=== PATIENT | female | born 1935 | race Caucasian/White ===

== ENCOUNTER 2016-11-08 21:04 | Emergency (ER) | payer MEDICARE, BC ==
[~2016-11-08] VITALS: Ht 157.5 cm; Wt 75.0 kg
[~2016-11-08 21:04] MED LIST: ALLO100T PO; ASPI-1085 PO; CYPR4TAB37 PO; ERGO500044 PO; FOLI0.8C2 PO; FURO-154 PO; GABA-354 PO; INFL100V INJ; LEVO150T4 PO; MILN50TA PO; NIAC750T2 PO; POTA20TA87 PO; PROP15DR BOTH EYES; RANI15SY PO; SUCR1TAB PO; TELM1TAB26 PO; TIZA4TAB4 PO; TRAM50TA4 PO; TRIA15CR3 TOP
--- OUTSIDE RECORDS SUMMARY | 2016-11-08 21:09 | XMS REPORT | Continuity of Care Document ---
Author Author [facility] Organization [facility] Address Unknown Phone Unavailable Support Name Relationship Address Phone PATRICIO WEI MD Caregiver [address] [place] [address] Unavailable PATRICIO WEI MD Caregiver [address] [place] [address] Unavailable SAMANTA COVARRUBIAS MD Caregiver [address] [place] [address] Unavailable VIRGINIE CABRERA MD Caregiver [address] [place] [address] DRIVE [place] [id number] Unavailable RENETTA GIANG Next Of Kin [address] [place] [address] C Insurance Providers Guarantor Karly Giang Address [address] [place] [address] Email DENIED 09-16-16 Payer Medicare Policy Number [id number] Subscriber's Name GeorgeAntonioasiflambert Rodriguez Relationship 18 Self Effective Date 00 Payer Blue Cross Other Policy Number [id number] Subscriber's Name Karly Giang Jennifer Relationship 18 Self Group Number [id number] Advance Directives Directive Response Recorded Date/Time Advanced Directives Type DNR Documentation DPOA for Healthcare 09/16/16 5:22pm Ordered Resuscitation Status Do Not Resuscitate 09/16/16 7:56pm DPOA for Healthcare Only Liya ros sarah 09/16/16 10:41pm Living Will No 09/16/16 10:41pm Advance Directive Consult Information Given 09/17/16 10:41am Chief Complaint and Reason for Visit Chief Complaint HYPOKALEMIA,HYPERTENSION,ALTERED MENTAL STATUS Reason for Visit History of MS (myocardial infarction) Problems Active Problems Medical Problem Onset Date Status Altered mental status Unknown Acute Anxiety Unknown Chronic Degenerative arthritis of hip Unknown Chronic Fibromyalgia Unknown Chronic GERD (gastroesophageal reflux disease) Unknown Chronic Gout Unknown Chronic Headache Unknown History of MS (myocardial infarction) Unknown Resolved History of gastric ulcer Unknown Hyperlipemia Unknown Chronic Hypertension Unknown Chronic Hypokalemia Unknown Acute Hypothyroidism Unknown Chronic SANJEEV (obstructive sleep apnea) Unknown Chronic Obesity (BMI 30-39.9) Unknown Chronic Post-op pain Unknown Acute Past Problems Medical Problem Onset Date Chest pain Unknown Right upper lobe pneumonia Unknown Right upper lobe pneumonia Unknown Medications Current Home Medications Medication Dose Units Route Directions Days Qty Instructions Start Date Allopurinol 100 Mg Tablet 100 Mg Oral Daily 03/25/14 Aspirin (Aspirin Ec) 81 Mg Tablet.dr 81 Mg Oral Daily 09/16/16 Cyproheptadine Hcl 4 Mg Tablet 8 Mg Oral Three Times A Day Ergocalciferol (Vitamin D2) (Vitamin D2) 50,000 Unit Capsule 50,000 Unit Oral Weekly 09/16/16 Folic Acid (Fa-8) 0.8 Mg Capsule 0.8 Mg Oral Daily 09/16/16 Furosemide (Lasix) 20 Mg Tablet 20 Mg Oral Daily 09/16/16 Gabapentin 400 Mg Capsule 400 Mg Oral Bedtime 07/28/15 Infliximab (Remicade) 100 Mg/Vial Vial 100 Mg Injection Levothyroxine Sodium (Synthroid) 150 Mcg Tablet 1 Tab Oral Before Breakfast 30 Tablet BEST IF TAKEN BEFORE BREAKFAST 09/17/16 Milnacipran Hcl (Savella) 50 Mg Tablet 50 Mg Oral Twice A Day 12/05 Niacin 750 Mg Tablet.er 1,500 Mg Oral Daily 11/04/14 Potassium Chloride 20 Meq Tab.er.prt 20 Meq Oral Daily 09/16/16 Propylene Glycol/Peg 400 (Systane 0.3-0.4% Eye Drops) 15 Ml Drops 1 Drop Both Eyes As Needed 09/16/16 Ranitidine Hcl 15 Mg/1 Ml Syrup 150 Mg Oral Daily 09/16/16 Sucralfate 1 Gm Tablet 1 G Oral Four Times Daily 07/28/15 Telmisartan/Amlodipine (Telmisartan-Amlodipine 40-5 Mg) 1 Each Tablet 1 Tab Oral Daily 09/16/16 Tizanidine Hcl 4 Mg Tablet 4 Mg Oral Three Times A Day as needed for Neck Pain 09/16/16 Tramadol Hcl 50 Mg Tablet 50-100 Mg Oral Every 4 Hours as needed for Pain 10/23/15 Triamcinolone (Triamcinolone Acetonide) 15 Applic/15 G Cr 1 Applic Topically As Needed 10/23/15 Past Home Medications Medication Directions Ordered Status Aspirin (Terri Chewable) 81 Mg Tab.chew, 1 Tab Oral Daily 09/25/15 Discontinued Catapres Patch , 3.1 02/21/09 Discontinued Cholestyramine (Cholestyramine Packet) 4 G Packet, 03/25/14 Discontinued Clonidine Hcl (Catapres-Tts 2) 0.2 Mg/24 Hr/Patch.wk Patch.tdwk, 02/21/09 Discontinued Colchicine (Colcrys) 0.6 Mg Tablet, 1 Tab Oral Daily 03/25/14 Discontinued Ezetimibe (Zetia) 10 Mg Tablet, 10 Mg Oral Daily 02/12/09 Discontinued Fenofibrate Nanocrystallized (Tricor) 145 Mg Tablet, 145 Mg Oral Daily Discontinued Hydrochlorothiazide 12.5 Mg Tablet, 25 Mg Oral Daily 02/21/09 Discontinued Isosorbide Mononitrate 120 Mg Tab.sr.24h, 120 Mg Oral Daily 06/04/11 Discontinued Isosorbide Mononitrate 60 Mg Tab.sr.24h, 60 Mg Oral Twice A Day 02/12/09 Discontinued Levothyroxine Sodium 175 Mcg Tablet, 175 Mcg Oral Before Breakfast 09/25/15 Discontinued Levothyroxine Sodium 100 Mcg Tablet, 100 Mcg Oral Daily 02/12/09 Discontinued Liposen , 150 Mg Oral Daily 11/01/11 Discontinued Motrin , As Needed 02/21/09 Discontinued Omeprazole (Prilosec) 20 Mg Tablet.dr, 20 Mg Oral Daily 02/12/09 Discontinued Percocet , Prn Q4h 02/21/09 Discontinued Potassium Chloride 10 Meq Capsule.sa, 10 Meq Oral Daily 06/04/11 Discontinued Tramadol Hcl (Ultram) 50 Mg Tablet, 03/25/14 Discontinued Social History Social History Problem Response Recorded Date/Time Onset Date Status Reason for Hospitalization Hypokalemia, Hypertension 09/17/2016 6:41pm Not Applicable Not Applicable Hx Substance Use No 09/16/2016 5:22pm Not Applicable Not Applicable Hx Alcohol Use No 09/16/2016 5:22pm Not Applicable Not Applicable Has the pt used tobacco in the last 12 months No 09/16/2016 10:44pm Not Applicable Not Applicable Tobacco Usage none 09/30/2015 2:50pm Not Applicable Not Applicable Query Response Start Date Stop Date Smoking Status Former smoker Hospital Discharge Instructions Instructions: Care Instructions: I was in the hospital because (patient own words): headache and nausea Discharge Diet: Regular Discharge Activity: No restrictions. Follow Up Appointments: Dr. Wei next week, office will call. Previously scheduled appointment with psych 09/29/16 Pending Lab / Results: Follow up w/ your PCP Expected Signs/Symptoms: Anxiety Notify Physician If: Confusion During Business Hours:: Please call the physician's office at [phone] After Business Hours:: Please call [phone] and have the pole peeling machine operator page the physician. Pain Management/Treatment: NA Wound/Incision Care: NA Condition at time of discharge: Good Plan of Care Discharge Date 09/17/16 7:12pm Disposition 01 DISCHARGED HOME, SELF-CARE Instructions/Education Provided Hypokalemia (ED) Hypertension (ED) Prescriptions See Medication Section Care Plan and Goals See Discharge Instructions Section Functional Status Query Response Date Recorded Mobility Status Ambulatory September 17, 2016 12:58am Assistive Devices R foot brace September 17, 2016 12:58am Activity Limitations None September 17, 2016 12:58am Feeding Ability Independent September 17, 2016 12:58am Toileting Ability Assist September 17, 2016 12:58am Grooming Ability Independent September 17, 2016 12:58am Dressing Ability Assist September 17, 2016 12:58am Driving Ability Dependent September 17, 2016 12:58am Housework Ability Assist September 17, 2016 12:58am Meal Preparation Ability Assist September 17, 2016 12:58am Stair Climbing Ability Assist September 17, 2016 12:58am Ability to complete ADL's impeded by Change in Cognition September 17, 2016 12:58am Cognitive/Perceptual Impairments Acute confusion September 17, 2016 12:58am Preferred Method of Learning Listening September 17, 2016 12:58am Allergies, Adverse Reactions, Alerts Allergen Type Severity Reaction Status Last Updated Angiotensin-converting enzyme inhibitor Allergy Unknown Active 09/16/16 Gfvkdyk-Iep-Jgu Reductase Inhibitor Allergy Intermediate RASH; MYALGIAS Active 09/16/16 Lisinopril Adverse Reaction Unknown COUGHING Active 09/16/16 Amphetamine Adverse Reaction Unknown TERRIBLE HEADACHES Active 09/16/16 Dextroamphetamine Adverse Reaction Unknown TERRIBLE HEADACHES Active 09/16 Methylphenidate Adverse Reaction Unknown HEADACHES Active 09/16/16 Pitavastatin Adverse Reaction Unknown MUSCLE WEAKNESS/SORENESS Active Immunizations Query Response on File Recorded Date/Time Hx Influenza Vaccination Y MAY 2016 09/16/16 10:44pm Hx Pneumococcal Vaccination Y 09/30/15 09/16/16 10:44pm Hx Influenza Vaccination Y MAY 2016 09/16/16 10:44pm Influenza Vaccine Hx fall 201509/16/16 5:22pm Vital Signs Acute Vital Signs Vital Response Date/Time Temperature (Fahrenheit) 96.9 deg F (96.8 - 99.1) 09/17/2016 3:46pm Temperature (Calculated Celsius) 36.66050 degrees C (36.0 - 37.3) 09/17/2016 3:46pm Pulse Rate (adult) 58 bpm (60 - 100) 09/17/2016 3:46pm Respiratory Rate 20 breaths/min (10 - 20) 09/17/2016 3:46pm O2 Sat by Pulse Oximetry 94 % (90 - 100) 09/17/2016 3:46pm Oxygen Delivery Method Room Air 09/17/2016 3:46pm Blood Pressure 111/54 mm Hg 09/17/2016 3:46pm Blood Pressure Source Automatic Cuff 09/17/2016 3:46pm Height (Feet) 5 feet 09/16/2016 10:40pm Height (Inches) 2.00 inches 09/16/2016 10:40pm Weight (Kilograms) 74.100 kg 09/17/2016 8:03am Body Mass Index (BMI) 29.8 09/16/2016 10:40pm Results Laboratory Results Test Name Result Units Flags Reference Collection Date/Time Result Date/ Time Comments White Blood Count 9.1 T/MM3 D 4.5-11.0 09/17/2016 5:11am 09/17/2016 5: 48am Red Blood Count 4.57 M/MM3 4.00-5.20 09/17/2016 5:11am 09/17/2016 5: 48am Hemoglobin 11.6 GM/DL L 12-16 09/17/2016 5:11am 09/17/2016 5:48am Hematocrit 36.7 % 36-46 09/17/2016 5:11am 09/17/2016 5:48am Mean Corpuscular Volume 80.3 UM3 80-100 09/17/2016 5:11am 09/17/2016 5: 48am Mean Corpuscular Hemoglobin 25.4 UUG L 26-34 09/17/2016 5:11am 2016 5:48am Mean Corpuscular Hemoglobin Concent 31.6 GM/DL 31-37 09/17/2016 5:09/17/2016 5:48am RDW Standard Deviation 50.1 FL 36.9-50.2 09/17/2016 5:09/17/2016 5 :48am Platelet Count 169 T/MM3 130-400 09/17/2016 5:09/17/2016 5:48am Mean Platelet Volume 9.2 UM3 L 9.4-12.4 09/17/2016 5:09/17/2016 5: 48am Neutrophils (%) (Auto) 75.8 % H 33-66 09/17/2016 5:09/17/2016 5: 48am Lymphocytes (%) (Auto) 19.5 % L 23-45 09/17/2016 5:09/17/2016 5: 48am Monocytes (%) (Auto) 4.3 % 0-9.0 09/17/2016 5:09/17/2016 5:48am Eosinophils (%) (Auto) 0.2 % 0-4 09/17/2016 5:09/17/2016 5:48am Basophils (%) (Auto) 0.1 % 0-2 09/17/2016 5:09/17/2016 5:48am Immature Granulocyte % (Auto) 0.1 % 0.0-0.5 09/17/2016 5:2016 5:48am Absolute Neutrophils (auto) 6.9 T/MM3 1.8-7.7 09/17/2016 5:2016 5:48am Absolute Lymphocytes (auto) 1.8 T/MM3 1-4.8 09/17/2016 5:2016 5:48am Absolute Monocytes (auto) 0.4 T/MM3 0-0.8 09/17/2016 5:09/17/2016 5:48am Absolute Eosinophils (auto) 0.0 T/MM3 0-0.5 09/17/2016 5:2016 5:48am Absolute Basophils (auto) 0.0 T/MM3 0-0.2 09/17/2016 5:09/17/2016 5:48am Absolute Immature Granulocyte (auto 0.01 T/MM3 0.00-0.03 09/17/2016 5: 09/17/2016 5:48am Icterus Index < 2 0-7 09/17/2016 5:09/17/2016 6:01am Chemistry Specimen Hemolysis < 15 0-25 09/17/2016 5:09/17/2016 6 :01am 0-25: Specimen Exhibited No Hemolysis. Turbidity < 20 0-20 09/17/2016 5:09/17/2016 6:01am Sodium Level 137 MEQ/L 134-144 09/17/2016 5:09/17/2016 6:01am Potassium Level 4.6 MEQ/L D 3.6-5 09/17/2016 5:09/17/2016 6:13am Chloride Level 105 MEQ/L 98-107 09/17/2016 5:09/17/2016 6:01am Carbon Dioxide Level 24 MEQ/L 22-30 09/17/2016 5:09/17/2016 6: 01am Anion Gap 8 MEQ/L 5-15 09/17/2016 5:09/17/2016 6:01am Blood Urea Nitrogen 21.0 MG/DL H 7-17 09/17/2016 5:09/17/2016 6: 01am Creatinine 1.1 MG/DL 0.7-1.2 09/17/2016 5:09/17/2016 6:01am BUN/Creatinine Ratio 19 RATIO 6-09/17/2016 5:09/17/2016 6:01am Glomerular Filtration Rate Calc 48 09/17/2016 5:09/17/2016 6: 01am Glucose Level 114 MG/DL H 65-110 09/17/2016 5:09/17/2016 6:01am Calculated Osmolality 268 MOSM/KG 261-280 09/17/2016 5:09/17/2016 6:01am Calcium Level 9.4 MG/DL D 8.4-10.2 09/17/2016 5:09/17/2016 6:13am Troponin I 0.027 ng/ml 0-0.12 09/16/2016 5:55pm 09/16/2016 6:30pm Troponin values with a difference of 55% increase from orginal troponin value represent a true biological DELTA value. (%increase Calc=Orginal Troponin value, divided by subsequent Troponin value, multiplied by 100) Magnesium Level 1.8 MG/DL 1.6-2.3 09/16/2016 5:55pm 09/16/2016 8:11pm Thyroid Stimulating Hormone (TSH) 0.20 MIU/L L 0.47-4.68 09/16/2016 5: 55pm 09/16/2016 8:32pm Urine Collection Type CLEANCATCH-MIDSTREAM 09/16/2016 6:09pm 2016 6:13pm Urine Color YELLOW YELLOW 09/16/2016 6:09pm 09/16/2016 6:13pm Urine Turbidity CLEAR CLEAR 09/16/2016 6:09pm 09/16/2016 6:13pm Urine Specific [place] 1.010 L 1.015-1.025 09/16/2016 6:09pm 2016 6:13pm Urine pH 6.5 5.0-8.0 09/16/2016 6:09pm 09/16/2016 6:13pm Urine Leukocyte Esterase NEGATIVE NEGATIVE 09/16/2016 6:09pm 2016 6:13pm Urine Nitrite NEGATIVE NEGATIVE 09/16/2016 6:09pm 09/16/2016 6:13pm Urine Protein 1+ A NEGATIVE 09/16/2016 6:09pm 09/16/2016 6:13pm Urine Glucose (UA) NEGATIVE NEGATIVE 09/16/2016 6:09pm 09/16/2016 6: 13pm Urine Ketones NEGATIVE NEGATIVE 09/16/2016 6:09pm 09/16/2016 6:13pm Urine Urobilinogen 0.2 EU/DL NORMAL 09/16/2016 6:09pm 09/16/2016 6: 13pm Urine Bilirubin NEGATIVE NEGATIVE 09/16/2016 6:09pm 09/16/2016 6: 13pm Urine Blood NEGATIVE NEGATIVE 09/16/2016 6:09pm 09/16/2016 6:13pm Urine WBC 0-1 /HPF 0-5 09/16/2016 6:09pm 09/16/2016 6:21pm Urine RBC 0-1 /HPF 0-3 09/16/2016 6:09pm 09/16/2016 6:21pm Urine Squamous Epithelial Cells NONE SEEN 09/16/2016 6:09pm 2016 6:21pm Urine Bacteria 2+ H NEGATIVE 09/16/2016 6:09pm 09/16/2016 6:21pm Urine Culture Indicated CULT NOT INDICATED 09/16/2016 6:09pm 2016 6:21pm Name: KARLY GIANG Unit #: [id number] : 1935 Sex: F Admit Date: 09/16/16 Loc / Svc: MED Discharge Date: DIAGNOSTIC IMAGING REPORT Report #: [id number] [facility] [place] Indication: ITS.REASON: confusion PROCEDURE: CT HEAD W/O CONTRAST: Encounter: Initial Comparison: October 23, 2015 Technique: Axial CT images through the head were performed without contrast. Iterative Reconstruction dose reducing technique was utilized. FINDINGS: The ventricles are of normal size, shape, and contour for the patient's age. There are scattered areas of low attenuation in the white matter which most likely represent changes from chronic microvascular ischemia. The brainstem, cerebellum, and cerebral hemispheres otherwise have a normal morphology and CT attenuation. There is no evidence of midline displacement. No hemorrhage, signs of acute territorial stroke, mass effect, mass lesions, or edema is evident. The visualized portions of the skull base, midface, and calvarium demonstrate no abnormality. The paranasal sinuses are well aerated and free of significant disease. The tympanic and mastoid cavities appear normal. IMPRESSION: No acute intracranial abnormality or hemorrhage. I am unable to appreciate the reported new hypodensity in the left caudate reported in the preliminary report. MRI can be performed for further evaluation if there is continued clinical concern for acute ischemia. There is a preliminary report by [employer]. . Procedures No known history of procedures. Encounters Encounter Location Arrival/Admit Date Discharge/Depart Date Attending Provider Discharged Inpatient (obs) [facility] 09/16/16 7:56pm 09/17/16 7: 12pm PATRICIO WEI MD Recent Diagnosis History of MS (myocardial infarction)
--- OUTSIDE RECORDS SUMMARY | 2016-11-08 21:09 | XMS REPORT | Continuity of Care Document ---
Author Author [facility] Organization [facility] Address Unknown Phone Unavailable Support Name Relationship Address Phone DEVANTE ALBRECHT DO Caregiver [facility] [address] [place] [address] PATRICIO WEI MD Caregiver [address] [place], [place] [phone] RENETTA GIANG Next Of Kin [address] [place] [address] Insurance Providers Payer Name Policy Number Subscriber Name Relationship Medicare [id number] Karly Giang 18 Self Blue Cross Other [id number] Karly Giang 18 Self Advance Directives Directive Response Recorded Date/Time Advanced Directives Type Living Will 03/25/14 10:07am Problems Medical Problems Problem Onset Date Status Chest pain Unknown Active Medications Medication Dose Route Sig Days/Qty Instructions Order Date Discontinued Date Status Levothyroxine Sodium 100 Mcg PO DAILY 02/12/09 06/04/11 Discontinued Hydrochlorothiazide 25 Mg PO DAILY 02/21/09 06/04/11 Discontinued Isosorbide Mononitrate 60 Mg PO TWICE A DAY 02/12/09 06/04/11 Discontinued Ezetimibe 10 Mg PO DAILY 02/12/09 06/04/11 Discontinued Omeprazole 20 Mg PO DAILY 02/12/09 06/04/11 Discontinued Fenofibrate Nanocrystallized 145 Mg PO DAILY 02/12/09 06/04/11 Discontinued [Motrin] NEEDED 02/21/09 06/04/11 Discontinued [Percocet] PRN Q4H 02/21/09 06/04/11 Discontinued Clonidine Hcl 02/21/09 02/21/09 Discontinued [Catapres Patch] 3.1 02/21/09 06/04/11 Discontinued Isosorbide Mononitrate 120 Mg PO DAILY 06/04/11 11/01/11 Discontinued Potassium Chloride 10 Meq PO DAILY 06/04/11 11/01/11 Discontinued [Liposen] 150 Mg PO DAILY 11/01/11 11/02/11 Discontinued Telmisartan 03/25/14 Active Allopurinol 1 Tab PO DAILY 03/25/14 Active Folic Acid 03/25/14 Active Levothyroxine Sodium 1 Tab PO BEFORE BREAKFAST BEST TAKEN BEFORE BREAKFAST 03/25/14 Active Colchicine 1 Tab PO DAILY 03/25/14 Active Cholestyramine 03/25/14 Active Tramadol HCl 03/25/14 Active Infliximab IV 03/25/14 Active Social History Social History Problem Response Recorded Date/Time Smoking Status Never smoker 03/25/2014 10:07am Hx Substance Use No 03/25/2014 10:07am Hx Alcohol Use No 03/25/2014 10:07am Hospital Discharge Instructions No hospital discharge instructions. Plan of Care No plan of care. Functional Status Query Response Date Recorded Physical Hygiene Self March 25, 2014 10:07am Disabilities Visual March 25, 2014 10:07am Devices Used Glasses March 25, 2014 10:07am Dressing Self March 25, 2014 10:07am Ambulation Self March 25, 2014 10:07am Diet Self March 25, 2014 10:07am Mental Status Alert Oriented March 25, 2014 10:07am Disabilities Visual March 25, 2014 10:07am Devices Used Glasses March 25, 2014 10:07am Physical Hygiene Self March 25, 2014 10:07am Dressing Self March 25, 2014 10:07am Ambulation Self March 25, 2014 10:07am Diet Self March 25, 2014 10:07am Allergies, Adverse Reactions, Alerts Allergen Type Severity Reaction Status Last Updated Angiotensin-converting enzyme inhibitor Allergy Unknown Active 06/04/11 Sfgerxd-Kdy-Anu Reductase Inhibitor Allergy Intermediate RASH Active 06/04 Immunizations Name Given Type Hx Influenza Vaccination Y 2012 Historical Hx Pneumococcal Vaccination Y FALL 2010 Historical Hx Influenza Vaccination Y 2012 Historical Vital Signs Acute Vital Signs Vital Response Date/Time Temperature (Fahrenheit) 96.8 deg F (96.8 - 99.1) Temperature (Calculated Celsius) 36.02272 degrees C (36.0 - 37.3) Pulse Rate (adult) 49 bpm (60 - 100) Respiratory Rate 20 breaths/min (10 - 20) O2 Sat by Pulse Oximetry 99 % (90 - 100) Blood Pressure 153/70 mm Hg Height 5 ft 2 in Weight 172 lb Body Mass Index 31.0 kg/m^2 Results Test Source Date Result Interp. Ref. Range Comments Activated Partial Thromboplast Time March 25, 2014 10:15am 26.4 SEC N 24-36 Alanine Aminotransferase (ALT/SGPT) March 25, 2014 10:15am 103 U/L H 9- 52 Albumin March 25, 2014 10:15am 4.1 G/DL N 3.5-5.0 Albumin/Globulin Ratio March 25, 2014 10:15am 1.6 RATIO N 1.1-2.2 Alkaline Phosphatase March 25, 2014 10:15am 91 U/L N 38-126 Anion Gap March 25, 2014 10:15am 16 MEQ/L H 5-15 Aspartate Amino Transf (AST/SGOT) March 25, 2014 10:15am 98 U/L H 14- 36 BUN/Creatinine Ratio March 25, 2014 10:15am 15 RATIO N 6-26 Basophils # (Auto) March 25, 2014 10:15am 0.1 T/MM3 N 0-0.2 Basophils (%) (Auto) March 25, 2014 10:15am 1.1 % N 0-2 Blood Urea Nitrogen March 25, 2014 10:15am 15.0 MG/DL N 7-17 Calcium Level March 25, 2014 10:15am 10.0 MG/DL N 8.4-10.2 Calculated Osmolality March 25, 2014 10:15am 277 MOSM/KG N 261-280 Carbon Dioxide Level March 25, 2014 10:15am 19 MEQ/L L 22-30 Chloride Level March 25, 2014 10:15am 108 MEQ/L H 98-107 Creatinine March 25, 2014 10:15am 1.0 MG/DL N 0.7-1.2 Eosinophils # (Auto) March 25, 2014 10:15am 0.1 T/MM3 N 0-0.5 Eosinophils (%) (Auto) March 25, 2014 10:15am 1.9 % N 0-4 Globulin March 25, 2014 10:15am 2.6 G/DL N 2.4-3.6 Glucose Level March 25, 2014 10:15am 121 MG/DL H 65-110 Hematocrit March 25, 2014 10:15am 42.7 % N 36-46 Hemoglobin March 25, 2014 10:15am 14.8 GM/DL N 12-16 Lymphocytes # (Auto) March 25, 2014 10:15am 2.8 T/MM3 N 1-4.8 Lymphocytes (%) (Auto) March 25, 2014 10:15am 58.8 % H 23-45 Mean Corpuscular Hemoglobin March 25, 2014 10:15am 32.7 UUG N 26-34 Mean Corpuscular Hemoglobin Concent March 25, 2014 10:15am 34.7 GM/DL N 31-37 Mean Corpuscular Volume March 25, 2014 10:15am 94.3 UM3 N 80-100 Mean Platelet Volume March 25, 2014 10:15am 9.2 UM3 L 9.4-12.4 Monocytes # (Auto) March 25, 2014 10:15am 0.4 T/MM3 N 0-0.8 Monocytes (%) (Auto) March 25, 2014 10:15am 7.6 % N 0-9.0 Neutrophils # (Auto) March 25, 2014 10:15am 1.5 T/MM3 L 1.8-7.7 Neutrophils (%) (Auto) March 25, 2014 10:15am 30.4 % L 33-66 Platelet Count March 25, 2014 10:15am 185 T/MM3 N 130-400 Potassium Level March 25, 2014 10:15am 4.0 MEQ/L N 3.6-5 Prothromb Time International Ratio March 25, 2014 10:15am 0.90 N 0.81- 1.09 THERAPUTIC RANGE=2.00-3.00 FOR ANTI-THROMBOSIS THERAPUTIC RANGE=2.50- 3.50 FOR IMPLANTED VALVE RDW Standard Deviation March 25, 2014 10:15am 43.4 FL N 36.9-50.2 Red Blood Count March 25, 2014 10:15am 4.53 M/MM3 N 4.00-5.20 Sodium Level March 25, 2014 10:15am 143 MEQ/L N 134-144 Total Bilirubin March 25, 2014 10:15am 0.90 MG/DL N 0.20-1.30 Total Protein March 25, 2014 10:15am 6.7 G/DL N 6.3-8.2 Troponin I March 25, 2014 10:15am < 0.012 ng/ml 0-0.12 White Blood Count March 25, 2014 10:15am 4.8 T/MM3 N 4.5-11.0 Chemistry Specimen Hemolysis March 25, 2014 10:15am < 15 0-25 0-25: No Hemolysis.26-70: Slight Hemolysis - can falsely elevate K and Urine Protein. 71-285: Moderate Hemolysis - can falsely elevate K, Troponin I, CA 19-9, PTH, CSF GLucose, and Urine Protein, and can falsely decrease Phenytoin. 286-999: Gross Hemolysis - can falsely elevate K, Troponin I, CA 19-9, PTH, CSF Glucose, and Urine Protine, and can falsely decrease Phenytoin. Recommend specimen recollection. Lab Scanned Report May 26, 2011 10:30pm LAB TEST FORM REQUEST [id number] - EKG February 21, 2009 1:22pm Complete - Turbidity March 25, 2014 10:15am < 20 0-20 Glomerular Filtration Rate Calc March 25, 2014 10:15am 54 - Immature Granulocyte # (Auto) March 25, 2014 10:15am 0.01 T/MM3 N 0.00- 0.03 Immature Granulocyte % (Auto) March 25, 2014 10:15am 0.2 % N 0.0-0.5 Icterus Index March 25, 2014 10:15am < 2 0-7 OH-Fki-H-Type Natriuretic Peptide March 25, 2014 10:15am 370 PG/ML H 0- 175 Rule in cut points: <50 years old=450; 50-75 years old=900; >75 years old=1800; When utilizing ProBNP rule-in cut points, adjustment for impaired renal function is typically not required. Wet Prep Vagina May 26, 2011 5:00pm Name: KARLY GIANG Unit #: [id number] : 1935 Sex: F Loc / Svc: ED DOS: Signed Report #: [id number] DIAGNOSTIC IMAGING REPORT TYPE OF EXAM: CHEST 1 VIEW Dictated By: CAROLINE BURROWS MD INDICATION: ITS.REASON: CHEST PAIN CHEST 1 VIEW: Comparison: None FINDINGS: The lungs are clear. There is no abnormal airspace opacity, pleural effusion or pneumothorax identified. The heart size, pulmonary vasculature and mediastinum are within normal limits. No significant skeletal abnormality is seen. IMPRESSION: No acute cardiopulmonary abnormality. . Procedures No known history of procedures. Encounters Encounter Location Date/Time Departed Emergency Room [facility] 03/25/14 10:07am Recent Diagnosis
--- OUTSIDE RECORDS SUMMARY | 2016-11-08 21:09 | XMS REPORT | Continuity of Care Document ---
Author Author [facility] Organization [facility] Address Unknown Phone Unavailable Support Name Relationship Address Phone BENJAMIN HENDRIX MD Caregiver [address] [place] [address] PATRICIO WEI MD Caregiver [address] [facility] [address] [place] [phone] RENETTA GIANG Next Of Kin [address] [place] [address] C Insurance Providers Payer Name Policy Number Subscriber Name Relationship Medicare [id number] Karly Giang 18 Self Blue Cross Other [id number] Karly Giang 18 Self Advance Directives Directive Response Recorded Date/Time Advanced Directives Type None 11/04/14 11:40am Problems Medical Problems Problem Onset Date Status Chest pain Unknown Active Right upper lobe pneumonia Unknown Active Right upper lobe pneumonia Unknown Active Medications Medication Dose Route Sig [...] Active Colchicine 1 Tab PO DAILY 03/25/14 11/04/14 Discontinued Cholestyramine 03/25/14 11/04/14 Discontinued Tramadol HCl 03/25/14 11/04/14 Discontinued Infliximab IV 03/25/14 Active [Carafate] 11/04/14 Active Niacin 11/04/14 Active Aspirin 325 Mg PO 11/04/14 Active Methotrexate Sodium 11/04/14 Active [Nexium] 11/04/14 Active [Trazodone] 11/04/14 Active Levofloxacin 500 Mg PO DAILY 10 Qty 11/04/14 Active Albuterol Sulfate 2 Puff ORAL INH EVERY 4-6 HOURS PRN SHORTNESS OF AIR/ WHEEZING 1 Qty use with spacer 11/04/14 Active Promethazine HCl/Codeine 5 Ml PO Every 6 Hours PRN COUGH 60 Qty Active Social History Social History Problem Response Recorded Date/Time Hx Substance Use No 11/04/2014 11:40am Hx Alcohol Use No 11/04/2014 11:40am Tobacco Usage none 03/25/2014 11:44am Query Response Start Date Stop Date Smoking Status Former smoker Hospital Discharge Instructions No hospital discharge instructions. Plan of Care No plan of care. Functional Status Query Response Date Recorded Physical Hygiene Self November 04, 2014 11:40am Disabilities Visual November 04, 2014 11:40am Devices Used Glasses November 04, 2014 11:40am Dressing Self November 04, 2014 11:40am Ambulation Self November 04, 2014 11:40am Diet Self November 04, 2014 11:40am Mental Status Alert November 04, 2014 3:25pm Disabilities Visual November 04, 2014 11:40am Devices Used Glasses November 04, 2014 11:40am Physical Hygiene Self November 04, 2014 11:40am Dressing Self November 04, 2014 11:40am Ambulation Self November 04, 2014 11:40am Diet Self November 04, 2014 11:40am Allergies, Adverse Reactions, Alerts Allergen Type Severity Reaction Status Last Updated Angiotensin-converting enzyme inhibitor Allergy Unknown Active 06/04/11 Dvxelfz-Luu-Uwh Reductase Inhibitor Allergy Intermediate RASH Active 06/04 Immunizations Name Given Type Hx Influenza Vaccination Y MAY 2014 Historical Hx Pneumococcal Vaccination Y FALL 2010 Historical Hx Influenza Vaccination Y MAY 2014 Historical Vital Signs Acute Vital Signs Vital Response Date/Time Temperature (Fahrenheit) 98.8 deg F (96.8 - 99.1) Temperature (Calculated Celsius) 37.79837 degrees C (36.0 - 37.3) Pulse Rate (adult) 68 bpm (60 - 100) Respiratory Rate 18 breaths/min (10 - 20) O2 Sat by Pulse Oximetry 93 % (90 - 100) Blood Pressure 121/56 mm Hg Height 5 ft 2 in Weight 173 lb Body Mass Index 31.0 kg/m^2 Results Test Source Date Result Interp. Ref. Range Comments Procalcitonin November 04, 2014 1:04pm 0.17 NG/ML - PCT </=0.5 ng/mL - sepsis not likely;PCT >0.5 and </=2 ng/mL - sepsis possible; PCT >2 ng/mL - sepsis likely; PCT >/=10 ng/mL - systemic inflammatory response - sepsis or septic shock highly indicated. Influenza Type B Antigen November 04, 2014 12:55pm Negative - Negative for Flu B protein antigen. Assay sensitivity is90%. Influenza Type A Antigen November 04, 2014 12:55pm Negative - Negative for Flu A protein antigen. Assay sensitivity is90%. Venous Blood Lactate November 04, 2014 1:04pm 1.0 MMOL/L N 0.6-2.2 Activated Partial Thromboplast Time March 25, 2014 10:15am 26.4 SEC N 24-36 Alanine Aminotransferase (ALT/SGPT) November 04, 2014 11:58am 35 U/L N 9- 52 Albumin November 04, 2014 11:58am 3.4 G/DL L 3.5-5.0 Albumin/Globulin Ratio November 04, 2014 11:58am 0.9 RATIO L 1.1-2.2 Alkaline Phosphatase November 04, 2014 11:58am 99 U/L N 38-126 Anion Gap November 04, 2014 11:58am 13 MEQ/L N 5-15 Aspartate Amino Transf (AST/SGOT) November 04, 2014 11:58am 44 U/L H 14-36 BUN/Creatinine Ratio November 04, 2014 11:58am 14 RATIO N 6-26 Band Neutrophils # October 24, 2014 9:56am 0.1 T/MM3 - Band Neutrophils % October 24, 2014 9:56am 3.0 % N 0-6 Basophils # (Auto) November 04, 2014 11:58am 0.0 T/MM3 N 0-0.2 Basophils (%) (Auto) November 04, 2014 11:58am 0.2 % N 0-2 Blood Urea Nitrogen November 04, 2014 11:58am 13.0 MG/DL N 7-17 Calcium Level November 04, 2014 11:58am 8.9 MG/DL N 8.4-10.2 Calculated Osmolality November 04, 2014 11:58am 268 MOSM/KG N 261-280 Carbon Dioxide Level November 04, 2014 11:58am 20 MEQ/L L 22-30 Chemistry Specimen Hemolysis November 04, 2014 11:58am < 15 0-25 0-25: No Hemolysis.26-70: Slight [...] can falsely decrease Phenytoin. Recommend specimen recollection. Chloride Level November 04, 2014 11:58am 106 MEQ/L N 98-107 Creatinine November 04, 2014 11:58am 0.9 MG/DL N 0.7-1.2 EKG February 21, 2009 1:22pm Complete - Eosinophils # (Auto) November 04, 2014 11:58am 0.3 T/MM3 N 0-0.5 Eosinophils # (Manual) October 24, 2014 9:56am 0.1 T/MM3 N 0-0.5 Eosinophils % (Manual) October 24, 2014 9:56am 3.0 % N 0-4 Eosinophils (%) (Auto) November 04, 2014 11:58am 5.0 % H 0-4 Globulin November 04, 2014 11:58am 3.8 G/DL H 2.4-3.6 Glomerular Filtration Rate Calc November 04, 2014 11:58am 60 - Glucose Level November 04, 2014 11:58am 91 MG/DL N 65-110 Hematocrit November 04, 2014 11:58am 34.3 % L 36-46 Hemoglobin November 04, 2014 11:58am 11.4 GM/DL L 12-16 Icterus Index November 04, 2014 11:58am < 2 0-7 Immature Granulocyte # (Auto) November 04, 2014 11:58am 0.00 T/MM3 N 0.00- 0.03 Immature Granulocyte % (Auto) November 04, 2014 11:58am 0.0 % N 0.0-0.5 Lab Scanned Report October 24, 2014 7:49pm LAB TEST FORM REQUEST - Lymphocytes # (Auto) November 04, 2014 11:58am 1.3 T/MM3 N 1-4.8 Lymphocytes # (Manual) October 24, 2014 9:56am 2.2 T/MM3 N 1-4.8 Lymphocytes % (Manual) October 24, 2014 9:56am 49.0 % H 23-45 Lymphocytes (%) (Auto) November 04, 2014 11:58am 24.8 % N 23-45 Mean Corpuscular Hemoglobin November 04, 2014 11:58am 32.5 UUG N 26-34 Mean Corpuscular Hemoglobin Concent November 04, 2014 11:58am 33.2 GM/DL N 31-37 Mean Corpuscular Volume November 04, 2014 11:58am 97.7 UM3 N 80-100 Mean Platelet Volume November 04, 2014 11:58am 9.4 UM3 N 9.4-12.4 Monocytes # (Auto) November 04, 2014 11:58am 0.3 T/MM3 N 0-0.8 Monocytes # (Manual) October 24, 2014 9:56am 0.3 T/MM3 N 0-0.8 Monocytes % (Manual) October 24, 2014 9:56am 6.0 % N 0-9.0 Monocytes (%) (Auto) November 04, 2014 11:58am 6.5 % N 0-9.0 FG-Ewr-J-Type Natriuretic Peptide November 04, 2014 11:58am 532 PG/ML H 0- 175 Rule in cut points: <50 years old=450; 50-75 years old=900; >75 years old=1800; When utilizing ProBNP rule-in cut points, adjustment for impaired renal function is typically not required. Neutrophils # (Auto) November 04, 2014 11:58am 3.2 T/MM3 N 1.8-7.7 Neutrophils # (Manual) October 24, 2014 9:56am 1.7 T/MM3 L 1.8-7.7 Neutrophils % (Manual) October 24, 2014 9:56am 37.0 % N 33-66 Neutrophils (%) (Auto) November 04, 2014 11:58am 63.5 % N 33-66 Platelet Count November 04, 2014 11:58am 175 T/MM3 N 130-400 Potassium Level November 04, 2014 11:58am 3.4 MEQ/L L 3.6-5 Prothromb Time International Ratio March 25, 2014 10:15am 0.90 N 0.81- 1.09 THERAPUTIC RANGE=2.00-3.00 FOR ANTI-THROMBOSIS THERAPUTIC RANGE=2.50- 3.50 FOR IMPLANTED VALVE RDW Standard Deviation November 04, 2014 11:58am 54.2 FL H 36.9-50.2 Reactive Lymphocytes # October 24, 2014 9:56am 0.1 T/MM3 H 0-0 Reactive Lymphocytes % October 24, 2014 9:56am 2.0 % H 0-0 Red Blood Count November 04, 2014 11:58am 3.51 M/MM3 L 4.00-5.20 Red Cell Morphology Comment October 24, 2014 9:56am Normal - Sodium Level November 04, 2014 11:58am 139 MEQ/L N 134-144 Total Bilirubin November 04, 2014 11:58am 1.90 MG/DL H 0.20-1.30 Total Protein November 04, 2014 11:58am 7.2 G/DL N 6.3-8.2 Troponin I November 04, 2014 11:58am < 0.012 ng/ml 0-0.12 Turbidity November 04, 2014 11:58am < 20 0-20 White Blood Count November 04, 2014 11:58am 5.0 T/MM3 N 4.5-11.0 Wet Prep Vagina May 26, 2011 5:00pm Name: KARLY GIANG Unit #: [id number] : 1935 Sex: F Loc / Svc: ED DOS: Signed Report #: [id number] DIAGNOSTIC IMAGING REPORT TYPE OF EXAM: CHEST, PA & LATERAL Dictated By: CAROLINE BURROWS MD INDICATION: ITS.REASON: cough/lethargy CHEST 2-VIEWS UPRIGHT (PA & LAT) COMPARISON: August 09, 2014 FINDINGS: There is new hazy airspace opacity in the right upper lobe projecting over the inferior scapular margin. This is also seen on the lateral view posteriorly overlying the spine. This is adjacent to an overlying monitoring lead on the frontal view. There may be subtle groundglass opacity in the left lower lobe as well. No pneumothorax or effusion. Heart size and mediastinal contours are stable. Impression: Right upper lobe pneumonia. . Procedures Procedure Status Date Provider(s) CHEST X-RAY 2VW FRONTAL&LATL completed 08/09/14 BREATHING CAPACITY TEST completed 08/09/14 PULM FUNCT TST PLETHYSMOGRAP completed 08/09/14 CO/MEMBANE DIFFUSE CAPACITY completed 08/09/14 Encounters Encounter Location Date/Time Registered Emergency Room [facility] 11/04/14 11:34am Registered Clinic [facility] 08/09/14 1:33pm Recent Diagnosis
[2016-11-08 21:20] VITALS: Ht 157.5 cm; Wt 75.0 kg
--- NOTE | 2016-11-08 21:35 | ERPDOC ---
Departure Disposition Decision Date: Nov 08, 2016 Disposition Decision Time: 22:58 Disposition: 01 DISCHARGED HOME, SELF-CARE Impression Impression Impression: Primary Impression: Ankle sprain Encounter type: initial encounter Involved ligament of ankle: unspecified ligament Laterality: unspecified laterality Qualified Codes: S93.409A - Sprain of unspecified ligament of unspecified ankle, initial encounter Additional Impressions: Knee pain, acute Laterality: right Qualified Codes: M25.561 - Pain in right knee Hip pain Laterality: right Qualified Codes: M25.551 - Pain in right hip Fall Encounter type: initial encounter Qualified Codes: W19.XXXA - Unspecified fall, initial encounter Severity: Moderate Condition: Improved Seen By: Mid-level only Referrals: PATRICIO WEI MD (Family) Patient Instructions: Ankle Sprain (ED), Knee Sprain (ED) Problems/Meds/Labs Reviewed?: Yes Medications reviewed and manag: Yes Additional Instructions: Your x-rays did not show a fracture. You may take Percocet 5/325mg, 1-2 tabs every 6 hours as needed for pain. Wear ivette wrap as directed on right ankle. You may loosen wrap to allow for swelling. Ice knee/ankle and elevated for swelling as discussed. Follow treatment plan. Follow with your PCP in one week for re-evaluation, sooner if worsting symptoms. Follow up care ordered?: Yes Mental Status: Alert, Oriented HPI - Fall/Injury General Chief Complaint: Fall Stated Complaint: FALL,HAND & KNEE PAIN Time Seen by Provider: 21:35 Source: patient, family HPI - Fall/Injury Initial Comments 81 YO F brought to ED for evaluation after a fall this afternoon outside of Dr. Banuelos office at approx. 1430. Patient says she thinks she tripped over the curb falling forward catching herself with both hands and then landing on right knee/ leg. Patient was able to ambulate after fall but as day as gone on she has had increased pain to her right lateral ankle, right anterior knee and right hip. Patient denies LOC or striking head. Patient does have memories problems and seems somewhat confused which daughter who accompanies says is patient normal mentation. Pain Scale: Now: 9/10 Injuries/Pain Location: lower extremity Context: tripped Loss of Consciousness: no loss of consciousness Associated Symptoms: other (ataxia), trouble walking (pain with ambulation), DENIES: abdominal pain, chest pain, confusion, dizziness, headache, lightheadedness, nausea/vomiting, neck pain, ringing in ears, seizures, shortness of breath, slurred speech, vision changes Allergies: Coded Allergies: IVETTE Inhibitors (Verified Allergy, Unknown, 11/08/16) amphetamine (Unverified Adverse Reaction, Unknown, TERRIBLE HEADACHES, ) dextroamphetamine (Unverified Adverse Reaction, Unknown, TERRIBLE HEADACHES, 11/08/16) lisinopril (Unverified Adverse Reaction, Unknown, COUGHING, 11/08/16) methylphenidate (Unverified Adverse Reaction, Unknown, HEADACHES, 11/08/16) pitavastatin (Unverified Adverse Reaction, Unknown, MUSCLE WEAKNESS/ SORENESS, 11/08/16) Past History Past Medical History Metabolic: hypercholesterolemia, hypertension, hypothyroidism ENMT: sleep apnea, snoring Cardiac: CAD, NV GI: GERD, ulcers Female: renal insufficiency Neurological: fibromyalgia, headaches Musculoskeletal: osteoarthritis, rheumatoid arthritis Psychological: anxiety, dementia, depression Surgical History General: appendix, gallbladder, other, tonsils Cardiac: cardiac cath Reproductive/: hysterectomy, other Joint: hip Family History Family PMH: FOUND: CVA, cancer, hypercholesterolemia, hypertension Vaccines Hx Influenza Vaccination: Yes (MAY 2016) Hx Pneumococcal Vaccination: Yes (09/30/15) Social History Does patient use chewing tobac: No Current Occupational Status: retired Review of Systems Constitutional Constitutional: DENIES: chills, dizziness, fever, weakness Eyes General: DENIES: erythema, exudate Lids/Accessories: DENIES: erythema, swelling Vision: DENIES: blurring ENMT Ears: DENIES: pain Sinuses: DENIES: congestion, rhinorrhea Mouth/Throat: DENIES: sore throat Cardiovascular Cardiac: DENIES: chest pain, murmur Rhythm/Rate: DENIES: palpitations Pulmonary Respiratory: DENIES: cough, dyspnea GI Upper Abdomen: DENIES: nausea, pain, vomiting Lower Abdomen: DENIES: diarrhea, pain General: DENIES: dysuria, pain Musculoskeletal General: joint pain, tenderness Integumentary Skin: DENIES: color change, itching, rash Neurological General: DENIES: ataxia, change in strength, numbness, paralysis/paresis, weakness Psychiatric Psychiatric: DENIES: anxiety, depression, nervousness Physical Exam General General Nourishment: well nourished, well developed, no acute distress, adult General Body Habitus: well groomed Vitals and Pain Weight: Kilograms: Height (feet): 5 Height (inches): 2.00 Triage Pain Scale: Eyes (brief) Eyes Brief: found: EOMI, PERRL ENMT (brief) ENMT Brief: FOUND: TM clear, TM good light reflex, mucosa moist, NOT FOUND: nasal exudate, nasal swelling, pharnyx erythema Neck (brief) Neck: FOUND: trachea midline, NOT FOUND: adenopathy, spasm, tenderness, thyromegaly Respiratory (brief) Respiratory: FOUND: clear all kaur, equal bilaterally, symmetrical Cardiovascular (brief) Cardiac: FOUND: regular rate, regular rhythm Pulses: all distal extremities, equal, strong Abdomen (brief) Abdominal Brief: FOUND: bowel normo active x4, soft, NOT FOUND: distended, tender Musculoskeletal Joint #1: Side: Right Joint: hip, knee, ankle Joint Findings: FOUND: ROM limited (in ankle due to pain), pain (see below) , swelling (see below), NOT FOUND: deformity, discoloration, instability, laceration Comments Patient has swelling and TTP to right lateral malleolus. Patient has mild TTP over right patella and lateral right hip. Patient reports mild pain when trying to put ankle and knee through ROM. Right knee negative anterior/posterior drawer. Joint #2: Side: Right Joint: shoulder, elbow, wrist Joint Findings: FOUND: no abnormalities Joint #3: Side: Left Joint: shoulder, elbow, wrist, hip, knee, ankle Back: NOT FOUND: spasm, spine point tenderness, tenderness Integumentary (brief) Integumentary Brief: FOUND: dry, pink, warm Neurologic (brief) Neurological Brief: FOUND: CN w/o gross def to obs, motor-no gross deficits, sensory-no gross deficits Psychiatric (brief) Psychiatric Brief: FOUND: alert, normal affect, oriented Differential Diagnoses Considering: Contusion, Fracture, Sprain, Strain Progress Results/Orders Orders Procedure Category Date Status Time Hydromorphone PHA 11/08/16 Complete (Dilaudid) 22:00 Hip Right 2 View RAD 11/08/16 Resulted Ankle Right 3 View RAD 11/08/16 Resulted Knee Right 3 Views RAD 11/08/16 Resulted Oxycodone/Apap 5/325 PHA 11/08/16 Complete (Prepack) (Percocet 23:15 Premade Splint EDM 11/08/16 Transmitted 23:11 Medications Current ED Medications Hydromorphone HCl (Dilaudid) 0.5 mg O ONCE IM Last administered on 11/08/16t 22:41; Start 11/08/16 at 22:00; Stop 11/08/16 at 22:01; Status DC Oxycodone/ Acetaminophen (Percocet 5 (Prepack)) 1 pack O ONCE SENT HOME ; Start 11/08/16 at 23:15; Stop 11/08/16 at 23:16; Status DC Progress Progress Patient reports improvement of pain after Dilaudid. I discussed exam findings and x-ray results with patient and her daughter. I told patient that she will most likely be more sore tomorrow. I discussed treatment plan, use of pain medication, follow up with PCP and return precautions which patient and her daughter verbalized understanding. Xray Xray #1: Xray: Ankle R (no fracture, soft tissue swelling lateral ankle (Dr. Arias) ) Xray #2: Xray: Hip R (no fracture or acute findings, hardware intact (Dr. Arias)) Xray #3: Xray: Knee R (no fracture or acute findings (Dr. Arias)) ZAINA CRANDALL APRN Nov 08, 2016 21:35
--- OUTSIDE RECORDS SUMMARY | 2016-11-08 21:54 | XMS REPORT | Continuity of Care Document ---
Author Author [facility] Organization [facility] Address Unknown Phone Unavailable Support Name Relationship Address Phone DEVANTE ALBRECHT DO Caregiver [facility] [address] [place] [address] PATRICIO WEI MD Caregiver [address] [place], [place] [phone] RENETTA GIANG Next Of Kin [address] [place] [address] Insurance Providers Payer Name Policy Number Subscriber Name Relationship Medicare [id number] Karly Giang 18 Self Blue Cross Other [id number] Karly Giang 18 Self Advance Directives Directive [...] Angiotensin-converting enzyme inhibitor Allergy Unknown Active 06/04/11 Cuzzsxp-Agz-Vxh Reductase Inhibitor Allergy Intermediate RASH Active 06/04 Immunizations Name Given Type Hx Influenza Vaccination Y 2012 Historical Hx Pneumococcal Vaccination Y FALL 2010 Historical Hx Influenza Vaccination Y 2012 Historical Vital Signs Acute Vital Signs Vital Response Date/Time Temperature (Fahrenheit) 96.8 deg F (96.8 - 99.1) Temperature (Calculated Celsius) 36.08538 degrees C (36.0 - 37.3) Pulse Rate [...] 26, 2011 10:30pm LAB TEST FORM REQUEST [id number] - EKG February 21, 2009 1:22pm Complete - Turbidity March 25, 2014 10:15am < 20 0-20 Glomerular Filtration Rate Calc March 25, 2014 10:15am 54 - Immature Granulocyte # (Auto) March 25, 2014 10:15am 0.01 T/MM3 N 0.00- 0.03 Immature Granulocyte % (Auto) March 25, 2014 10:15am 0.2 % N 0.0-0.5 Icterus Index March 25, 2014 10:15am < 2 0-7 ZG-Jmi-P-Type Natriuretic Peptide March 25, 2014 10:15am 370 PG/ML H 0- 175 Rule in cut points: <50 years old=450; 50-75 years old=900; >75 years old=1800; When utilizing ProBNP rule-in cut points, adjustment for impaired renal function is typically not required. Wet Prep Vagina May 26, 2011 5:00pm Name: KARLY GIANG Unit #: [id number] : 1935 Sex: F Loc / Svc: ED DOS: Signed Report #: [id number] DIAGNOSTIC IMAGING REPORT TYPE OF EXAM: CHEST [...] Encounters Encounter Location Date/Time Departed Emergency Room [facility] 03/25/14 10:07am Recent Diagnosis
--- OUTSIDE RECORDS SUMMARY | 2016-11-08 21:54 | XMS REPORT | Continuity of Care Document ---
Author Author [facility] Organization [facility] Address Unknown Phone Unavailable Support Name Relationship Address Phone BENJAMIN HENDRIX MD Caregiver [address] [place] [address] PATRICIO WEI MD Caregiver [address] [facility] [address] [place] [phone] RENETTA GIANG Next Of Kin [address] [place] [address] C Insurance Providers Payer Name Policy Number Subscriber Name Relationship Medicare [id number] Karly Giang 18 Self Blue Cross Other [id number] Karly Giang 18 Self Advance Directives Directive [...] Angiotensin-converting enzyme inhibitor Allergy Unknown Active 06/04/11 Yauqrrz-Vvx-Czw Reductase Inhibitor Allergy Intermediate RASH Active 06/04 Immunizations Name Given Type Hx Influenza Vaccination Y MAY 2014 Historical Hx Pneumococcal Vaccination Y FALL 2010 Historical Hx Influenza Vaccination Y MAY 2014 Historical Vital Signs Acute Vital Signs Vital Response Date/Time Temperature (Fahrenheit) 98.8 deg F (96.8 - 99.1) Temperature (Calculated Celsius) 37.34790 degrees C (36.0 - 37.3) Pulse Rate [...] 04, 2014 11:58am 6.5 % N 0-9.0 BA-Qtn-L-Type Natriuretic Peptide November 04, 2014 11:58am 532 [...] 2011 5:00pm Name: KARLY GIANG Unit #: [id number] : 1935 Sex: F Loc / Svc: ED DOS: Signed Report #: [id number] DIAGNOSTIC IMAGING REPORT TYPE OF EXAM: CHEST, [...] Encounters Encounter Location Date/Time Registered Emergency Room [facility] 11/04/14 11:34am Registered Clinic [facility] 08/09/14 1:33pm Recent Diagnosis
[2016-11-08] MEDS ORDERED: HYDROMORPHONE 2mg/ml INJECTION IM ONE (22:00)
--- NOTE | 2016-11-08 22:04 | NUR ---
XRAY PT TAKEN TO XRAY PER CART
--- NOTE | 2016-11-08 22:32 | NUR ---
ROOM PT RETURNED TO ROOM 4 PER CART FROM XRAY
--- NOTE | 2016-11-08 22:41 | NUR ---
DILAUDID IM DILAUDID GIVEN FOR PAIN PT SARAH INJECTION WELL
--- NOTE | 2016-11-08 23:10 | NUR ---
PAIN PT STATES THE MEDICATION "HASN'T QUIT WORKED YET"
--- NOTE | 2016-11-08 23:11 | NUR ---
BATHROOM PT TAKEN TO BATHROOM PER W/C ABLE TO GET SELF UP OFF CART AND TAKE STEPS TO W/C PT ABLE TO MOVE IN BATHROOM AND MANIPULATE CLOTHES AND STOOL WITHOUT HELP
[2016-11-08] MEDS ORDERED: OXYCODONE/APAP 5/325 (Prepack) SENT HOME ONE (23:15)
--- NOTE | 2016-11-08 23:18 | NUR ---
MICHELE MICHELE WRAP TO RIGHT ANKLE WITH INSTRUCTIONS
--- NOTE | 2016-11-08 23:43 | NUR ---
INSTRUCTIONS DISMISSAL AND MEDICATION INSTRUCTIONS GIVEN TO PT DISP PREPACK OF PERCOCET AND RX FOR SAME WITH INSTRUCTIONS QUESTIONS ANSWERED PT VERBALIZED UNDERSTANDING OF ALL
[2016-11-08 23:47] VITALS: BP 189/81; PULSE 82; RESP 16; TEMP 98.3; O2SAT 96
--- NOTE | 2016-11-08 23:47 | NUR ---
DISMISS PT DISMISSED PER W/C WITH FAMILY
--- NOTE | 2016-11-09 08:00 | DI ---
Indication: ITS.REASON: pain posterior an medial knee after fall PROCEDURE: KNEE RIGHT 3 VIEWS: Encounter: Initial Comparison: None Findings: There is no acute fracture, dislocation or malalignment identified. Impression: No acute osseous abnormality. .
--- NOTE | 2016-11-09 08:00 | DI ---
Indication: ITS.REASON: pain on lateral side after fall PROCEDURE: HIP RIGHT 2 VIEW: Encounter: Initial Comparison: None Findings: There is no acute fracture, dislocation or malalignment identified. Right total hip prosthesis appears intact. Impression: No acute osseous abnormality. .
--- NOTE | 2016-11-09 08:01 | DI ---
Indication: ITS.REASON: pain around entire ankle after fall PROCEDURE: ANKLE RIGHT 3 VIEW: Encounter: Initial Comparison: October 31, 2015 Findings: There is no acute fracture, dislocation or malalignment identified. Mild lateral soft tissue swelling. Impression: No acute osseous abnormality. .
== END 2016-11-08 23:47 | disposition home or self-care (01) ==
LOC: ED 21:04
DX: S93.401A Sprain of unspecified ligament of right ankle, initial encounter (principal); M25.561 Pain in right knee; M25.551 Pain in right hip; W01.0XXA Fall on same level from slipping, tripping and stumbling without subsequent striking against object, initial encounter; Y93.01 Activity, walking, marching and hiking; Y92.481 Parking lot as the place of occurrence of the external cause; Y99.8 Other external cause status
CPT/HCPCS: 73502; 73562; 73610; 96372; 99283; J1170

== ENCOUNTER → 2016-12-08 | Outpatient (CLI) | payer MEDICARE, BC ==
--- NOTE | 2016-12-09 12:40 | DI ---
Indication: ITS.REASON: M25.571 Pain in right ankle and joints of right foot PROCEDURE: ANKLE RIGHT 3 VIEW: Encounter: Initial Comparison: November 08, 2016 Findings: There is no acute fracture, dislocation or malalignment identified. Impression: No acute osseous abnormality. .
== END ==
LOC: IMA 20:02
PROVIDERS: ATTEND Family Medicine
DX: M25.571 Pain in right ankle and joints of right foot (principal); Z91.81 History of falling

== ENCOUNTER 2017-02-26 22:21 | Inpatient (IN) ==
--- NOTE | 2017-02-26 22:48 | Emergency Department Report ---
SOB HPI - General Chief Complaint: Shortness of Breath/Dyspnea Stated Complaint: Diff breathing Time Seen by Provider: 02/26/17 22:28 Source: patient, family Mode of arrival: ambulatory Limitations: no limitations - History of Present Illness Patient presents to ED with her daughter for evaluation of difficulty breathing that began yesterday morning. She describes a sudden onset shortness of breath that has gotten worse over the last 36 hours. Pt's daughter states before coming to the ED the patient was only able to get two or three words out because she was breathing too quickly, and that she was worried because the patient's lips were turning blue. Pt states this has never happened to her before, but noticed it does get worse when she lies supine. She sees a grain elevator agent every six months for a "leaky valve", but can not recall which grain elevator agent or which valve she has issues with. - Related Data Home oxygen amount: none Home Medications Medication Instructions Recorded Confirmed Allopurinol 100 mg PO DAILY #0 03/25/14 02/26/17 Niacin 1,500 mg PO DAILY #0 11/04/14 02/26/17 Gabapentin 400 mg PO HS #0 07/28/15 02/26/17 Sucralfate 1 g PO QID #0 07/28/15 02/26/17 Infliximab [Remicade] 100 mg INJ #0 09/25/15 Milnacipran HCl [Savella] 50 mg PO BID #0 09/25/15 02/26/17 Cyproheptadine HCl 8 mg PO TID #0 10/23/15 02/26/17 Tramadol HCl 50 - 100 mg PO Q4H PRN #0 10/23/15 Triamcinolone 0.25% Cream 15G 1 applic TOP PRN #0 10/23/15 [Kenalog] Aspirin [Aspirin EC] 81 mg PO DAILY #0 09/16/16 Ergocalciferol (Vitamin D2) 50,000 unit PO WEEKLY #0 09/16/16 02/26/17 (Vitamin D2) Folic Acid [FA-8] 0.8 mg PO DAILY #0 09/16/16 02/26/17 Furosemide [Lasix] 20 mg PO DAILY #0 09/16/16 02/26/17 Potassium Chloride 20 meq PO DAILY #0 09/16/16 02/26/17 Propylene Glycol/Peg 400 [Systane 1 drop BOTH EYES PRN #0 09/16/16 0.3-0.4% Eye Drops] Telmisartan/Amlodipine 1 tab PO DAILY #0 09/16/16 [Telmisartan-Amlodipine 40-5 mg] Tizanidine HCl 4 mg PO TID PRN #0 09/16/16 raNITIdine HCl [Ranitidine HCl] 150 mg PO DAILY #0 09/16/16 02/26/17 Previous Rx's Medication Instructions Recorded Levothyroxine Sodium [Synthroid] 1 tab PO ACB #30 tab 09/17/16 Allergies Allergy/AdvReac Type Severity Reaction Status Date / Time MICHELE Inhibitors Allergy Unknown Verified 02/26/17 23:09 amphetamine AdvReac Unknown TERRIBLE Verified 02/26/17 23:09 HEADACHES dextroamphetamine AdvReac Unknown TERRIBLE Verified 02/26/17 23:09 HEADACHES lisinopril AdvReac Unknown COUGHING Verified 02/26/17 23:09 methylphenidate AdvReac Unknown HEADACHES Verified 02/26/17 23:09 pitavastatin AdvReac Unknown MUSCLE Verified 02/26/17 23:09 WEAKNESS/SORENESS Review of Systems All systems: reviewed and negative except as stated Constitutional: Denies: fever, chills, weakness, weight change Cardiovascular: Reports: orthopnea, edema. Denies: chest pain, palpitations, syncope Respiratory: Reports: dyspnea. Denies: cough, wheezes, hemoptysis Gastrointestinal: Denies: abdominal pain, nausea, vomiting Genitourinary: Denies: urgency, dysuria, frequency Neurological: Denies: headache, weakness [facility] Patient Stated Medical History Other Musculoskeletal Yes: RA Metabolic: hypercholesterolemia, hypertension, hypothyroidism ENMT: sleep apnea, snoring Cardiac: CAD, LA GI: GERD, ulcers Female: renal insufficiency Neurological: fibromyalgia, headaches Musculoskeletal: osteoarthritis, rheumatoid arthritis Psychological: anxiety, dementia, depression Surgical History: General: appendix, gallbladder, other, tonsils. Cardiac: cardiac cath. Reproductive/: hysterectomy, other. Joint: hip - Social History Smoking status: Former smoker Substance use type: does not use Alcohol intake frequency: does not drink Physical Exam - Limitations Limitations: no limitations - General General appearance: alert, in distress (tachypneic) - Normal Exams: Head:: Normocephalic without trauma Neck:: Full range of motion, without adenopathy, JVD, bruits or thyromegaly Cardiovascular:: Regular rate and rhythm, without murmur or gallop, Pulses 2+ all extremities, capillary refill, <2 seconds all extremities Abdomen:: Bowel sounds positive, soft, non-tender, non-distended, no hepatosplenomegaly, masses or bruits noted - ENT ENT exam: Present: mucous membranes dry (circumoral cyanosis) - Respiratory Respiratory exam: Present: respiratory distress (mild, improved with O2), other (course inspiratory crackles in bilateral lower lobes) - Extremities Exam Extremities exam: Present: pedal edema (in bilateral lower extremities with chronic appearing skin discoloration). Absent: tenderness Course Vital Signs Pulse Oximetry 90 02/26/17 22:25 Pulse Rate 90 02/26/17 23:07 Respiratory Rate 20 02/26/17 23:07 Blood Pressure 168/73 H 02/26/17 23:07 Pulse Oximetry 91 02/26/17 23:07 Shortness of Breath/Dyspnea - MDM Narrative Medical decision making narrative: O2 sats initially 80 - pt placed on 2 L NC, sats quickly improved to 92 EKG - normal sinus rhythm without ischemia, ectopy, or infarction CXR - severe pulmonary edema with effusions and atelectasis in the bases CBC - normal CMP - normal with exception of mild renal insufficiency, creatinine 2.0 Troponin - normal BNP - elevated Case is discussed with Dr. Nando Orr, - we'll admit inpatient, plan on diuresis and echo to follow - Lab Data Result diagrams: 02/26/17 22:57 02/26/17 22:57 Lab Results 02/26/17 02/26/17 Range/Units 22:57 22:57 WBC 7.7 (4.5-11.0) T/MM3 RBC 3.85 L (4.00-5.20) M/MM3 Hgb 10.2 L (12-16) GM/DL Hct 32.5 L (36-46) % MCV 84.4 (80-100) UM3 MCH 26.5 (26-34) UUG MCHC 31.4 (31-37) GM/DL RDW Std Deviation 48.2 (36.9-50.2) FL Plt Count 162 (130-400) T/MM3 MPV 9.6 (9.4-12.4) UM3 Immature Gran % (Auto) 0.3 (0.0-0.5) % Neut % (Auto) 63.7 (33-66) % Lymph % (Auto) 26.5 (23-45) % Jackson % (Auto) 7.3 (0-9.0) % Eos % (Auto) 1.7 (0-4) % Baso % (Auto) 0.5 (0-2) % Neut # 4.9 (1.8-7.7) T/MM3 Lymph # 2.0 (1-4.8) T/MM3 Jackson # 0.6 (0-0.8) T/MM3 Eos # 0.1 (0-0.5) T/MM3 Baso # 0.0 (0-0.2) T/MM3 Abs Immat Gran (auto) 0.02 (0.00-0.03) T/MM3 Turbidity < 20 (0-20) Sodium 142 (134-144) MEQ/L Potassium 4.7 D (3.6-5) MEQ/L Chloride 109 H (98-107) MEQ/L Carbon Dioxide 19 L (22-30) MEQ/L Anion Gap 14 (5-15) MEQ/L BUN 24.0 H (7-17) MG/DL Creatinine 2.0 H D (0.7-1.2) MG/DL GFR Calculation 24 BUN/Creatinine Ratio 12 (6-26) RATIO Glucose 143 H (65-110) MG/DL Calculated Osmolality 279 (261-280) MOSM/KG Calcium 10.1 D (8.4-10.2) MG/DL Total Bilirubin 1.30 (0.20-1.30) MG/DL Conjugated Bilirubin 0.00 (0.00-0.30) MG/DL Unconjugated Bilirubin 0.80 (0.00-11.10) MG/DL Icterus Index < 2 (0-7) AST 40 H (14-36) U/L ALT 48 (9-52) U/L Alkaline Phosphatase 104 (38-126) U/L Troponin I 0.036 (0-0.12) ng/ml B-Natriuretic Peptide 2720 H (0-175) pg/mL Total Protein 7.1 (6.3-8.2) G/DL Albumin 4.8 (3.5-5.0) G/DL Globulin 2.3 L (2.4-3.6) G/DL Albumin/Globulin Ratio 2.1 (1.1-2.2) RATIO Specimen Hemolysis < 15 (0-25) Critical Care Time Total Critical Care Time: 35 Attestation: Patient required aggressive therapy acute hypoxemia of uncertain cause, eventually found to be acute pulmonary edema with fluid overload pulmonary edema Disposition Clinical Impression: Pulmonary edema Qualifiers: Chronicity: acute Qualified Code(s): J81.0 - Acute pulmonary edema Disposition: 02 [place] [facility] [place] Condition: Improved Prescriptions: Continue Gabapentin 400 mg PO HS #0 Milnacipran HCl [Savella] 50 mg PO BID #0 Triamcinolone 0.25% Cream 15G [Kenalog] 1 applic TOP PRN #0 raNITIdine HCl [Ranitidine HCl] 150 mg PO DAILY #0 Furosemide [Lasix] 20 mg PO DAILY #0 Tizanidine HCl 4 mg PO TID PRN #0 PRN Reason: NECK PAIN Propylene Glycol/Peg 400 [Systane 0.3-0.4% Eye Drops] 1 drop BOTH EYES PRN # 0 Levothyroxine Sodium [Synthroid] 1 tab PO ACB #30 tab Allopurinol 100 mg PO DAILY #0 Niacin 1,500 mg PO DAILY #0 Sucralfate 1 g PO QID #0 Infliximab [Remicade] 100 mg INJ #0 Cyproheptadine HCl 8 mg PO TID #0 Tramadol HCl 50 - 100 mg PO Q4H PRN #0 PRN Reason: PAIN Aspirin [Aspirin EC] 81 mg PO DAILY #0 Folic Acid [FA-8] 0.8 mg PO DAILY #0 Ergocalciferol (Vitamin D2) (Vitamin D2) 50,000 unit PO WEEKLY #0 Potassium Chloride 20 meq PO DAILY #0 Telmisartan/Amlodipine [Telmisartan-Amlodipine 40-5 mg] 1 tab PO DAILY #0 Referrals: Nicki Winslow MD [Family Provider] - - Seen By: physician
[2017-02-26] MEDS ORDERED: ONDANSETRON 4 MG/2 ML INJECTION IVP ONE (23:58)
[2017-02-27] MEDS ORDERED: ONDANSETRON 4 MG/2 ML INJECTION IVP PRN (00:50)
[2017-02-27] MEDS ORDERED: ACETAMINOPHEN 325 MG TABLET PO PRN (00:50)
[2017-02-27] MEDS ORDERED: HYDROCODONE/APAP 5mg/325mg TABLET PO PRN (00:50)
[2017-02-27] MEDS ORDERED: FUROSEMIDE 40 MG/4 ML INJECTION IVP ONE (00:50)
[2017-02-27 01:34] VITALS: BMI 34.9
[2017-02-27] MEDS: SALINE FLUSH 10ml SYRINGE IVF PRN (02:29)
--- NOTE | 2017-02-27 03:17 | History & Physical Report ---
<Nando Orr Shamar - Last Filed: 02/27/17 03:13> History of Present Illness Date: 02/27/17 Chief complaint: short of breath HPI: this is a 81 y/o female who lives alone who has noted increased shortness of breath for the past 2 days. The patient has a dry cough, The patient has orthpnea, The pateint has increased edema to extremities. She has a previous history of RA but this has not occurred before. In the ED the patient has a CXR that demonstrates pulmonary edema. The patient's EKG is non ischemic but does have low voltage. The patent is being followed by nephrology due to CKD 4. The patient at this time will be admitted for further assessment and treatment of new onset CHF Review of Systems Review of systems: no headache, no change in vision, no neck or jaw pain, sig orthpnea noted over the past several days. dry cough, pleuritic chest pain with cough, increased lower extremity edema noted. nausea without emesisi. patient describes diarrhea yesterday. a 10 point ROS is otherwise negative except for described above. PFSH Patient Stated Medical History Cataracts Yes Hearing Loss Yes Hypertension Yes Other Cardiology Yes: Leaky valve Pneumonia Yes Ulcer Yes Other GI Yes: Heart burn occasionally Hx Incontinence Yes: Urgency Osteoarthritis Yes Other Musculoskeletal Yes: RA Depression Yes Surgical History: General: appendix, gallbladder, other, tonsils. Cardiac: cardiac cath. Reproductive/: hysterectomy, other. Joint: hip - Social History Smoking status: Former smoker Medications Home Medications Medication Instructions Recorded Confirmed Type Allopurinol 100 mg PO DAILY #0 03/25/14 02/26/17 History Sucralfate 1 g PO QID #0 07/28/15 02/26/17 History Milnacipran HCl [Savella] 50 mg PO BID #0 09/25/15 02/26/17 History Cyproheptadine HCl 8 mg PO TID #0 10/23/15 02/26/17 History Folic Acid [FA-8] 0.8 mg PO DAILY #0 09/16/16 02/26/17 History Furosemide [Lasix] 20 mg PO BID #0 09/16/16 02/27/17 History Potassium Chloride 40 meq PO BID #0 09/16/16 02/27/17 History raNITIdine HCl [Ranitidine HCl] 150 mg PO DAILY #0 09/16/16 02/26/17 History Amlodipine [Norvasc] 2.5 mg PO HS 02/27/17 02/27/17 History Amlodipine [Norvasc] 5 mg PO DAILY 02/27/17 02/27/17 History ClonazePAM [Klonopin] 0.5 mg PO BID 02/27/17 02/27/17 History Gabapentin 300 mg PO HS 02/27/17 02/27/17 History Niacin 500 mg PO DAILY 02/27/17 02/27/17 History Rosuvastatin [Crestor] 5 mg PO HS 02/27/17 02/27/17 History Allergies Allergy/AdvReac Type Severity Reaction Status Date / Time MICHELE Inhibitors Allergy Unknown Verified 02/26/17 23:09 amphetamine AdvReac Unknown TERRIBLE Verified 02/26/17 23:09 HEADACHES dextroamphetamine AdvReac Unknown TERRIBLE Verified 02/26/17 23:09 HEADACHES lisinopril AdvReac Unknown COUGHING Verified 02/26/17 23:09 methylphenidate AdvReac Unknown HEADACHES Verified 02/26/17 23:09 pitavastatin AdvReac Unknown MUSCLE Verified 02/26/17 23:09 WEAKNESS/SORENESS Exam Vital Signs: Temperature 96.5 F L 02/27/17 00:50 Pulse Rate 90 02/27/17 00:50 Respiratory Rate 28 H 02/27/17 00:50 Blood Pressure 178/68 H 02/27/17 00:50 Pulse Oximetry 92 02/27/17 00:50 Oxygen Delivery Method Nasal Cannula Oxygen Flow Rate 4 Telemetry Rhythm: Sinus Rhythm Height: 1.57 m Weight: 86.6 kg Body Mass Index: 34.9 - Constitutional Present: mild distress, well nourished, obese, cooperative - Routine HEENT Exam Eye: Present: EOMI, conjunctivae pink. Absent: scleral injection - Routine Neck Exam Present: supple, full ROM - Routine Respiratory Exam Comments: rhonchi/wheezes in base bilaterally - Routine Cardiovascular Exam Present: RRR. Absent: S3 - Routine Abdominal Exam Present: soft, non distended - Routine Extremities Exam Present: edema, full ROM. Absent: no edema - Routine Back/Spine/Pelvis Exam Back/Spine: Present: full ROM - Routine Neurological Exam Present: alert, oriented X3, CN II-XII intact. Absent: motor deficit - Routine Psychiatric Exam Present: normal affect Results - Labs CBC & Chem 7: 02/26/17 22:57 02/26/17 22:57 - ECG Data Tracing #1 low voltage without ischemia - Impressions cxr with obvious failure Assessment and Plan (1) Congestive heart failure Current visit: Yes Status: Acute 02/27/17 03:23 this patient presents with classic sx of heart failure. currently the pastient is on lasix and ARB. DDX: ischemic vs non ischemic. too early to classify. admit to tele. rule out. needs echo in the next 48 hours (with weekend, did not automticallyorder). lasix iv, monitor electrolytes and make further treatment plans based on results of echo. note that patient may benefit from b brie with arb. (2) CKD (chronic kidney disease) stage 4, GFR 15-29 ml/min Current visit: Yes Status: Acute 02/27/17 03:24 is being manged per nephrology. not worse than usual. aware with diuretic therapy escalated that it might worsen (3) Hyperglycemia Current visit: Yes Status: Acute 02/27/17 03:25 check a1C and make further considerations after thisinformation (4) Hypertension Current visit: Yes Status: Acute 02/27/17 03:26 on arb and norvasc and diuretic therapy. for now monitor blood pressure and adjust meds as indicated (5) Hypothyroid Current visit: Yes Status: Acute 02/27/17 03:25 continuse synthroiod, check TSH, hypo or hyper thyroid can contribute to heart failure DVT Prophylaxis: SCD's, Lovenox Resuscitation Status: Full Code Sepsis Assessment - Evaluation Sepsis screening result: No Definite Risk Hospital Course Summary Disclaimer: The visit summary below is not to be considered part of the above Progress Note. <Shamika Stephen - Last Filed: 02/27/17 19:22> History of Present Illness Date: 02/27/17 [facility] Patient Stated Medical History Cataracts Yes Hearing Loss Yes Hypertension Yes Other Cardiology Yes: Leaky valve Pneumonia Yes Ulcer Yes Other GI Yes: Heart burn occasionally Hx Incontinence Yes: Urgency Osteoarthritis Yes Other Musculoskeletal Yes: RA Depression Yes Exam Vital Signs: Temperature 97.4 F 02/27/17 16:32 Pulse Rate 68 02/27/17 16:32 Respiratory Rate 20 02/27/17 16:32 Blood Pressure 157/72 H 02/27/17 16:32 Pulse Oximetry 92 02/27/17 16:32 Oxygen Delivery Method High Flow Nasal Cannula Oxygen Flow Rate 15 Height: 1.57 m Weight: 87 kg Results - Labs CBC & Chem 7: 02/27/17 03:13 02/27/17 03:13 - ABG Interpretation ABG results: 02/27/17 13:15 ABG pH 7.390 ABG pCO2 36 ABG pO2 55 L ABG HCO3 22 ABG Total CO2 22.9 L ABG O2 Saturation 88.0 L ABG Base Excess -2.7 L Assessment and Plan (1) Congestive heart failure Problem details: Acute Current visit: Yes Status: Acute (2) CKD (chronic kidney disease) stage 4, GFR 15-29 ml/min Problem details: Creatinine 1.4 on 02/24/17, 1.2 prior to that Current visit: Yes Status: Acute (3) Hyperglycemia Current visit: Yes Status: Acute (4) Hypertension Current visit: Yes Status: Acute (5) Hypothyroid Current visit: Yes Status: Acute Assessment and Plan: Dr. Orr's note reviewed. Mrs. Vazquez interviewed and examined. Her daughter was present and provided much of the history. CC: Shortness of breath HPI: Mrs. Vazquez is an 81-year-old female with multiple chronic medical problems. She reports that her breathing has been heavy for 2-3 days but became much worse yesterday. The patient describes that her breathing is better when she rests and that she's been able to lay flat although orthopnea was described earlier. She is unsure if she has exertional dyspnea. Patient defers history to her daughter and appears uncertain of how to answer questions. Her daughter notes that her breathing has appeared heavy for the past 2 days, especially last night. Her weight has increased from 169 pounds a couple of months ago to 190 recently and has been accompanied by increasing edema. Patient reports that she's had occasional episodes of chest pain at night lasting about 5 minutes and they go away spontaneously. She reports having a heart catheterization in the past which was unremarkable and that she sees Dr. Fraire twice a year to have echocardiogram was done for a leaky heart valve. She's never been told that she has heart failure and she is unsure which valve is bad. Her daughter reported that her lips were blue last night prompting emergency room evaluation. Daughter notes that the patient was only able to speak 2-3 words at a time due to dyspnea prior to ER arrival. The patient was tachypnic in the emergency room with perioral cyanosis, bilateral lower extremity edema, and crackles in lung kaur. Chest x-ray was consistent with pulmonary edema. She was admitted for management of acute congestive heart failure. PH/SH/FH: agree with that recorded above with additions obstructive sleep apnea , hyperlipidemia, gout, and fibromyalgia. Patient sees Dr. Antunez for rheumatoid arthritis and Dr. Zenaida Cooney for chronic kidney disease. Baseline creatinine appears to be approximately 1.2. She underwent right total hip arthroplasty several years ago and has had a lipoma removed in the past. The patient discontinued tobacco use approximately 40 years ago and drinks an occasional beer estimated to be less than one per month. She has no history of illicit drug use. She lives independently but stays with her daughter at night. Dr. Winslow is her primary care physician with other physicians as noted above. The patient is a full code and her daughter Magy Vazquez is her DPOA. ROS: 10 point review is previously reported by Dr. Orr. Daughter reports patient has had several falls and is going to outpatient PT. Daughter also reports chronic memory loss. EXAM: General-drowsy, confused, dyspneic speaking HEENT-PERRL, EOMI without nystagmus, conjunctiva clear, sclera anicteric, conjugate gaze, facial structures symmetric, oropharynx clear, neck supple and without adenopathy Lungs-respirations moderately labored, good airflow, decreased breath sounds fdc up posteriorly with crackles at the bases bilaterally, no wheezing appreciated Cardiac-regular rhythm, S1-S2, MR not appreciated and I don't hear an AI murmur currently Abd-soft, nontender, without palpable mass, bowel sounds present Ext-+3 lower extremity pitting edema greatest independent portion of her calves/ thighs Skin-without generalized rash or wounds; multiple bruises, small abrasion on the right knee Neuro-cranial nerves 3-12 intact, motor tone normal, generalized weakness but strength is symmetric, sensation intact to light touch/cold 4 extremities Psych-confused DATA: Chest x-ray reviewed by myself demonstrating increased vascular markings bilaterally. Pattern consistent with pulmonary edema/CHF. EKG also reviewed by myself demonstrating low voltage and probable old anteroseptal MO diffuse T-wave flattening is present (report of old EKG found in [facility] records indicates probable old anteroseptal MO and probable old inferior MO). Hemoglobin 10.2, BUN/creatinine 24/2.0, BNP 2720, TSH 6.86 (TSH in the outpatient setting was 1.59 last month), A1c 5.1 Troponin 0.036-0.045-0.053 ABG on 12 L supplemental oxygen per nasal cannula: 7.39/36/55/22 88% saturation A/P: Acute congestive heart failure Volume overload Acute hypoxic respiratory failure Acute/chronic kidney disease-4 Valvular heart disease Obstructive sleep apnea, home CPAP Anemia, likely chronic renal disease Hypertension Hypothyroidism Hyperglycemia, likely stress-induced Rheumatoid arthritis Continue diuresis, converted to Bumex to diurese more aggressively. Creatinine is up from baseline, may limit ability to diurese aggressively however renal function may be result of acute heart failure and improve with more aggressive diuresis. Echocardiogram scheduled to assess valvular function and LV function. Ad. Continue aspirin d low-dose carvedilol. As soon as renal function stabilizes , add low-dose MICHELE inhibitor or ARB. High flow oxygen, resume CPAP-may require BiPAP. Screen for infectious etiologies with respiratory viral panel and sputum culture. Standard antihypertensive regimen resumed. TSH up slightly however has been normal within the past month-will not adjust levothyroxine dose at this time. Discussed with RT, outpatient records reviewed, supplemental history provided by patient's daughter, chest x-ray/EKG reviewed by myself, laboratory data reviewed. Hospital Course Summary Disclaimer: The visit summary below is not to be considered part of the above Progress Note. Hospital Course: 02/27/17 19:15 Admitted with increasing dyspnea, edema, and weight gain. Cyanotic on arrival in the emergency room. Chest x-ray consistent with pulmonary edema. Diuresis initiated, converted to Bumex to diurese more aggressively. Creatinine is up from baseline, may limit ability to diurese aggressively however renal function may be result of acute heart failure and improve with more aggressive diuresis. Echocardiogram scheduled to assess valvular function and LV function. Ad. Continue aspirin d low-dose carvedilol. As soon as renal function stabilizes, add low-dose MICHELE inhibitor or ARB. High flow oxygen, resume CPAP-may require BiPAP. Standard antihypertensive regimen resumed. TSH up slightly however has been normal within the past month-will not adjust levothyroxine dose at this time.
[2017-02-27] MEDS ORDERED: FUROSEMIDE 20 MG/2 ML INJECTION IVP ONE (05:23)
--- NOTE | 2017-02-27 09:08 | XRay Report ---
INDICATION: dyspnea, pulmonary edema on exam PROCEDURE: CHEST 2-VIEWS UPRIGHT (PA & LAT) Encounter: Initial COMPARISON: September 16, 2016 FINDINGS: New pulmonary vascular congestion with small bilateral pleural effusions and bibasilar airspace infiltrates. No pneumothorax. Cardiac silhouette is mildly enlarged. Mediastinal contours are stable. Pulmonary vascularity shows redistribution with Comfort B lines. Impression: Severe pulmonary edema, probably due to CHF. .
[2017-02-27] MEDS: ENOXAPARIN 30 MG/0.3 ML INJECTION SQ SCH (10:19)
[2017-02-27] MEDS: SUCRALFATE 1 GM TABLET PO SCH ×3 (13:49→21:08)
[2017-02-27] MEDS: AMLODIPINE 5 MG TABLET PO SCH (13:50)
[2017-02-27] MEDS: ALLOPURINOL 100 MG TABLET PO SCH (13:50)
[2017-02-27] MEDS: CYPROHEPTADINE 4 MG TABLET PO SCH ×2 (15:09→21:06)
[2017-02-27] MEDS: MILNACIPRAN 50 MG PO SCH (21:06)
[2017-02-27] MEDS: RANITIDINE 150 MG TABLET PO SCH (21:07)
[2017-02-27] MEDS: AMLODIPINE 2.5 MG TABLET PO SCH (21:07)
[2017-02-27] MEDS: ROSUVASTATIN 5 MG TABLET PO SCH (21:07)
[2017-02-27] MEDS: GABAPENTIN 300 MG CAPSULE PO SCH (21:07)
[2017-02-27] MEDS: ClonazePAM 0.5 MG TABLET PO SCH (21:08)
[2017-02-27] MEDS: NIACIN ER 500 MG TABLET PO SCH (21:09)
[2017-02-28] MEDS: SALINE FLUSH 10ml SYRINGE IVF PRN ×2 (00:34→05:57)
[2017-02-28] MEDS: LEVOTHYROXINE 150 MCG TABLET PO SCH (05:46)
--- NOTE | 2017-02-28 08:39 | XRay Report ---
EXAM: XR chest 1V LOCATION OF DICTATION: [facility] HISTORY: hypoxia COMPARISON: February 26, 2017 FINDINGS: Heart size is partially obscured though appears to be mildly enlarged. There is again noted to be prominence of the central bronchovascular markings. There are residual interstitial/air space opacities within the bilateral lungs though improved when compared with the prior study two days earlier. Small residual pleural effusion suggested. There is no pneumothorax. The osseous structures are within normal limits for the patient's age. IMPRESSION: 1. Persistent findings suggesting congestive heart failure and pulmonary edema with small effusions though improved aeration when compared with two days earlier. .
[2017-02-28] MEDS: CYPROHEPTADINE 4 MG TABLET PO SCH ×3 (08:59→22:01)
[2017-02-28] MEDS: ENOXAPARIN 30 MG/0.3 ML INJECTION SQ SCH (08:59)
[2017-02-28] MEDS: CARVEDILOL 3.125 MG TABLET PO SCH ×2 (08:59→17:12)
[2017-02-28] MEDS: ALLOPURINOL 100 MG TABLET PO SCH (08:59)
[2017-02-28] MEDS: FOLIC ACID 1 MG TABLET PO SCH (08:59)
[2017-02-28] MEDS: MILNACIPRAN 50 MG PO SCH ×2 (08:59→22:01)
[2017-02-28] MEDS ORDERED: BUMETANIDE 1 MG TABLET PO SCH (09:00)
[2017-02-28] MEDS: SUCRALFATE 1 GM TABLET PO SCH ×4 (11:00→22:03)
[2017-02-28] MEDS: ClonazePAM 0.5 MG TABLET PO SCH ×2 (11:01→22:03)
[2017-02-28] MEDS: AMLODIPINE 5 MG TABLET PO SCH (11:01)
--- NOTE | 2017-02-28 13:37 | Progress Note ---
<Magy Cates V - Last Filed: 02/28/17 13:32> Subjective: Mrs Vazquez is seen today in follow up. She is up in the chair and continues to require 15 liters of oxygen by nasal canula. She denies having any pain on examination. Appeite is fair eating 50-75% of meals. UO via falcon cath 1350ml overnight. Weight trending down. Objective Vital signs: Temperature 98.6 F 02/28/17 08:50 Pulse Rate 78 02/28/17 08:50 Respiratory Rate 20 02/28/17 08:50 Blood Pressure 170/74 H 02/28/17 08:50 Pulse Oximetry 100 02/28/17 08:50 Oxygen Delivery Method Non-Rebreather Oxygen Flow Rate 15 Fraction of Inspired Oxygen 45 Weight: 81.3 kg - Constitutional Present: no acute distress - Routine HEENT Exam Head: Present: normocephalic Eye: Present: EOMI, PERRL - Routine Respiratory Exam Present: diminished air movement (throughout) - Routine Cardiovascular Exam Present: RRR, S1, S2 - Routine Abdominal Exam Present: soft, normoactive bowel sounds - Routine Exam Comments: Falcon cath - Routine Back/Spine/Pelvis Exam Back/Spine: Present: full ROM - Routine Skin Exam Present: intact, dry, warm - Routine Neurological Exam Present: alert, oriented X3, CN II-XII intact - Routine Psychiatric Exam Present: normal affect Results - Labs CBC & Chem 7: 02/28/17 04:20 02/28/17 04:20 - ABG Interpretation ABG results: 02/27/17 13:15 ABG pH 7.390 ABG pCO2 36 ABG pO2 55 L ABG HCO3 22 ABG Total CO2 22.9 L ABG O2 Saturation 88.0 L ABG Base Excess -2.7 L Assessment and Plan (1) Congestive heart failure Problem details: Acute Current visit: Yes Status: Acute 02/27/17 03:23 this patient presents with classic sx of heart failure. currently the pastient is on lasix and ARB. DDX: ischemic vs non ischemic. too early to classify. admit to tele. rule out. needs echo in the next 48 hours (with weekend, did not automticallyorder). lasix iv, monitor electrolytes and make further treatment plans based on results of echo. note that patient may benefit from b brie with arb. (2) CKD (chronic kidney disease) stage 4, GFR 15-29 ml/min Problem details: Creatinine 1.4 on 02/24/17, 1.2 prior to that Current visit: Yes Status: Acute 02/27/17 03:24 is being manged per nephrology. not worse than usual. aware with diuretic therapy escalated that it might worsen (3) Hyperglycemia Current visit: Yes Status: Acute 02/27/17 03:25 check a1C and make further considerations after thisinformation (4) Hypertension Current visit: Yes Status: Acute 02/27/17 03:26 on arb and norvasc and diuretic therapy. for now monitor blood pressure and adjust meds as indicated (5) Hypothyroid Current visit: Yes Status: Acute 02/27/17 03:25 continuse synthroiod, check TSH, hypo or hyper thyroid can contribute to heart failure Assessment and Plan: Acute congestive heart failure Volume overload Acute hypoxic respiratory failure Acute/chronic kidney disease-4 Valvular heart disease Obstructive sleep apnea, home CPAP Anemia, likely chronic renal disease Hypertension Hypothyroidism Hyperglycemia, likely stress-induced Rheumatoid arthritis 02/28/17 Hypokalemia this morning. Replacing potassium orally. Renal funciton improving as Flight Controls Engineer is 1.6 today. Continue to monitor. Continue with aggressive diuresising. Bumex IV BID. Weight continues to trend down Work on weaning down on oxygen. Currently requiring NRB and Bipap Viral respiratory panel pending Continue aspirin, Carvedilol, Norvasc. Lovenox SQ daily for DVT prophylaxis Sepsis Assessment - Evaluation Sepsis screening result: No Definite Risk Hospital Course Summary Disclaimer: The visit summary below is not to be considered part of the above Progress Note. Hospital Course: 02/27/17 19:15 Admitted with increasing dyspnea, edema, and weight gain. Cyanotic on arrival in the emergency room. Chest x-ray consistent with pulmonary edema. Diuresis initiated, converted to Bumex to diurese more aggressively. Creatinine is up from baseline, may limit ability to diurese aggressively however renal function may be result of acute heart failure and improve with more aggressive diuresis. Echocardiogram scheduled to assess valvular function and LV function. Ad. Continue aspirin d low-dose carvedilol. As soon as renal function stabilizes, add low-dose MICHELE inhibitor or ARB. High flow oxygen, resume CPAP-may require BiPAP. Standard antihypertensive regimen resumed. TSH up slightly however has been normal within the past month-will not adjust levothyroxine dose at this time. 02/28/17 Hypokalemia this morning. Replacing potassium orally. Renal funciton improving as Flight Controls Engineer is 1.6 today. Continue to monitor. Continue with aggressive diuresising. Bumex IV BID. Weight continues to trend down Work on weaning down on oxygen. Currently requiring NRB and Bipap Viral respiratory panel pending Continue aspirin, Carvedilol, Norvasc. Lovenox SQ daily for DVT prophylaxis <Philip Pan - Last Filed: 02/28/17 14:40> Objective Vital signs: Temperature 98.6 F 02/28/17 08:50 Pulse Rate 78 02/28/17 08:50 Respiratory Rate 20 02/28/17 08:50 Blood Pressure 170/74 H 02/28/17 08:50 Pulse Oximetry 100 02/28/17 08:50 Oxygen Delivery Method Non-Rebreather Oxygen Flow Rate 15 Fraction of Inspired Oxygen 45 Results - Labs CBC & Chem 7: 02/28/17 04:20 02/28/17 04:20 - ABG Interpretation ABG results: 02/27/17 13:15 ABG pH 7.390 ABG pCO2 36 ABG pO2 55 L ABG HCO3 22 ABG Total CO2 22.9 L ABG O2 Saturation 88.0 L ABG Base Excess -2.7 L Assessment and Plan (1) Congestive heart failure Problem details: Acute Current visit: Yes Status: Acute (2) Acute respiratory failure with hypoxia Current visit: Yes Status: Acute (3) Volume overload Current visit: Yes Status: Acute (4) CKD (chronic kidney disease) stage 4, GFR 15-29 ml/min Problem details: Creatinine 1.4 on 02/24/17, 1.2 prior to that Current visit: Yes Status: Acute (5) Hyperglycemia Current visit: Yes Status: Acute (6) Hypertension Current visit: Yes Status: Acute (7) Hypothyroid Current visit: Yes Status: Acute (8) Obesity (BMI 30-39.9) Current visit: Yes Status: Chronic DVT Prophylaxis: SCD's, Lovenox Resuscitation Status: Full Code Assessment and Plan: Have independently interviewed and examined pt. Chart reviewed. Case discussed with CM and my SELECT BANKER. Care plan developed with my supervision; agree with above. Doing better-but still feels SOA and congested. Non-productive cough. No pain with breathing. Not tolerating BIPAP well-loud (family looking for her home CPAP ). Appetite decreased past several days, but starting to eat more now. No nausea. Bowels moving. Lungs: decreased, scattered crackles. Breathing comfortably with supplemental O2. No conversational dyspnea. CV: regular AB: soft nt/nd +BS MSE: awake alert appropriate Plan: Continue with Bumex to help decrease volume status - renal status stable. Potassium with decrease due to diuretics - will give extra potassium and a one time dose of Spironolactone 50mg x1. Wean O2. Monitor lab. Will have PT/OT see pt tomorrow if O2 needs are decreasing. Hospital Course Summary Disclaimer: The visit summary below is not to be considered part of the above Progress Note.
--- NOTE | 2017-02-28 14:02 | Echocardiogram ---
DATE 02/28/[address] Shamika Stephen INDICATION Acute heart failure, leaky valve. TECHNICAL QUALITY Technically good 2-D, M-mode, Doppler echocardiographic images were submitted for interpretation. FINDINGS 1. CARDIAC CHAMBERS. Left atrium is borderline enlarged. All other cardiac chambers are normal in size. Aortic root diameter is normal. RV size and contractility appeared normal. 2. LEFT VENTRICLE. Analysis reveals borderline asymmetrical LVH. Marsh Buggy Operator measured septal wall thickness at 17 mm in diastole, posterior wall at 10 mm. On the apical 4-chamber view, the asymmetry appears less impressive. The measurement may not be accurate. Wall motion analysis is normal. LV systolic function is normal. EF is measured at 61%. Diastolic dysfunction, grade I/IV, is present. 3. VALVES. Aortic valve exhibits mild sclerosis. Valve opening is normal. Mitral valve structure and motion appear unremarkable. No GREG is appreciated. Tricuspid valve structure and motion appear normal. Normal valve excursion. 4. DOPPLER. Shows at least moderate mitral regurgitation, [id number] aortic regurgitation and [id number] tricuspid regurgitation with systolic PA pressure estimated at 41 mmHg. No evidence of pericardial effusion, intracardiac masses or demonstrable shunt. IMPRESSION 1. Left atrial size upper-normal range. 2. Normal LV size and systolic function, EF of 61%. 3. Borderline LVH. 4. Moderate mitral regurgitation. 5. Hwxw-rb-nmvizyqa aortic regurgitation. 6. Wexd-as-bvpegipn tricuspid regurgitation. 7. Mild pulmonary hypertension. 8. Normal central venous pressure. MTDD
[2017-02-28] MEDS ORDERED: SPIRONOLACTONE 50 MG TABLET PO ONE (15:00)
[2017-02-28] MEDS: ROSUVASTATIN 5 MG TABLET PO SCH (22:01)
[2017-02-28] MEDS: NIACIN ER 500 MG TABLET PO SCH (22:02)
[2017-02-28] MEDS: GABAPENTIN 300 MG CAPSULE PO SCH (22:02)
[2017-02-28] MEDS: RANITIDINE 150 MG TABLET PO SCH (22:02)
[2017-02-28] MEDS: AMLODIPINE 2.5 MG TABLET PO SCH (22:02)
[2017-03-01] MEDS: LEVOTHYROXINE 150 MCG TABLET PO SCH (05:57)
[2017-03-01] MEDS ORDERED: SPIRONOLACTONE 50 MG TABLET PO ONE (10:00)
[2017-03-01] MEDS: CYPROHEPTADINE 4 MG TABLET PO SCH ×3 (10:15→21:56)
[2017-03-01] MEDS: ALLOPURINOL 100 MG TABLET PO SCH (10:15)
[2017-03-01] MEDS: CARVEDILOL 3.125 MG TABLET PO SCH ×2 (10:16→17:27)
[2017-03-01] MEDS: FOLIC ACID 1 MG TABLET PO SCH (10:16)
[2017-03-01] MEDS: SUCRALFATE 1 GM TABLET PO SCH ×4 (10:16→21:54)
[2017-03-01] MEDS: MILNACIPRAN 50 MG PO SCH ×2 (10:16→21:56)
[2017-03-01] MEDS: AMLODIPINE 5 MG TABLET PO SCH (10:16)
[2017-03-01] MEDS: ClonazePAM 0.5 MG TABLET PO SCH ×2 (10:18→21:57)
[2017-03-01] MEDS: ENOXAPARIN 30 MG/0.3 ML INJECTION SQ SCH (10:18)
[2017-03-01] MEDS ORDERED: BISACODYL 10 MG SUPPOSITORY RECTALLY PRN (10:58)
--- NOTE | 2017-03-01 11:04 | Progress Note ---
Subjective: F/U: Acute respiratory failure, Acute CHF-valvular Feels like she is improving. Main problem is not able to sleep with BiPAP mask- family still looking for her home CPAP device. Breathing easier-less cough and congestion. O2 needs decreasing. Mild sinus congestion and dryness. No pain with breathing. No palpitations. Eating well. No nausea or ab pain. Stools slow. Tolerating falcon. No f/c. Objective Vital signs: Temperature 96.7 F L 03/01/17 07:17 Pulse Rate 72 03/01/17 07:17 Respiratory Rate 18 03/01/17 07:17 Blood Pressure 144/65 H 03/01/17 07:17 Pulse Oximetry 96 03/01/17 07:17 Oxygen Delivery Method Nasal Cannula Oxygen Flow Rate 7 Fraction of Inspired Oxygen 45 Rhythm: Normal Sinus Rhythm Weight: 79 kg - Constitutional Present: well nourished, well developed, average body habitus, obese, cooperative - Routine HEENT Exam Head: Present: normocephalic, atraumatic Eye: Present: EOMI, PERRL ENT: Present: mucous membranes moist - Routine Respiratory Exam Present: crackles (Bi-baslar), distant breath sounds, diminished air movement. Absent: accessory muscle use, rales, respiratory distress - Routine Cardiovascular Exam Present: RRR - Routine Abdominal Exam Present: soft, normoactive bowel sounds, non distended, non tender - Routine Exam Comments: Falcon in place. - Routine Extremities Exam Present: edema (+1 bilateral LE ), pulses intact. Absent: cyanosis, clubbing Comments: SCD in place - Routine Skin Exam Present: intact, warm, normal turgor. Absent: cyanosis, mottling - Routine Neurological Exam Present: alert, oriented X3, CN II-XII intact, vision grossly intact, hearing grossly intact. Absent: motor deficit - Routine Psychiatric Exam Present: normal affect, normal thought process, cooperative, good insight, good judgment. Absent: anxious, agitated Results - Labs CBC & Chem 7: 03/01/17 04:29 03/01/17 04:29 Microbiology Results: Microbiology 02/28/17 15:54 Sputum, Expectorated Gram Stain - Final 02/28/17 15:54 Sputum, Expectorated Sputum Culture - Preliminary Culture Initiated - Results Pending - ABG Interpretation ABG results: 02/27/17 13:15 ABG pH 7.390 ABG pCO2 36 ABG pO2 55 L ABG HCO3 22 ABG Total CO2 22.9 L ABG O2 Saturation 88.0 L ABG Base Excess -2.7 L Assessment and Plan (1) Congestive heart failure Problem details: Acute Current visit: Yes Status: Acute 02/27/17 03:23 this patient presents with classic sx of heart failure. currently the pastient is on lasix and ARB. DDX: ischemic vs non ischemic. too early to classify. admit to tele. rule out. needs echo in the next 48 hours (with weekend, did not automticallyorder). lasix iv, monitor electrolytes and make further treatment plans based on results of echo. note that patient may benefit from b brie with arb. (2) Acute respiratory failure with hypoxia Current visit: Yes Status: Acute (3) Volume overload Current visit: Yes Status: Acute (4) CKD (chronic kidney disease) stage 4, GFR 15-29 ml/min Problem details: Creatinine 1.4 on 02/24/17, 1.2 prior to that Current visit: Yes Status: Acute 02/27/17 03:24 is being manged per nephrology. not worse than usual. aware with diuretic therapy escalated that it might worsen (5) Hypertension Current visit: Yes Status: Acute 02/27/17 03:26 on arb and norvasc and diuretic therapy. for now monitor blood pressure and adjust meds as indicated (6) Hypothyroid Current visit: Yes Status: Acute 02/27/17 03:25 continuse synthroiod, check TSH, hypo or hyper thyroid can contribute to heart failure (7) Hyperglycemia Current visit: Yes Status: Resolved 02/27/17 03:25 check a1C and make further considerations after thisinformation (8) Obesity (BMI 30-39.9) Current visit: Yes Status: Chronic DVT Prophylaxis: SCD's, Lovenox Resuscitation Status: Full Code Assessment and Plan: Acute congestive heart failure Volume overload Acute hypoxic respiratory failure Acute/chronic kidney disease-4 Valvular heart disease Obstructive sleep apnea, home CPAP Anemia, likely chronic renal disease Hypertension Hypothyroidism Hyperglycemia, likely stress-induced Rheumatoid arthritis Hypokalemia - not POA, Secondary to diuretics Weight trending down - 86.6kg on admit to 79kg today. Baseline weight from prior admissions is around 74kg. Output documented at 6425 two days ago with 6150 yesterday. Potassium low at 3.2, but increasing from yesterday at 2.7. Creatinine stable at 1.4: trending down with diuresis. Will decrease Bumex to 0.5mg BID with meals to decrease potential for over diuresis. Spironolactone 50mg po x1 as potassium still decreased. Will give additional 20mEq KCl today at lunch and with evening meal. Mag 1.6 - will give MagOx 400mg today with lunch. Continue to wean O2 as able. Currently maintaining saturations well at 7L per NC. Nasal saline to help decrease nasal congestion and dryness. Encourage sodium restriction - 2 grams daily or less. Family to bring in pt's home CPAP. Start bladder retraining - hope to remove falcon in near future. Routine Colace 100mg BID to help bowel function. Will have PRN MOM and Dulcolax suppositories as well. PT/OT initiated to help increase strength and functional status. Recheck CMP and magnesium in am secondary to diuretic use, as well as very slight elevation of AST at admission. Will check CBC in am as WBC with decrease. Case discussed with CM, nursing, and pt's daughter. Time spent with pt care greater than 35 minutes - over 50% of time spent discussing patients response to treatments, medication adjustments and rational behind changes, care plans for the day and goals of the day. Questions answers. - Time spent with patient greater than 35 minutes Coordination of Care: >50% of visit spent providing counseling/coordination of care Sepsis Assessment - Evaluation Sepsis screening result: No Definite Risk Hospital Course Summary Disclaimer: The visit summary below is not to be considered part of the above Progress Note. Hospital Course: 02/27/17 Admitted with increasing dyspnea, edema, and weight gain. Cyanotic on arrival in the emergency room. Chest x-ray consistent with pulmonary edema. Diuresis initiated, converted to Bumex to diurese more aggressively. Creatinine is up from baseline, may limit ability to diurese aggressively however renal function may be result of acute heart failure and improve with more aggressive diuresis. Echocardiogram scheduled to assess valvular function and LV function. Ad. Continue aspirin d low-dose carvedilol. As soon as renal function stabilizes, add low-dose MICHELE inhibitor or ARB. High flow oxygen, resume CPAP-may require BiPAP. Standard antihypertensive regimen resumed. TSH up slightly however has been normal within the past month-will not adjust levothyroxine dose at this time. 02/28/17 Hypokalemia this morning. Replacing potassium orally. Renal function improving as Collections Professional is 1.6 today. Continue to monitor. Continue with aggressive diuresising. Bumex IV BID. Weight continues to trend down Work on weaning down on oxygen. Currently requiring NRB and Bipap Viral respiratory panel pending Continue aspirin, Carvedilol, Norvasc. Lovenox SQ daily for DVT prophylaxis 03/01/17 Weight trending down - 86.6kg on admit to 79kg today. Baseline weight from prior admissions is around 74kg. Output documented at 6425 two days ago with 6150 yesterday. Potassium low at 3.2, but increasing from yesterday at 2.7. Creatinine stable at 1.4: trending down with diuresis. Will decrease Bumex to 0.5mg BID with meals to decrease potential for over diuresis. Spironolactone 50mg po x1 as potassium still decreased. Will give additional 20mEq KCl today at lunch and with evening meal. Mag 1.6 - will give MagOx 400mg today with lunch. Continue to wean O2 as able. Currently maintaining saturations well at 7L per NC. Nasal saline to help decrease nasal congestion and dryness. Encourage sodium restriction - 2 grams daily or less. Start bladder retraining - hope to remove falcon in near future. Family to bring in pt's home CPAP. Routine Colace 100mg BID to help bowel function. Will have PRN MOM and Dulcolax suppositories as well. PT/OT initiated to help increase strength and functional status. Recheck CMP and magnesium in am secondary to diuretic use, as well as very slight elevation of AST at admission. Will check CBC in am as WBC with decrease.
[2017-03-01] MEDS ORDERED: MAGNESIUM OXIDE 400 MG TABLET PO SCH (12:00)
[2017-03-01] MEDS: SALINE 0.65% NASAL SPRAY 44 ML BOTTLE EA NOSTRIL SCH ×4 (12:41→21:55)
[2017-03-01] MEDS: DOCUSATE SODIUM 100 MG CAPSULE PO SCH ×2 (12:41→21:54)
[2017-03-01] MEDS: NIACIN ER 500 MG TABLET PO SCH (21:56)
[2017-03-01] MEDS: ROSUVASTATIN 5 MG TABLET PO SCH (21:56)
[2017-03-01] MEDS: RANITIDINE 150 MG TABLET PO SCH (21:57)
[2017-03-01] MEDS: GABAPENTIN 300 MG CAPSULE PO SCH (21:57)
[2017-03-01] MEDS: AMLODIPINE 2.5 MG TABLET PO SCH (21:58)
[2017-03-01] MEDS: SALINE FLUSH 10ml SYRINGE IVF PRN (22:06)
[2017-03-01] MEDS ORDERED: FALL RISK - PHARMACY CONSULT MC PRN (22:07)
[2017-03-02] MEDS: LEVOTHYROXINE 150 MCG TABLET PO SCH (07:11)
[2017-03-02 08:07] VITALS: BP 133/65; PULSE 67; RESP 18; TEMP 98; O2SAT 90
[2017-03-02] MEDS ORDERED: ALLOPURINOL 100 MG TABLET PO SCH (09:00)
[2017-03-02] MEDS: CARVEDILOL 3.125 MG TABLET PO SCH (09:26)
[2017-03-02] MEDS: CYPROHEPTADINE 4 MG TABLET PO SCH ×2 (09:27→16:39)
[2017-03-02] MEDS: SUCRALFATE 1 GM TABLET PO SCH ×2 (09:28→12:22)
[2017-03-02] MEDS: FOLIC ACID 1 MG TABLET PO SCH (09:28)
[2017-03-02] MEDS: ClonazePAM 0.5 MG TABLET PO SCH (09:28)
[2017-03-02] MEDS: MILNACIPRAN 50 MG PO SCH (09:28)
[2017-03-02] MEDS: AMLODIPINE 5 MG TABLET PO SCH (09:29)
[2017-03-02] MEDS: ENOXAPARIN 30 MG/0.3 ML INJECTION SQ SCH (09:29)
--- NOTE | 2017-03-02 10:20 | Progress Note ---
Subjective: F/U: Acute respiratory failure, Acute CHF-valvular Doing well overall. Slept better last night-had home CPAP. Breathing is easier- no cough or congestion. Breathing comfortably on room air. Slight chest heaviness. No palpitations. Not dizzy with positional changes. Eating well-no nausea or ab pain. Bowels stable. Strength improving-tolerating therapy. No f/ c. Objective Vital signs: Temperature 98 F 03/02/17 08:05 Pulse Rate 67 03/02/17 08:05 Respiratory Rate 18 03/02/17 08:05 Blood Pressure 133/65 03/02/17 08:05 Pulse Oximetry 90 03/02/17 08:05 Oxygen Delivery Method Nasal Cannula,CPAP Oxygen Flow Rate 1 Fraction of Inspired Oxygen 45 Weight: 79.2 kg - Constitutional Present: no acute distress, well nourished, well developed, obese, cooperative - Routine HEENT Exam Head: Present: normocephalic, atraumatic Eye: Present: EOMI, PERRL. Absent: conjunctival icterus ENT: Present: mucous membranes moist - Routine Respiratory Exam Present: decreased breath sounds (Improving air movement. ). Absent: accessory muscle use, respiratory distress, wheezes, crackles - Routine Cardiovascular Exam Present: RRR - Routine Abdominal Exam Present: soft, normoactive bowel sounds, non distended, non tender. Absent: guarding - Routine Extremities Exam Present: no edema, pulses intact. Absent: cyanosis, clubbing - Routine Musculoskeletal Exam Musculoskeletal: Present: no clubbing or cyanosis, no joint swelling, no erythema - Routine Skin Exam Present: intact, dry, warm. Absent: cyanosis, mottling - Routine Neurological Exam Present: alert, oriented X3, CN II-XII intact, vision grossly intact, hearing grossly intact. Absent: motor deficit - Routine Psychiatric Exam Present: normal affect, normal thought process, cooperative, good insight, good judgment. Absent: anxious, agitated Results - Labs CBC & Chem 7: 03/02/17 04:29 03/02/17 04:29 Microbiology Results: Microbiology 02/28/17 15:54 Sputum, Expectorated Gram Stain - Final 02/28/17 15:54 Sputum, Expectorated Sputum Culture - Preliminary Normal Respiratory Mariam - ABG Interpretation ABG results: 02/27/17 13:15 ABG pH 7.390 ABG pCO2 36 ABG pO2 55 L ABG HCO3 22 ABG Total CO2 22.9 L ABG O2 Saturation 88.0 L ABG Base Excess -2.7 L Assessment and Plan (1) Congestive heart failure Problem details: Acute Current visit: Yes Status: Acute 02/27/17 03:23 this patient presents with classic sx of heart failure. currently the pastient is on lasix and ARB. DDX: ischemic vs non ischemic. too early to classify. admit to tele. rule out. needs echo in the next 48 hours (with weekend, did not automticallyorder). lasix iv, monitor electrolytes and make further treatment plans based on results of echo. note that patient may benefit from b brie with arb. (2) Acute respiratory failure with hypoxia Current visit: Yes Status: Resolved (3) Volume overload Current visit: Yes Status: Resolved (4) CKD (chronic kidney disease) stage 4, GFR 15-29 ml/min Problem details: Creatinine 1.4 on 02/24/17, 1.2 prior to that Current visit: Yes Status: Chronic 02/27/17 03:24 is being manged per nephrology. not worse than usual. aware with diuretic therapy escalated that it might worsen (5) Hypertension Current visit: Yes Status: Chronic 02/27/17 03:26 on arb and norvasc and diuretic therapy. for now monitor blood pressure and adjust meds as indicated (6) Hypothyroid Current visit: Yes Status: Chronic 02/27/17 03:25 continuse synthroiod, check TSH, hypo or hyper thyroid can contribute to heart failure (7) Hyperglycemia Current visit: Yes Status: Resolved 02/27/17 03:25 check a1C and make further considerations after thisinformation (8) Obesity (BMI 30-39.9) Current visit: Yes Status: Chronic DVT Prophylaxis: SCD's, Lovenox Resuscitation Status: Full Code Assessment and Plan: Acute congestive heart failure - Valvular. EF normal. Volume overload - improved. Acute hypoxic respiratory failure - resolved. Acute/chronic kidney disease-4 Valvular heart disease Obstructive sleep apnea, home CPAP Anemia, likely chronic renal disease/CKD Hypertension Hypothyroidism Hyperglycemia, likely stress-induced Rheumatoid arthritis Hypokalemia - not POA, Secondary to diuretics. Resolved. Potassium improved to 4.0. Creatinine stable at 1.4. Change diuretics to Lasix 40mg in am with 20mg in afternoon. (Home was 20mg BID) . Will hold on adding MICHELE inhibitory as pt without systolic heart failure and dose have underlying stage 4 CKD. MICHELE not indicated at this time. Weaned to Room air - monitor saturations. Will d/c Falcon cath as diuretics decreased. Monitor for retention with bladder scans. Continue with therapy to improve functional status. With improvement in cardiopulmonary status, but continued debility and need for continued Cardiopulmonary monitoring, will D/C to IRU. Definitive f/u with PCP will be made at time of discharge from IRU. Medically stable for IRU floor activities. Case discussed with CM, nursing, and pt's daughter. Time spent with pt care and discharge greater than 35 minutes. Sepsis Assessment - Evaluation Sepsis screening result: No Definite Risk Hospital Course Summary Disclaimer: The visit summary below is not to be considered part of the above Progress Note. Hospital Course: 02/27/17 Admitted with increasing dyspnea, edema, and weight gain. Cyanotic on arrival in the emergency room. Chest x-ray consistent with pulmonary edema. Diuresis initiated, converted to Bumex to diurese more aggressively. Creatinine is up from baseline, may limit ability to diurese aggressively however renal function may be result of acute heart failure and improve with more aggressive diuresis. Echocardiogram scheduled to assess valvular function and LV function. Ad. Continue aspirin d low-dose carvedilol. As soon as renal function stabilizes, consider add low-dose MICHELE inhibitor or ARB. High flow oxygen, resume CPAP-may require BiPAP. Standard antihypertensive regimen resumed. TSH up slightly however has been normal within the past month-will not adjust levothyroxine dose at this time. 02/28/17 Hypokalemia this morning. Replacing potassium orally. Renal function improving as Creatinine is 1.6 today. Continue to monitor. Continue with aggressive diuresising. Bumex IV BID. Weight continues to trend down Work on weaning down on oxygen. Currently requiring NRB and Bipap Viral respiratory panel pending. Continue aspirin, Carvedilol, Norvasc. Lovenox SQ daily for DVT prophylaxis 03/01/17 Weight trending down - 86.6kg on admit to 79kg today. Baseline weight from prior admissions is around 74kg. Output documented at 6425 two days ago with 6150 yesterday. Potassium low at 3.2, but increasing from yesterday at 2.7. Creatinine stable at 1.4: trending down with diuresis. Will decrease Bumex to 0.5mg BID with meals to decrease potential for over diuresis. Spironolactone 50mg po x1 as potassium still decreased. Will give additional 20mEq KCl today at lunch and with evening meal. Mag 1.6 - will give MagOx 400mg today with lunch. Continue to wean O2 as able. Currently maintaining saturations well at 7L per NC. Nasal saline to help decrease nasal congestion and dryness. Encourage sodium restriction - 2 grams daily or less. Start bladder retraining - hope to remove falcon in near future. Family to bring in pt's home CPAP. Routine Colace 100mg BID to help bowel function. Will have PRN MOM and Dulcolax suppositories as well. PT/OT initiated to help increase strength and functional status. Recheck CMP and magnesium in am secondary to diuretic use, as well as very slight elevation of AST at admission. Will check CBC in am as WBC with decrease. 03/02/17 Improving well. Weaned to room air. Potassium improved to 4.0. Creatinine stable at 1.4. Change diuretics to Lasix 40mg in am with 20mg in afternoon. (Home was 20mg BID) . Will hold on adding MICHELE inhibitory as pt without systolic heart failure and dose have underlying stage 4 CKD. MICHELE not indicated at this time. Weaned to Room air - monitor saturations. Will d/c Falcon cath as diuretics decreased. Monitor for retention with bladder scans. Continue with therapy to improve functional status. With improvement in cardiopulmonary status, but continued debility and need for continued Cardiopulmonary monitoring, will D/C to IRU. Definitive f/u with PCP will be made at time of discharge from IRU. Medically stable for IRU floor activities.
--- NOTE | 2017-03-02 10:43 | Discharge Summary ---
Discharge Information Date of admission: 02/27/17 00:28 Anticipated date of discharge: 03/02/17 Attending Physician: Shamika Stephen MD Primary care physician: Nicki Winslow MD Consults: 03/01/17: PT/OT Consult 03/01/17: IRU Screening - Discharge Diagnosis (1) Congestive heart failure Qualifiers: Congestive heart failure type: diastolic Congestive heart failure chronicity: acute on chronic Qualified Code(s): I50.33 - Acute on chronic diastolic (congestive) heart failure Problem Details: Acute Status: Acute (2) Acute respiratory failure with hypoxia Status: Resolved (3) Volume overload Status: Resolved (4) CKD (chronic kidney disease) stage 4, GFR 15-29 ml/min Problem Details: Creatinine 1.4 on 02/24/17, 1.2 prior to that Status: Chronic (5) Hypertension Qualifiers: Hypertension type: essential hypertension Qualified Code(s): I10 - Essential (primary) hypertension Status: Chronic (6) Hypothyroid Qualifiers: Hypothyroidism type: acquired Qualified Code(s): E03.9 - Hypothyroidism, unspecified Status: Chronic (7) Hyperglycemia Status: Resolved (8) Obesity (BMI 30-39.9) Status: Chronic - Procedures Procedures: DATE: 02/28/2017 PROCEDURE: ECHO INDICATION: Acute heart failure, leaky valve. FINDINGS 1. CARDIAC CHAMBERS. Left atrium is borderline enlarged. All other cardiac chambers are normal in size. Aortic root diameter is normal. RV size and contractility appeared normal. 2. LEFT VENTRICLE. Analysis reveals borderline asymmetrical LVH. Therapist Physical measured septal wall thickness at 17 mm in diastole, posterior wall at 10 mm. On the apical 4-chamber view, the asymmetry appears less impressive. The measurement may not be accurate. Wall motion analysis is normal. LV systolic function is normal. EF is measured at 61%. Diastolic dysfunction, grade I/IV, is present. 3. VALVES. Aortic valve exhibits mild sclerosis. Valve opening is normal. Mitral valve structure and motion appear unremarkable. No GREG is appreciated. Tricuspid valve structure and motion appear normal. Normal valve excursion. 4. DOPPLER. Shows at least moderate mitral regurgitation, yegg-ek-eveympvo aortic regurgitation and ovey-og-htapvyyi tricuspid regurgitation with systolic PA pressure estimated at 41 mmHg. No evidence of pericardial effusion, intracardiac masses or demonstrable shunt. IMPRESSION 1. Left atrial size upper-normal range. 2. Normal LV size and systolic function, EF of 61%. 3. Borderline LVH. 4. Moderate mitral regurgitation. 5. Parl-bf-iiitnqpk aortic regurgitation. 6. Ytgc-fk-deevfyyn tricuspid regurgitation. 7. Mild pulmonary hypertension. 8. Normal central venous pressure. - Laboratory Labs: 03/02/17 04:29 03/02/17 04:29 - Microbiology Microbiology 02/28/17 15:54 Sputum, Expectorated Gram Stain - Final 02/28/17 15:54 Sputum, Expectorated Sputum Culture - Preliminary Normal Respiratory Mariam History of Present Illness HPI: this is a 81 y/o female who lives alone who has noted increased shortness of breath for the past 2 days. The patient has a dry cough, The patient has orthpnea, The pateint has increased edema to extremities. She has a previous history of RA but this has not occurred before. In the ED the patient has a CXR that demonstrates pulmonary edema. The patient's EKG is non ischemic but does have low voltage. The patent is being followed by nephrology due to CKD 4. The patient at this time will be admitted for further assessment and treatment of new onset CHF. For complete details of the H&P, refer to that document. Objective Vital signs: Temperature 98 F 03/02/17 08:05 Pulse Rate 67 03/02/17 08:05 Respiratory Rate 18 03/02/17 08:05 Blood Pressure 133/65 03/02/17 08:05 Pulse Oximetry 90 03/02/17 08:05 Oxygen Delivery Method Nasal Cannula,CPAP Oxygen Flow Rate 1 Fraction of Inspired Oxygen 45 Weight: 79.2 kg Hospital Course This is a general summary of the patient's hospital course. For more details refer to the complete medical record. Hospital course: 02/27/17 Admitted with increasing dyspnea, edema, and weight gain. Cyanotic on arrival in the emergency room. Chest x-ray consistent with pulmonary edema. Diuresis initiated, converted to Bumex to diurese more aggressively. Creatinine is up from baseline, may limit ability to diurese aggressively however renal function may be result of acute heart failure and improve with more aggressive diuresis. Echocardiogram scheduled to assess valvular function and LV function. Ad. Continue aspirin d low-dose carvedilol. As soon as renal function stabilizes, consider add low-dose MICHELE inhibitor or ARB. High flow oxygen, resume CPAP-may require BiPAP. Standard antihypertensive regimen resumed. TSH up slightly however has been normal within the past month-will not adjust levothyroxine dose at this time. 02/28/17 Hypokalemia this morning. Replacing potassium orally. Renal function improving as Creatinine is 1.6 today. Continue to monitor. Continue with aggressive diuresising. Bumex IV BID. Weight continues to trend down Work on weaning down on oxygen. Currently requiring NRB and Bipap Viral respiratory panel pending. Continue aspirin, Carvedilol, Norvasc. Lovenox SQ daily for DVT prophylaxis 03/01/17 Weight trending down - 86.6kg on admit to 79kg today. Baseline weight from prior admissions is around 74kg. Output documented at 6425 two days ago with 6150 yesterday. Potassium low at 3.2, but increasing from yesterday at 2.7. Creatinine stable at 1.4: trending down with diuresis. Will decrease Bumex to 0.5mg BID with meals to decrease potential for over diuresis. Spironolactone 50mg po x1 as potassium still decreased. Will give additional 20mEq KCl today at lunch and with evening meal. Mag 1.6 - will give MagOx 400mg today with lunch. Continue to wean O2 as able. Currently maintaining saturations well at 7L per NC. Nasal saline to help decrease nasal congestion and dryness. Encourage sodium restriction - 2 grams daily or less. Start bladder retraining - hope to remove falcon in near future. Family to bring in pt's home CPAP. Routine Colace 100mg BID to help bowel function. Will have PRN MOM and Dulcolax suppositories as well. PT/OT initiated to help increase strength and functional status. Recheck CMP and magnesium in am secondary to diuretic use, as well as very slight elevation of AST at admission. Will check CBC in am as WBC with decrease. 03/02/17 Improving well. Weaned to room air. Potassium improved to 4.0. Creatinine stable at 1.4. Change diuretics to Lasix 40mg in am with 20mg in afternoon. (Home was 20mg BID) . Will hold on adding MICHELE inhibitory as pt without systolic heart failure and dose have underlying stage 4 CKD. MICHELE not indicated at this time. Weaned to Room air - monitor saturations. Will d/c Falcon cath as diuretics decreased. Monitor for retention with bladder scans. Continue with therapy to improve functional status. With improvement in cardiopulmonary status, but continued debility and need for continued Cardiopulmonary monitoring, will D/C to IRU. Definitive f/u with PCP will be made at time of discharge from IRU. Medically stable for IRU floor activities. Time spent with patient: discharge greater than 30 minutes DVT Prophylaxis: Aissatou Sierranox GI Prophylaxis: Rantidine Discharge Plan - Med Rec/Dispo Candice Instructions: Heart Failure (GEN) Prescriptions: New Carvedilol [Coreg] 3.125 mg PO BIDWM tablet Docusate Sodium [Colace] 100 mg PO BID capsule Enoxaparin Sodium [Lovenox] 30 mg SQ DAILY syringe Furosemide [Lasix] 20 mg PO 1500 tablet Hydrocodone/APAP 5/325 [[place] 5/325] 1 tab PO Q6H PRN tablet PRN Reason: Pain Milk of Magnesia [Mom] 30 ml PO DAILY PRN udc PRN Reason: Constipation Acetaminophen [Tylenol] 325 - 650 mg PO Q5H PRN tablet PRN Reason: Discomfort Bisacodyl Supp [Dulcolax] 10 mg RECTALLY DAILY PRN supp PRN Reason: Constipation Furosemide [Lasix] 40 mg PO DAILY tablet Sodium Chloride [[place]] 2 spray EA NOSTRIL QID spray Continue Milnacipran HCl [Savella] 50 mg PO BID #0 raNITIdine HCl [Ranitidine HCl] 150 mg PO DAILY #0 Levothyroxine Sodium [Synthroid] 1 tab PO ACB #30 tab Rosuvastatin [Crestor] 5 mg PO HS Amlodipine [Norvasc] 2.5 mg PO HS Allopurinol 200 mg PO DAILY #0 Sucralfate 1 g PO QID #0 Cyproheptadine HCl 8 mg PO TID #0 Folic Acid [FA-8] 0.8 mg PO DAILY #0 ClonazePAM [Klonopin] 0.5 mg PO BID Niacin 500 mg PO DAILY Gabapentin 300 mg PO HS Amlodipine [Norvasc] 5 mg PO DAILY Changed Potassium Chloride 40 meq PO BIDWM #0 Discontinued Furosemide [Lasix] 20 mg PO BID #0 Discharge Instructions/Outpatient Orders: Final Provider Discharge Instructions Location: Determined By Patient - Disposition 62 To [facility] [place] [facility] - Attestation Attestation Narrative: 03/02/17 10:58 I have seen and evaluated pt prior to discharge. See my progress note from today for details. Medically stable for IRU transfer.
[2017-03-02] MEDS: DOCUSATE SODIUM 100 MG CAPSULE PO SCH (10:52)
[2017-03-02] MEDS: SALINE 0.65% NASAL SPRAY 44 ML BOTTLE EA NOSTRIL SCH ×2 (10:52→12:23)
[2017-03-02] MEDS ORDERED: FUROSEMIDE 20 MG TABLET PO SCH (15:00)
[2017-03-03] MEDS ORDERED: FUROSEMIDE 40 MG TABLET PO SCH (09:00)
== END 2017-03-02 16:50 | DRG 291 ==
LOC: ED 22:21 → MED 02-27 00:28
PROVIDERS: ADMIT Emergency Medicine; ATTEND Internal Medicine

== ENCOUNTER 2017-03-02 16:45 | Inpatient (IN) ==
[2017-03-02 17:25] VITALS: BMI 31.6
[2017-03-02] MEDS ORDERED: BISACODYL 10 MG SUPPOSITORY RECTALLY PRN (17:37)
[2017-03-02] MEDS ORDERED: HYDROCODONE/APAP 5mg/325mg TABLET PO PRN (17:37)
[2017-03-02] MEDS: CYPROHEPTADINE 4 MG TABLET PO SCH (21:03)
[2017-03-02] MEDS: SALINE 0.65% NASAL SPRAY 44 ML BOTTLE EA NOSTRIL SCH (21:03)
[2017-03-02] MEDS: SUCRALFATE 1 GM TABLET PO SCH (21:04)
[2017-03-02] MEDS: RANITIDINE 150 MG TABLET PO SCH (21:04)
[2017-03-02] MEDS: MILNACIPRAN 50 MG PO SCH (21:04)
[2017-03-02] MEDS: GABAPENTIN 300 MG CAPSULE PO SCH (21:05)
[2017-03-02] MEDS: ClonazePAM 0.5 MG TABLET PO SCH (21:05)
[2017-03-02] MEDS: NIACIN ER 500 MG TABLET PO SCH (21:06)
[2017-03-02] MEDS: DOCUSATE SODIUM 100 MG CAPSULE PO SCH (21:06)
[2017-03-02] MEDS: ROSUVASTATIN 5 MG TABLET PO SCH (21:06)
[2017-03-02] MEDS ORDERED: AMLODIPINE 2.5 MG TABLET PO SCH (22:00)
[2017-03-03] MEDS: LEVOTHYROXINE 150 MCG TABLET PO SCH (05:46)
[2017-03-03] MEDS: CARVEDILOL 3.125 MG TABLET PO SCH ×2 (08:50→17:42)
[2017-03-03] MEDS: DOCUSATE SODIUM 100 MG CAPSULE PO SCH ×2 (08:51→22:02)
[2017-03-03] MEDS: SUCRALFATE 1 GM TABLET PO SCH ×4 (08:51→22:02)
[2017-03-03] MEDS: SALINE 0.65% NASAL SPRAY 44 ML BOTTLE EA NOSTRIL SCH ×4 (08:52→21:59)
[2017-03-03] MEDS: FOLIC ACID 1 MG TABLET PO SCH (08:52)
[2017-03-03] MEDS: AMLODIPINE 5 MG TABLET PO SCH ×2 (08:53→22:02)
[2017-03-03] MEDS: ENOXAPARIN 30 MG/0.3 ML INJECTION SQ SCH (08:53)
[2017-03-03] MEDS: FUROSEMIDE 40 MG TABLET PO SCH (08:53)
[2017-03-03] MEDS: CYPROHEPTADINE 4 MG TABLET PO SCH ×3 (08:54→22:01)
[2017-03-03] MEDS: MILNACIPRAN 50 MG PO SCH ×2 (08:54→22:01)
[2017-03-03] MEDS: ALLOPURINOL 100 MG TABLET PO SCH (08:54)
[2017-03-03] MEDS: ClonazePAM 0.5 MG TABLET PO SCH ×2 (09:01→22:02)
--- NOTE | 2017-03-03 12:44 | Consult Note ---
<VickyKrystyna Coni - Last Filed: 03/03/17 13:16> Consult Information - Data of Consult Patient: known to practice within the last 3 years Requesting Physician: Raffi Wood MD Primary Care Provider: Nicki Winslow MD Family Provider: Nicki Winslow MD - Consult Narrative Reason for consult: CHF History of present illness: "Sen Vazquez is an 81-year-old lady seen in consultation for ongoing medical management of new onset CHF. She was admitted to [facility] from through 03/02/17. Initial chest x-ray showed pulmonary edema and she was aggressively diuresed. She did develop some diuretic induced hypokalemia and hypomagnesemia, which were replaced. Renal function continued to improve through her hospital course. She responded well to diuresis, and her Ortiz catheter was discontinued on the . Her home CPAP was also utilized. She was able to be discharged to IRU on 03/02/17. At time of discharge, her Lasix dose was changed to 40 mg in the morning and 20 mg in the afternoon. At home she had been taking 20 mg twice a day. Her potassium was 4 and her creatinine was 1.4. She was weaned off of oxygen. MICHELE inhibitor was considered, but was not initiated because she was not found to have systolic heart failure and had underlying stage IV chronic kidney disease. The patient was seen along with her daughter in the morning as 03/03/17. She feels very tired and fatigued today, and as such she did not sleep well last night. Her daughter states that she was voiding several times for the night. She feels like her breathing is getting better, but she notices some exertional dyspnea. Mostly, she is worried about improving her ambulation so that she doesn 't follows frequently. She denies feeling dizzy or lightheaded. She denies any near syncope. She denies having chest pain with activity, but notes that frequently she has chest pain when she lays down at night. She occasionally gets some nausea, but thinks it is food choices. She denies any abdominal pain. No diarrhea or constipation. She denies any dysuria. Leg swelling has improved significantly. PFSH Diastolic CHF. Hypertension. Hyperlipidemia. Valvular disease. Cataracts. Rheumatoid arthritis. Gout. Fibromyalgia. Depression. Obstructive sleep apnea, uses CPAP Ulcer Surgical History: echo 02/28/17. 1. Left atrial size upper-normal range. 2. Normal LV size and systolic function, EF of 61%. 3. Borderline LVH. 4. Moderate mitral regurgitation. 5. Gaqi-yz-glugfbsk aortic regurgitation. 6. Yqjd-iw-lenlgkzq tricuspid regurgitation. 7. Mild pulmonary hypertension. 8. Normal central venous pressure. Appendectomy 2008. Cholecystectomy 2011. Tonsillectomy. cardiac cath 2008, Dr. Grove. Colonoscopy 2006, Dr. Durant. TAHBSO age 54. right total hip arthroplasty. Mass removed from her leg 2009, Dr. Pillai Family History: Paternal grandmother had breast cancer and Alzheimer's dementia. Mother had renal failure, hypertension, hyperlipidemia. Daughter with hypertension. Brother had lymphoma - Social History Smoking status: Former smoker (she smoked for 8 years, and quit smoking 40 years ago) Substance use type: does not use Alcohol intake frequency: other (once a month) Current residence: Apartment/Private Home Social history: Patient sees Dr. Antunez for rheumatoid arthritis and Dr. Zenaida Cooney for chronic kidney disease. Baseline creatinine appears to be approximately 1.2. daughter Magy Vazquez is her DPOA Review of Systems All systems: reviewed and no additional remarkable complaints except as stated - Constitutional Constitutional: Present: fatigue. Absent: fever(s) - EENMT Eyes: Absent: change in vision Mouth/Throat: Absent: sore throat - Cardiovascular Cardiovascular: Present: chest pain, dyspnea on exertion - Respiratory Respiratory: Present: dyspnea on exertion. Absent: cough - Gastrointestinal Gastrointestinal: Present: nausea. Absent: abdominal pain, constipation, diarrhea - Musculoskeletal Musculoskeletal: Present: abnormal gait - Neurological Neurological: Present: frequent falls, memory loss - Psychiatric Psychiatric: Absent: anxiety - Hematologic/Lymphatic Hematologic/Lymphatic: Absent: easy bleeding Medications Home Medications Medication Instructions Recorded Confirmed Type Allopurinol 200 mg PO DAILY #0 03/25/14 03/01/17 History Sucralfate 1 g PO QID #0 07/28/15 02/26/17 History Milnacipran HCl [Savella] 50 mg PO BID #0 09/25/15 02/26/17 History Cyproheptadine HCl 8 mg PO TID #0 10/23/15 02/26/17 History Folic Acid [FA-8] 0.8 mg PO DAILY #0 09/16/16 02/26/17 History raNITIdine HCl [Ranitidine HCl] 150 mg PO DAILY #0 09/16/16 02/26/17 History Amlodipine [Norvasc] 2.5 mg PO HS 02/27/17 02/27/17 History Amlodipine [Norvasc] 5 mg PO DAILY 02/27/17 02/27/17 History ClonazePAM [Klonopin] 0.5 mg PO BID 02/27/17 02/27/17 History Gabapentin 300 mg PO HS 02/27/17 02/27/17 History Niacin 500 mg PO DAILY 02/27/17 02/27/17 History Rosuvastatin [Crestor] 5 mg PO HS 02/27/17 02/27/17 History Allergies Allergy/AdvReac Type Severity Reaction Status Date / Time MICHELE Inhibitors Allergy Unknown Verified 02/26/17 23:09 amphetamine AdvReac Unknown TERRIBLE Verified 02/26/17 23:09 HEADACHES dextroamphetamine AdvReac Unknown TERRIBLE Verified 02/26/17 23:09 HEADACHES lisinopril AdvReac Unknown COUGHING Verified 02/26/17 23:09 methylphenidate AdvReac Unknown HEADACHES Verified 02/26/17 23:09 pitavastatin AdvReac Unknown MUSCLE Verified 02/26/17 23:09 WEAKNESS/SORENESS Exam Vital Signs: Temperature 98.4 F 03/03/17 08:00 Pulse Rate 82 03/03/17 08:00 Respiratory Rate 18 03/03/17 08:00 Blood Pressure 172/68 H 03/03/17 08:00 Pulse Oximetry 92 03/03/17 08:00 Oxygen Delivery Method Room Air Height: 1.57 m Weight: 78.6 kg Body Mass Index: 31.6 - Constitutional Present: no acute distress, well nourished, well developed - Routine HEENT Exam ENT: Present: mucous membranes moist, oropharynx clear - Routine Neck Exam Absent: lymphadenopathy - Routine Respiratory Exam Present: decreased breath sounds, CTA bilaterally - Routine Cardiovascular Exam Present: RRR, S1, S2 - Routine Abdominal Exam Present: soft, normoactive bowel sounds, non distended, non tender - Routine Extremities Exam Present: edema (trace edema bilaterally), normal capillary refill - Routine Skin Exam Present: intact, dry, warm - Routine Neurological Exam Present: alert, oriented X3 (patient looks to her daughter to answer many questions, or her daughter answers for her) - Routine Psychiatric Exam Present: normal affect. Absent: normal thought process (forgetful) Assessment and Plan (1) Congestive heart failure Problem details: echo 02/28/17 1. Left atrial size upper-normal range. 2. Normal LV size and systolic function, EF of 61%. 3. Borderline LVH. 4. Moderate mitral regurgitation. 5. Kbac-nr-poywbfwq aortic regurgitation. 6. Iezd-pr-ffrebsuz tricuspid regurgitation. 7. Mild pulmonary hypertension. 8. Normal central venous pressure. Current visit: No Status: Resolved (2) CKD (chronic kidney disease) stage 4, GFR 15-29 ml/min Problem details: Creatinine 1.4 on 02/24/17, 1.2 prior to that Current visit: No Status: Chronic (3) Hypertension Current visit: No Status: Chronic (4) Hypothyroid Current visit: No Status: Chronic (5) Acute respiratory failure with hypoxia Current visit: No Status: Resolved (6) Leukopenia Current visit: Yes Status: Acute (7) Normocytic anemia Current visit: Yes Status: Acute GI Prophylaxis: Rantidine Resuscitation Status: Full Code Assessment and Plan: Diastolic CHF -pulmonary edema has resolved -Continue Lasix 40 mg in the morning and 20 mg in the afternoon. -Daily weights -Hypokalemia and hypomagnesemia during acute hospital course. Will reassess chemistries tomorrow morning. -Patient education provided on CHF symptom management, including when to call physician in 1 to call 911 Chronic kidney disease -Creatinine trended down during acute course from a max of about 2-1.4. -Repeat BMP tomorrow morning -Piece Dyer is Dr. Zenaida Cooney Hypertension -Fairly persistently moderately elevated -Increase evening dose of Norvasc to 5 mg, monitor for peripheral edema -Continue low-dose Coreg and Lasix Normocytic anemia -Suspect secondary to chronic kidney disease -Clinic records reviewed, and hemoglobin typically ranges between 11 and 13 Leukopenia - recheck tomorrow morning Frequent falls, fatigue -PT/OT per attending Thank you for this consult. We will follow Mrs. Vazquez along with you during her rehabilitation course. - Time spent with patient Coordination of Care: >50% of visit spent providing counseling/coordination of care (CHF education; f/u recommendations) Hospital Course Summary Disclaimer: The visit summary below is not to be considered part of the above Progress Note. Hospital Course: 03/03/17 13:22 Diastolic CHF -pulmonary edema has resolved -Continue Lasix 40 mg in the morning and 20 mg in the afternoon. -Daily weights -Hypokalemia and hypomagnesemia during acute hospital course. Will reassess chemistries tomorrow morning. -Patient education provided on CHF symptom management, including when to call physician in 1 to call 911 Chronic kidney disease -Creatinine trended down during acute course from a max of about 2-1.4. -Repeat BMP tomorrow morning -Piece Dyer is Dr. Zenadia Cooney Hypertension -Fairly persistently moderately elevated -Increase evening dose of Norvasc to 5 mg, monitor for peripheral edema -Continue low-dose Coreg and Lasix Normocytic anemia -Suspect secondary to chronic kidney disease -Clinic records reviewed, and hemoglobin typically ranges between 11 and 13 Leukopenia - recheck tomorrow morning Frequent falls, fatigue -PT/OT per attending Sepsis Assessment - Evaluation Sepsis screening result: No Definite Risk <Philip Pan - Last Filed: 03/03/17 15:41> Consult Information - Data of Consult Requesting Physician: Raffi Wood MD Primary Care Provider: Nicki Winslow MD Family Provider: Nicki Winslow MD [facility] Patient Stated Medical History Cataracts Yes Hearing Loss Yes Hypertension Yes Other Cardiology Yes: Leaky valve Pneumonia Yes Constipation No Ulcer Yes Other GI Yes: Heart burn occasionally Hx Incontinence Yes: dribbling Osteoarthritis Yes Other Musculoskeletal Yes: RA Depression Yes Exam Vital Signs: Temperature 98.4 F 03/03/17 08:00 Pulse Rate 82 03/03/17 14:57 Respiratory Rate 16 03/03/17 14:57 Blood Pressure 172/68 H 03/03/17 08:00 Pulse Oximetry 93 03/03/17 14:57 Oxygen Delivery Method Room Air Height: 1.57 m Weight: 78.6 kg Assessment and Plan (1) Congestive heart failure Problem details: echo 02/28/17 1. Left atrial size upper-normal range. 2. Normal LV size and systolic function, EF of 61%. 3. Borderline LVH. 4. Moderate mitral regurgitation. 5. Twor-bx-ogaworcq aortic regurgitation. 6. Xtkd-bn-srlcbvwd tricuspid regurgitation. 7. Mild pulmonary hypertension. 8. Normal central venous pressure. Current visit: No Status: Resolved (2) Debility Current visit: Yes Status: Acute (3) Pulmonary edema Current visit: No Status: Acute (4) Leukopenia Current visit: Yes Status: Acute (5) CKD (chronic kidney disease) stage 4, GFR 15-29 ml/min Problem details: Creatinine 1.4 on 02/24/17, 1.2 prior to that Current visit: No Status: Chronic (6) Hypothyroid Current visit: No Status: Chronic (7) Obesity (BMI 30-39.9) Current visit: No Status: Chronic DVT Prophylaxis: SCD's Assessment and Plan: Have independently interviewed and examined pt. Chart reviewed. Case discussed with my BEAN VINER. Above care plan developed with my supervision; agree with above. Tired today-slept poorly. Couldn't get comfortable. Needed to urinate often. Able to work well with therapy today. Breathing doing well-not SOA or having cough/congestion. No pain with breathing. No chest pressure or discomfort. Stools slow-not passing much flatus. Lungs: decreased, no distress CV: regular AB: soft nt/nd +BS MSE: awake alert, thoughts linear. Converses well. GEN: does look tired. Plan: Continue with Lasix 40mg am/20 afternoon - monitor weight as it has trended down but not to baseline. Check lab in am to monitor electrolytes and renal status. Nursing to try Dulcolax suppository to he stools. Encourage therapy to maximize functional status. Medically stable for IRU floor activities. Hospital Course Summary Disclaimer: The visit summary below is not to be considered part of the above Progress Note.
--- NOTE | 2017-03-03 14:28 | IRU History & Physical Report ---
HPI IRU Date: [id number] Chief complaint: congestive heart failure with stability HPI: 1-year-old female admitted to IRU with debility and congestive heart failure. Patient was admitted to [facility] for aggressive diuresis due to new onset of disease and she was able to diuresis, but had renal insufficiency issues develop., On day of discharge she developed worsening edema and Lasix was increased. She was unable to manage ADLs and could not be discharged home. She is appropriate for admission to IRU for medical supervision during inpatient physical therapy and occupational therapy. Review of Systems All systems: reviewed and no additional remarkable complaints except as stated - Constitutional Constitutional: Present: fatigue. Absent: fever(s) - EENMT Eyes: Absent: change in vision Mouth/Throat: Absent: sore throat - Cardiovascular Cardiovascular: Present: chest pain, dyspnea on exertion - Respiratory Respiratory: Present: dyspnea on exertion. Absent: cough - Gastrointestinal Gastrointestinal: Present: nausea. Absent: abdominal pain, constipation, diarrhea - Musculoskeletal Musculoskeletal: Present: abnormal gait - Neurological Neurological: Present: frequent falls, memory loss - Psychiatric Psychiatric: Absent: anxiety - Hematologic/Lymphatic Hematologic/Lymphatic: Absent: easy bleeding PFSH Patient Stated Medical History Cataracts Yes Hearing Loss Yes Hypertension Yes Other Cardiology Yes: Leaky valve Pneumonia Yes Constipation No Ulcer Yes Other GI Yes: Heart burn occasionally Hx Incontinence Yes: dribbling Osteoarthritis Yes Other Musculoskeletal Yes: RA Depression Yes Surgical History: echo 02/28/17. 1. Left atrial size upper-normal range. 2. Normal LV size and systolic function, EF of 61%. 3. Borderline LVH. 4. Moderate mitral regurgitation. 5. Zucd-qd-zxjqphmn aortic regurgitation. 6. Hpkc-wl-xuwfmwts tricuspid regurgitation. 7. Mild pulmonary hypertension. 8. Normal central venous pressure. Appendectomy 2008. Cholecystectomy 2011. Tonsillectomy. cardiac cath 2008, Dr. Grove. Colonoscopy 2006, Dr. Durant. TAHBSO age 54. right total hip arthroplasty. Mass removed from her leg 2009, Dr. Pillai - Social History Smoking status: Former smoker (she smoked for 8 years, and quit smoking 40 years ago) Substance use type: does not use Alcohol intake frequency: does not drink Current residence: Apartment/Private Home Medications Home Medications Medication Instructions Recorded Confirmed Type Allopurinol 200 mg PO DAILY #0 03/25/14 03/01/17 History Sucralfate 1 g PO QID #0 07/28/15 02/26/17 History Milnacipran HCl [Savella] 50 mg PO BID #0 09/25/15 02/26/17 History Cyproheptadine HCl 8 mg PO TID #0 10/23/15 02/26/17 History Folic Acid [FA-8] 0.8 mg PO DAILY #0 09/16/16 02/26/17 History raNITIdine HCl [Ranitidine HCl] 150 mg PO DAILY #0 09/16/16 02/26/17 History Amlodipine [Norvasc] 2.5 mg PO HS 02/27/17 02/27/17 History Amlodipine [Norvasc] 5 mg PO DAILY 02/27/17 02/27/17 History ClonazePAM [Klonopin] 0.5 mg PO BID 02/27/17 02/27/17 History Gabapentin 300 mg PO HS 02/27/17 02/27/17 History Niacin 500 mg PO DAILY 02/27/17 02/27/17 History Rosuvastatin [Crestor] 5 mg PO HS 02/27/17 02/27/17 History Allergies Allergy/AdvReac Type Severity Reaction Status Date / Time MICHELE Inhibitors Allergy Unknown Verified 02/26/17 23:09 amphetamine AdvReac Unknown TERRIBLE Verified 02/26/17 23:09 HEADACHES dextroamphetamine AdvReac Unknown TERRIBLE Verified 02/26/17 23:09 HEADACHES lisinopril AdvReac Unknown COUGHING Verified 02/26/17 23:09 methylphenidate AdvReac Unknown HEADACHES Verified 02/26/17 23:09 pitavastatin AdvReac Unknown MUSCLE Verified 02/26/17 23:09 WEAKNESS/SORENESS Results IRU - Labs Labs: reviewed Exam Vital Signs: Temperature 98.4 F 03/03/17 08:00 Pulse Rate 82 03/03/17 08:00 Respiratory Rate 18 03/03/17 08:00 Blood Pressure 172/68 H 03/03/17 08:00 Pulse Oximetry 92 03/03/17 08:00 Oxygen Delivery Method Room Air Telemetry Rhythm: Sinus Rhythm Height: 1.57 m Weight: 78.6 kg Body Mass Index: 31.6 - Constitutional Present: no acute distress - Routine HEENT Exam Head: Present: normocephalic - Routine Neck Exam Present: supple, full ROM - Routine Respiratory Exam Present: crackles - Routine Cardiovascular Exam Present: RRR, no murmur - Routine Abdominal Exam Present: soft, normoactive bowel sounds, non tender - Routine Extremities Exam Present: edema (1+) Sepsis Assessment - Evaluation Sepsis screening result: No Definite Risk IRU A/P (1) Debility Current visit: Yes Status: Acute Generalized weakness, unable to manage ADLs. Physical therapy and occupational therapy consulted and well-developed plan of care. (2) Congestive heart failure Qualifiers: Congestive heart failure type: diastolic Congestive heart failure chronicity: acute on chronic Qualified Code(s): I50.33 - Acute on chronic diastolic (congestive) heart failure Problem details: echo 02/28/17 1. Left atrial size upper-normal range. 2. Normal LV size and systolic function, EF of 61%. 3. Borderline LVH. 4. Moderate mitral regurgitation. 5. Esog-zv-glvgkhjd aortic regurgitation. 6. Luhc-mk-ktuugssf tricuspid regurgitation. 7. Mild pulmonary hypertension. 8. Normal central venous pressure. Current visit: No Status: Resolved Medical to manage, consults placed Resuscitation Status: Full Code - Course Hospital Course: Raffi Wood MD: - Interventions to Obtain Goals PT Treatment Plan: Balance/Proprioception, Functional Activities, Gait Training , Patient/Family Education, Therapeutic Exercise OT Treatment Plan: ADL (Basic Care), Balance Training, IADL, Ther. Exercise for ADL
--- NOTE | 2017-03-03 14:42 | IRU 24Hr Post Admit Eval ---
24 Hr Post Admission Physical - Relevant Changes Relevant Changes: No Reviewed: I have reviewed the patient's information and concur with the finding and results of the pre-admission screen. Certification: I certify the patient for rehabilitation. - Patient Condition (1) Debility Status: Acute Code(s): R53.81 - Other malaise (2) Congestive heart failure Status: Resolved Qualifiers: Congestive heart failure type: diastolic Congestive heart failure chronicity: acute on chronic Qualified Code(s): I50.33 - Acute on chronic diastolic (congestive) heart failure Code(s): I50.9 - Heart failure, unspecified - Prior Functional Status Lives With: Alone Residence Type: Apartment/Private Home Assitive Devices: None Prior Functional Status: Indep. at home or school - Current Functional Status Failed Alternative Therapy: Arrived from Acute Care Patient Requirements: The patient requires oversight by rehabilitation physician to manage their rehabilitation treatment plan and multidisciplinary approach to care that can only be provided in an IRF and requires a multidisciplinary approach to care, provided by professional PTs, OTs, STs, dieticians, RTs, rehabilitation nurses and is not available in lesser levels of care. Limitiations Req: ADL Impairment, Limited Mobility Physical Therapy Minutes: 90 Occupational Therapy Minutes: 90 Therapy: The patient is to receive therapy at least 5 days a week. - Complications/Comorbidities Impact on Functional Outcomes: Patient will have delayed recovery to return home , but with PT and OT help should be able to reach preadmission function Barriers to Discharge: Weakness, Balance, Endurance, Medical Limitation - Plan to Avoid Complications Plan to Avoid Complications: The patient cannot receive this care in a lesser intensive setting such as Longterm or Outpatient Therapy due to the patient requiring aggressive diuresis and medical supervision during inpatient physical therapy and occupational therapy to return to previous status.
[2017-03-03] MEDS: FUROSEMIDE 20 MG TABLET PO SCH (16:03)
[2017-03-03] MEDS ORDERED: FALL RISK - PHARMACY CONSULT MC PRN (20:17)
[2017-03-03] MEDS: GABAPENTIN 300 MG CAPSULE PO SCH (22:00)
[2017-03-03] MEDS: NIACIN ER 500 MG TABLET PO SCH (22:01)
[2017-03-03] MEDS: RANITIDINE 150 MG TABLET PO SCH (22:01)
[2017-03-03] MEDS: ROSUVASTATIN 5 MG TABLET PO SCH (22:01)
[2017-03-04] MEDS: LEVOTHYROXINE 150 MCG TABLET PO SCH (07:25)
[2017-03-04] MEDS: SALINE 0.65% NASAL SPRAY 44 ML BOTTLE EA NOSTRIL SCH ×4 (08:55→21:33)
[2017-03-04] MEDS: FOLIC ACID 1 MG TABLET PO SCH (08:55)
[2017-03-04] MEDS: DOCUSATE SODIUM 100 MG CAPSULE PO SCH ×2 (08:55→21:33)
[2017-03-04] MEDS: ClonazePAM 0.5 MG TABLET PO SCH ×2 (08:56→21:30)
[2017-03-04] MEDS: CYPROHEPTADINE 4 MG TABLET PO SCH ×3 (08:56→21:30)
[2017-03-04] MEDS: ALLOPURINOL 100 MG TABLET PO SCH (08:56)
[2017-03-04] MEDS: AMLODIPINE 5 MG TABLET PO SCH ×2 (08:57→21:32)
[2017-03-04] MEDS: CARVEDILOL 3.125 MG TABLET PO SCH ×2 (08:57→17:06)
[2017-03-04] MEDS: FUROSEMIDE 40 MG TABLET PO SCH (08:57)
[2017-03-04] MEDS: SUCRALFATE 1 GM TABLET PO SCH ×4 (08:57→21:33)
[2017-03-04] MEDS: ENOXAPARIN 30 MG/0.3 ML INJECTION SQ SCH (08:58)
[2017-03-04] MEDS: MILNACIPRAN 50 MG PO SCH ×2 (08:58→21:30)
--- NOTE | 2017-03-04 10:14 | Progress Note ---
Subjective: I was notified by IRU staff that Barbara has been more confused. She also developed an itchy rash to her back. When I saw her, she admitted to being confused, but reports she frequently is. For example, last night she said she was "sleep walking" which occurs when she's in a new place - she recalls looking for her daughter and someone telling her to take her meds and go back to bed. She also reports some mild lower abdominal discomfort after urinating, but no dysuria. Objective Vital signs: Temperature 98.8 F 03/04/17 07:53 Pulse Rate 77 03/04/17 07:53 Respiratory Rate 12 03/04/17 07:53 Blood Pressure 139/63 03/04/17 07:53 Pulse Oximetry 95 03/04/17 08:00 Oxygen Delivery Method Room Air Body Mass Index: 31.6 - Constitutional Present: no acute distress, well nourished, well developed - Routine HEENT Exam ENT: Present: mucous membranes moist, oropharynx clear - Routine Respiratory Exam Present: CTA bilaterally - Routine Cardiovascular Exam Present: RRR, S1, S2 - Routine Abdominal Exam Present: soft, normoactive bowel sounds, non tender, distended (mild) - Routine Extremities Exam Present: edema (trace b/l LE) - Routine Musculoskeletal Exam Musculoskeletal: Present: moving extremities well - Routine Skin Exam Present: intact, dry, warm - Routine Neurological Exam Present: alert - Routine Psychiatric Exam Present: normal affect. Absent: normal thought process (confused) Results - Labs CBC & Chem 7: 03/04/17 04:52 03/04/17 04:52 Assessment and Plan (1) Pulmonary edema Current visit: No Status: Acute (2) Congestive heart failure Problem details: echo 02/28/17 1. Left atrial size upper-normal range. 2. Normal LV size and systolic function, EF of 61%. 3. Borderline LVH. 4. Moderate mitral regurgitation. 5. Pumi-nm-eekfnhti aortic regurgitation. 6. Gycg-go-fvoewzfs tricuspid regurgitation. 7. Mild pulmonary hypertension. 8. Normal central venous pressure. Current visit: No Status: Resolved (3) CKD (chronic kidney disease) stage 4, GFR 15-29 ml/min Problem details: Creatinine 1.4 on 02/24/17, 1.2 prior to that Current visit: No Status: Chronic (4) Hypothyroid Current visit: No Status: Chronic (5) Obesity (BMI 30-39.9) Current visit: No Status: Chronic (6) Leukopenia Current visit: Yes Status: Acute (7) Debility Current visit: Yes Status: Acute Assessment and Plan: Increased confusion -hx of confusion/dementia -check UA, Vit B12 Anemia -hgb down to 9; repeat in am -order iron studies -check stool for occult blood constipation; mild abd distention -start daily MiraLAX; Senna Plus -PRN MOM -monitor for ileus CKD -cr stable at 1.4 -K and mg stable HTN -some improvement since increased Norvasc dose on 03/03 -continue to monitor Sepsis Assessment - Evaluation Sepsis screening result: No Definite Risk Hospital Course Summary Disclaimer: The visit summary below is not to be considered part of the above Progress Note. Hospital Course: 03/03/17 13:22 Diastolic CHF -pulmonary edema has resolved -Continue Lasix 40 mg in the morning and 20 mg in the afternoon. -Daily weights -Hypokalemia and hypomagnesemia during acute hospital course. Will reassess chemistries tomorrow morning. -Patient education provided on CHF symptom management Chronic kidney disease -Creatinine trended down during acute course from a max of about 2-1.4. -Repeat BMP tomorrow morning -Risk Control Consultant is Dr. Zenaida Cooney Hypertension -Fairly persistently moderately elevated -Increase evening dose of Norvasc to 5 mg, monitor for peripheral edema -Continue low-dose Coreg and Lasix Normocytic anemia -Suspect secondary to chronic kidney disease -Clinic records reviewed, and hemoglobin typically ranges between 11 and 13 Leukopenia - recheck tomorrow morning Frequent falls, fatigue -PT/OT per attending 03/04/17 10:22 Increased confusion -hx of confusion/dementia -check UA, Vit B12 Anemia -hgb down to 9; repeat in am -order iron studies -check stool for occult blood constipation; mild abd distention -start daily MiraLAX; Senna Plus -PRN MOM -monitor for ileus CKD -cr stable at 1.4 -K and mg stable HTN -some improvement since increased Norvasc dose on 03/03 -continue to monitor
[2017-03-04] MEDS: POLYETHYL GLYCOL 3350 17gm PACKET PO SCH (12:19)
[2017-03-04] MEDS ORDERED: PNEUMOCOCCAL 23 VACCINE 0.5ml INJECTION IM ONE (12:57)
--- NOTE | 2017-03-04 14:03 | IRU Plan of Care ---
[facility] Overall Plan of Care - Date Date: 03/04/17 - Patient Impairments (1) Congestive heart failure Qualifiers: Congestive heart failure type: diastolic Congestive heart failure chronicity: acute on chronic Qualified Code(s): I50.33 - Acute on chronic diastolic (congestive) heart failure Code(s): I50.9 - Heart failure, unspecified Status: Resolved Classification: Present on IRF Admission, Diagnosis Requiring Medical Follow Up (2) Debility Code(s): R53.81 - Other malaise Status: Acute Classification: Present on IRF Admission, IRF Tx That Should Address Diagnosis (3) Pulmonary edema Qualifiers: Chronicity: acute Qualified Code(s): J81.0 - Acute pulmonary edema Code(s): J81.1 - Chronic pulmonary edema Status: Acute Classification: Present on IRF Admission, Diagnosis Requiring Medical Follow Up (4) Leukopenia Qualifiers: Leukopenia type: lymphocytopenia Qualified Code(s): D72.810 - Lymphocytopenia Code(s): D72.819 - Decreased white blood cell count, unspecified Status: Acute Classification: Present on IRF Admission, Diagnosis Requiring Medical Follow Up (5) CKD (chronic kidney disease) stage 4, GFR 15-29 ml/min Code(s): N18.4 - Chronic kidney disease, stage 4 (severe) Status: Chronic Classification: Present on IRF Admission, Diagnosis Requiring Medical Follow Up (6) Hypothyroid Qualifiers: Hypothyroidism type: acquired Qualified Code(s): E03.9 - Hypothyroidism, unspecified Code(s): E03.9 - Hypothyroidism, unspecified Status: Chronic Classification: Present on IRF Admission, Diagnosis Requiring Medical Follow Up (7) Obesity (BMI 30-39.9) Code(s): E66.9 - Obesity, unspecified Status: Chronic Classification: Present on IRF Admission, Other Contributing Factor - Relevant Changes Relevant Changes: No Reviewed: I have reviewed the patient's information and concur with the finding and results of the pre-admission screen. Certification: I certify the patient for rehabilitation. - Medical Prognosis Medical Prognosis: Fair Vital Signs: Last Vital Signs Temp 98.8 F 03/04/17 07:53 Pulse 77 03/04/17 07:53 Resp 12 03/04/17 07:53 BP 139/63 03/04/17 07:53 Pulse Ox 95 03/04/17 08:00 - Anticipated Interventions Anticipated Interventions: The patient requires inpatient IRF care for PT, OT, and/or ST for residuals remaining from [] resulting in muscular weakness and strength deficits. Strength Deficits: Right Upper Extremity, Right Lower Extremity, Left Upper Extremity, Left Lower Extremity - FIM Ambulation Distance: 290 Toileting Adaptive Equipment: Toilet Rails - Current Functional Status Failed Alternative Therapy: Arrived from Acute Care Patient Requires: The patient requires oversight by rehabilitation physician to manage their rehabilitation treatment plan and multidisciplinary approach to care that can only be provided in an IRF and requires a multidisciplinary approach to care, provided by professional PTs, OTs, STs, dieticians, RTs, rehabilitation nurses and is not available in lesser levels of care. Physical Therapy Minutes: 90 Occupational Therapy Minutes: 90 Therapy: The patient is to receive therapy at least 5 days a week. - Anticipated LOS/Outcomes Anticipated Functional Outcome: With inpatient physical therapy and occupational therapy care, patient should be able to return to preadmission function Anticipated DC Destination: Home Health Service Home Safety Plan: The patient will be provided with the development of a Home Safety Plan for return to a home or home-like environment and and to ensure safety post discharge. - Plan to Avoid Complications Barriers to Attaining Goals: Weakness, Balance, Endurance, Medical Limitation Plan to Avoid Complications: The patient cannot receive this care in a lesser intensive setting such as Nursing Home or Outpatient Therapy due to the patient requiring inpatient medical supervision of congestive heart failure and renal function during inpatient physical therapy and occupational therapy.
--- NOTE | 2017-03-04 14:04 | IRU Progress Note ---
- Subjective/Serverity of Illness Patient working with staff, cooperating with physical therapy occupational therapy. Out for meals. Exam Vital Signs: Temperature 98.8 F 03/04/17 07:53 Pulse Rate 77 03/04/17 07:53 Respiratory Rate 12 03/04/17 07:53 Blood Pressure 139/63 03/04/17 07:53 Pulse Oximetry 95 03/04/17 08:00 Oxygen Delivery Method Room Air Height: 1.57 m Weight: 81.2 kg Body Mass Index: 31.6 - Constitutional Present: no acute distress, well nourished - Routine HEENT Exam Head: Present: normocephalic, atraumatic - Routine Respiratory Exam Present: CTA bilaterally. Absent: wheezes, crackles - Routine Cardiovascular Exam Present: RRR, no murmur Sepsis Assessment - Evaluation Sepsis screening result: No Definite Risk IRU A/P (1) Congestive heart failure Qualifiers: Congestive heart failure type: diastolic Congestive heart failure chronicity: acute on chronic Qualified Code(s): I50.33 - Acute on chronic diastolic (congestive) heart failure Problem details: echo 02/28/17 1. Left atrial size upper-normal range. 2. Normal LV size and systolic function, EF of 61%. 3. Borderline LVH. 4. Moderate mitral regurgitation. 5. Uqzi-xa-eunkbzse aortic regurgitation. 6. Qkxm-wn-lnwvuqlk tricuspid regurgitation. 7. Mild pulmonary hypertension. 8. Normal central venous pressure. Status: Resolved Managed by medical. (2) Debility Status: Acute Physical therapy and occupational therapy working with patient increase both strength and stamina. Continue with current plan. Reevaluate at team meeting. (3) Pulmonary edema Qualifiers: Chronicity: acute Qualified Code(s): J81.0 - Acute pulmonary edema Status: Acute Managed by medical (4) Leukopenia Qualifiers: Leukopenia type: lymphocytopenia Qualified Code(s): D72.810 - Lymphocytopenia Status: Acute (5) CKD (chronic kidney disease) stage 4, GFR 15-29 ml/min Problem details: Creatinine 1.4 on 02/24/17, 1.2 prior to that Status: Chronic (6) Hypothyroid Qualifiers: Hypothyroidism type: acquired Qualified Code(s): E03.9 - Hypothyroidism, unspecified Status: Chronic (7) Obesity (BMI 30-39.9) Status: Chronic DVT Prophylaxis: SCD's Resuscitation Status: Full Code - Course Hospital Course: Raffi Wood MD: - Interventions to Obtain Goals PT Treatment Plan: Balance/Proprioception, Functional Activities, Gait Training , Patient/Family Education, Therapeutic Exercise OT Treatment Plan: ADL (Basic Care), Balance Training, IADL, Ther. Exercise for ADL
[2017-03-04] MEDS: FUROSEMIDE 20 MG TABLET PO SCH (15:34)
[2017-03-04] MEDS ORDERED: ALBUTEROL 2.5mg/3ml (0.083%) NEB AEROSOL PRN (20:51)
[2017-03-04] MEDS: ROSUVASTATIN 5 MG TABLET PO SCH (21:31)
[2017-03-04] MEDS: RANITIDINE 150 MG TABLET PO SCH (21:31)
[2017-03-04] MEDS: GABAPENTIN 300 MG CAPSULE PO SCH (21:31)
[2017-03-04] MEDS: NIACIN ER 500 MG TABLET PO SCH (21:31)
[2017-03-04] MEDS: SENNA + DOCUSATE TABLET PO SCH (21:33)
[2017-03-04] MEDS: ACETAMINOPHEN 325 MG TABLET PO PRN (21:36)
[2017-03-05] MEDS ORDERED: FUROSEMIDE 40 MG/4 ML INJECTION IVP SCH ×2 (04:15→18:00)
--- NOTE | 2017-03-05 10:10 | Progress Note ---
<Kamini Castro - Last Filed: 03/05/17 10:02> Subjective: Oli is seen today in follow up for her CHF and fluid overload. She is seen while sleeping and arouses briefly with soft touch and voice stimuli but quickly falls back to sleep. Nursing reports that she repeatedly became hypoxic last night requiring application of nasal canula at 3L to get sats above 90%. She is currently sleeping with her CPAP in place and appears comfortable without distress. She was given Lasix 40mg IV last night and a chest x-ray was obtained in light of her new hypoxia. CXR results pending. Nursing also reports increased confusion yesterday. Exam revealed course, crackles bilaterally with trace to 1+ edema to lower extremities. Labs today revealed improvement in her anemia with HGB at 10.1 as well as slight worsening in SCr at 1.8, up from 1.4 on 03/03. B12, folate and iron studies pending. UA showed 2+ protein without signs of infection. Review of nursing notes indicates weight gain of ~5 pounds since admission to IRU on 03/03. Objective Vital signs: Temperature 98.2 F 03/04/17 19:57 Pulse Rate 64 03/04/17 19:57 Respiratory Rate 18 03/04/17 22:14 Blood Pressure 134/58 03/04/17 19:57 Pulse Oximetry 91 03/04/17 22:14 Oxygen Delivery Method Nasal Cannula Oxygen Flow Rate 3 Body Mass Index: 31.6 - Constitutional Present: no acute distress Comments: sleeping with CPAP in place. - Routine HEENT Exam Head: Present: normocephalic, atraumatic Comments: unable to assess due to patient sleeping and CPAP in place. - Routine Respiratory Exam Present: crackles. Absent: accessory muscle use, wheezes Comments: diminished breath sounds bilaterally with course lung sounds and crackles. - Routine Cardiovascular Exam Present: RRR, S1, S2 - Routine Abdominal Exam Present: soft, normoactive bowel sounds, non distended - Routine Extremities Exam Present: edema (trace to 1+ lower extremity), pulses intact (1+ pedal). Absent : cyanosis - Routine Musculoskeletal Exam Musculoskeletal: Present: no clubbing or cyanosis, no erythema - Routine Skin Exam Present: intact, dry, warm. Absent: cyanosis - Routine Neurological Exam sleeping - Routine Lymphatic Exam Lymphatic: Absent: lymphedema - Routine Psychiatric Exam Comments: sleeping Results - Labs CBC & Chem 7: 03/05/17 04:54 03/05/17 04:54 Assessment and Plan (1) Pulmonary edema Current visit: No Status: Acute (2) Congestive heart failure Problem details: echo 02/28/17 1. Left atrial size upper-normal range. 2. Normal LV size and systolic function, EF of 61%. 3. Borderline LVH. 4. Moderate mitral regurgitation. 5. Hwiv-jr-ciowqqvo aortic regurgitation. 6. Pmhp-ph-iynhoinq tricuspid regurgitation. 7. Mild pulmonary hypertension. 8. Normal central venous pressure. Current visit: No Status: Resolved (3) CKD (chronic kidney disease) stage 4, GFR 15-29 ml/min Problem details: Creatinine 1.4 on 02/24/17, 1.2 prior to that Current visit: No Status: Chronic (4) Hypothyroid Current visit: No Status: Chronic (5) Obesity (BMI 30-39.9) Current visit: No Status: Chronic (6) Leukopenia Current visit: Yes Status: Acute (7) Debility Current visit: Yes Status: Acute Assessment and Plan: Oli was reported to have some hypoxia during the night requiring supplemental oxygen at 3L to maintain SAO2 >90%. Chest x-ray was obtained with results pending but clinical exam concerning for fluid overload. Lung sounds are course with crackles and diminished lung sounds in the bases. Cardiac exam reveals regular rate and rhythm. Trace to 1+ edema lower extremities. Nursing expressed concerns about increased confusion. Lasix 40mg IV given over night. SCr elevated today at 1.8. CHF, diastolic. -Signs of fluid overload noted. Lasix 40mg IV given over night. Monitor daily weight and I&O closely as well as respiratory function. -Weight gain ~5 lbs since 03/03. -CXR results pending. -Recheck BMP in AM and CBC and BMP on 03/07. -Monitor closely on telemetry with continuous pulse ox, weaning oxygen as able. Increased confusion -hx of confusion/dementia. -UA showed 2+ protein without signs of infection. B12, folate and iron studies pending results. -Continue to monitor closely. Anemia -hgb improved to 10.1; Continue to monitor trends. -order iron studies - results pending. -check stool for occult blood - results pending. Constipation; mild abd distention -start daily MiraLAX; Senna Plus for bowel motivation. BM documented today. -PRN MOM -monitor closely for ileus. CKD, stage IV. -SCr increased to 1.8 today (up from 1.4 on 03/04). Continue to monitor closely in light of fluid overload and CKD. Will discuss treatment recommendations with Dr. Irizarry. -Continue to monitor electrolytes closely in light of diuresis. HTN -Blood pressure controlled since increased Norvasc dose on 03/03. -continue to monitor. - Time spent with patient 25 - 35 minutes Sepsis Assessment - Evaluation Sepsis screening result: No Definite Risk Hospital Course Summary Disclaimer: The visit summary below is not to be considered part of the above Progress Note. Hospital Course: 03/03/17 13:22 Diastolic CHF -pulmonary edema has resolved -Continue Lasix 40 mg in the morning and 20 mg in the afternoon. -Daily weights -Hypokalemia and hypomagnesemia during acute hospital course. Will reassess chemistries tomorrow morning. -Patient education provided on CHF symptom management Chronic kidney disease -Creatinine trended down during acute course from a max of about 2-1.4. -Repeat BMP tomorrow morning -Group Home Worker is Dr. Zenaida Cooney Hypertension -Fairly persistently moderately elevated -Increase evening dose of Norvasc to 5 mg, monitor for peripheral edema -Continue low-dose Coreg and Lasix Normocytic anemia -Suspect secondary to chronic kidney disease -Clinic records reviewed, and hemoglobin typically ranges between 11 and 13 Leukopenia - recheck tomorrow morning Frequent falls, fatigue -PT/OT per attending 03/04/17 10:22 Increased confusion -hx of confusion/dementia -check UA, Vit B12 Anemia -hgb down to 9; repeat in am -order iron studies -check stool for occult blood constipation; mild abd distention -start daily MiraLAX; Senna Plus -PRN MOM -monitor for ileus CKD -cr stable at 1.4 -K and mg stable HTN -some improvement since increased Norvasc dose on 03/03 -continue to monitor 03/05/17 10:26 Oli was reported to have some hypoxia during the night requiring supplemental oxygen at 3L to maintain SAO2 >90%. Chest x-ray was obtained with results pending but clinical exam concerning for fluid overload. Lung sounds are course with crackles and diminished lung sounds in the bases. Cardiac exam reveals regular rate and rhythm. Trace to 1+ edema lower extremities. Nursing expressed concerns about increased confusion. Lasix 40mg IV given over night. SCr elevated today at 1.8. CHF, diastolic. -Signs of fluid overload noted. Lasix 40mg IV given over night. Monitor daily weight and I&O closely as well as respiratory function. -Weight gain ~5 lbs since 03/03. -CXR results pending. -Recheck BMP in AM and CBC and BMP on 03/07. -Monitor closely on telemetry with continuous pulse ox, weaning oxygen as able. Increased confusion -hx of confusion/dementia. -UA showed 2+ protein without signs of infection. B12, folate and iron studies pending results. -Continue to monitor closely. Anemia -hgb improved to 10.1; Continue to monitor trends. -order iron studies - results pending. -check stool for occult blood - results pending. Constipation; mild abd distention -start daily MiraLAX; Senna Plus for bowel motivation. BM documented today. -PRN MOM -monitor closely for ileus. CKD, stage IV. -SCr increased to 1.8 today (up from 1.4 on 03/04). Continue to monitor closely in light of fluid overload and CKD. Will discuss treatment recommendations with Dr. Irizarry. -Continue to monitor electrolytes closely in light of diuresis. HTN -Blood pressure controlled since increased Norvasc dose on 03/03. -continue to monitor. <Beatriz Irizarry - Last Filed: 03/05/17 11:29> Objective Vital signs: Temperature 98.1 F 03/05/17 08:00 Pulse Rate 77 03/05/17 08:00 Respiratory Rate 20 03/05/17 08:00 Blood Pressure 170/67 H 03/05/17 08:00 Pulse Oximetry 94 03/05/17 08:00 Oxygen Delivery Method Nasal Cannula Oxygen Flow Rate 7 Results - Labs CBC & Chem 7: 03/05/17 04:54 03/05/17 04:54 Assessment and Plan (1) Pulmonary edema Current visit: No Status: Acute (2) Congestive heart failure Problem details: echo 02/28/17 1. Left atrial size upper-normal range. 2. Normal LV size and systolic function, EF of 61%. 3. Borderline LVH. 4. Moderate mitral regurgitation. 5. Goyp-sz-nykxwshb aortic regurgitation. 6. Cxaf-kw-mgkllptp tricuspid regurgitation. 7. Mild pulmonary hypertension. 8. Normal central venous pressure. Current visit: No Status: Resolved (3) CKD (chronic kidney disease) stage 4, GFR 15-29 ml/min Problem details: Creatinine 1.4 on 02/24/17, 1.2 prior to that Current visit: No Status: Chronic (4) Hypothyroid Current visit: No Status: Chronic (5) Obesity (BMI 30-39.9) Current visit: No Status: Chronic (6) Leukopenia Current visit: Yes Status: Acute (7) Debility Current visit: Yes Status: Acute Assessment and Plan: 03/05/2017-I reviewed this chart, the patient history, and the CHAIN OFFBEARER's/PA's documented findings as above. We discussed and formulated the assessment and plan as above with the additions below. I did see and examine the patient myself , as well.-Dr. Irizarry Events of this hospitalization were reviewed. The patient was apparently admitted with pulmonary edema to acute care and on the was transferred to IRU for strengthening. She had been on room air in IRU until last evening when she was needing 3 L of oxygen and then up to 10 L of oxygen. The night hospitalist was called and chest x-ray was obtained showing pulmonary edema. She was given 40 of Lasix IV. She was placed back on her CPAP. This morning the nurse practitioner did see her and she was somnolent. In the meantime, the patient was transferred to a room closer to the nurses station and she is now off of CPAP and sitting up in a chair. She did eat some breakfast. She is no longer lethargic. An ABG was ordered earlier, but now that she is noted not to be lethargic it was canceled. She is still on 7 L of oxygen with O2 sat of 94%. She states she feels fatigued and a little short of breath. She does not think she has any chest pain. She continues to have some lower extremity edema. Appetite is poor but she did eat a bowl of cereal. On exam she is alert. She is in no acute distress. HEENT reveals sclerae to be anicteric and oropharynx is moist. Neck is supple and there is no JVD with her sitting up 90 in a chair. Chest reveals crackles in the lower one half of the lung kaur. Cardiovascular reveals a regular rate and rhythm with a borderline tachycardic rate. Abdomen is soft and nontender. Extremities reveal trace edema. Skin is warm and dry and without rashes. Lab was reviewed. Chest x-ray on my review shows pulmonary edema, about the same compared to February 28. Impression Worsening pulmonary edema and hypoxia in a patient with history of diastolic heart failure, moderate mitral regurg and mild to moderate aortic regurg. Weight is reportedly up 5 pounds from admission to yesterday. Chronic kidney disease with worsening renal function. Anemia, improved with diuresis. Plan Give IV Lasix now and hold oral Lasix. Check serial troponins. EKG now. Consult cardiology. Recheck weight today. Accurate I&O's. 1 L fluid restriction. Monitor electrolytes closely. Nursing to notify if oxygen requirements increase. If the patient is worsening, will need to transfer back to acute care. May need BiPAP for help with pulmonary edema instead of CPAP. EKG was obtained. The patient denies any chest pain. EKG shows low QRS voltage in precordial leads, possible anterior ND probably old, moderate T-wave abnormality consider lateral ischemia. Troponin is pending. - Time spent with patient greater than 35 minutes Hospital Course Summary Disclaimer: The visit summary below is not to be considered part of the above Progress Note.
[2017-03-05] MEDS ORDERED: FUROSEMIDE 20 MG/2 ML INJECTION IVP ONE (11:01)
[2017-03-05] MEDS: SALINE FLUSH 10ml SYRINGE IV PRN ×2 (11:42→18:01)
[2017-03-05] MEDS: LEVOTHYROXINE 150 MCG TABLET PO SCH (11:43)
[2017-03-05] MEDS: SALINE 0.65% NASAL SPRAY 44 ML BOTTLE EA NOSTRIL SCH ×4 (11:43→21:25)
[2017-03-05] MEDS: CYPROHEPTADINE 4 MG TABLET PO SCH ×3 (11:43→21:26)
[2017-03-05] MEDS: CARVEDILOL 3.125 MG TABLET PO SCH ×2 (11:44→17:52)
[2017-03-05] MEDS: AMLODIPINE 5 MG TABLET PO SCH ×2 (11:44→21:27)
[2017-03-05] MEDS: POLYETHYL GLYCOL 3350 17gm PACKET PO SCH (11:44)
[2017-03-05] MEDS: DOCUSATE SODIUM 100 MG CAPSULE PO SCH ×2 (11:44→21:27)
[2017-03-05] MEDS: SUCRALFATE 1 GM TABLET PO SCH ×4 (11:44→21:27)
[2017-03-05] MEDS: FUROSEMIDE 40 MG TABLET PO SCH (11:45)
[2017-03-05] MEDS: MILNACIPRAN 50 MG PO SCH ×2 (11:45→21:26)
[2017-03-05] MEDS: ALLOPURINOL 100 MG TABLET PO SCH (11:45)
[2017-03-05] MEDS: FOLIC ACID 1 MG TABLET PO SCH (11:45)
[2017-03-05] MEDS: ENOXAPARIN 30 MG/0.3 ML INJECTION SQ SCH (11:45)
[2017-03-05] MEDS: SENNA + DOCUSATE TABLET PO SCH ×2 (11:46→21:27)
[2017-03-05] MEDS: ClonazePAM 0.5 MG TABLET PO SCH ×2 (11:47→21:27)
--- NOTE | 2017-03-05 12:33 | Cardiology Consult Note ---
History of Present Illness Consult date: 03/05/17 <Nicci Cantu 03/05/17 12:45> Requesting physician: Beatriz Irizarry <Nicci Cantu 03/05/17 12:45> Consult reason: congestive heart failure <Nicci Cantu 03/05/17 12:45> Chief complaint: hypoxia <Nicci Cantu 03/05/17 12:45> History of present illness: Oli is an 81 year old female patient on the IRU unit with a history of Diastolic CHF, HTN, HLD, CKD, obesity and SANJEEV. Nursing reports that she repeatedly became hypoxic last night requiring application of nasal canula at 3L to get sats above 90%. She was given Lasix 40mg IV last night and a chest x-ray was obtained in light of her new hypoxia. CXR results pending. Nursing also reports increased confusion yesterday. Cardiology was consulted for acute diastolic CHF. She is examined in her room. She is alert and oriented. She is sitting up in the recliner and is in no distress. I educated her on the importance of limiting sodium and fluid intake, as well as education about importance of daily weights. She reports dyspnea on exertion as a normal for her when doing her chores. She reports feeling her heartbeat when she lays in bed at night but denies palpitations, racing or irregular heart beats. She denies recent illness , fever, chills, cough, chest pain or pressure. <Nicci Cantu 03/05/17 12:45> Review of Systems - Constitutional Constitutional: Present: fatigue. Absent: chills, fever(s) <Nicci Cantu 03/05/17 12:45> - EENMT Eyes: Absent: change in vision <Nicci Cantu 03/05/17 12:45> Balance: Absent: vertigo <AlondraNicci Brower 03/05/17 12:45> Mouth/Throat: Absent: sore throat <AlondraNicci Brower 03/05/17 12:45> - Cardiovascular Cardiovascular: Present: dyspnea on exertion. Absent: chest pain, palpitations , orthopnea, heart murmur <AlondraNicci Inocente 03/05/17 12:45> Rhythm: Present: regular rhythm <Nicci Cantu 03/05/17 12:45> - Respiratory Respiratory: Present: dyspnea on exertion. Absent: cough <Nicci Cantu 12:45> - Gastrointestinal Gastrointestinal: Absent: abdominal pain, constipation, diarrhea, nausea, vomiting <Nicci Cantu 03/05/17 12:45> - Genitourinary Genitourinary: Absent: dysuria <Nicci Cantu 03/05/17 12:45> - Musculoskeletal Musculoskeletal: Present: abnormal gait <Nicci Cantu 03/05/17 12:45> - Neurological Neurological: Present: frequent falls, memory loss <Nicci Cantu 03/05/17 12:45> - Psychiatric Psychiatric: Absent: anxiety <Nicci Cantu 03/05/17 12:45> - Hematologic/Lymphatic Hematologic/Lymphatic: Absent: easy bleeding <Nicci Cantu 03/05/17 12:45> PFSH Patient Stated Medical History Cataracts Yes Hearing Loss Yes Hypertension Yes Other Cardiology Yes: Leaky valve Pneumonia Yes Constipation No Ulcer Yes Other GI Yes: Heart burn occasionally Hx Incontinence Yes: dribbling Osteoarthritis Yes Other Musculoskeletal Yes: RA Depression Yes <JoanbrennanDanny tan 03/09/17 11:56> Patient Stated Medical History Cataracts Yes Hearing Loss Yes Hypertension Yes Other Cardiology Yes: Leaky valve Pneumonia Yes Constipation No Ulcer Yes Other GI Yes: Heart burn occasionally Hx Incontinence Yes: dribbling Osteoarthritis Yes Other Musculoskeletal Yes: RA Depression Yes <Nicci Cantu 03/05/17 12:45> Surgical History: Appendectomy 2008. Cholecystectomy 2011. Tonsillectomy. cardiac cath 2008, Dr. Grove. Colonoscopy 2006, Dr. Durant. TAHBSO age 54. right total hip arthroplasty. Mass removed from her leg 2009, Dr. Pillai <Nicci Cantu 03/05/17 12:45> - Social History Smoking status: Former smoker <AlondraNicci cuenca Inocente 03/05/17 12:45> Substance use type: does not use <Alondra,Nicci Brower 03/05/17 12:45> Alcohol intake frequency: does not drink <Alondra,Nicci Brower 03/05/17 12:45> Household members: none <Nicci Cantu - 03/05/17 12:45> Current occupational status: retired <Nicci Cantu - 03/05/17 12:45> Current residence: Apartment/Private Home <Nicci Cantu - 03/05/17 12:45> Medications Home Medications Medication Instructions Recorded Confirmed Type Unable to Obtain Med List [Unknown 03/08/17 03/08/17 History Meds] <Danny Doll - 03/09/17 11:56> Allergies Allergy/AdvReac Type Severity Reaction Status Date / Time MICHELE Inhibitors Allergy Unknown Verified 02/26/17 23:09 amphetamine AdvReac Unknown TERRIBLE Verified 02/26/17 23:09 HEADACHES dextroamphetamine AdvReac Unknown TERRIBLE Verified 02/26/17 23:09 HEADACHES lisinopril AdvReac Unknown COUGHING Verified 02/26/17 23:09 methylphenidate AdvReac Unknown HEADACHES Verified 02/26/17 23:09 pitavastatin AdvReac Unknown MUSCLE Verified 02/26/17 23:09 WEAKNESS/SORENESS <Danny Doll - 03/09/17 11:56> Exam Vital signs: Temperature 98.1 F 03/06/17 16:00 Pulse Rate 60 03/06/17 16:00 Respiratory Rate 20 03/06/17 16:00 Blood Pressure 135/58 03/06/17 16:00 Pulse Oximetry 87 L 03/06/17 18:50 Oxygen Delivery Method CPAP Oxygen Flow Rate 10 <Danny Doll - 03/09/17 11:56> Temperature 98.1 F 03/05/17 08:00 Pulse Rate 77 03/05/17 08:00 Respiratory Rate 20 03/05/17 08:00 Blood Pressure 170/67 H 03/05/17 08:00 Pulse Oximetry 94 03/05/17 08:00 Oxygen Delivery Method Nasal Cannula Oxygen Flow Rate 7 <Nicci Cantu - 03/05/17 12:45> - Constitutional no acute distress, obese, cooperative <Nicci Cantu - 03/05/17 12:45> - Routine Neck Exam Absent: JVD, carotid bruit <Nicci Cantu - 03/05/17 12:45> - Routine Chest/Breast/Axilla Exam Chest wall: Absent: tenderness <Nicci Cantu 03/05/17 12:45> - Routine Respiratory Exam Present: rales (bibasilar). Absent: CTA bilaterally <Nicci Cantu 12:45> - Routine Cardiovascular Exam Present: RRR, no murmur. Absent: JVD <Nicci Cantu 03/05/17 12:45> - Routine Abdominal Exam Present: soft, normoactive bowel sounds <Nicci Cantu 03/05/17 12:45> - Routine Extremities Exam Present: edema (trace) <Nicci Cantu 03/05/17 12:45> - Routine Skin Exam Present: intact <Nicci Cantu 03/05/17 12:45> - Routine Neurological Exam Present: alert, oriented X3 <Nicci Cantu 03/05/17 12:45> - Routine Psychiatric Exam Present: normal affect, normal thought process <Nicci Cantu 03/05/17 12: 45> Results 03/05/17 04:54 03/06/17 04:32 <JoanbrennanIvania tanin - 03/09/17 11:56> Cardiac Enzymes 03/05/17 03/05/17 Range/Units 10:58 10:58 Troponin I 0.014 (0-0.12) ng/ml B-Natriuretic Peptide 990 H (0-175) pg/mL Coagulation 03/05/17 Range/Units 10:58 B-Natriuretic Peptide 990 H (0-175) pg/mL CBC 03/05/17 Range/Units 04:54 WBC 5.1 (4.5-11.0) T/MM3 RBC 3.86 L (4.00-5.20) M/MM3 Hgb 10.1 L D (12-16) GM/DL Hct 31.5 L (36-46) % Plt Count 151 (130-400) T/MM3 Neut # 3.0 (1.8-7.7) T/MM3 Lymph # 1.7 (1-4.8) T/MM3 Elbert # 0.4 (0-0.8) T/MM3 Eos # 0.1 (0-0.5) T/MM3 Baso # 0.0 (0-0.2) T/MM3 Comprehensive Metabolic Panel 03/05/17 Range/Units 04:54 Sodium 137 (134-144) MEQ/L Potassium 4.6 D (3.6-5) MEQ/L Chloride 104 (98-107) MEQ/L Carbon Dioxide 22 (22-30) MEQ/L BUN 32.0 H (7-17) MG/DL Creatinine 1.8 H D (0.7-1.2) MG/DL Glucose 106 (65-110) MG/DL Calcium 9.2 D (8.4-10.2) MG/DL Intake and Output 03/04/17 03/05/17 03/05/17 22:59 06:59 14:59 Intake Total 680 / 680 Output Total 250 / 250 Balance 430 / 430 Intake: Oral 680 / 680 Output: Urine 250 / 250 Other: # Voids 1 Laboratory Results - last 72 hr 03/04/17 03/04/17 03/04/17 04:52 04:52 17:04 WBC 3.9 L RBC 3.53 L Hgb 9.0 L D Hct 28.9 L D MCV 81.9 MCH 25.5 L MCHC 31.1 RDW Std Deviation 44.1 Plt Count 127 L MPV 10.3 Immature Gran % (Auto) 0.3 Neut % (Auto) 45.0 Lymph % (Auto) 44.8 Elbert % (Auto) 6.6 Eos % (Auto) 2.8 Baso % (Auto) 0.5 Neut # 1.8 Lymph # 1.8 Elbert # 0.3 Eos # 0.1 Baso # 0.0 Abs Immat Gran (auto) 0.01 Turbidity < 20 Sodium 140 Potassium 3.8 Chloride 107 Carbon Dioxide 24 Anion Gap 9 BUN 26.0 H Creatinine 1.4 H GFR Calculation 36 BUN/Creatinine Ratio 19 Glucose 81 Calculated Osmolality 273 Calcium 8.3 L Magnesium 1.8 Icterus Index < 2 Troponin I B-Natriuretic Peptide Specimen Hemolysis < 15 Ur Collection Type Not provided Urine Color Yellow Urine Clarity Clear Urine pH 6.0 Ur Specific [place] <=1.005 L Urine Protein 2+ A Urine Glucose (UA) Negative Urine Ketones Negative Urine Occult Blood Negative Urine Nitrate Negative Urine Bilirubin Negative Urine Urobilinogen 0.2 Ur Leukocyte Esterase Negative Urine RBC 0-1 Urine WBC 1-3 Ur Squamous Epith Cells 0-5 Urine Bacteria Trace H Ur Culture Indicated? Cult not indicated 03/05/17 03/05/17 03/05/17 04:54 04:54 10:58 WBC 5.1 RBC 3.86 L Hgb 10.1 L D Hct 31.5 L MCV 81.6 MCH 26.2 MCHC 32.1 RDW Std Deviation 44.4 Plt Count 151 MPV 10.8 Immature Gran % (Auto) 0.2 Neut % (Auto) 57.4 Lymph % (Auto) 32.9 Elbert % (Auto) 7.0 Eos % (Auto) 2.1 Baso % (Auto) 0.4 Neut # 3.0 Lymph # 1.7 Elbert # 0.4 Eos # 0.1 Baso # 0.0 Abs Immat Gran (auto) 0.01 Turbidity < 20 Sodium 137 Potassium 4.6 D Chloride 104 Carbon Dioxide 22 Anion Gap 11 BUN 32.0 H Creatinine 1.8 H D GFR Calculation 27 BUN/Creatinine Ratio 18 Glucose 106 Calculated Osmolality 271 Calcium 9.2 D Magnesium Icterus Index < 2 Troponin I 0.014 B-Natriuretic Peptide Specimen Hemolysis < 15 < 15 Ur Collection Type Urine Color Urine Clarity Urine pH Ur Specific [place] Urine Protein Urine Glucose (UA) Urine Ketones Urine Occult Blood Urine Nitrate Urine Bilirubin Urine Urobilinogen Ur Leukocyte Esterase Urine RBC Urine WBC Ur Squamous Epith Cells Urine Bacteria Ur Culture Indicated? 03/05/17 10:58 WBC RBC Hgb Hct MCV MCH MCHC RDW Std Deviation Plt Count MPV Immature Gran % (Auto) Neut % (Auto) Lymph % (Auto) Elbert % (Auto) Eos % (Auto) Baso % (Auto) Neut # Lymph # Elbert # Eos # Baso # Abs Immat Gran (auto) Turbidity Sodium Potassium Chloride Carbon Dioxide Anion Gap BUN Creatinine GFR Calculation BUN/Creatinine Ratio Glucose Calculated Osmolality Calcium Magnesium Icterus Index Troponin I B-Natriuretic Peptide 990 H Specimen Hemolysis Ur Collection Type Urine Color Urine Clarity Urine pH Ur Specific [place] Urine Protein Urine Glucose (UA) Urine Ketones Urine Occult Blood Urine Nitrate Urine Bilirubin Urine Urobilinogen Ur Leukocyte Esterase Urine RBC Urine WBC Ur Squamous Epith Cells Urine Bacteria Ur Culture Indicated? <Nicci Cantu - 03/05/17 12:45> - Imaging and Cardiology Echo: report reviewed <Nicci Cantu - 03/05/17 12:45> EKG results: image reviewed <Nicci Cantu - 03/05/17 12:45> Imaging & Cardiology Narrative: Date of Exam: 02/28/17 Type of Exam(s): US echo doppler complete DATE 02/28/[address] Shamika Stephen INDICATION Acute heart failure, leaky valve. TECHNICAL QUALITY Technically good 2-D, M-mode, Doppler echocardiographic images were submitted for interpretation. FINDINGS 1. CARDIAC CHAMBERS. Left atrium is borderline enlarged. All other cardiac chambers are normal in size. Aortic root diameter is normal. RV size and contractility appeared normal. 2. LEFT VENTRICLE. Analysis reveals borderline asymmetrical LVH. Wide Area Network Systems Administrator measured septal wall thickness at 17 mm in diastole, posterior wall at 10 mm. On the apical 4-chamber view, the asymmetry appears less impressive. The measurement may not be accurate. Wall motion analysis is normal. LV systolic function is normal. EF is measured at 61%. Diastolic dysfunction, grade I/IV, is present. 3. VALVES. Aortic valve exhibits mild sclerosis. Valve opening is normal. Mitral valve structure and motion appear unremarkable. No GREG is appreciated. Tricuspid valve structure and motion appear normal. Normal valve excursion. 4. DOPPLER. Shows at least moderate mitral regurgitation, stgc-lv-psvldfzz aortic regurgitation and odru-ao-vrcorczz tricuspid regurgitation with systolic PA pressure estimated at 41 mmHg. No evidence of pericardial effusion, intracardiac masses or demonstrable shunt. IMPRESSION 1. Left atrial size upper-normal range. 2. Normal LV size and systolic function, EF of 61%. 3. Borderline LVH. 4. Moderate mitral regurgitation. 5. Enbz-yt-domraieq aortic regurgitation. 6. Fbzz-mg-clggvbwh tricuspid regurgitation. 7. Mild pulmonary hypertension. 8. Normal central venous pressure. 03/05/17 12:36 <Nicci Cantu - 03/05/17 12:45> - EKG Interpretation EKG: WNL <Nicci Cantu - 03/05/17 12:45> EKG interpretations - Blocks, axis, hypertrophy, ST abn Repolarization changes or abnormalities: nonspecific abnormality, ST segment, and/or T wave <Nicci Cantu - 03/05/17 12:45> Assessment and Plan (1) CKD (chronic kidney disease) stage 4, GFR 15-29 ml/min Problem details: Creatinine 1.4 on 02/24/17, 1.2 prior to that Status: Chronic (2) Hypertension Status: Chronic (3) Obesity (BMI 30-39.9) Status: Chronic (4) Diastolic CHF Status: Acute (5) Obstructive sleep apnea Status: Acute (6) Mixed hyperlipidemia Status: Acute <Danny Doll - 03/09/17 11:56> (1) Diastolic CHF Status: Acute BNP 990. trace pedal edema, bibasilar rales. Diuresis with Lasix 40mg IV BID. Troponin negative, EKG with nonspecific ST-T changes. (2) CKD (chronic kidney disease) stage 4, GFR 15-29 ml/min Problem details: Creatinine 1.4 on 02/24/17, 1.2 prior to that Status: Chronic Creatinine 1.8 today, continue to watch renal function and electrolytes with diuresis. (3) Hypertension Status: Chronic continue Amlodipine and Coreg (4) Obstructive sleep apnea Status: Acute Instructed on importance of wearing C-Pap when sleeping (5) Mixed hyperlipidemia Status: Acute Continue Statin therapy (6) Obesity (BMI 30-39.9) Status: Chronic <Nicci Cantu - 03/05/17 12:24> - Attestation Attestation Narrative: 03/09/17 11:56 Recommendation After examining the patient I agree with the above assessment. I am involved in the formulation of the patient's plan of care. <Danny Doll - 03/09/17 11:56> Hospital Course Summary Disclaimer: The visit summary below is not to be considered part of the above Progress Note. <Danny Doll - 03/09/17 11:56> The visit summary below is not to be considered part of the above Progress Note. <Nicci Cantu - 03/05/17 12:45> Hospital Course: 03/03/17 13:22 Diastolic CHF -pulmonary edema has resolved -Continue Lasix 40 mg in the morning and 20 mg in the afternoon. -Daily weights -Hypokalemia and hypomagnesemia during acute hospital course. Will reassess chemistries tomorrow morning. -Patient education provided on CHF symptom management Chronic kidney disease -Creatinine trended down during acute course from a max of about 2-1.4. -Repeat BMP tomorrow morning -Web Developer Programmer is Dr. Zenaida Cooney Hypertension -Fairly persistently moderately elevated -Increase evening dose of Norvasc to 5 mg, monitor for peripheral edema -Continue low-dose Coreg and Lasix Normocytic anemia -Suspect secondary to chronic kidney disease -Clinic records reviewed, and hemoglobin typically ranges between 11 and 13 Leukopenia - recheck tomorrow morning Frequent falls, fatigue -PT/OT per attending 03/04/17 10:22 Increased confusion -hx of confusion/dementia -check UA, Vit B12 Anemia -hgb down to 9; repeat in am -order iron studies -check stool for occult blood constipation; mild abd distention -start daily MiraLAX; Senna Plus -PRN MOM -monitor for ileus CKD -cr stable at 1.4 -K and mg stable HTN -some improvement since increased Norvasc dose on 03/03 -continue to monitor 03/05/17 10:26 Oli was reported to have some hypoxia during the night requiring supplemental oxygen at 3L to maintain SAO2 >90%. Chest x-ray was obtained with results pending but clinical exam concerning for fluid overload. Lung sounds are course with crackles and diminished lung sounds in the bases. Cardiac exam reveals regular rate and rhythm. Trace to 1+ edema lower extremities. Nursing expressed concerns about increased confusion. Lasix 40mg IV given over night. SCr elevated today at 1.8. CHF, diastolic. -Signs of fluid overload noted. Lasix 40mg IV given over night. Monitor daily weight and I&O closely as well as respiratory function. -Weight gain ~5 lbs since 03/03. -CXR results pending. -Recheck BMP in AM and CBC and BMP on 03/07. -Monitor closely on telemetry with continuous pulse ox, weaning oxygen as able. Increased confusion -hx of confusion/dementia. -UA showed 2+ protein without signs of infection. B12, folate and iron studies pending results. -Continue to monitor closely. Anemia -hgb improved to 10.1; Continue to monitor trends. -order iron studies - results pending. -check stool for occult blood - results pending. Constipation; mild abd distention -start daily MiraLAX; Senna Plus for bowel motivation. BM documented today. -PRN MOM -monitor closely for ileus. CKD, stage IV. -SCr increased to 1.8 today (up from 1.4 on 03/04). Continue to monitor closely in light of fluid overload and CKD. Will discuss treatment recommendations with Dr. Irizarry. -Continue to monitor electrolytes closely in light of diuresis. HTN -Blood pressure controlled since increased Norvasc dose on 03/03. -continue to monitor. <Nicci Cantu - 03/05/17 12:45> Sepsis Assessment - Evaluation Sepsis screening result: No Definite Risk <Nicci Cantu - 03/05/17 12:45>
[2017-03-05] MEDS ORDERED: FUROSEMIDE 40 MG/4 ML INJECTION IVP ONE (17:00)
[2017-03-05] MEDS: ACETAMINOPHEN 325 MG TABLET PO PRN (19:37)
[2017-03-05] MEDS: ROSUVASTATIN 5 MG TABLET PO SCH (21:26)
[2017-03-05] MEDS: NIACIN ER 500 MG TABLET PO SCH (21:26)
[2017-03-05] MEDS: GABAPENTIN 300 MG CAPSULE PO SCH (21:27)
[2017-03-05] MEDS: RANITIDINE 150 MG TABLET PO SCH (21:27)
[2017-03-06] MEDS ORDERED: ONDANSETRON 4 MG/2 ML INJECTION IVP PRN (04:09)
[2017-03-06] MEDS: ONDANSETRON ODT 4 MG TABLET PO PRN ×3 (04:50→17:46)
[2017-03-06] MEDS: LEVOTHYROXINE 150 MCG TABLET PO SCH (06:41)
[2017-03-06] MEDS: ALLOPURINOL 100 MG TABLET PO SCH (10:09)
[2017-03-06] MEDS: AMLODIPINE 5 MG TABLET PO SCH (10:09)
[2017-03-06] MEDS: SUCRALFATE 1 GM TABLET PO SCH ×3 (10:09→17:43)
[2017-03-06] MEDS: DOCUSATE SODIUM 100 MG CAPSULE PO SCH (10:09)
[2017-03-06] MEDS: FOLIC ACID 1 MG TABLET PO SCH (10:10)
[2017-03-06] MEDS: CARVEDILOL 3.125 MG TABLET PO SCH ×2 (10:10→17:43)
[2017-03-06] MEDS: MILNACIPRAN 50 MG PO SCH (10:10)
[2017-03-06] MEDS: CYPROHEPTADINE 4 MG TABLET PO SCH ×2 (10:10→16:02)
[2017-03-06] MEDS: SENNA + DOCUSATE TABLET PO SCH (10:10)
[2017-03-06] MEDS: POLYETHYL GLYCOL 3350 17gm PACKET PO SCH (10:11)
[2017-03-06] MEDS: SALINE 0.65% NASAL SPRAY 44 ML BOTTLE EA NOSTRIL SCH ×3 (10:11→17:43)
[2017-03-06] MEDS: ENOXAPARIN 30 MG/0.3 ML INJECTION SQ SCH (10:11)
[2017-03-06] MEDS: ClonazePAM 0.5 MG TABLET PO SCH (10:11)
[2017-03-06 10:18] VITALS: RESP 20
[2017-03-06] MEDS: ACETAMINOPHEN 325 MG TABLET PO PRN (11:18)
[2017-03-06] MEDS ORDERED: FUROSEMIDE 20 MG/2 ML INJECTION IVP ONE (11:42)
--- NOTE | 2017-03-06 11:45 | XRay Report ---
Indication: hypoxia PROCEDURE: XR chest 1V: Encounter: Initial Comparison: February 28, 2017 Findings: Increasing pulmonary vascular congestion. Continued bilateral lower lobe consolidation left greater than right. No pneumothorax. Heart size and mediastinal contours are stable. Impression: Increasing pulmonary edema. Possible lower lobe pneumonia or aspiration. .
[2017-03-06] MEDS: SALINE FLUSH 10ml SYRINGE IV PRN ×2 (12:00→16:05)
[2017-03-06] MEDS ORDERED: FUROSEMIDE 40 MG/4 ML INJECTION IVP ONE (13:15)
--- NOTE | 2017-03-06 13:36 | Cardiology Progress Note ---
Subjective Principal diagnosis: CHF <KuldeepJadielNenita L - 03/06/17 13:35> Interval history: Spoke with patient's daughter at bedside. She reports 2 weeks of bilateral LE edema prior to her admission on 02/26/17. Her professor of german Dr. Cooney had adjusted her lasix from 20mg daily, to 40mg tid then reduced back to 40mg daily due to acute kidney injury. Her daughter reports abdominal pain and SOA, in addition to uncorrected LE edema as reason for ED presentation and admission. She was admitted to IRU for strengthening after diuresing well as an inpatient. On Tuesday night she became increasingly hypoxic, BNP 990. Her chest xray yesterday showed increased edema and possible aspiration. Her daughter confirms she has a history of difficulty swallowing and choking on pills and food. Denies previous aspiration pneumonia. Daughter reports she follows with Dr. Andrade for a leaky heart valve, denies coronary disease. Pt remains on 7L/ high flow mask. She is resting comfortably upon exam. <Nenita Light L - 03/06/17 15:27> Exam Vital signs: Temperature 98.1 F 03/06/17 16:00 Pulse Rate 60 03/06/17 16:00 Respiratory Rate 20 03/06/17 16:00 Blood Pressure 135/58 03/06/17 16:00 Pulse Oximetry 87 L 03/06/17 18:50 Oxygen Delivery Method CPAP Oxygen Flow Rate 10 <Danny Doll - 03/09/17 11:39> Temperature 98.6 F 03/06/17 08:00 Pulse Rate 76 03/06/17 08:00 Respiratory Rate 20 03/06/17 08:00 Blood Pressure 150/64 H 03/06/17 08:00 Pulse Oximetry 89 L 03/06/17 13:30 Oxygen Delivery Method Nasal Cannula Oxygen Flow Rate 7 <Nenita Light L - 03/06/17 15:06> - Constitutional no acute distress <Nenita Light - 03/06/17 15:06> - Routine HEENT Exam Head: Present: normocephalic, atraumatic <Nenita Light - 03/06/17 15:06> Eye: Present: PERRL, conjunctivae pink <Nenita Light - 03/06/17 15:06> ENT: Present: mucous membranes moist <Nenita Light - 03/06/17 15:06> - Routine Neck Exam Absent: carotid bruit <Nenita Light - 03/06/17 15:06> - Routine Respiratory Exam Present: dyspnea, decreased breath sounds <Nenita Light - 03/06/17 15:06> - Routine Cardiovascular Exam Present: murmur. Absent: JVD <Nenita Light - 03/06/17 15:06> - Routine Abdominal Exam Present: normoactive bowel sounds <Nenita Light - 03/06/17 15:06> - Routine Extremities Exam Present: no edema, normal capillary refill <Nenita Light - 03/06/17 15:06> - Routine Skin Exam Present: intact. Absent: rash <Nenita Light - 03/06/17 15:06> - Routine Neurological Exam Present: alert, oriented X3 <Nenita Light - 03/06/17 15:06> - Routine Psychiatric Exam Present: normal affect <Nenita Light - 03/06/17 15:06> Hospital Course This is a general summary of the patient's hospital course. For more details refer to the complete medical record. <Danny Doll - 03/09/17 11:39> This is a general summary of the patient's hospital course. For more details refer to the complete medical record. <Nenita Light - 03/06/17 15:27> Hospital course: 03/03/17 13:22 Diastolic CHF -pulmonary edema has resolved -Continue Lasix 40 mg in the morning and 20 mg in the afternoon. -Daily weights -Hypokalemia and hypomagnesemia during acute hospital course. Will reassess chemistries tomorrow morning. -Patient education provided on CHF symptom management Chronic kidney disease -Creatinine trended down during acute course from a max of about 2-1.4. -Repeat BMP tomorrow morning -Seismographer is Dr. Zenaida Cooney Hypertension -Fairly persistently moderately elevated -Increase evening dose of Norvasc to 5 mg, monitor for peripheral edema -Continue low-dose Coreg and Lasix Normocytic anemia -Suspect secondary to chronic kidney disease -Clinic records reviewed, and hemoglobin typically ranges between 11 and 13 Leukopenia - recheck tomorrow morning Frequent falls, fatigue -PT/OT per attending 03/04/17 10:22 Increased confusion -hx of confusion/dementia -check UA, Vit B12 Anemia -hgb down to 9; repeat in am -order iron studies -check stool for occult blood constipation; mild abd distention -start daily MiraLAX; Senna Plus -PRN MOM -monitor for ileus CKD -cr stable at 1.4 -K and mg stable HTN -some improvement since increased Norvasc dose on 03/03 -continue to monitor 03/05/17 10:26 Oli was reported to have some hypoxia during the night requiring supplemental oxygen at 3L to maintain SAO2 >90%. Chest x-ray was obtained with results pending but clinical exam concerning for fluid overload. Lung sounds are course with crackles and diminished lung sounds in the bases. Cardiac exam reveals regular rate and rhythm. Trace to 1+ edema lower extremities. Nursing expressed concerns about increased confusion. Lasix 40mg IV given over night. SCr elevated today at 1.8. CHF, diastolic. -Signs of fluid overload noted. Lasix 40mg IV given over night. Monitor daily weight and I&O closely as well as respiratory function. -Weight gain ~5 lbs since 03/03. -CXR results pending. -Recheck BMP in AM and CBC and BMP on 03/07. -Monitor closely on telemetry with continuous pulse ox, weaning oxygen as able. Increased confusion -hx of confusion/dementia. -UA showed 2+ protein without signs of infection. B12, folate and iron studies pending results. -Continue to monitor closely. Anemia -hgb improved to 10.1; Continue to monitor trends. -order iron studies - results pending. -check stool for occult blood - results pending. Constipation; mild abd distention -start daily MiraLAX; Senna Plus for bowel motivation. BM documented today. -PRN MOM -monitor closely for ileus. CKD, stage IV. -SCr increased to 1.8 today (up from 1.4 on 03/04). Continue to monitor closely in light of fluid overload and CKD. Will discuss treatment recommendations with Dr. Irizarry. -Continue to monitor electrolytes closely in light of diuresis. HTN -Blood pressure controlled since increased Norvasc dose on 03/03. -continue to monitor. <Nenita Light L - 03/06/17 15:27> Progress Note-A&P (1) CKD (chronic kidney disease) stage 4, GFR 15-29 ml/min Problem details: Creatinine 1.4 on 02/24/17, 1.2 prior to that Status: Chronic (2) Hypertension Status: Chronic (3) Obesity (BMI 30-39.9) Status: Chronic (4) Diastolic CHF Status: Acute (5) Obstructive sleep apnea Status: Acute (6) Mixed hyperlipidemia Status: Acute <Danny Doll - 03/09/17 11:39> (1) Diastolic CHF Status: Acute Assessment and plan: DC lasix. Bumex 2mg IV now and in AM. Replace K with 40meq bid. Strict I&0's. Renal/cardiac diet. Fluid restriction, 1,500ml/day. No LE edema present today. (2) CKD (chronic kidney disease) stage 4, GFR 15-29 ml/min Problem details: Creatinine 1.4 on 02/24/17, 1.2 prior to that Status: Chronic Assessment and plan: creatinine up but stable today at 1.9, due to hypoxia and elevated BNP will aggressively diurese and follow renal function closely. (3) Hypertension Status: Chronic Assessment and plan: stable, monitor BP with aggressive diuresing. (4) Obesity (BMI 30-39.9) Status: Chronic (5) Obstructive sleep apnea Status: Acute Assessment and plan: CPAP (6) Mixed hyperlipidemia Status: Acute Assessment and plan: Continue home statin <Nenita Light L - 03/06/17 15:12> - Time Spent With Patient Total time spent is greater than 50% in coordination of care (as documented) at patient's floor/unit and/or counseling patient: <Danny Doll - 03/09/17 11:39> Total time spent is greater than 50% in coordination of care (as documented) at patient's floor/unit and/or counseling patient: <RaffaeleradhaNenita tan L - 03/06/17 13:35> 25 - 35 minutes <RaffaeleroxieNenita L - 03/06/17 15:27> - Attestation Attestation Narrative: Recommendation After examining the patient I agree with the above assessment. I am involved in the formulation of the patient's plan of care. <Danny Doll - 03/09/17 11:39> Sepsis Assessment - Evaluation Sepsis screening result: No Definite Risk <Nenita Light - 03/06/17 13:35>
--- NOTE | 2017-03-06 13:38 | Progress Note ---
Subjective: Oli is seen this morning with her daughter at bedside. She currently is requiring 7 liters of oxygen by nasal cannula to maintain adequate saturations. She does verbalize that she feels more short of breath. She denies having pain in her chest or abdomen on examination, however, 10 minutes following exam. Nursing staff called to report. Patient reported pain in her shoulder and chest that has been ongoing 2 days. Noted that her weight is up 5 pounds since admission. Objective Vital signs: Temperature 98.6 F 03/06/17 08:00 Pulse Rate 76 03/06/17 08:00 Respiratory Rate 20 03/06/17 08:00 Blood Pressure 150/64 H 03/06/17 08:00 Pulse Oximetry 89 L 03/06/17 13:30 Oxygen Delivery Method Nasal Cannula Oxygen Flow Rate 7 Rhythm: Normal Sinus Rhythm Weight: 81.2 kg - Constitutional Present: no acute distress, well nourished, well developed - Routine HEENT Exam Eye: Present: EOMI, PERRL ENT: Present: mucous membranes moist, dentition normal - Routine Respiratory Exam Present: CTA bilaterally. Absent: wheezes - Routine Cardiovascular Exam Present: RRR, S1, S2. Absent: murmur - Routine Abdominal Exam Present: soft, normoactive bowel sounds, non distended. Absent: tenderness - Routine Extremities Exam Present: edema (trace bilateral lower ext), normal capillary refill - Routine Back/Spine/Pelvis Exam Back/Spine: Present: full ROM - Routine Skin Exam Present: dry, warm - Routine Neurological Exam Present: alert, oriented X3, CN II-XII intact - Routine Lymphatic Exam Lymphatic: Absent: adenopathy - Routine Psychiatric Exam Present: normal affect Results - Labs CBC & Chem 7: 03/05/17 04:54 03/06/17 04:32 Assessment and Plan (1) Pulmonary edema Current visit: No Status: Acute (2) Congestive heart failure Problem details: echo 02/28/17 1. Left atrial size upper-normal range. 2. Normal LV size and systolic function, EF of 61%. 3. Borderline LVH. 4. Moderate mitral regurgitation. 5. Vpwb-wb-qohffsyf aortic regurgitation. 6. Dwdj-un-xqfosvoq tricuspid regurgitation. 7. Mild pulmonary hypertension. 8. Normal central venous pressure. Current visit: No Status: Resolved (3) CKD (chronic kidney disease) stage 4, GFR 15-29 ml/min Problem details: Creatinine 1.4 on 02/24/17, 1.2 prior to that Current visit: No Status: Chronic (4) Hypothyroid Current visit: No Status: Chronic (5) Obesity (BMI 30-39.9) Current visit: No Status: Chronic (6) Leukopenia Current visit: Yes Status: Acute (7) Debility Current visit: Yes Status: Acute Assessment and Plan: 03/06/17 Will continue with more aggressive diuresis, Lasix 40 milligrams IV BID Have asked cardiology staff to see her today. Given her increased oxygen needs. Continue with scheduled breathing treatments and incentive spirometry. Will work on weaning down oxygen as able. Will need to continue to closely monitor renal function with diuresis seen. [place] today 1.9. Recheck BMP tomorrow morning Will re-evaluate status tomorrow Case discussed further with cardiology, and attending Dr. Irizarry Sepsis Assessment - Evaluation Sepsis screening result: No Definite Risk Hospital Course Summary Disclaimer: The visit summary below is not to be considered part of the above Progress Note. Hospital Course: 03/03/17 13:22 Diastolic CHF -pulmonary edema has resolved -Continue Lasix 40 mg in the morning and 20 mg in the afternoon. -Daily weights -Hypokalemia and hypomagnesemia during acute hospital course. Will reassess chemistries tomorrow morning. -Patient education provided on CHF symptom management Chronic kidney disease -Creatinine trended down during acute course from a max of about 2-1.4. -Repeat BMP tomorrow morning -St[employer] is Dr. Zenaida Cooney Hypertension -Fairly persistently moderately elevated -Increase evening dose of Norvasc to 5 mg, monitor for peripheral edema -Continue low-dose Coreg and Lasix Normocytic anemia -Suspect secondary to chronic kidney disease -Clinic records reviewed, and hemoglobin typically ranges between 11 and 13 Leukopenia - recheck tomorrow morning Frequent falls, fatigue -PT/OT per attending 03/04/17 10:22 Increased confusion -hx of confusion/dementia -check UA, Vit B12 Anemia -hgb down to 9; repeat in am -order iron studies -check stool for occult blood constipation; mild abd distention -start daily MiraLAX; Senna Plus -PRN MOM -monitor for ileus CKD -cr stable at 1.4 -K and mg stable HTN -some improvement since increased Norvasc dose on 03/03 -continue to monitor 03/05/17 10:26 Oli was reported to have some hypoxia during the night requiring supplemental oxygen at 3L to maintain SAO2 >90%. Chest x-ray was obtained with results pending but clinical exam concerning for fluid overload. Lung sounds are course with crackles and diminished lung sounds in the bases. Cardiac exam reveals regular rate and rhythm. Trace to 1+ edema lower extremities. Nursing expressed concerns about increased confusion. Lasix 40mg IV given over night. SCr elevated today at 1.8. CHF, diastolic. -Signs of fluid overload noted. Lasix 40mg IV given over night. Monitor daily weight and I&O closely as well as respiratory function. -Weight gain ~5 lbs since 03/03. -CXR results pending. -Recheck BMP in AM and CBC and BMP on 03/07. -Monitor closely on telemetry with continuous pulse ox, weaning oxygen as able. Increased confusion -hx of confusion/dementia. -UA showed 2+ protein without signs of infection. B12, folate and iron studies pending results. -Continue to monitor closely. Anemia -hgb improved to 10.1; Continue to monitor trends. -order iron studies - results pending. -check stool for occult blood - results pending. Constipation; mild abd distention -start daily MiraLAX; Senna Plus for bowel motivation. BM documented today. -PRN MOM -monitor closely for ileus. CKD, stage IV. -SCr increased to 1.8 today (up from 1.4 on 03/04). Continue to monitor closely in light of fluid overload and CKD. Will discuss treatment recommendations with Dr. Irizarry. -Continue to monitor electrolytes closely in light of diuresis. HTN -Blood pressure controlled since increased Norvasc dose on 03/03. -continue to monitor. 03/06/17 Will continue with more aggressive diuresis, Lasix 40 milligrams IV BID Have asked cardiology staff to see her today. Given her increased oxygen needs. Continue with scheduled breathing treatments and incentive spirometry. Will work on weaning down oxygen as able. Will need to continue to closely monitor renal function with diuresis seen. [place] today 1.9. Recheck BMP tomorrow morning Will re-evaluate status tomorrow Case discussed further with cardiology, and attending Dr. Irizarry
[2017-03-06] MEDS ORDERED: BUMETANIDE 2.5mg/10ml INJECTION IVP SCH (15:15)
[2017-03-06 16:26] VITALS: BP 135/58; PULSE 60; TEMP 98.1
--- NOTE | 2017-03-06 19:10 | Discharge Instructions ---
Discharge Plan - Med Rec/Dispo Prescriptions: No Action Milnacipran HCl [Savella] 50 mg PO BID #0 raNITIdine HCl [Ranitidine HCl] 150 mg PO DAILY #0 Levothyroxine Sodium [Synthroid] 1 tab PO ACB #30 tab Rosuvastatin [Crestor] 5 mg PO HS Amlodipine [Norvasc] 2.5 mg PO HS Carvedilol [Coreg] 3.125 mg PO BIDWM tablet Docusate Sodium [Colace] 100 mg PO BID capsule Enoxaparin Sodium [Lovenox] 30 mg SQ DAILY syringe Furosemide [Lasix] 20 mg PO 1500 tablet Hydrocodone/APAP 5/325 [[place] 5/325] 1 tab PO Q6H PRN tablet PRN Reason: Pain Milk of Magnesia [Mom] 30 ml PO DAILY PRN udc PRN Reason: Constipation Potassium Chloride 40 meq PO BIDWM #0 Allopurinol 200 mg PO DAILY #0 Sucralfate 1 g PO QID #0 Cyproheptadine HCl 8 mg PO TID #0 Folic Acid [FA-8] 0.8 mg PO DAILY #0 ClonazePAM [Klonopin] 0.5 mg PO BID Niacin 500 mg PO DAILY Gabapentin 300 mg PO HS Amlodipine [Norvasc] 5 mg PO DAILY Acetaminophen [Tylenol] 325 - 650 mg PO Q5H PRN tablet PRN Reason: Discomfort Bisacodyl Supp [Dulcolax] 10 mg RECTALLY DAILY PRN supp PRN Reason: Constipation Furosemide [Lasix] 40 mg PO DAILY tablet Sodium Chloride [Deep Sea] 2 spray EA NOSTRIL QID spray Discharge Instructions/Outpatient Orders: Final Provider Discharge Instructions Location: Determined By Patient - Disposition 02 Acute Care Hosp, Other
[2017-03-06 19:13] VITALS: O2SAT 87
[2017-03-06] MEDS ORDERED: FUROSEMIDE 40 MG/4 ML INJECTION IVP SCH (21:00)
--- NOTE | 2017-03-07 10:09 | XRay Report ---
EXAM: XR chest 1V 1629 hours COMPARISON: 03/04/2017 02/28/2017. HISTORY: hypoxia . FINDINGS:EKG leads and wires project over the chest. The heart is enlarged. The pulmonary vascularity is prominent and indistinct. Increased interstitial markings are seen throughout the lungs. Coalescent opacities are again noted at the mid to lower lungs with area of consolidation or atelectasis at the left lung base. The lung volumes are lower than prior exam. There is blunting of the costophrenic angles. There is no evidence for a pneumothorax. No osseous abnormalities are identified. IMPRESSION: 1. Cardiomegaly with worsening pulmonary vascular congestive changes and coalescent opacities at the mid to lower lungs. 2. Worsening airlessness of the left lower lobe which may be related to atelectasis or consolidation. [place] [facility] [place]
--- NOTE | 2017-03-08 13:52 | Discharge Summary ---
Discharge Information Date of admission: 03/02/17 16:45 Anticipated date of discharge: 03/06/17 Attending Physician: Raffi Wood MD Primary care physician: Nicki Winslow MD Consults: 03/05/17 10:45 Physician Consult [CONS] Routine Consulting Provider: Danny Doll Reason For Exam: CHF Ordering Provider has Notified Chemistry Professor: No - Discharge Diagnosis (1) Diastolic CHF Qualifiers: Congestive heart failure chronicity: acute on chronic Qualified Code(s): I50.33 - Acute on chronic diastolic (congestive) heart failure Status: Acute (2) Pulmonary edema Qualifiers: Chronicity: acute Qualified Code(s): J81.0 - Acute pulmonary edema Status: Acute (3) CKD (chronic kidney disease) stage 4, GFR 15-29 ml/min Problem Details: Creatinine 1.4 on 02/24/17, 1.2 prior to that Status: Chronic (4) Acute respiratory failure with hypoxia Status: Resolved - Laboratory Labs: 03/05/17 04:54 03/06/17 04:32 History of Present Illness HPI: Ms. Vazquez was admitted to acute care with acute on chronic diastolic heart failure. She was diuresed but did develop some renal insufficiency. Patient was quite weak and was felt to be a good candidate for acute inpatient rehabilitation. 03/08/17 13:50 Hospital Course This is a general summary of the patient's hospital course. For more details refer to the complete medical record. After having been stabilized on acute care, the patient was transferred to the inpatient rehabilitation unit for intensive individualized structured therapy. She was seen by physical therapy, occupational therapy, nursing, dietitian and medical. Barriers to discharge included decreased endurance, shortness of breath and fatigue. She did show some improvement with regard to physical therapy and occupational therapy. However her heart failure continue to be an issue. On the day of transfer out of the inpatient rehabilitation unit she developed acute hypoxemic respiratory failure with increasing oxygen demands. She was seen by the hospitalist who had followed her throughout the stay here as well. She was transferred to the critical care unit at that time. Please see further information in that regard. Hospital course: 03/03/17 13:22 Diastolic CHF -pulmonary edema has resolved -Continue Lasix 40 mg in the morning and 20 mg in the afternoon. -Daily weights -Hypokalemia and hypomagnesemia during acute hospital course. Will reassess chemistries tomorrow morning. -Patient education provided on CHF symptom management Chronic kidney disease -Creatinine trended down during acute course from a max of about 2-1.4. -Repeat BMP tomorrow morning -Glass Ribbon Machine Operator Assistant is Dr. Zenaida Cooney Hypertension -Fairly persistently moderately elevated -Increase evening dose of Norvasc to 5 mg, monitor for peripheral edema -Continue low-dose Coreg and Lasix Normocytic anemia -Suspect secondary to chronic kidney disease -Clinic records reviewed, and hemoglobin typically ranges between 11 and 13 Leukopenia - recheck tomorrow morning Frequent falls, fatigue -PT/OT per attending 03/04/17 10:22 Increased confusion -hx of confusion/dementia -check UA, Vit B12 Anemia -hgb down to 9; repeat in am -order iron studies -check stool for occult blood constipation; mild abd distention -start daily MiraLAX; Senna Plus -PRN MOM -monitor for ileus CKD -cr stable at 1.4 -K and mg stable HTN -some improvement since increased Norvasc dose on 03/03 -continue to monitor 03/05/17 10:26 Oli was reported to have some hypoxia during the night requiring supplemental oxygen at 3L to maintain SAO2 >90%. Chest x-ray was obtained with results pending but clinical exam concerning for fluid overload. Lung sounds are course with crackles and diminished lung sounds in the bases. Cardiac exam reveals regular rate and rhythm. Trace to 1+ edema lower extremities. Nursing expressed concerns about increased confusion. Lasix 40mg IV given over night. SCr elevated today at 1.8. CHF, diastolic. -Signs of fluid overload noted. Lasix 40mg IV given over night. Monitor daily weight and I&O closely as well as respiratory function. -Weight gain ~5 lbs since 03/03. -CXR results pending. -Recheck BMP in AM and CBC and BMP on 03/07. -Monitor closely on telemetry with continuous pulse ox, weaning oxygen as able. Increased confusion -hx of confusion/dementia. -UA showed 2+ protein without signs of infection. B12, folate and iron studies pending results. -Continue to monitor closely. Anemia -hgb improved to 10.1; Continue to monitor trends. -order iron studies - results pending. -check stool for occult blood - results pending. Constipation; mild abd distention -start daily MiraLAX; Senna Plus for bowel motivation. BM documented today. -PRN MOM -monitor closely for ileus. CKD, stage IV. -SCr increased to 1.8 today (up from 1.4 on 03/04). Continue to monitor closely in light of fluid overload and CKD. Will discuss treatment recommendations with Dr. Irizarry. -Continue to monitor electrolytes closely in light of diuresis. HTN -Blood pressure controlled since increased Norvasc dose on 03/03. -continue to monitor. Time spent with patient: less than 15 minutes (patient is transferred under the care of the hospitalist to the critical care unit at the time of dismissal.) Discharge Plan - Med Rec/Dispo Truvturner Instructions: Heart Failure (DC) Prescriptions: No Action Unable to Obtain Med List [Unknown Meds] 0 #0 misc Discharge Instructions/Outpatient Orders: Final Provider Discharge Instructions Location: Determined By Patient - Disposition 02 Acute Care Hosp, Other
== END 2017-03-06 19:50 | disposition short-term general hospital (02) | DRG 945 ==
PROVIDERS: ADMIT Family Medicine; ATTEND Family Medicine

== ENCOUNTER 2017-03-06 19:40 | Inpatient (IN) ==
[2017-03-06] MEDS ORDERED: DOPamine PREMIX 400 MG/250 ML BAG IV PRN (20:36)
[2017-03-06] MEDS ORDERED: ONDANSETRON 4 MG/2 ML INJECTION IVP PRN (20:41)
[2017-03-06] MEDS ORDERED: FUROSEMIDE 40 MG/4 ML INJECTION IVP SCH (21:00)
[2017-03-06] MEDS ORDERED: RANITIDINE IV SCH (21:00)
[2017-03-06] MEDS ORDERED: NS IV SCH (21:00)
--- NOTE | 2017-03-06 21:07 | History & Physical Report ---
History of Present Illness Date: 03/06/17 Chief complaint: hypoxia, pulmonary edema, junctional bradycardia HPI: The patient is an 81-year-old female who was in acute care at [facility] for congestive heart failure from 02/27/2017 through 03/02/2017. She was then transferred to IRU on 03/02/2017 for strengthening. While in IRU, she has had increase in her weight and is requiring more oxygen. On 03/05/2017 she was needing 7 L of oxygen and her diuretics were increased. Today she seemed fairly stable in IRU, but this evening she was noted to be hypoxic even on 10 L of oxygen along with CPAP. At that time, the decision was made to discharge her from inpatient rehabilitation and treat as for her to CCU for inpatient care. Prior to transfer she developed a bradycardic rhythm which appears to be a junctional bradycardia. The patient is seen and evaluated in CCU. She is on BiPAP which limits the ability to obtain history. She denies any chest pain but does feel short of breath. She also complains of abdominal discomfort which she has had all day. She also per her family had abdominal pain prior to admission. I am unable to obtain further review of systems secondary to the patient's condition. Review of Systems Review of systems: Unable to obtain secondary to the patient on BiPAP [facility] Patient Stated Medical History Cataracts Yes Hearing Loss Yes Hypertension Yes Other Cardiology Yes: Leaky valve Pneumonia Yes Ulcer Yes Other GI Yes: Heart burn occasionally Hx Incontinence Yes: Urgency Osteoarthritis Yes Other Musculoskeletal Yes: RA Depression Yes Medical History Updates: echo 02/28/17. 1. Left atrial size upper-normal range. 2. Normal LV size and systolic function, EF of 61%. 3. Borderline LVH. 4. Moderate mitral regurgitation. 5. Hbip-wj-sozsxniz aortic regurgitation. 6. Nmyv-ir-ebdbtrzf tricuspid regurgitation. 7. Mild pulmonary hypertension. 8. Normal central venous pressure. Diastolic CHF. Hypertension. Hyperlipidemia. Valvular disease. Cataracts. Rheumatoid arthritis. Gout. Fibromyalgia. Depression. Obstructive sleep apnea, uses CPAP. Ulcer Surgical History: General: appendix, gallbladder, other, tonsils. Cardiac: cardiac cath. Reproductive/: hysterectomy, other. Joint: hip. Appendectomy 2008. Cholecystectomy 2011. Tonsillectomy. cardiac cath 2008, Dr. Grove. Colonoscopy 2006, Dr. Durant. TAHBSO age 54. right total hip arthroplasty. Mass removed from her leg 2009, Dr. Pillai Family History: Paternal grandmother had breast cancer and Alzheimer's dementia. Mother had renal failure, hypertension, hyperlipidemia. Daughter with hypertension. Brother had lymphoma - Social History Smoking status: Former smoker Current residence: Apartment/Private Home Medications Home Medications Medication Instructions Recorded Confirmed Type Allopurinol 200 mg PO DAILY #0 03/25/14 03/01/17 History Sucralfate 1 g PO QID #0 07/28/15 02/26/17 History Milnacipran HCl [Savella] 50 mg PO BID #0 09/25/15 02/26/17 History Cyproheptadine HCl 8 mg PO TID #0 10/23/15 02/26/17 History Folic Acid [FA-8] 0.8 mg PO DAILY #0 09/16/16 02/26/17 History raNITIdine HCl [Ranitidine HCl] 150 mg PO DAILY #0 09/16/16 02/26/17 History Amlodipine [Norvasc] 2.5 mg PO HS 02/27/17 02/27/17 History Amlodipine [Norvasc] 5 mg PO DAILY 02/27/17 02/27/17 History ClonazePAM [Klonopin] 0.5 mg PO BID 02/27/17 02/27/17 History Gabapentin 300 mg PO HS 02/27/17 02/27/17 History Niacin 500 mg PO DAILY 02/27/17 02/27/17 History Rosuvastatin [Crestor] 5 mg PO HS 02/27/17 02/27/17 History Allergies Allergy/AdvReac Type Severity Reaction Status Date / Time MICHELE Inhibitors Allergy Unknown Verified 02/26/17 23:09 amphetamine AdvReac Unknown TERRIBLE Verified 02/26/17 23:09 HEADACHES dextroamphetamine AdvReac Unknown TERRIBLE Verified 02/26/17 23:09 HEADACHES lisinopril AdvReac Unknown COUGHING Verified 02/26/17 23:09 methylphenidate AdvReac Unknown HEADACHES Verified 02/26/17 23:09 pitavastatin AdvReac Unknown MUSCLE Verified 02/26/17 23:09 WEAKNESS/SORENESS Exam Vital Signs: Pulse Oximetry 93 03/06/17 20:30 Oxygen Delivery Method BiPAP Fraction of Inspired Oxygen 60 SaO2/FiO2 Ratio 155 Comments: 03/06/2017 GEN-alert, follows commands, no acute distress HEENT-sclera anicteric NECK-supple CV-mildly bradycardic rate with irregular rhythm. CHEST-clear to auscultation bilaterally from the anterior ABD-soft, moderately distended, tympanitic, hypoactive bowel sounds -currently no Ortiz EXT-no edema NEURO-moves all 4 extremity is on command SKIN-warm and dry and without rashes Results - Labs CBC & Chem 7: 03/06/17 20:41 03/06/17 20:41 - ABG Interpretation Attestation: I reviewed and interpreted this ABG. ABG results: 03/06/17 20:30 ABG pH 7.440 ABG pCO2 32 L ABG pO2 67 L ABG HCO3 22 ABG Total CO2 22.7 L ABG O2 Saturation 94.0 L ABG Base Excess -1.7 Interpretation: normal - Imaging and Cardiology Chest x-ray Status: image reviewed by me Additional comments: Chest x-ray done earlier today in rehabilitation shows increasing pulmonary edema Assessment and Plan GI Prophylaxis: Rantidine Resuscitation Status: Full Code Assessment and Plan: Impression Acute hypoxic respiratory failure Pulmonary edema Junctional bradycardia with heart rate 50s and normal blood pressure Acute on chronic kidney injury Moderate mitral regurg, mild to moderate aortic insufficiency, mild to moderate tricuspid regurg Anemia Heme positive stool History of gastric ulcer Abdominal distention Generalized weakness Plan Admit as inpatient CCU in critical condition BiPAP and supplemental oxygen for hypoxia The patient was given Bumex IV earlier today, place Ortiz catheter, await CMP and decide on further diuresis at that time. Check CBC, lactate, troponin, blood cultures. Dr. Doll called regarding junctional bradycardia and EKG was sent to him. He agreed this was junctional bradycardia. He recommended discontinuation of Coreg and starting dopamine drip at low dose of 2-3. We'll place PICC line due to poor IV access Repeat lab tomorrow. Check KUB tonight regarding abdominal distention Repeat chest x-ray in the morning Greater than 1-1/2 hour of critical care time spent seeing and evaluating the patient and performing H&P. Discussed with family, Dr. Doll, and the patient's nurses. Sepsis Assessment - Evaluation Sepsis screening result: No Definite Risk Hospital Course Summary Disclaimer: The visit summary below is not to be considered part of the above Progress Note.
[2017-03-06] MEDS ORDERED: CALCIUM GLUCONATE 1,000 MG in NS 50 ML IV ONE (21:36)
[2017-03-06] MEDS ORDERED: INSULIN REGULAR, HUMAN 100 UNIT/ML INJECTION IVP ONE (21:38)
[2017-03-06] MEDS ORDERED: DEXTROSE 50% SYRINGE 50ml (1 AMP) IVP ONE (21:39)
[2017-03-06 21:40] VITALS: O2SAT 95
--- NOTE | 2017-03-06 21:56 | Discharge Instructions ---
Discharge Plan - Med Rec/Dispo Referrals/Follow Up: Nicki Winslow MD [Family Provider] - Prescriptions: Discontinued Milnacipran HCl [Savella] 50 mg PO BID #0 raNITIdine HCl [Ranitidine HCl] 150 mg PO DAILY #0 Levothyroxine Sodium [Synthroid] 1 tab PO ACB #30 tab Rosuvastatin [Crestor] 5 mg PO HS Amlodipine [Norvasc] 2.5 mg PO HS Carvedilol [Coreg] 3.125 mg PO BIDWM tablet Docusate Sodium [Colace] 100 mg PO BID capsule Enoxaparin Sodium [Lovenox] 30 mg SQ DAILY syringe Furosemide [Lasix] 20 mg PO 1500 tablet Hydrocodone/APAP 5/325 [[place] 5/325] 1 tab PO Q6H PRN tablet PRN Reason: Pain Milk of Magnesia [Mom] 30 ml PO DAILY PRN udc PRN Reason: Constipation Potassium Chloride 40 meq PO BIDWM #0 Allopurinol 200 mg PO DAILY #0 Sucralfate 1 g PO QID #0 Cyproheptadine HCl 8 mg PO TID #0 Folic Acid [FA-8] 0.8 mg PO DAILY #0 ClonazePAM [Klonopin] 0.5 mg PO BID Niacin 500 mg PO DAILY Gabapentin 300 mg PO HS Amlodipine [Norvasc] 5 mg PO DAILY Acetaminophen [Tylenol] 325 - 650 mg PO Q5H PRN tablet PRN Reason: Discomfort Bisacodyl Supp [Dulcolax] 10 mg RECTALLY DAILY PRN supp PRN Reason: Constipation Furosemide [Lasix] 40 mg PO DAILY tablet Sodium Chloride [[place]] 2 spray EA NOSTRIL QID spray Discharge Instructions/Outpatient Orders: Final Provider Discharge Instructions Location: Determined By Patient - Disposition 02 To [facility] Acute Care
[2017-03-06 22:38] VITALS: BMI 30.1
[2017-03-06 23:56] VITALS: BP 122/59; RESP 28; TEMP 97
[2017-03-07 00:46] VITALS: PULSE 55
--- NOTE | 2017-03-07 10:00 | XRay Report ---
EXAM: XR KUB COMPARISON: None available. HISTORY: abdminal distension . FINDINGS: The heart is mildly enlarged. The visceral organ outlines are unremarkable. Some air-filled loops of nondilated large and small bowel are noted. This may represent a generalized ileus pattern. Early small bowel obstruction is also a consideration. Right hip prosthesis is in place. Surgical clips are seen at the right upper quadrant which may be from prior cholecystectomy. Some ill-defined and linear opacities are seen at the lung bases which may be related to atelectasis versus infiltrate. IMPRESSION: 1. Air-filled loops of the prominent large and small bowel which could represent a generalized ileus pattern. An early small bowel obstruction is also a consideration. Clinical correlation is suggested. 2. Cardiomegaly. 3. Ill-defined opacities are seen at the lung bases which may represent atelectasis rather than infiltrate. Clinical correlation is suggested. [place] [facility] [place]
--- NOTE | 2017-03-07 15:23 | Discharge Summary ---
Discharge Information Date of admission: 03/06/17 19:40 Anticipated date of discharge: 03/06/17 Attending Physician: Beatriz Irizarry MD Primary care physician: Nicki Winslow MD - Discharge Diagnosis (1) Diastolic CHF Qualifiers: Congestive heart failure chronicity: acute on chronic Qualified Code(s): I50.33 - Acute on chronic diastolic (congestive) heart failure Status: Acute - Laboratory Labs: 03/06/17 20:41 03/06/17 20:41 - Microbiology Microbiology 03/06/17 20:50 Peripheral/Iv Start Blood Culture - Preliminary Culture Initiated - Results Pending 03/06/17 20:41 Peripheral/Iv Start Blood Culture - Preliminary Culture Initiated - Results Pending History of Present Illness HPI: The patient is an 81-year-old female who was in acute care at [facility] for congestive heart failure from 02/27/2017 through 03/02/2017. She was then transferred to IRU on 03/02/2017 for strengthening. While in IRU, she has had increase in her weight and is requiring more oxygen. On 03/05/2017 she was needing 7 L of oxygen and her diuretics were increased. Today she seemed fairly stable in IRU, but this evening she was noted to be hypoxic even on 10 L of oxygen along with CPAP. At that time, the decision was made to discharge her from inpatient rehabilitation and treat as for her to CCU for inpatient care. Prior to transfer she developed a bradycardic rhythm which appears to be a junctional bradycardia. The patient is seen and evaluated in CCU. She is on BiPAP which limits the ability to obtain history. She denies any chest pain but does feel short of breath. She also complains of abdominal discomfort which she has had all day. She also per her family had abdominal pain prior to admission. I am unable to obtain further review of systems secondary to the patient's condition. Hospital Course This is a general summary of the patient's hospital course. For more details refer to the complete medical record. Hospital course: Ms. Vazquez was initially admitted to acute care with acute on chronic diastolic heart failure. Echocardiogram on acute demonstrated an ejection fraction around 61%. There were a few valvular abnormalities. She was quite debilitated. She was able to diurese. She was transferred to inpatient rehabilitation unit for further rehabilitation. An individualized plan of care was developed for occupational therapy and physical therapy. Medical management was also provided by the hospitalists. She had increasing oxygen demands. On the day of dismissal from the IRU she developed acute hypoxemic respiratory failure. She was dismissed and transferred to the coronary care unit under the care of the hospitalist. Time spent with patient: less than 15 minutes Discharge Plan - Med Rec/Dispo Referrals/Follow Up: Nicki Winslow MD [Family Provider] - [facility] Instructions: Pulmonary Edema (DC), Acute Kidney Injury (DC), Hyperkalemia (DC) Prescriptions: Discontinued Milnacipran HCl [Savella] 50 mg PO BID #0 raNITIdine HCl [Ranitidine HCl] 150 mg PO DAILY #0 Levothyroxine Sodium [Synthroid] 1 tab PO ACB #30 tab Rosuvastatin [Crestor] 5 mg PO HS Amlodipine [Norvasc] 2.5 mg PO HS Carvedilol [Coreg] 3.125 mg PO BIDWM tablet Docusate Sodium [Colace] 100 mg PO BID capsule Enoxaparin Sodium [Lovenox] 30 mg SQ DAILY syringe Furosemide [Lasix] 20 mg PO 1500 tablet Hydrocodone/APAP 5/325 [[place] 5/325] 1 tab PO Q6H PRN tablet PRN Reason: Pain Milk of Magnesia [Mom] 30 ml PO DAILY PRN udc PRN Reason: Constipation Potassium Chloride 40 meq PO BIDWM #0 Allopurinol 200 mg PO DAILY #0 Sucralfate 1 g PO QID #0 Cyproheptadine HCl 8 mg PO TID #0 Folic Acid [FA-8] 0.8 mg PO DAILY #0 ClonazePAM [Klonopin] 0.5 mg PO BID Niacin 500 mg PO DAILY Gabapentin 300 mg PO HS Amlodipine [Norvasc] 5 mg PO DAILY Acetaminophen [Tylenol] 325 - 650 mg PO Q5H PRN tablet PRN Reason: Discomfort Bisacodyl Supp [Dulcolax] 10 mg RECTALLY DAILY PRN supp PRN Reason: Constipation Furosemide [Lasix] 40 mg PO DAILY tablet Sodium Chloride [Deep Sea] 2 spray EA NOSTRIL QID spray Discharge Instructions/Outpatient Orders: Final Provider Discharge Instructions Location: Determined By Patient - Disposition 02 To [facility] Acute Care
== END 2017-03-06 23:14 | disposition short-term general hospital (02) | DRG 291 ==
LOC: CCU 19:40
PROVIDERS: ADMIT Internal Medicine; ATTEND Internal Medicine

== ENCOUNTER 2017-03-10 16:46 | Inpatient (IN) ==
[2017-03-10 18:19] VITALS: BMI 29.8
[2017-03-10] MEDS: SUCRALFATE 1 GM TABLET PO SCH ×2 (18:36→21:33)
[2017-03-10] MEDS: NIACIN ER 500 MG TABLET PO SCH (21:32)
[2017-03-10] MEDS: CYPROHEPTADINE 4 MG TABLET PO SCH (21:32)
[2017-03-10] MEDS: ROSUVASTATIN 5 MG TABLET PO SCH (21:32)
[2017-03-10] MEDS: MILNACIPRAN 50 MG PO SCH (21:32)
[2017-03-10] MEDS: CARVEDILOL 3.125 MG TABLET PO SCH (21:32)
[2017-03-10] MEDS: GABAPENTIN 300 MG CAPSULE PO SCH (21:33)
[2017-03-10] MEDS: AMLODIPINE 5 MG TABLET PO SCH (21:33)
[2017-03-11] MEDS: SUCRALFATE 1 GM TABLET PO SCH ×5 (05:18→21:57)
[2017-03-11] MEDS: CYPROHEPTADINE 4 MG TABLET PO SCH ×3 (08:27→21:57)
[2017-03-11] MEDS: RANITIDINE 150 MG TABLET PO SCH (08:27)
[2017-03-11] MEDS: AMLODIPINE 5 MG TABLET PO SCH ×2 (08:28→21:57)
[2017-03-11] MEDS: FOLIC ACID 1 MG TABLET PO SCH (08:28)
[2017-03-11] MEDS: CARVEDILOL 3.125 MG TABLET PO SCH ×2 (08:28→17:30)
[2017-03-11] MEDS: FUROSEMIDE 20 MG TABLET PO SCH (08:28)
[2017-03-11] MEDS: ASPIRIN 81 MG CHEWABLE TABLET PO SCH (08:28)
[2017-03-11] MEDS: MILNACIPRAN 50 MG PO SCH ×2 (08:28→21:57)
--- NOTE | 2017-03-11 10:26 | Consult Note ---
<Magy Cates V - Last Filed: 03/11/17 09:53> Consult Information - Data of Consult Patient: known to practice within the last 3 years Consult date: 03/11/17 Requesting Physician: Sim Richey MD Primary Care Provider: Nicki Winslow MD Family Provider: Nicki Winslow MD - Consult Narrative Reason for consult: medical management of CKD wtih CRUZITO, HTN, CAD History of present illness: Patient is an 81-year-old female who is well-known to the hospitalist services as she was recently admitted acutely. On 02/27/17. She was admitted with acute congestive heart failure with respiratory failure of hypoxia and pulmonary edema. He was medically stable, overall her condition improved and she was able to be weaned down to room air. At that time her creatinine was at 1.4. Given the severity of her symptoms. She continued to have weakness and was accepted and admitted to the rehabilitation unit at [facility] on 03/02/17. On 03/06/17, patient's condition deteriorated. She became more hypoxic with intermittent encephalopathy. Her oxygen demands increased to 7 liters. Recheck of laboratory studies revealed acute hyperkalemia, at which time her potassium went up to 6.9 from 4.7 and a 16 hour timeframe. At that time she was acutely transferred to the ICU under the care of the hospitalist services and insulin currently transferred to [facility] for further acute evaluation and treatment. While at [facility]. She was under the care of her lye peel operator, Dr. Akira Cooney and did undergo acute dialysis. Acute renal failure and hyperkalemia were treated and resolved. She initially was placed on Bipap however was able to be weaned down to rooom air. She was evaluated by IRU and accepted for readmission for ongoing therapy and strengthening. The hospitalist services were consulted upon her readmission for medical management of her significant existing comorbidities including kidney D disease , hypertension, dyslipidemia, coronary artery disease. [facility] Patient Stated Medical History Dementia Dyslipidemia Cataracts Hearing Loss Coronary Artery Disease Hypertension mitral valve regurgitation Peptic ulcer disease Hx Incontinence Stage 3 chronic kidney disease Osteoarthritis RA Hx cardiac cath with stent Depression Surgical History: General: appendix, gallbladder, other, tonsils. Cardiac: cardiac cath. Reproductive/: hysterectomy. Joint: hip Family History: Positive family history for cancer and stroke - Social History Smoking status: Current every day smoker Substance use type: does not use Alcohol intake frequency: does not drink Current residence: Apartment/Private Home Social history: PCP Dr Winslow [employer]p [employer] Dr. Akira Cooney Review of Systems All systems: reviewed and no additional remarkable complaints except as stated - Constitutional Constitutional: Present: fatigue, weakness Medications Home Medications Medication Instructions Recorded Confirmed Type Acetaminophen [Tylenol] 650 mg PO Q4H PRN 03/10/17 03/10/17 History Amlodipine Besylate [Norvasc] 5 mg PO HS 03/10/17 03/10/17 History Amlodipine [Norvasc] 5 mg PO DAILY 03/10/17 03/10/17 History Aspirin Chewable [ASA] 81 mg PO DAILY 03/10/17 03/10/17 History Carvedilol 3.125 mg PO BID 03/10/17 03/10/17 History Cyproheptadine [Periactin] 8 mg PO TID 03/10/17 03/10/17 History Folic Acid [Folate] 1 tab PO DAILY 03/10/17 03/10/17 History Furosemide [Lasix] 1 tab PO DAILY 03/10/17 03/10/17 History Gabapentin [Neurontin] 1 cap PO HS 03/10/17 03/10/17 History Milnacipran [Savella] 50 mg PO BID 03/10/17 03/10/17 History Niacin 500 mg PO DAILY 03/10/17 03/10/17 History Potassium Chloride ER Tab [K-Dur] 20 meq PO TID 03/10/17 03/10/17 History Rosuvastatin [Crestor] 5 mg PO HS 03/10/17 03/10/17 History Sucralfate [Carafate] 1 gm PO QID 03/10/17 03/10/17 History raNITIdine HCl [Zantac] 1 tab PO DAILY 03/10/17 03/10/17 History Allergies Allergy/AdvReac Type Severity Reaction Status Date / Time MICHELE Inhibitors Allergy Unknown Verified 02/26/17 23:09 amphetamine AdvReac Unknown TERRIBLE Verified 02/26/17 23:09 HEADACHES dextroamphetamine AdvReac Unknown TERRIBLE Verified 02/26/17 23:09 HEADACHES lisinopril AdvReac Unknown COUGHING Verified 02/26/17 23:09 methylphenidate AdvReac Unknown HEADACHES Verified 02/26/17 23:09 pitavastatin AdvReac Unknown MUSCLE Verified 02/26/17 23:09 WEAKNESS/SORENESS Exam Vital Signs: Temperature 98.6 F 03/10/17 22:50 Pulse Rate 82 03/10/17 22:50 Respiratory Rate 12 03/10/17 22:50 Blood Pressure 164/93 H 03/10/17 22:50 Pulse Oximetry 97 03/10/17 22:50 Oxygen Delivery Method Room Air Height: 1.57 m Weight: 74 kg Body Mass Index: 29.8 - Constitutional Present: no acute distress, well nourished, well developed - Routine HEENT Exam Eye: Present: EOMI ENT: Present: mucous membranes moist, dentition normal - Routine Respiratory Exam Present: CTA bilaterally. Absent: wheezes - Routine Cardiovascular Exam Present: RRR. Absent: murmur - Routine Abdominal Exam Present: soft, normoactive bowel sounds, non distended. Absent: tenderness - Routine Extremities Exam Present: edema (trace bilateral lower ext), normal capillary refill - Routine Skin Exam Present: dry, warm - Routine Neurological Exam Present: alert, oriented X3, CN II-XII intact - Routine Psychiatric Exam Present: normal affect Results - Labs CBC & Chem 7: 03/11/17 05:07 03/11/17 05:07 Assessment and Plan Resuscitation Status: Full Code Assessment and Plan: Weakness Pancytopenia Chronic kidney disease stage III Hypertension Dyslipidemia. Mitral valve regurgitation. Peptic ulcer disease. Coronary artery disease. Rheumatoid arthritis. Dementia Plan Agree with admission to IRU under the care of Dr. Richey for ongoing strengthening and improve function. We'll monitor electrolytes carefully given recent hyperkalemia with acute kidney injury and acute dialysis. Currently, patient is on room air. We will continue to follow this carefully. Monitor respiratory status. Noted. Blood pressure is slightly elevated this morning. Continue with Norvasc 5 milligrams, Coreg 3.125 milligrams, Lasix 20 milligrams daily She will continue on oral potassium supplementation 20 milliequivalents daily. Noted to be pancytopenic this morning, will continue to follow. SCDs to bilateral lower extremity for DVT prophylaxis Encourage work with PT and OT for ongoing strengthening Will discuss patient orders, and plan of care with attending Dr. Stephen At time of discharge medical care will return to primary care provider. Dr. Winslow [facility] Course Summary Disclaimer: The visit summary below is not to be considered part of the above Progress Note. Hospital Course: 03/11/17 Weakness Pancytopenia Chronic kidney disease stage III Hypertension Dyslipidemia. Mitral valve regurgitation. Peptic ulcer disease. Coronary artery disease. Rheumatoid arthritis. Dementia Plan Agree with admission to IRU under the care of Dr. Richey for ongoing strengthening and improve function. We'll monitor electrolytes carefully given recent hyperkalemia with acute kidney injury and acute dialysis. Currently, patient is on room air. We will continue to follow this carefully. Monitor respiratory status. Noted. Blood pressure is slightly elevated this morning. Continue with Norvasc 5 milligrams, Coreg 3.125 milligrams, Lasix 20 milligrams daily She will continue on oral potassium supplementation 20 milliequivalents daily. Noted to be pancytopenic this morning, will continue to follow. SCDs to bilateral lower extremity for DVT prophylaxis Encourage work with PT and OT for ongoing strengthening Will discuss patient orders, and plan of care with attending Dr. Stephen At time of discharge medical care will return to primary care provider. Dr. Winslow Sepsis Assessment - Evaluation Sepsis screening result: No Definite Risk <Shamika Stephen - Last Filed: 03/11/17 19:49> Consult Information - Data of Consult Requesting Physician: Sim Richey MD Primary Care Provider: Nicki Winslow MD Family Provider: Nicki Winslow MD [facility] Patient Stated Medical History Dementia Yes Cataracts Yes Hearing Loss Yes Coronary Artery Disease Yes Hypertension Yes Other Cardiology Yes: mitral valve regurgitation Pneumonia Yes Ulcer Yes: peptic ulcer disease Other GI Yes Hx Incontinence No Hx Renal Disease Yes: stage 3 chronic kidney disease Osteoarthritis Yes Other Musculoskeletal Yes: RA Other Yes: cardiac cath with stent Depression Yes Exam Vital Signs: Temperature 97.5 F 03/11/17 16:00 Pulse Rate 65 03/11/17 16:00 Respiratory Rate 16 03/11/17 16:00 Blood Pressure 159/71 H 03/11/17 16:00 Pulse Oximetry 99 03/11/17 16:00 Oxygen Delivery Method Room Air Height: 1.57 m Weight: 74 kg Results - Labs CBC & Chem 7: 03/11/17 05:07 03/11/17 05:07 Assessment and Plan Assessment and Plan: I have independently evaluated and examined this patient. I reviewed the chart, the patient's history, and the CASHIER WRAPPER/PA's documented findings as above. We discussed and formulated the assessment and plan as above with additions as below: Mrs. Vazquez reports recalling little of recent acute hospitalization or transfer to [facility]. Overall she feels better but continues to have some difficulty and feel foggy at times which is frustrating. She denies dyspnea or lightheadedness and is having no pain. She feels weak in general but denies focal deficits. The patient is alert and in no acute distress. Respirations are nonlabored and breath sounds clear Cardiac rhythm is regular There is a dressing in the right groin overlying prior vascular access site with moderate bruising over the proximal right thigh. Renal function has improved progressively and electrolytes are currently stable but will require close monitoring given recent instability. Allow blood pressure to run slightly high with systolics at least 130 for adequate renal perfusion. Monitor groin site. Transfer records and past hospital records reviewed. Hospital Course Summary Disclaimer: The visit summary below is not to be considered part of the above Progress Note.
--- NOTE | 2017-03-11 11:36 | IRU History & Physical Report ---
HPI IRU Date: Chief complaint: I'm weak HPI: Ms. Vazquez was initially admitted to the [facility] on approximately 2016. She had acute on chronic diastolic heart failure. She was treated with diuretics. She improved on this regimen. An echocardiogram at that time demonstrated a normal ejection fraction of 65-70 percent. However it did demonstrate reversal of E to A ratio and her symptoms were attributed to acute on chronic diastolic heart failure. Apparently did have some intermittent edema according to the patient. She had no chest pain and apparently no evidence of acute coronary syndrome. At that time she improved and was felt to be a good candidate for acute rehabilitation. She was transferred to the IRU at that time. She was managed by the hospitalists as well as the acute rehabilitation physician.. However while on IRU she rather abruptly developed worsening dyspnea and evidence of pulmonary edema with increased oxygen requirements. She was transferred to the intensive care unit at [facility] on 03/06/2017. Continued to decline and for that reason she was acutely transferred to [facility] under the care of her emergency department rn. She did undergo dialysis on one occasion and improved dramatically. In the post dialysis timeframe she did have some variability in her potassium. It was low for a while. Prior to that it had been high. Her family wondered if perhaps her mental status changes could've been related to the variability in her potassium. She continues to have significant weakness and debility. She does have medical problems which will impact her rehabilitation. 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 The patient does live alone at home during the daytime. She will require an intensive individualized multidisciplinary approach to physical therapy and occupational therapy with nursing and medical management and oversight in view of her multiple medical problems. She is a good candidate for acute rehabilitation and I anticipate that she will be able to go home at the conclusion of therapy. Review of Systems - Constitutional Constitutional: Present: fatigue, weakness. Absent: fever(s), headache(s) - EENMT Eyes: Absent: change in vision - Cardiovascular Cardiovascular: Absent: chest pain, dyspnea on exertion, edema Rhythm: Present: regular rhythm - Respiratory Respiratory: Absent: cough, dyspnea, dyspnea on exertion - Gastrointestinal Gastrointestinal: Present: constipation. Absent: abdominal pain - Genitourinary Genitourinary: Absent: urinary frequency, urinary hesitancy, urinary incontinence, urinary urgency - Musculoskeletal Musculoskeletal: Present: as per HPI - Psychiatric Psychiatric: Present: other Psychiatric Comments: Occasional episodes of delirium have been reported in the past. I think these were likely related to medical issues. [facility] Patient Stated Medical History Dementia Yes Cataracts Yes Hearing Loss Yes Coronary Artery Disease Yes Hypertension Yes Other Cardiology Yes: mitral valve regurgitation Pneumonia Yes Ulcer Yes: peptic ulcer disease Other GI Yes Hx Incontinence No Hx Renal Disease Yes: stage 3 chronic kidney disease Osteoarthritis Yes Other Musculoskeletal Yes: RA Other Yes: cardiac cath with stent Depression Yes Surgical History: General: appendix, gallbladder, other, tonsils. Cardiac: cardiac cath. Reproductive/: hysterectomy. Joint: hip - Social History Smoking status: Former smoker (patient tells me she smoked 5 cigarettes daily between ages 15 and 20 but none since.) Alcohol intake: former (reports minimal intake in the past.) Current residence: Apartment/Private Home Medications Home Medications Medication Instructions Recorded Confirmed Type Acetaminophen [Tylenol] 650 mg PO Q4H PRN 03/10/17 03/10/17 History Amlodipine Besylate [Norvasc] 5 mg PO HS 03/10/17 03/10/17 History Amlodipine [Norvasc] 5 mg PO DAILY 03/10/17 03/10/17 History Aspirin Chewable [ASA] 81 mg PO DAILY 03/10/17 03/10/17 History Carvedilol 3.125 mg PO BID 03/10/17 03/10/17 History Cyproheptadine [Periactin] 8 mg PO TID 03/10/17 03/10/17 History Folic Acid [Folate] 1 tab PO DAILY 03/10/17 03/10/17 History Furosemide [Lasix] 1 tab PO DAILY 03/10/17 03/10/17 History Gabapentin [Neurontin] 1 cap PO HS 03/10/17 03/10/17 History Milnacipran [Savella] 50 mg PO BID 03/10/17 03/10/17 History Niacin 500 mg PO DAILY 03/10/17 03/10/17 History Potassium Chloride ER Tab [K-Dur] 20 meq PO TID 03/10/17 03/10/17 History Rosuvastatin [Crestor] 5 mg PO HS 03/10/17 03/10/17 History Sucralfate [Carafate] 1 gm PO QID 03/10/17 03/10/17 History raNITIdine HCl [Zantac] 1 tab PO DAILY 03/10/17 03/10/17 History Allergies Allergy/AdvReac Type Severity Reaction Status Date / Time MICHELE Inhibitors Allergy Unknown Verified 02/26/17 23:09 amphetamine AdvReac Unknown TERRIBLE Verified 02/26/17 23:09 HEADACHES dextroamphetamine AdvReac Unknown TERRIBLE Verified 02/26/17 23:09 HEADACHES lisinopril AdvReac Unknown COUGHING Verified 02/26/17 23:09 methylphenidate AdvReac Unknown HEADACHES Verified 02/26/17 23:09 pitavastatin AdvReac Unknown MUSCLE Verified 02/26/17 23:09 WEAKNESS/SORENESS Results IRU - Labs Labs: I reviewed her CBC and BMP. Exam Vital Signs: Temperature 97.2 F 03/11/17 08:00 Pulse Rate 75 03/11/17 08:00 Respiratory Rate 16 03/11/17 08:00 Blood Pressure 163/74 H 03/11/17 08:00 Pulse Oximetry 100 03/11/17 08:00 Oxygen Delivery Method Room Air Height: 1.57 m Weight: 74 kg Body Mass Index: 29.8 - Constitutional Present: no acute distress, average body habitus - Routine HEENT Exam Head: Present: normocephalic Eye: Present: EOMI, PERRL. Absent: scleral injection ENT: Present: mucous membranes moist, oropharynx clear - Routine Neck Exam Present: supple, full ROM. Absent: tenderness - Routine Respiratory Exam Present: CTA bilaterally - Routine Cardiovascular Exam Present: RRR, S1, S2, murmur. Absent: S3, S4 - Routine Abdominal Exam Present: soft, normoactive bowel sounds, non distended, non tender. Absent: mass - Routine Extremities Exam Present: no edema, non tender, full ROM. Absent: cyanosis - Routine Skin Exam Present: intact, dry. Absent: erythema - Routine Neurological Exam Present: alert, oriented X3, moving all extremities, normal tone - Routine Psychiatric Exam Present: normal affect, cooperative Sepsis Assessment - Evaluation Sepsis screening result: No Definite Risk IRU A/P (1) Diastolic CHF Qualifiers: Congestive heart failure chronicity: acute on chronic Qualified Code(s): I50.33 - Acute on chronic diastolic (congestive) heart failure Current visit: No Status: Acute We will monitor her weight carefully as well as lung sounds and evidence of exacerbation of her acute on chronic diastolic heart failure. The hospitalist service likewise will be intimately involved with her care on the rehabilitation unit. It is likely that the heart failure will impact her rehabilitation and vice versa. Efforts at limiting the amount of regurgitation should assist her symptoms of pulmonary edema and hypoxemia. (2) CKD (chronic kidney disease) stage 4, GFR 15-29 ml/min Problem details: Creatinine 1.4 on 02/24/17, 1.2 prior to that Current visit: No Status: Chronic We will monitor her potassium and her creatinine. Avoidance of NSAID's. (3) Hypertension Qualifiers: Hypertension type: essential hypertension Qualified Code(s): I10 - Essential (primary) hypertension Current visit: No Status: Chronic We will monitor her blood pressure on a regular basis. Goal be to keep systolic 130 or less if possible. This should help her mitral regurgitation as well. (4) Debility Current visit: No Status: Acute Ambulatory ability will be addressed. We'll involve a multidisciplinary approach with physical therapy and occupational therapy. (5) Myopathy Current visit: Yes Status: Acute Due to prolonged hospitalization and bedrest, she is experiencing disuse myopathy. Efforts at improving this will be undertaken with a multidisciplinary approach. DVT Prophylaxis: SCD's Resuscitation Status: Full Code - Course Hospital Course: Sim Richey MD: - Interventions to Obtain Goals OT Treatment Plan: ADL (Basic Care), Balance Training, IADL, Pt./Family Education, Ther. Exercise for ADL Goals Progress/Modifications: Goals include improvement in ambulatory distance, improvement in transfer ability to modified independent status so that she can return home independently and care for herself.
--- NOTE | 2017-03-11 11:51 | IRU 24Hr Post Admit Eval ---
24 Hr Post Admission Physical - Relevant Changes Relevant Changes: No Reviewed: I have reviewed the patient's information and concur with the finding and results of the pre-admission screen. Certification: I certify the patient for rehabilitation. - Patient Condition (1) Diastolic CHF Status: Acute Qualifiers: Congestive heart failure chronicity: acute on chronic Qualified Code(s): I50.33 - Acute on chronic diastolic (congestive) heart failure Code(s): I50.30 - Unspecified diastolic (congestive) heart failure Classification: Present on IRF Admission, IRF Tx That Should Address Diagnosis, Diagnosis Requiring Medical Follow Up (2) CKD (chronic kidney disease) stage 4, GFR 15-29 ml/min Status: Chronic Code(s): N18.4 - Chronic kidney disease, stage 4 (severe) Classification: Present on IRF Admission, Diagnosis Requiring Medical Follow Up (3) Hypertension Status: Chronic Qualifiers: Hypertension type: essential hypertension Qualified Code(s): I10 - Essential (primary) hypertension Code(s): I10 - Essential (primary) hypertension Classification: Present on IRF Admission (4) Debility Status: Acute Code(s): R53.81 - Other malaise Classification: Present on IRF Admission, IRF Tx That Should Address Diagnosis (5) Myopathy Status: Acute Code(s): G72.9 - Myopathy, unspecified Classification: Present on IRF Admission, IRF Tx That Should Address Diagnosis - Prior Functional Status Lives With: Alone Residence Type: Apartment/Private Home Prior Functional Status: Indep. at home or school - Current Functional Status Failed Alternative Therapy: Arrived from Acute Care Patient Requirements: The patient requires oversight by rehabilitation physician to manage their rehabilitation treatment plan and multidisciplinary approach to care that can only be provided in an IRF and requires a multidisciplinary approach to care, provided by professional PTs, OTs, STs, dieticians, RTs, rehabilitation nurses and is not available in lesser levels of care. Limitiations Req: Mobility Impairment, ADL Impairment, Respiratory Impairment Physical Therapy Minutes: 90 Occupational Therapy Minutes: 90 Therapy: The patient is to receive therapy at least 5 days a week. - Complications/Comorbidities Barriers to Discharge: Weakness, Endurance, Medical Limitation - Plan to Avoid Complications Plan to Avoid Complications: The patient cannot receive this care in a lesser intensive setting such as [facility] or Outpatient Therapy due to the patient requiring the following : Multiple medical problems which will be impacted by rehabilitation and vice versa. She has chronic kidney disease, acute on chronic diastolic heart failure , episodes of dyspnea and hypoxemia. She will require a multidisciplinary approach with medical and nursing oversight.
[2017-03-11] MEDS: ROSUVASTATIN 5 MG TABLET PO SCH (21:57)
[2017-03-11] MEDS: GABAPENTIN 300 MG CAPSULE PO SCH (21:57)
[2017-03-11] MEDS: NIACIN ER 500 MG TABLET PO SCH (21:58)
[2017-03-12] MEDS: SUCRALFATE 1 GM TABLET PO SCH ×4 (07:14→21:04)
[2017-03-12] MEDS: ACETAMINOPHEN 325 MG TABLET PO PRN (08:43)
[2017-03-12] MEDS: FUROSEMIDE 20 MG TABLET PO SCH (08:44)
[2017-03-12] MEDS: MILNACIPRAN 50 MG PO SCH ×2 (08:44→21:03)
[2017-03-12] MEDS: CYPROHEPTADINE 4 MG TABLET PO SCH ×3 (08:44→21:03)
[2017-03-12] MEDS: RANITIDINE 150 MG TABLET PO SCH (08:44)
[2017-03-12] MEDS: CARVEDILOL 3.125 MG TABLET PO SCH ×2 (08:45→19:00)
[2017-03-12] MEDS: AMLODIPINE 5 MG TABLET PO SCH ×2 (08:45→21:04)
[2017-03-12] MEDS: FOLIC ACID 1 MG TABLET PO SCH (08:45)
[2017-03-12] MEDS: ASPIRIN 81 MG CHEWABLE TABLET PO SCH (08:46)
--- NOTE | 2017-03-12 13:58 | IRU Plan of Care ---
[facility] Overall Plan of Care - Date Date: 03/12/17 - Patient Impairments (1) Diastolic CHF Qualifiers: Congestive heart failure chronicity: acute on chronic Qualified Code(s): I50.33 - Acute on chronic diastolic (congestive) heart failure Code(s): I50.30 - Unspecified diastolic (congestive) heart failure Status: Acute Classification: Present on IRF Admission, IRF Tx That Should Address Diagnosis, Diagnosis Requiring Medical Follow Up (2) CKD (chronic kidney disease) stage 4, GFR 15-29 ml/min Code(s): N18.4 - Chronic kidney disease, stage 4 (severe) Status: Chronic Classification: Present on IRF Admission, Diagnosis Requiring Medical Follow Up (3) Hypertension Qualifiers: Hypertension type: essential hypertension Qualified Code(s): I10 - Essential (primary) hypertension Code(s): I10 - Essential (primary) hypertension Status: Chronic Classification: Present on IRF Admission (4) Debility Code(s): R53.81 - Other malaise Status: Acute Classification: Present on IRF Admission, IRF Tx That Should Address Diagnosis (5) Myopathy Code(s): G72.9 - Myopathy, unspecified Status: Acute Classification: Present on IRF Admission, IRF Tx That Should Address Diagnosis - Relevant Changes Relevant Changes: No Reviewed: I have reviewed the patient's information and concur with the finding and results of the pre-admission screen. Certification: I certify the patient for rehabilitation. - Medical Prognosis Medical Prognosis: Good Vital Signs: Last Vital Signs Temp 97.7 F 03/12/17 08:00 Pulse 77 03/12/17 08:00 Resp 18 03/12/17 08:00 BP 155/90 H 03/12/17 08:00 Pulse Ox 100 03/12/17 08:00 - Anticipated Interventions Anticipated Interventions: The patient requires inpatient IRF care for PT, OT, and/or ST for residuals remaining from [acute renal failure and pulmonary edema due to acute on chronic diastolic heart failure] resulting in muscular weakness and strength deficits. - FIM Ambulation Distance: 480 Toileting Adaptive Equipment: Grab Bars Number of Continent Voids: 1 - Current Functional Status Failed Alternative Therapy: Arrived from Acute Care Patient Requires: The patient requires oversight by rehabilitation physician to manage their rehabilitation treatment plan and multidisciplinary approach to care that can only be provided in an IRF and requires a multidisciplinary approach to care, provided by professional PTs, OTs, STs, dieticians, RTs, rehabilitation nurses and is not available in lesser levels of care. Physical Therapy Minutes: 90 Occupational Therapy Minutes: 90 Therapy: The patient is to receive therapy at least 5 days a week. - Anticipated LOS/Outcomes Anticipated Functional Outcome: We anticipate the patient will progress to modified independent to independent status and be able to return to her home and prior level of functioning. Anticipated Length of Stay: 7 (Days) Anticipated DC Destination: Home, Self Alf Safety Plan: The patient will be provided with the development of a Home Safety Plan for return to a home or home-like environment and and to ensure safety post discharge. - Plan to Avoid Complications Barriers to Attaining Goals: Weakness, Endurance, Comprehension, Medical Limitation Plan to Avoid Complications: The patient cannot receive this care in a lesser intensive setting such as [facility] or Outpatient Therapy due to the patient requiring the following nursing monitoring of dyspnea, need for multidisciplinary approach with PT and OT to coordinate with medical management of her heart failure. She requires close medical supervision as her therapies will impact her heart failure and vice versa. This degree of coordination can not be obtained at a lower level of care.
[2017-03-12] MEDS: GABAPENTIN 300 MG CAPSULE PO SCH (21:03)
[2017-03-12] MEDS: ROSUVASTATIN 5 MG TABLET PO SCH (21:04)
[2017-03-12] MEDS: NIACIN ER 500 MG TABLET PO SCH (21:04)
[2017-03-13] MEDS: SUCRALFATE 1 GM TABLET PO SCH ×4 (06:05→21:26)
[2017-03-13] MEDS: CARVEDILOL 3.125 MG TABLET PO SCH ×2 (08:59→17:23)
[2017-03-13] MEDS: FOLIC ACID 1 MG TABLET PO SCH (08:59)
[2017-03-13] MEDS: FUROSEMIDE 20 MG TABLET PO SCH (08:59)
[2017-03-13] MEDS: MILNACIPRAN 50 MG PO SCH ×2 (08:59→21:25)
[2017-03-13] MEDS: RANITIDINE 150 MG TABLET PO SCH (08:59)
[2017-03-13] MEDS: ASPIRIN 81 MG CHEWABLE TABLET PO SCH (08:59)
[2017-03-13] MEDS: CYPROHEPTADINE 4 MG TABLET PO SCH ×3 (08:59→21:26)
[2017-03-13] MEDS: AMLODIPINE 5 MG TABLET PO SCH ×2 (08:59→21:27)
[2017-03-13] MEDS: POLYETHYL GLYCOL 3350 17gm PACKET PO SCH (09:00)
[2017-03-13] MEDS: ROSUVASTATIN 5 MG TABLET PO SCH (21:25)
[2017-03-13] MEDS: NIACIN ER 500 MG TABLET PO SCH (21:25)
[2017-03-13] MEDS: GABAPENTIN 300 MG CAPSULE PO SCH (21:26)
[2017-03-14] MEDS: SUCRALFATE 1 GM TABLET PO SCH ×4 (06:26→20:59)
--- NOTE | 2017-03-14 07:48 | XRay Report ---
Indication: F/U pulm edema PROCEDURE: XR chest 2V: Encounter: Subsequent Comparison: One view chest, 03/06/2017 Findings: Pulmonary vascularity has normalized and the heart is less prominent. The lungs have cleared. No evidence of pneumonic infiltrate or pleural fluid currently. Trachea midline. Bony structures stable. Impression: Normalization of the radiographic appearance of the chest. No current evidence of infiltrate or congestive heart failure. .
[2017-03-14] MEDS: CARVEDILOL 3.125 MG TABLET PO SCH ×2 (09:05→16:41)
[2017-03-14] MEDS: RANITIDINE 150 MG TABLET PO SCH (09:05)
[2017-03-14] MEDS: MILNACIPRAN 50 MG PO SCH ×2 (09:05→20:59)
[2017-03-14] MEDS: FUROSEMIDE 20 MG TABLET PO SCH (09:05)
[2017-03-14] MEDS: AMLODIPINE 5 MG TABLET PO SCH ×2 (09:05→21:01)
[2017-03-14] MEDS: FOLIC ACID 1 MG TABLET PO SCH (09:05)
[2017-03-14] MEDS: ASPIRIN 81 MG CHEWABLE TABLET PO SCH (09:05)
[2017-03-14] MEDS: CYPROHEPTADINE 4 MG TABLET PO SCH ×3 (09:05→20:59)
[2017-03-14] MEDS: POLYETHYL GLYCOL 3350 17gm PACKET PO SCH (09:06)
--- NOTE | 2017-03-14 11:06 | IRU Progress Note ---
- Subjective/Serverity of Illness Ms. Vazquez continues to progress with therapy. Unfortunately she is now doing well with regard to safety concerns. She has to be reminded several times. Cognition issues may be a factor. While she does appear to be oriented, at times she says rather unusual comments. She denies any pain at the present time. She denies shortness of breath or chest pain. I reviewed physical therapy and occupational therapy notes. While she is improving, there are issues of safety of concern. Exam Vital Signs: Temperature 98.5 F 03/14/17 08:00 Pulse Rate 64 03/14/17 08:00 Respiratory Rate 14 03/14/17 08:00 Blood Pressure 147/66 H 03/14/17 08:00 Pulse Oximetry 96 03/14/17 08:00 Oxygen Delivery Method Room Air Height: 1.57 m Weight: 75.7 kg Body Mass Index: 29.8 - Constitutional Present: no acute distress - Routine HEENT Exam Head: Present: normocephalic Eye: Present: EOMI ENT: Present: mucous membranes moist - Routine Neck Exam Present: supple - Routine Respiratory Exam Present: CTA bilaterally - Routine Cardiovascular Exam Present: RRR, S1, S2, no murmur - Routine Abdominal Exam Present: normoactive bowel sounds, non distended, non tender - Routine Extremities Exam Present: no edema - Routine Skin Exam Present: intact. Absent: erythema - Routine Neurological Exam Present: alert, oriented X3 - Routine Psychiatric Exam Absent: normal affect, normal thought process (she seems to be oriented but at times makes unusual comments that do not make sense.) Results IRU - Labs Labs: Reviewed chemistries. Sepsis Assessment - Evaluation Sepsis screening result: No Definite Risk IRU A/P (1) Diastolic CHF Qualifiers: Congestive heart failure chronicity: acute on chronic Qualified Code(s): I50.33 - Acute on chronic diastolic (congestive) heart failure Current visit: No Status: Acute She denies any shortness of breath. Her chest is clear. She seems to be compensated. (2) CKD (chronic kidney disease) stage 4, GFR 15-29 ml/min Problem details: Creatinine 1.4 on 02/24/17, 1.2 prior to that Current visit: No Status: Chronic Creatinine fairly stable at 1.5. (3) Hypertension Qualifiers: Hypertension type: essential hypertension Qualified Code(s): I10 - Essential (primary) hypertension Current visit: No Status: Chronic (4) Debility Current visit: No Status: Acute Continues to demonstrate significant weakness but is improving. 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 She continues to work with therapies in this regard and is improving. However safety awareness continues to be an issue. DVT Prophylaxis: SCD's Resuscitation Status: Full Code - Course Hospital Course: Sim Richey MD: 03/14/17 11:05 Seems to be stable medically. Denies shortness of breath or chest pain Creatinine remains stable at 1.5 Does make unusual comments from time to time raising the possibility of either delirium or a psychiatric diagnosis. Safety awareness remains an issue. - Interventions to Obtain Goals PT Treatment Plan: Balance/Proprioception, Functional Activities, Gait Training , Patient/Family Education, Therapeutic Exercise OT Treatment Plan: ADL (Basic Care), Balance Training, IADL, Pt./Family Education, Ther. Exercise for ADL
[2017-03-14] MEDS: ACETAMINOPHEN 325 MG TABLET PO PRN (13:11)
--- NOTE | 2017-03-14 17:59 | Progress Note ---
Subjective: F/U: CAD, diastolic HF, HTN, CKD Doing well this evening. Tolerating therapy-does feel strength and abilities improving. Breathing well-no cough or congestion. Not having chest or pressure. Eating well. No f/c. Objective Vital signs: Temperature 97.7 F 03/14/17 16:00 Pulse Rate 65 03/14/17 16:00 Respiratory Rate 16 03/14/17 16:00 Blood Pressure 148/63 H 03/14/17 16:00 Pulse Oximetry 96 03/14/17 16:00 Oxygen Delivery Method Room Air Body Mass Index: 29.8 - Constitutional Present: no acute distress, well nourished, well developed, obese, cooperative - Routine HEENT Exam Head: Present: normocephalic, atraumatic Eye: Present: EOMI, PERRL ENT: Present: mucous membranes moist - Routine Respiratory Exam Present: CTA bilaterally. Absent: rhonchi, stridor, wheezes, crackles - Routine Cardiovascular Exam Present: RRR - Routine Abdominal Exam Present: soft, normoactive bowel sounds, non distended, non tender - Routine Extremities Exam Present: cyanosis, clubbing, edema (Trace edema ) - Routine Musculoskeletal Exam Musculoskeletal: Present: no clubbing or cyanosis, moving extremities well - Routine Skin Exam Present: intact, warm, normal turgor - Routine Neurological Exam Present: alert, CN II-XII intact, vision grossly intact, hearing grossly intact. Absent: sensory deficit, motor deficit - Routine Psychiatric Exam Present: normal affect, normal thought process, cooperative. Absent: anxious, agitated Results - Labs CBC & Chem 7: 03/14/17 05:50 03/14/17 05:50 Assessment and Plan (1) Diastolic CHF Current visit: No Status: Acute (2) CKD (chronic kidney disease) stage 4, GFR 15-29 ml/min Problem details: Creatinine 1.4 on 02/24/17, 1.2 prior to that Current visit: No Status: Chronic (3) Hypertension Current visit: No Status: Chronic (4) Hypothyroid Current visit: No Status: Chronic (5) Osteoarthritis Current visit: Yes Status: Chronic Resuscitation Status: Full Code Assessment and Plan: Potassium has been stopped as potassium normal and with recent refractory hyperkalemia. Repeat CXR showing improvement of pulmonary congestion. Blood pressure stable with Norvasc, Coreg and Lasix. Creatinine stable - at 1.5. Will need to continue to monitor. Encourage continuation of therapy to maximize functional status - gains being made. Recheck BMP in am due to CKD and medication use. Will recheck CBC due to pancytopenia - WBC normalized and platelets increasing. Medically stable for IRU floor activities. Sepsis Assessment - Evaluation Sepsis screening result: No Definite Risk Hospital Course Summary Disclaimer: The visit summary below is not to be considered part of the above Progress Note. Hospital Course: 03/11/17 Weakness Pancytopenia Chronic kidney disease stage III Hypertension Dyslipidemia. Mitral valve regurgitation. Peptic ulcer disease. Coronary artery disease. Rheumatoid arthritis. Dementia Plan Agree with admission to IRU under the care of Dr. Richey for ongoing strengthening and improve function. We'll monitor electrolytes carefully given recent hyperkalemia with acute kidney injury and acute dialysis. Currently, patient is on room air. We will continue to follow this carefully. Monitor respiratory status. Noted. Blood pressure is slightly elevated this morning. Continue with Norvasc 5 milligrams, Coreg 3.125 milligrams, Lasix 20 milligrams daily She will continue on oral potassium supplementation 20 milliequivalents daily. Noted to be pancytopenic this morning, will continue to follow. SCDs to bilateral lower extremity for DVT prophylaxis Encourage work with PT and OT for ongoing strengthening Will discuss patient orders, and plan of care with attending Dr. Stephen At time of discharge medical care will return to primary care provider. Dr. Winslow 03/14/17 Viviane Potassium has been stopped as potassium normal and with recent refractory hyperkalemia. Repeat CXR showing improvement of pulmonary congestion. Blood pressure stable with Norvasc, Coreg and Lasix. Creatinine stable - at 1.5. Will need to continue to monitor. Encourage continuation of therapy to maximize functional status - gains being made. Recheck BMP in am due to CKD and medication use. Will recheck CBC due to pancytopenia - WBC normalized and platelets increasing. Medically stable for IRU floor activities.
[2017-03-14] MEDS: BISACODYL 10 MG SUPPOSITORY RECTALLY PRN (20:56)
[2017-03-14] MEDS: ROSUVASTATIN 5 MG TABLET PO SCH (20:59)
[2017-03-14] MEDS: NIACIN ER 500 MG TABLET PO SCH (21:00)
[2017-03-14] MEDS: GABAPENTIN 300 MG CAPSULE PO SCH (21:00)
[2017-03-15] MEDS: LEVOTHYROXINE 150 MCG TABLET PO SCH (06:21)
[2017-03-15] MEDS: SUCRALFATE 1 GM TABLET PO SCH ×4 (06:21→22:43)
[2017-03-15] MEDS: CYPROHEPTADINE 4 MG TABLET PO SCH ×3 (08:51→22:43)
[2017-03-15] MEDS: MILNACIPRAN 50 MG PO SCH ×2 (08:51→22:43)
[2017-03-15] MEDS: POLYETHYL GLYCOL 3350 17gm PACKET PO SCH (08:51)
[2017-03-15] MEDS: FOLIC ACID 1 MG TABLET PO SCH (08:52)
[2017-03-15] MEDS: AMLODIPINE 5 MG TABLET PO SCH ×2 (08:52→22:43)
[2017-03-15] MEDS: RANITIDINE 150 MG TABLET PO SCH (08:52)
[2017-03-15] MEDS: CARVEDILOL 3.125 MG TABLET PO SCH ×2 (08:52→17:46)
[2017-03-15] MEDS: FUROSEMIDE 20 MG TABLET PO SCH (08:52)
[2017-03-15] MEDS: ASPIRIN 81 MG CHEWABLE TABLET PO SCH (08:56)
--- NOTE | 2017-03-15 10:38 | IRU Progress Note ---
- Subjective/Serverity of Illness Patient was interviewed and examined in her room. She is doing well. She is transferring with only standby assistance. She seems to be dressing room and is progressing overall with occupational therapy and physical therapy. I did assess her orientation is remains oriented despite the unusual comments that she makes from time to time. Exam Vital Signs: Temperature 98.7 F 03/15/17 08:00 Pulse Rate 61 03/15/17 08:00 Respiratory Rate 14 03/15/17 08:00 Blood Pressure 162/69 H 03/15/17 08:00 Pulse Oximetry 98 03/15/17 08:00 Oxygen Delivery Method Room Air Height: 1.57 m Weight: 77.4 kg Body Mass Index: 29.8 - Constitutional Present: no acute distress Comments: The patient is awake, alert and oriented and in no acute distress. Appears to be cooperative. Pupils are equal. The neck is supple. Chest: Clear to auscultation bilaterally. Cor: RR with shyam, click nor murmur Abd: soft with normo-active bowel sounds. There are no masses, no tenderness and no guarding. Extremities: No edema is noted. She is oriented to place person and time. She knows the month and the year and the day of the week. She knows who the president is. - Routine HEENT Exam Head: Present: normocephalic Eye: Present: EOMI - Routine Respiratory Exam Present: CTA bilaterally - Routine Cardiovascular Exam Present: RRR, S1, S2, no murmur - Routine Abdominal Exam Present: soft, normoactive bowel sounds, non distended, non tender - Routine Extremities Exam Absent: edema - Routine Neurological Exam Present: alert, oriented X3 - Routine Psychiatric Exam Present: normal affect Sepsis Assessment - Evaluation Sepsis screening result: No Definite Risk IRU A/P (1) Diastolic CHF Qualifiers: Congestive heart failure chronicity: acute on chronic Qualified Code(s): I50.33 - Acute on chronic diastolic (congestive) heart failure Current visit: No Status: Acute Patient appears to have compensated diastolic heart failure. She denies shortness of breath and her chest is clear. She seems to be compensated well at present. However this may impact her therapies. (2) CKD (chronic kidney disease) stage 4, GFR 15-29 ml/min Problem details: Creatinine 1.4 on 02/24/17, 1.2 prior to that Current visit: No Status: Chronic Creatinine has gradually increased from 1.4-1.5-1.6.. (3) Hypertension Qualifiers: Hypertension type: essential hypertension Qualified Code(s): I10 - Essential (primary) hypertension Current visit: No Status: Chronic Per medical team. Her blood pressure has remained a bit elevated. (4) Debility Current visit: No Status: Acute She does demonstrate debility although this is improving. (5) Myopathy Current visit: Yes Status: Resolved Her myopathy changes appear to have resolved. Strength is good. DVT Prophylaxis: SCD's Resuscitation Status: Full Code - Course Hospital Course: Sim Richey MD: 03/14/17 11:05 Seems to be stable medically. Denies shortness of breath or chest pain Creatinine remains stable at 1.5 Does make unusual comments from time to time raising the possibility of either delirium or a psychiatric diagnosis. Safety awareness remains an issue. 03/15/17 10:38 She continues to be medically stable. Creatinine is up a bit at 1.6 Safety awareness continues to be an issue that we are working on. She is progressing. - Interventions to Obtain Goals PT Treatment Plan: Balance/Proprioception, Functional Activities, Gait Training , Patient/Family Education, Therapeutic Exercise OT Treatment Plan: ADL (Basic Care), Balance Training, IADL, Pt./Family Education, Ther. Exercise for ADL
--- NOTE | 2017-03-15 11:32 | Progress Note ---
<Krystyna Perry - Last Filed: 03/15/17 11:26> Subjective: Oli states she's doing fairly well, except for constipation. She hasn't had a bowel movement for 5 days, but denies any abdominal pain or bloating, nausea or vomiting, or appetite change. She states at home she occasionally takes Prunelax (sennosides and prune juice extract). She denies any chest pain or shortness of breath. She occasionally feels dizzy when she is up and walking, but states that this is a chronic condition. Objective Vital signs: Temperature 98.7 F 03/15/17 08:00 Pulse Rate 61 03/15/17 08:00 Respiratory Rate 14 03/15/17 08:00 Blood Pressure 162/69 H 03/15/17 08:00 Pulse Oximetry 98 03/15/17 08:00 Oxygen Delivery Method Room Air Body Mass Index: 29.8 - Constitutional Present: no acute distress, well nourished, well developed - Routine HEENT Exam ENT: Present: mucous membranes dry, oropharynx clear - Routine Respiratory Exam Present: CTA bilaterally - Routine Cardiovascular Exam Present: RRR, S1, S2, murmur - Routine Abdominal Exam Present: non tender, distended (mild abdominal distention). Absent: normoactive bowel sounds (slightly hypoactive bowel sounds) - Routine Extremities Exam Present: edema (1+ bilateral lower extremities). Absent: no edema - Routine Musculoskeletal Exam Musculoskeletal: Present: moving extremities well, other (brace to right ankle) - Routine Skin Exam Present: intact, dry, warm - Routine Neurological Exam Present: alert, oriented X3, CN II-XII intact Results - Labs CBC & Chem 7: 03/15/17 04:30 03/15/17 04:30 Assessment and Plan (1) CKD (chronic kidney disease) stage 4, GFR 15-29 ml/min Problem details: Creatinine 1.4 on 02/24/17, 1.2 prior to that Current visit: No Status: Chronic (2) Hypertension Current visit: No Status: Chronic (3) Hypothyroid Current visit: No Status: Chronic (4) Diastolic CHF Current visit: No Status: Acute (5) Osteoarthritis Current visit: Yes Status: Chronic Assessment and Plan: Potassium has remained stable. Currently at 4.0. Stage III chronic kidney disease: Creatinine is creeping up slowly, currently at 1.6. We'll reassess BMP tomorrow morning. With her history of flash pulmonary edema, I am hesitant to hold Lasix at this time. Regarding constipation, will give a brown cow now, and start senna plus twice a day Hypertension: BP has been moderately elevated - heart rate in the 60s precludes ability to increase Coreg. At this time. We'll continue with antihypertensives at current doses. Furthermore, would avoid aggressive lowering of blood pressure in this patient because of risk for inadequate renal perfusion. Pancytopenia - persists. May need heme/onc outpatient workup. Sepsis Assessment - Evaluation Sepsis screening result: No Definite Risk Hospital Course Summary Disclaimer: The visit summary below is not to be considered part of the above Progress Note. Hospital Course: 03/11/17 Weakness Pancytopenia Chronic kidney disease stage III Hypertension Dyslipidemia. Mitral valve regurgitation. Peptic ulcer disease. Coronary artery disease. Rheumatoid arthritis. Dementia Plan Agree with admission to IRU under the care of Dr. Richey for ongoing strengthening and improve function. We'll monitor electrolytes carefully given recent hyperkalemia with acute kidney injury and acute dialysis. Currently, patient is on room air. We will continue to follow this carefully. Monitor respiratory status. Noted. Blood pressure is slightly elevated this morning. Continue with Norvasc 5 milligrams, Coreg 3.125 milligrams, Lasix 20 milligrams daily She will continue on oral potassium supplementation 20 milliequivalents daily. Noted to be pancytopenic this morning, will continue to follow. SCDs to bilateral lower extremity for DVT prophylaxis Encourage work with PT and OT for ongoing strengthening Will discuss patient orders, and plan of care with attending Dr. Stephen At time of discharge medical care will return to primary care provider. Dr. Winslow 03/14/17 Viviane Potassium has been stopped as potassium normal and with recent refractory hyperkalemia. Repeat CXR showing improvement of pulmonary congestion. Blood pressure stable with Norvasc, Coreg and Lasix. Creatinine stable - at 1.5. Will need to continue to monitor. Encourage continuation of therapy to maximize functional status - gains being made. Recheck BMP in am due to CKD and medication use. Will recheck CBC due to pancytopenia - WBC normalized and platelets increasing. Medically stable for IRU floor activities. 03/15/17 Potassium has remained stable. Currently at 4.0. Stage III chronic kidney disease: Creatinine is creeping up slowly, currently at 1.6. We'll reassess BMP tomorrow morning. With her history of flash pulmonary edema, I am hesitant to hold Lasix at this time. Regarding constipation, will give a brown cow now, and start senna plus twice a day Hypertension: BP has been moderately elevated - heart rate in the 60s precludes ability to increase Coreg. At this time. We'll continue with antihypertensives at current doses. Furthermore, would avoid aggressive lowering of blood pressure in this patient because of risk for inadequate renal perfusion. Pancytopenia - persists. May need heme/onc outpatient workup. <Philip Pan D - Last Filed: 03/15/17 18:32> Objective Vital signs: Temperature 97.9 F 03/15/17 16:00 Pulse Rate 88 03/15/17 16:00 Respiratory Rate 18 03/15/17 16:00 Blood Pressure 135/53 03/15/17 16:00 Pulse Oximetry 92 03/15/17 16:00 Oxygen Delivery Method Room Air Results - Labs CBC & Chem 7: 03/15/17 04:30 03/15/17 04:30 Assessment and Plan (1) Diastolic CHF Current visit: No Status: Acute (2) CKD (chronic kidney disease) stage 4, GFR 15-29 ml/min Problem details: Creatinine 1.4 on 02/24/17, 1.2 prior to that Current visit: No Status: Chronic (3) Hypertension Current visit: No Status: Chronic (4) Hypothyroid Current visit: No Status: Chronic (5) Osteoarthritis Current visit: Yes Status: Chronic (6) Constipation Current visit: Yes Status: Acute Assessment and Plan: Have independently interviewed and examined pt. Chart reviewed. Case discussed with my MORTGAGE LOAN CLOSER. Care plan developed with my supervision; agree with above. Doing well today. Tolerating therapy-improving in strength and abilities. Breathing well-not SOA or congested. No chest pain. Eating well. Bowels very slow, but no ab pain or nausea. Lungs: clear CV: regular MSE: awake alert appropriate Plan: Continue with current antihypertensive. Recheck BMP tomorrow to monitor creatinine and potassium. Senna plus BID to help stools. Answered pt's questions about low sodium diet. Encouraged continuation of therapy and activities. Overall pt is doing well-looks much stronger and more energetic than when she was on acute. Medically stable for IRU floor activities. Hospital Course Summary Disclaimer: The visit summary below is not to be considered part of the above Progress Note.
--- NOTE | 2017-03-15 12:57 | IRU Team Meeting ---
IRU Team Meeting - Nursing Vital Signs: Vital Signs - 24 hr 03/14/17 16:00 03/14/17 23:37 03/15/17 08:00 Temperature 97.7 F 98.0 F 98.7 F Pulse Rate 65 66 61 Respiratory Rate 16 16 14 Blood Pressure 148/63 H 169/69 H 162/69 H Pulse Oximetry 96 94 98 Current Medications: Acetaminophen (Tylenol) 650 mg PO Q4H PRN PRN Reason: Pain Last Admin: 03/14/17 13:11 Dose: 650 mg Amlodipine Besylate (Norvasc) 5 mg PO HS [facility] Last Admin: 03/14/17 21:01 Dose: 5 mg Amlodipine Besylate (Norvasc) 5 mg PO DAILY [facility] Last Admin: 03/15/17 08:52 Dose: 5 mg Aspirin (Asa) 81 mg PO DAILY [facility] Last Admin: 03/15/17 08:56 Dose: 81 mg Bisacodyl (Dulcolax) 10 mg RECTALLY DAILY PRN PRN Reason: Constipation Last Admin: 03/14/17 20:56 Dose: 10 mg Carvedilol (Coreg) 3.125 mg PO BIDWM [facility] Last Admin: 03/15/17 08:52 Dose: 3.125 mg Cyproheptadine HCl (Periactin) 8 mg PO TID [facility] Last Admin: 03/15/17 08:51 Dose: 8 mg Folic Acid (Folate) 1 mg PO DAILY [facility] Last Admin: 03/15/17 08:52 Dose: 1 mg Furosemide (Lasix) 20 mg PO DAILY [facility] Last Admin: 03/15/17 08:52 Dose: 20 mg Gabapentin (Neurontin) 300 mg PO HS [facility] Last Admin: 03/14/17 21:00 Dose: 300 mg Levothyroxine Sodium (Synthroid) 150 mcg PO ACB [facility] Last Admin: 03/15/17 06:21 Dose: 150 mcg Magnesium Hydroxide (Mom) 30 ml PO DAILY PRN PRN Reason: Constipation Last Admin: 03/15/17 06:21 Dose: 30 ml Milnacipran HCl (Savella) 50 mg PO BID [facility] Last Admin: 03/15/17 08:51 Dose: 50 mg Niacin (Niaspan) 500 mg PO HS [facility] Last Admin: 03/14/17 21:00 Dose: 500 mg Polyethylene Glycol (Miralax) 17 gm PO DAILY [facility] Ranitidine HCl (Zantac) 150 mg PO DAILY [facility] Last Admin: 03/15/17 08:52 Dose: 150 mg Rosuvastatin Calcium (Crestor) 5 mg PO HS [facility] Last Admin: 03/14/17 20:59 Dose: 5 mg Senna/Docusate Sodium (Senna Plus Tablet) 1 tab PO BID BETTIE Sucralfate (Carafate) 1 gm PO ACHS [facility] Last Admin: 03/15/17 11:19 Dose: 1 gm Comments: Meds adjusted re: coreg. She is constipated and we are adjusting meds in this regard. Seems to be more well oriented. Walking better. Labs noted. WBC a bit down. Dietitian: on a renal diet, 2 gm Na and 2 gm K. Education being given. - Physical Therapy Sit to Stand Chair Transfer Ability: Modified Independent Stand to Sit Chair Transfer Ability: Modified Independent Comments: Mod I with ambulation. Doing well without walker. Without the walker may be safer for her. - Occupational Therapy Eating Ability: Independent Grooming Ability: Independent Bathing Ability: Modified Independent Upper Body Dressing Ability: Modified Independent Lower Body Dressing Ability: Modified Independent Lower Body Dressing Comment: She is making progress. Some safety issues. When getting fatigued she may forget things. She is improving. - Care Plan Anticipated Length of Stay: 1 Anticipated DC Destination: Home, Self Care Interventions/Goals: Plan to go home tomorrow. Will be staying with daughter part of the day. Will offer home health. Goal: Successful discharge home. Amb without assistive device 150ft. Education for family. Barriers: safety.
[2017-03-15] MEDS: ACETAMINOPHEN 325 MG TABLET PO PRN (13:26)
[2017-03-15] MEDS ORDERED: POLYETHYL GLYCOL 3350 17gm PACKET PO SCH (21:00)
[2017-03-15] MEDS: ROSUVASTATIN 5 MG TABLET PO SCH (22:43)
[2017-03-15] MEDS: SENNA + DOCUSATE TABLET PO SCH (22:43)
[2017-03-15] MEDS: GABAPENTIN 300 MG CAPSULE PO SCH (22:43)
[2017-03-15] MEDS: NIACIN ER 500 MG TABLET PO SCH (22:44)
[2017-03-15] MEDS: BISACODYL 10 MG SUPPOSITORY RECTALLY PRN (22:50)
[2017-03-16] MEDS: SUCRALFATE 1 GM TABLET PO SCH ×5 (05:01→21:27)
[2017-03-16] MEDS: LEVOTHYROXINE 150 MCG TABLET PO SCH ×2 (05:02→08:34)
[2017-03-16] MEDS ORDERED: NS FLUSH BAG 500ml IV ONE (08:31)
[2017-03-16] MEDS: ASPIRIN 81 MG CHEWABLE TABLET PO SCH (08:40)
[2017-03-16] MEDS: FOLIC ACID 1 MG TABLET PO SCH (08:40)
[2017-03-16] MEDS: CARVEDILOL 3.125 MG TABLET PO SCH ×2 (08:40→17:55)
[2017-03-16] MEDS: FUROSEMIDE 20 MG TABLET PO SCH (08:41)
[2017-03-16] MEDS: RANITIDINE 150 MG TABLET PO SCH (08:42)
[2017-03-16] MEDS: MILNACIPRAN 50 MG PO SCH ×2 (08:42→21:26)
[2017-03-16] MEDS: AMLODIPINE 5 MG TABLET PO SCH ×2 (08:42→21:27)
[2017-03-16] MEDS: CYPROHEPTADINE 4 MG TABLET PO SCH ×3 (08:42→21:26)
[2017-03-16] MEDS: POLYETHYL GLYCOL 3350 17gm PACKET PO SCH (08:43)
[2017-03-16] MEDS: SENNA + DOCUSATE TABLET PO SCH ×2 (08:44→21:26)
--- NOTE | 2017-03-16 09:37 | XRay Report ---
Indication: constipation PROCEDURE: XR KUB w upright: Encounter: Initial Comparison: March 06, 2017 Findings: Lung bases show mild edema. No free air. Prior small bowel distention has resolved. There is gas primarily within the colon to the level of the rectum. Moderate to large amount of stool in the colon. Mild degenerative change in the spine. Cholecystectomy clips. Impression: Resolved ileus pattern with increased colonic stool burden possibly representing constipation. .
--- NOTE | 2017-03-16 10:41 | Progress Note ---
<Magy Cates V - Last Filed: 03/16/17 10:26> Subjective: Mrs Vazquez is seen and examined today. Overall, she states that she is feeling well without any difficulties. She did have a small bowel movement overnight. However, no large bowel movements reported. Denies feeling short of breath, chest pain or abdominal pain/nausea. Objective Vital signs: Temperature 98.4 F 03/16/17 00:00 Pulse Rate 61 03/16/17 08:00 Respiratory Rate 16 03/16/17 08:00 Blood Pressure 136/58 03/16/17 08:00 Pulse Oximetry 89 L 03/16/17 08:00 Oxygen Delivery Method Room Air Body Mass Index: 29.8 - Constitutional Present: no acute distress, well nourished, well developed - Routine HEENT Exam Eye: Present: EOMI ENT: Present: mucous membranes moist, dentition normal - Routine Respiratory Exam Present: CTA bilaterally. Absent: wheezes - Routine Cardiovascular Exam Present: RRR. Absent: murmur - Routine Abdominal Exam Present: soft, normoactive bowel sounds, non distended. Absent: tenderness - Routine Extremities Exam Present: normal capillary refill - Routine Skin Exam Present: dry, warm - Routine Neurological Exam Present: alert, oriented X3, CN II-XII intact - Routine Lymphatic Exam Lymphatic: Absent: adenopathy - Routine Psychiatric Exam Present: normal affect Results - Labs CBC & Chem 7: 03/16/17 05:02 03/16/17 05:02 Assessment and Plan (1) CKD (chronic kidney disease) stage 4, GFR 15-29 ml/min Problem details: Creatinine 1.4 on 02/24/17, 1.2 prior to that Current visit: No Status: Chronic (2) Hypertension Current visit: No Status: Chronic (3) Hypothyroid Current visit: No Status: Chronic (4) Diastolic CHF Current visit: No Status: Acute (5) Osteoarthritis Current visit: Yes Status: Chronic (6) Constipation Current visit: Yes Status: Acute Assessment and Plan: 03/16/17 Medically, patient's creatinine continues to rise and this morning is up to 1.9. Will give a 500 ML bolus of saline for gentle hydration. KUB x-ray obtained that did reveal increased colonic stool burden with moderate to large amount of stool in the colon. Will continue with more aggressive bowel motivation. Did ask nursing staff to give Dulcolax suppository. Also concerned about urinary retention. Given the amount of constipation and increased creatinine. Will have nursing do post-void bladder scanning. Will also obtain a urinalysis. Given patient complains of some dysuria. At this point would recommend on holding off discharge today. Would like to have patient more medically stable. Will discuss with Dr. Richey and the rehabilitation team. Recheck CBC and BMP tomorrow morning Overall she is doing well with PT/OT Sepsis Assessment - Evaluation Sepsis screening result: No Definite Risk Hospital Course Summary Disclaimer: The visit summary below is not to be considered part of the above Progress Note. Hospital Course: 03/11/17 Weakness Pancytopenia Chronic kidney disease stage III Hypertension Dyslipidemia. Mitral valve regurgitation. Peptic ulcer disease. Coronary artery disease. Rheumatoid arthritis. Dementia Plan Agree with admission to IRU under the care of Dr. Richey for ongoing strengthening and improve function. We'll monitor electrolytes carefully given recent hyperkalemia with acute kidney injury and acute dialysis. Currently, patient is on room air. We will continue to follow this carefully. Monitor respiratory status. Noted. Blood pressure is slightly elevated this morning. Continue with Norvasc 5 milligrams, Coreg 3.125 milligrams, Lasix 20 milligrams daily She will continue on oral potassium supplementation 20 milliequivalents daily. Noted to be pancytopenic this morning, will continue to follow. SCDs to bilateral lower extremity for DVT prophylaxis Encourage work with PT and OT for ongoing strengthening Will discuss patient orders, and plan of care with attending Dr. Stephen At time of discharge medical care will return to primary care provider. Dr. iWnslow 03/14/17 Viviane Potassium has been stopped as potassium normal and with recent refractory hyperkalemia. Repeat CXR showing improvement of pulmonary congestion. Blood pressure stable with Norvasc, Coreg and Lasix. Creatinine stable - at 1.5. Will need to continue to monitor. Encourage continuation of therapy to maximize functional status - gains being made. Recheck BMP in am due to CKD and medication use. Will recheck CBC due to pancytopenia - WBC normalized and platelets increasing. Medically stable for IRU floor activities. 03/15/17 Potassium has remained stable. Currently at 4.0. Stage III chronic kidney disease: Creatinine is creeping up slowly, currently at 1.6. We'll reassess BMP tomorrow morning. With her history of flash pulmonary edema, I am hesitant to hold Lasix at this time. Regarding constipation, will give a brown cow now, and start senna plus twice a day Hypertension: BP has been moderately elevated - heart rate in the 60s precludes ability to increase Coreg. At this time. We'll continue with antihypertensives at current doses. Furthermore, would avoid aggressive lowering of blood pressure in this patient because of risk for inadequate renal perfusion. Pancytopenia - persists. May need heme/onc outpatient workup. 03/16/17 Medically, patient's creatinine continues to rise and this morning is up to 1.9. Will give a 500 ML bolus of saline for gentle hydration. KUB x-ray obtained that did reveal increased colonic stool burden with moderate to large amount of stool in the colon. Will continue with more aggressive bowel motivation. Did ask nursing staff to give Dulcolax suppository. Also concerned about urinary retention. Given the amount of constipation and increased creatinine. Will have nursing do post-void bladder scanning. Will also obtain a urinalysis. Given patient complains of some dysuria. At this point would recommend on holding off discharge today. Would like to have patient more medically stable. Will discuss with Dr. Richey and the rehabilitation team. Recheck CBC and BMP tomorrow morning Overall she is doing well with PT/OT <Philip Pan - Last Filed: 03/16/17 16:45> Objective Vital signs: Temperature 97.7 F 03/16/17 10:00 Pulse Rate 61 03/16/17 08:00 Respiratory Rate 16 03/16/17 08:00 Blood Pressure 136/58 03/16/17 08:00 Pulse Oximetry 97 03/16/17 10:00 Oxygen Delivery Method Room Air Results - Labs CBC & Chem 7: 03/16/17 05:02 03/16/17 05:02 Assessment and Plan (1) Diastolic CHF Current visit: No Status: Acute (2) CKD (chronic kidney disease) stage 4, GFR 15-29 ml/min Problem details: Creatinine 1.4 on 02/24/17, 1.2 prior to that Current visit: No Status: Chronic (3) Hypertension Current visit: No Status: Chronic (4) Hypothyroid Current visit: No Status: Chronic (5) Osteoarthritis Current visit: Yes Status: Chronic (6) Constipation Current visit: Yes Status: Acute Assessment and Plan: Have independently interviewed and examined pt. Chart reviewed. Case discussed with my PERFECT BINDER OPERATOR. Care plan developed with my supervision; agree with above. Doing okay today. Had slight SOA earlier today post therapy. No cough or congestion. Denies nausea. Not ab feels slightly full. Not had much stool output (1 small stool overnight). Lungs: decreased, no distress CV: regular AB: soft nt/nd +BS EXT: trace LE edema MSE: awake alert appropriate Plan: Holding discharge for today to monitor renal status - 500cc NS given. Will have nursing give Fleets enema if not had stool by this evening. Recheck lab in am. Continue with activities and therapy. Medically stable for IRU floor activities and care. Hospital Course Summary Disclaimer: The visit summary below is not to be considered part of the above Progress Note.
[2017-03-16] MEDS: ACETAMINOPHEN 325 MG TABLET PO PRN (11:14)
--- NOTE | 2017-03-16 11:25 | IRU Progress Note ---
- Subjective/Serverity of Illness Oli is progressing nicely with therapy. Unfortunately she has developed some medical complications. Her creatinine has increased to 1.9. She is constipated. KUB reviewed. In addition she does continue some dysuria. Hospitalists have evaluated the patient. They have ordered a 500 mL fluid bolus and we are working on stool management. Urinalysis is also pending. Discharge held at the present time and she will be reassessed medically tomorrow. Exam Vital Signs: Temperature 97.7 F 03/16/17 10:00 Pulse Rate 61 03/16/17 08:00 Respiratory Rate 16 03/16/17 08:00 Blood Pressure 136/58 03/16/17 08:00 Pulse Oximetry 97 03/16/17 10:00 Oxygen Delivery Method Room Air Height: 1.57 m Weight: 79.2 kg Body Mass Index: 29.8 - Constitutional Present: mild distress Comments: The patient is awake, alert and oriented. She expresses disappointment and discouragement due to not being able to go home today. We discussed the reasons for this. Pupils are equal. The neck is supple. Chest: Clear to auscultation bilaterally. Cor: RR with shyam, click nor murmur Abd: soft with normo-active bowel sounds. There are no masses, no tenderness and no guarding. Extremities: No edema is noted. - Routine HEENT Exam Head: Present: normocephalic Eye: Present: EOMI ENT: Present: mucous membranes moist - Routine Neck Exam Present: supple - Routine Respiratory Exam Present: CTA bilaterally - Routine Cardiovascular Exam Present: RRR, S1, S2, no murmur - Routine Abdominal Exam Present: soft, normoactive bowel sounds, non distended, non tender - Routine Extremities Exam Present: no edema - Routine Skin Exam Present: intact, dry - Routine Neurological Exam Present: alert (at times she continues to display evidence of memory loss. Some of this could be delirium related to her medical illness as well.) - Routine Psychiatric Exam Present: normal affect, cooperative. Absent: good insight Results IRU - Labs Labs: Reviewed current lab including creatinine of 1.9. Urinalysis is pending. Sepsis Assessment - Evaluation Sepsis screening result: No Definite Risk IRU A/P (1) Diastolic CHF Qualifiers: Congestive heart failure chronicity: acute on chronic Qualified Code(s): I50.33 - Acute on chronic diastolic (congestive) heart failure Current visit: No Status: Acute Lungs remain clear. She denies any dyspnea. However weight has gradually increased. (2) CKD (chronic kidney disease) stage 4, GFR 15-29 ml/min Problem details: Creatinine 1.4 on 02/24/17, 1.2 prior to that Current visit: No Status: Chronic Creatinine has increased. Fluid bolus has been ordered. Repeat labs in the morning. Hold discharge. (3) Hypertension Qualifiers: Hypertension type: essential hypertension Qualified Code(s): I10 - Essential (primary) hypertension Current visit: No Status: Chronic (4) Debility Current visit: No Status: Acute Her strength, ambulatory ability and transfers are improving. (5) Myopathy Current visit: Yes Status: Resolved DVT Prophylaxis: SCD's Resuscitation Status: Full Code - Course Hospital Course: Sim Richey MD: 03/14/17 11:05 Seems to be stable medically. Denies shortness of breath or chest pain Creatinine remains stable at 1.5 Does make unusual comments from time to time raising the possibility of either delirium or a psychiatric diagnosis. Safety awareness remains an issue. 03/15/17 10:38 She continues to be medically stable. Creatinine is up a bit at 1.6 Safety awareness continues to be an issue that we are working on. She is progressing. 03/16/17 11:26 Medically, she has declined. Her creatinine has increased to 1.9. Continues to be constipated and we're working on that. Comprise of dysuria with urinalysis pending. Discharge held at this time. Continue therapies otherwise. - Interventions to Obtain Goals PT Treatment Plan: Balance/Proprioception, Functional Activities, Gait Training , Patient/Family Education, Therapeutic Exercise OT Treatment Plan: ADL (Basic Care), Balance Training, IADL, Pt./Family Education, Ther. Exercise for ADL
[2017-03-16] MEDS: ROSUVASTATIN 5 MG TABLET PO SCH (21:27)
[2017-03-16] MEDS: GABAPENTIN 300 MG CAPSULE PO SCH (21:27)
[2017-03-16] MEDS: NIACIN ER 500 MG TABLET PO SCH (21:29)
[2017-03-17] MEDS: SALINE FLUSH 10ml SYRINGE IVF PRN ×2 (03:51→22:18)
[2017-03-17] MEDS: SUCRALFATE 1 GM TABLET PO SCH ×4 (06:45→22:19)
[2017-03-17] MEDS: LEVOTHYROXINE 150 MCG TABLET PO SCH (06:46)
[2017-03-17] MEDS: FOLIC ACID 1 MG TABLET PO SCH (09:01)
[2017-03-17] MEDS: ASPIRIN 81 MG CHEWABLE TABLET PO SCH (09:01)
[2017-03-17] MEDS: POLYETHYL GLYCOL 3350 17gm PACKET PO SCH (09:02)
[2017-03-17] MEDS: FUROSEMIDE 20 MG TABLET PO SCH (09:02)
[2017-03-17] MEDS: SENNA + DOCUSATE TABLET PO SCH ×3 (09:03→22:19)
[2017-03-17] MEDS: RANITIDINE 150 MG TABLET PO SCH (09:03)
[2017-03-17] MEDS: MILNACIPRAN 50 MG PO SCH ×2 (09:04→22:19)
[2017-03-17] MEDS: CYPROHEPTADINE 4 MG TABLET PO SCH ×3 (09:04→22:18)
[2017-03-17] MEDS: CARVEDILOL 3.125 MG TABLET PO SCH ×2 (09:05→17:53)
[2017-03-17] MEDS: AMLODIPINE 5 MG TABLET PO SCH ×2 (09:07→22:27)
--- NOTE | 2017-03-17 10:21 | Progress Note ---
Subjective: Oli is seen today in follow up. Nursing staff report that overnight she did require 2 liters of oxygen to maintain saturations. Is reported that she is supposed to be using a CPAP. However, does not have it here. Noted weight is up 5 kilograms since admission. Patient does report she feels some "rattling" in her chest, however denies feeling short of breath or having chest pain. Bowels moved yesterday. Objective Vital signs: Temperature 98.3 F 03/17/17 08:00 Pulse Rate 56 L 03/17/17 08:00 Respiratory Rate 16 03/17/17 08:00 Blood Pressure 142/53 H 03/17/17 08:00 Pulse Oximetry 95 03/17/17 08:00 Oxygen Delivery Method Nasal Cannula Oxygen Flow Rate 2 Weight: 79.1 kg - Constitutional Present: no acute distress, well nourished, well developed - Routine HEENT Exam Head: Present: normocephalic, atraumatic Eye: Present: EOMI, PERRL ENT: Present: mucous membranes moist, dentition normal - Routine Respiratory Exam Present: CTA bilaterally, diminished air movement (diminished bilateral bases). Absent: wheezes - Routine Cardiovascular Exam Present: RRR, S1, S2. Absent: murmur - Routine Abdominal Exam Present: soft, normoactive bowel sounds, non distended. Absent: tenderness - Routine Extremities Exam Present: full ROM, normal capillary refill - Routine Back/Spine/Pelvis Exam Back/Spine: Present: full ROM - Routine Skin Exam Present: intact, dry, warm - Routine Neurological Exam Present: alert, oriented X3, CN II-XII intact - Routine Lymphatic Exam Lymphatic: Absent: adenopathy - Routine Psychiatric Exam Present: normal affect, normal thought process Results - Labs CBC & Chem 7: 03/17/17 04:38 03/17/17 04:38 Assessment and Plan (1) CKD (chronic kidney disease) stage 4, GFR 15-29 ml/min Problem details: Creatinine 1.4 on 02/24/17, 1.2 prior to that Current visit: No Status: Chronic (2) Hypertension Current visit: No Status: Chronic (3) Hypothyroid Current visit: No Status: Chronic (4) Diastolic CHF Current visit: No Status: Acute (5) Osteoarthritis Current visit: Yes Status: Chronic (6) Constipation Current visit: Yes Status: Acute Assessment and Plan: 03/17/17 Will obtain a chest x-ray at this time, even increased hypoxia. KUB x-ray yesterday did reveal significant stool burden. Continue to work on aggressive bowel motivation. Patient did receive Lasix 20 milligrams by mouth this morning. Will consider adding additional diuretic. Continue to watch renal function. Creatinine today continues to be slightly elevated at 1.9. Concern for discharge with renal function elevated. Will discuss further with Dr Pan Sepsis Assessment - Evaluation Sepsis screening result: No Definite Risk Hospital Course Summary Disclaimer: The visit summary below is not to be considered part of the above Progress Note. Hospital Course: 03/11/17 Weakness Pancytopenia Chronic kidney disease stage III Hypertension Dyslipidemia. Mitral valve regurgitation. Peptic ulcer disease. Coronary artery disease. Rheumatoid arthritis. Dementia Plan Agree with admission to IRU under the care of Dr. Richey for ongoing strengthening and improve function. We'll monitor electrolytes carefully given recent hyperkalemia with acute kidney injury and acute dialysis. Currently, patient is on room air. We will continue to follow this carefully. Monitor respiratory status. Noted. Blood pressure is slightly elevated this morning. Continue with Norvasc 5 milligrams, Coreg 3.125 milligrams, Lasix 20 milligrams daily She will continue on oral potassium supplementation 20 milliequivalents daily. Noted to be pancytopenic this morning, will continue to follow. SCDs to bilateral lower extremity for DVT prophylaxis Encourage work with PT and OT for ongoing strengthening Will discuss patient orders, and plan of care with attending Dr. Stephen At time of discharge medical care will return to primary care provider. Dr. Winslow 03/14/17 Viviane Potassium has been stopped as potassium normal and with recent refractory hyperkalemia. Repeat CXR showing improvement of pulmonary congestion. Blood pressure stable with Norvasc, Coreg and Lasix. Creatinine stable - at 1.5. Will need to continue to monitor. Encourage continuation of therapy to maximize functional status - gains being made. Recheck BMP in am due to CKD and medication use. Will recheck CBC due to pancytopenia - WBC normalized and platelets increasing. Medically stable for IRU floor activities. 03/15/17 Potassium has remained stable. Currently at 4.0. Stage III chronic kidney disease: Creatinine is creeping up slowly, currently at 1.6. We'll reassess BMP tomorrow morning. With her history of flash pulmonary edema, I am hesitant to hold Lasix at this time. Regarding constipation, will give a brown cow now, and start senna plus twice a day Hypertension: BP has been moderately elevated - heart rate in the 60s precludes ability to increase Coreg. At this time. We'll continue with antihypertensives at current doses. Furthermore, would avoid aggressive lowering of blood pressure in this patient because of risk for inadequate renal perfusion. Pancytopenia - persists. May need heme/onc outpatient workup. 03/16/17 Medically, patient's creatinine continues to rise and this morning is up to 1.9. Will give a 500 ML bolus of saline for gentle hydration. KUB x-ray obtained that did reveal increased colonic stool burden with moderate to large amount of stool in the colon. Will continue with more aggressive bowel motivation. Did ask nursing staff to give Dulcolax suppository. Also concerned about urinary retention. Given the amount of constipation and increased creatinine. Will have nursing do post-void bladder scanning. Will also obtain a urinalysis. Given patient complains of some dysuria. At this point would recommend on holding off discharge today. Would like to have patient more medically stable. Will discuss with Dr. Richey and the rehabilitation team. Recheck CBC and BMP tomorrow morning Overall she is doing well with PT/OT 03/17/17 Will obtain a chest x-ray at this time, even increased hypoxia. KUB x-ray yesterday did reveal significant stool burden. Continue to work on aggressive bowel motivation. Patient did receive Lasix 20 milligrams by mouth this morning. Will consider adding additional diuretic. Continue to watch renal function. Creatinine today continues to be slightly elevated at 1.9. Concern for discharge with renal function elevated. Will discuss further with Dr Pan
--- NOTE | 2017-03-17 11:45 | XRay Report ---
Indication: ? Pulm edema PROCEDURE: XR chest 1V: Encounter: Initial Comparison: 03/14/2017 Findings: Mild diffuse interstitial prominence without focal lobar consolidation. No pneumothorax. Probable trace right effusion. Heart size and mediastinal contours are stable. Pulmonary vascularity shows some cephalization. Impression: Mild pulmonary edema. .
--- NOTE | 2017-03-17 13:16 | IRU Progress Note ---
- Subjective/Serverity of Illness Oli reports that she has a "rattle" when she calms. She is not producing any sputum. Her lungs actually sound clear. Her weight is stable. She received a mild fluid bolus yesterday because of elevated creatinine. Repeat creatinine today is unchanged at 1.9 with be within roughly the same from 39-40. Hospitalists are seeing the patient to decide whether she is stable to go home or not. She is also experiencing some hypoxemia. Apparently has a CPAP at home but has not been using it here. In addition, she is modified independent for ambulation and transfers. Seems to be stable from a therapy standpoint to go home. We will await medical decision in this regard. Exam Vital Signs: Temperature 98.3 F 03/17/17 08:00 Pulse Rate 56 L 03/17/17 08:00 Respiratory Rate 16 03/17/17 08:00 Blood Pressure 142/53 H 03/17/17 08:00 Pulse Oximetry 95 03/17/17 08:00 Oxygen Delivery Method Nasal Cannula Oxygen Flow Rate 2 Height: 1.57 m Weight: 79.1 kg Body Mass Index: 29.8 - Constitutional Present: no acute distress Comments: The patient is awake, alert and oriented and in no acute distress. Pupils are equal. The neck is supple. Chest: Clear to auscultation bilaterally. Cor: RR with no shyam, click nor murmur Abd: soft with normo-active bowel sounds. There are no masses, no tenderness and no guarding. Extremities: No edema is noted. - Routine HEENT Exam Head: Present: normocephalic Eye: Present: EOMI ENT: Present: mucous membranes moist - Routine Neck Exam Present: supple, full ROM - Routine Respiratory Exam Present: CTA bilaterally - Routine Cardiovascular Exam Present: RRR, S1, S2, no murmur - Routine Abdominal Exam Present: soft, normoactive bowel sounds, non distended, non tender - Routine Extremities Exam Present: no edema - Routine Back/Spine/Pelvis Exam Back/Spine: Present: full ROM - Routine Skin Exam Absent: erythema - Routine Neurological Exam Present: alert, oriented X3, CN II-XII intact - Routine Psychiatric Exam Present: normal affect. Absent: normal thought process (may have some degree of memory loss from time to time.) Results IRU - Labs Labs: Reviewed her chemistries. Creatinine stable at 1.9. Sepsis Assessment - Evaluation Sepsis screening result: No Definite Risk IRU A/P (1) Diastolic CHF Qualifiers: Congestive heart failure chronicity: acute on chronic Qualified Code(s): I50.33 - Acute on chronic diastolic (congestive) heart failure Current visit: No Status: Acute Her weight is stable. Her lungs are clear. (2) CKD (chronic kidney disease) stage 4, GFR 15-29 ml/min Problem details: Creatinine 1.4 on 02/24/17, 1.2 prior to that Current visit: No Status: Chronic Creatinine remains elevated but stable at 1.9. Has received fluid bolus yesterday. Lasix today. (3) Hypertension Qualifiers: Hypertension type: essential hypertension Qualified Code(s): I10 - Essential (primary) hypertension Current visit: No Status: Chronic (4) Debility Current visit: No Status: Resolved She is doing well regarding her transfers and ambulation. Some safety awareness difficulty remains. (5) Myopathy Current visit: Yes Status: Resolved DVT Prophylaxis: SCD's Resuscitation Status: Full Code - Course Hospital Course: Sim Richey MD: 03/14/17 11:05 Seems to be stable medically. Denies shortness of breath or chest pain Creatinine remains stable at 1.5 Does make unusual comments from time to time raising the possibility of either delirium or a psychiatric diagnosis. Safety awareness remains an issue. 03/15/17 10:38 She continues to be medically stable. Creatinine is up a bit at 1.6 Safety awareness continues to be an issue that we are working on. She is progressing. 03/16/17 11:26 Medically, she has declined. Her creatinine has increased to 1.9. Continues to be constipated and we're working on that. Comprise of dysuria with urinalysis pending. Discharge held at this time. Continue therapies otherwise. 03/17/17 13:16 Doing well with therapy. Safety awareness remains an issue. Medically she is being evaluated for chronic kidney disease and heart failure. Awaiting hospitalist's recommendation regarding dismissal. - Interventions to Obtain Goals PT Treatment Plan: Balance/Proprioception, Functional Activities, Gait Training , Patient/Family Education, Therapeutic Exercise OT Treatment Plan: ADL (Basic Care), Balance Training, IADL, Pt./Family Education, Ther. Exercise for ADL
[2017-03-17] MEDS ORDERED: MAGNESIUM CITRATE 296ml PO ONE (13:31)
[2017-03-17] MEDS ORDERED: FUROSEMIDE 20 MG/2 ML INJECTION IVP ONE (13:32)
[2017-03-17] MEDS: BISACODYL 10 MG SUPPOSITORY RECTALLY PRN (17:11)
[2017-03-17] MEDS: GABAPENTIN 300 MG CAPSULE PO SCH (22:19)
[2017-03-17] MEDS: ROSUVASTATIN 5 MG TABLET PO SCH (22:19)
[2017-03-17] MEDS: NIACIN ER 500 MG TABLET PO SCH (22:20)
[2017-03-17 23:34] VITALS: O2SAT 93
[2017-03-18] MEDS: LEVOTHYROXINE 150 MCG TABLET PO SCH (04:07)
[2017-03-18] MEDS: SUCRALFATE 1 GM TABLET PO SCH ×4 (04:07→18:00)
[2017-03-18] MEDS: POLYETHYL GLYCOL 3350 17gm PACKET PO SCH (08:28)
[2017-03-18] MEDS: CARVEDILOL 3.125 MG TABLET PO SCH ×2 (08:29→17:55)
[2017-03-18] MEDS: ASPIRIN 81 MG CHEWABLE TABLET PO SCH (08:29)
[2017-03-18] MEDS: FUROSEMIDE 20 MG TABLET PO SCH (08:29)
[2017-03-18] MEDS: FOLIC ACID 1 MG TABLET PO SCH (08:29)
[2017-03-18] MEDS: MILNACIPRAN 50 MG PO SCH (08:30)
[2017-03-18] MEDS: AMLODIPINE 5 MG TABLET PO SCH (08:30)
[2017-03-18] MEDS: CYPROHEPTADINE 4 MG TABLET PO SCH ×2 (08:30→15:48)
[2017-03-18] MEDS: SENNA + DOCUSATE TABLET PO SCH (08:32)
[2017-03-18] MEDS: RANITIDINE 150 MG TABLET PO SCH (08:32)
--- NOTE | 2017-03-18 10:54 | Discharge Instructions ---
Discharge Plan - Med Rec/Dispo Referrals/Follow Up: Zenaida Cooney MD [Physician] - (Dr. Zenaida Cooney on 03/23/17 at 4:40 pm for Nephrology. [facility] [address], [address] [place] [address] This appointment is very improtant) Nicki Winslow MD [Family Provider] - (Dr. Blaine Winslow on 03/24/17 at 1:30 pm for Hosp. follow-up. [phone]. [address] [place] [address]) Giancarlo Stone MD [Physician] - (Dr. Giancarlo Stone on 03/24/17 at 2:30 pm -Cardiology (Dr. Fraire is on leave of absence) [facility] [place] [address]) Additional Instructions: It is very important that you attend all of the appointments on March 24 as listed above. Prescriptions: New Amlodipine [Norvasc] 5 mg PO HS #30 tablet Furosemide [Lasix] 1 tab PO BID #60 tab Levothyroxine Sodium [Synthroid] 150 mcg PO ACB tablet PEG 3350 17gm PACKET [Miralax] 17 gm PO DAILY packet Senna + Docusate [Senna Plus Tablet] 1 tab PO BID tablet Bisacodyl Supp [Dulcolax] 10 mg RECTALLY DAILY PRN supp PRN Reason: Constipation Gabapentin [Neurontin] 300 mg PO HS capsule Milk of Magnesia [Mom] 30 ml PO DAILY PRN udc PRN Reason: Constipation Potassium Chloride 20 meq PO DAILY #20 tab.er.prt Continue Niacin 500 mg PO DAILY Folic Acid [Folate] 1 tab PO DAILY raNITIdine HCl [Zantac] 1 tab PO DAILY Acetaminophen [Tylenol] 650 mg PO Q4H PRN PRN Reason: Pain Milnacipran [Savella] 50 mg PO BID Amlodipine [Norvasc] 5 mg PO DAILY Amlodipine Besylate [Norvasc] 5 mg PO HS Rosuvastatin [Crestor] 5 mg PO HS Sucralfate [Carafate] 1 gm PO QID #20 tablet Aspirin Chewable [ASA] 81 mg PO DAILY Cyproheptadine [Periactin] 8 mg PO TID Carvedilol 3.125 mg PO BID #30 tablet Discontinued Furosemide [Lasix] 1 tab PO DAILY Potassium Chloride ER Tab [K-Dur] 20 meq PO TID No Action Gabapentin [Neurontin] 1 cap PO HS Discharge Instructions/Outpatient Orders: Consulting Provider Discharge Instructions Location: Determined By Patient - Disposition 01 Discharged Home, Self-Care
--- NOTE | 2017-03-18 11:33 | Progress Note ---
Subjective: Oli is seen. Multiple times this morning. She is ambulating well without evidence of dyspnea and working with therapy on the bicycle machine. She has no complaints. Overall feels that she is doing better today. Is noted to have trace lower extremity edema. Blood pressure this morning was slightly elevated 174/71. Objective Vital signs: Temperature 97.7 F 03/18/17 08:00 Pulse Rate 67 03/18/17 08:00 Respiratory Rate 20 03/18/17 08:00 Blood Pressure 174/71 H 03/18/17 08:00 Pulse Oximetry 93 03/18/17 08:00 Oxygen Delivery Method Room Air Oxygen Flow Rate 2 Weight: 78.5 kg - Constitutional Present: well nourished, well developed - Routine HEENT Exam Eye: Present: EOMI ENT: Present: mucous membranes moist, dentition normal - Routine Respiratory Exam Present: CTA bilaterally. Absent: wheezes - Routine Cardiovascular Exam Present: RRR. Absent: murmur - Routine Abdominal Exam Present: soft, normoactive bowel sounds, non distended. Absent: tenderness - Routine Extremities Exam Present: edema (trace bilateral lower extremity), normal capillary refill - Routine Skin Exam Present: dry, warm - Routine Neurological Exam Present: alert, oriented X3, CN II-XII intact - Routine Lymphatic Exam Lymphatic: Absent: adenopathy - Routine Psychiatric Exam Present: normal affect Results - Labs CBC & Chem 7: 03/17/17 04:38 03/18/17 08:02 Assessment and Plan (1) CKD (chronic kidney disease) stage 4, GFR 15-29 ml/min Problem details: Creatinine 1.4 on 02/24/17, 1.2 prior to that Current visit: No Status: Chronic (2) Hypertension Current visit: No Status: Chronic (3) Hypothyroid Current visit: No Status: Chronic (4) Diastolic CHF Current visit: No Status: Acute (5) Osteoarthritis Current visit: Yes Status: Chronic (6) Constipation Current visit: Yes Status: Acute Assessment and Plan: 03/18/17 Approximately 30 minutes of time was spent today coordinating discharge plan, discussing with patient's topper packer office as well as with Dr. Richey and attending, Dr. Pan. Discussed diuresis plan with attending. Will continue on Lasix 20mg BID. Encouraged her to use Cameron hose during the day to help with edema Other new medications on discharge, Coreg twice a day, increase Norvasc to 5 milligrams twice a day. Intended to encourage aggressive boat bowel motivation. Patient does have follow-up appointment on March 24 with primary care provider, Dr. Winslow, topper packer, Dr. Zenaida Jean, and dance therapist. Discussed with patient the importance of following up for all of these appointments as medications. May need to be changed at that time. Sepsis Assessment - Evaluation Sepsis screening result: No Definite Risk Hospital Course Summary Disclaimer: The visit summary below is not to be considered part of the above Progress Note. Hospital Course: 03/11/17 Weakness Pancytopenia Chronic kidney disease stage III Hypertension Dyslipidemia. Mitral valve regurgitation. Peptic ulcer disease. Coronary artery disease. Rheumatoid arthritis. Dementia Plan Agree with admission to IRU under the care of Dr. Richey for ongoing strengthening and improve function. We'll monitor electrolytes carefully given recent hyperkalemia with acute kidney injury and acute dialysis. Currently, patient is on room air. We will continue to follow this carefully. Monitor respiratory status. Noted. Blood pressure is slightly elevated this morning. Continue with Norvasc 5 milligrams, Coreg 3.125 milligrams, Lasix 20 milligrams daily She will continue on oral potassium supplementation 20 milliequivalents daily. Noted to be pancytopenic this morning, will continue to follow. SCDs to bilateral lower extremity for DVT prophylaxis Encourage work with PT and OT for ongoing strengthening Will discuss patient orders, and plan of care with attending Dr. Stephen At time of discharge medical care will return to primary care provider. Dr. Winslow 03/14/17 Viviane Potassium has been stopped as potassium normal and with recent refractory hyperkalemia. Repeat CXR showing improvement of pulmonary congestion. Blood pressure stable with Norvasc, Coreg and Lasix. Creatinine stable - at 1.5. Will need to continue to monitor. Encourage continuation of therapy to maximize functional status - gains being made. Recheck BMP in am due to CKD and medication use. Will recheck CBC due to pancytopenia - WBC normalized and platelets increasing. Medically stable for IRU floor activities. 03/15/17 Potassium has remained stable. Currently at 4.0. Stage III chronic kidney disease: Creatinine is creeping up slowly, currently at 1.6. We'll reassess BMP tomorrow morning. With her history of flash pulmonary edema, I am hesitant to hold Lasix at this time. Regarding constipation, will give a brown cow now, and start senna plus twice a day Hypertension: BP has been moderately elevated - heart rate in the 60s precludes ability to increase Coreg. At this time. We'll continue with antihypertensives at current doses. Furthermore, would avoid aggressive lowering of blood pressure in this patient because of risk for inadequate renal perfusion. Pancytopenia - persists. May need heme/onc outpatient workup. 03/16/17 Medically, patient's creatinine continues to rise and this morning is up to 1.9. Will give a 500 ML bolus of saline for gentle hydration. KUB x-ray obtained that did reveal increased colonic stool burden with moderate to large amount of stool in the colon. Will continue with more aggressive bowel motivation. Did ask nursing staff to give Dulcolax suppository. Also concerned about urinary retention. Given the amount of constipation and increased creatinine. Will have nursing do post-void bladder scanning. Will also obtain a urinalysis. Given patient complains of some dysuria. At this point would recommend on holding off discharge today. Would like to have patient more medically stable. Will discuss with Dr. Richey and the rehabilitation team. Recheck CBC and BMP tomorrow morning Overall she is doing well with PT/OT 03/17/17 Will obtain a chest x-ray at this time, even increased hypoxia. KUB x-ray yesterday did reveal significant stool burden. Continue to work on aggressive bowel motivation. Patient did receive Lasix 20 milligrams by mouth this morning. Will consider adding additional diuretic. Continue to watch renal function. Creatinine today continues to be slightly elevated at 1.9. Concern for discharge with renal function elevated. Will discuss further with Dr Pan 03/18/17- Discharge Approximately 30 minutes of time was spent today coordinating discharge plan, discussing with patient's topper packer office as well as with Dr. Richey and attending, Dr. Pan. Discussed diuresis plan with attending. Will continue on Lasix 20mg BID. Encouraged her to use Cameron hose during the day to help with edema Other new medications on discharge, Coreg twice a day, increase Norvasc to 5 milligrams twice a day. Intended to encourage aggressive boat bowel motivation. Patient does have follow-up appointment on March 24 with primary care provider, Dr. Winslow, topper packer, Dr. Zenaida Jean, and dance therapist. Discussed with patient the importance of following up for all of these appointments as medications. May need to be changed at that time.
--- NOTE | 2017-03-18 11:58 | Discharge Instructions ---
Discharge Plan - Med Rec/Dispo Referrals/Follow Up: Giancarlo Stone MD [Physician] - (Dr. Giancarlo Stone on 03/24/17 at 2:30 pm -Cardiology (Dr. Fraire is on leave of absence) [facility] [address] [place] [address]) Nicki Winslow MD [Family Provider] - (Dr. Blaine Winslow on 03/24/17 at 1:30 pm for Hosp. follow-up. [phone]. [address] [place] [address]) Zenaida Cooney MD [Physician] - (Dr. Zenaida Cooney on 03/23/17 at 4:40 pm for Nephrology. [facility] [address], [address] [place] [address] This appointment is very improtant) Additional Instructions: It is very important that you attend all of the appointments on March 24 as listed above. Prescriptions: New Amlodipine [Norvasc] 5 mg PO HS #30 tablet Furosemide [Lasix] 1 tab PO BID #60 tab Levothyroxine Sodium [Synthroid] 150 mcg PO ACB tablet PEG 3350 17gm PACKET [Miralax] 17 gm PO DAILY packet Senna + Docusate [Senna Plus Tablet] 1 tab PO BID tablet Bisacodyl Supp [Dulcolax] 10 mg RECTALLY DAILY PRN supp PRN Reason: Constipation Gabapentin [Neurontin] 300 mg PO HS capsule Milk of Magnesia [Mom] 30 ml PO DAILY PRN udc PRN Reason: Constipation Potassium Chloride 20 meq PO DAILY #20 tab.er.prt Continue Niacin 500 mg PO DAILY Folic Acid [Folate] 1 tab PO DAILY raNITIdine HCl [Zantac] 1 tab PO DAILY Acetaminophen [Tylenol] 650 mg PO Q4H PRN PRN Reason: Pain Milnacipran [Savella] 50 mg PO BID Amlodipine [Norvasc] 5 mg PO DAILY Amlodipine Besylate [Norvasc] 5 mg PO HS Rosuvastatin [Crestor] 5 mg PO HS Sucralfate [Carafate] 1 gm PO QID #20 tablet Aspirin Chewable [ASA] 81 mg PO DAILY Cyproheptadine [Periactin] 8 mg PO TID Carvedilol 3.125 mg PO BID #30 tablet Discontinued Furosemide [Lasix] 1 tab PO DAILY Potassium Chloride ER Tab [K-Dur] 20 meq PO TID No Action Gabapentin [Neurontin] 1 cap PO HS Discharge Instructions/Outpatient Orders: Consulting Provider Discharge Instructions Location: Determined By Patient Final Provider Discharge Instructions Location: Determined By Patient - Disposition 01 Discharged Home, Self-Care
[2017-03-18 19:21] VITALS: BP 166/68; PULSE 71; RESP 16; TEMP 98
--- NOTE | 2017-03-19 13:20 | Right on Track Program ---
Right on Track Program Date of Discharge: 03/18/17 Home Medications: Home Medications Medication Instructions Recorded Confirmed Acetaminophen [Tylenol] 650 mg PO Q4H PRN 03/10/17 03/10/17 Amlodipine Besylate [Norvasc] 5 mg PO HS 03/10/17 03/10/17 Amlodipine [Norvasc] 5 mg PO DAILY 03/10/17 03/10/17 Aspirin Chewable [ASA] 81 mg PO DAILY 03/10/17 03/10/17 Cyproheptadine [Periactin] 8 mg PO TID 03/10/17 03/10/17 Folic Acid [Folate] 1 tab PO DAILY 03/10/17 03/10/17 Gabapentin [Neurontin] 1 cap PO HS 03/10/17 03/10/17 Milnacipran [Savella] 50 mg PO BID 03/10/17 03/10/17 Niacin 500 mg PO DAILY 03/10/17 03/10/17 Rosuvastatin [Crestor] 5 mg PO HS 03/10/17 03/10/17 raNITIdine HCl [Zantac] 1 tab PO DAILY 03/10/17 03/10/17 Previous Rx's Medication Instructions Recorded Amlodipine [Norvasc] 5 mg PO HS #30 tablet 03/18/17 Bisacodyl Supp [Dulcolax] 10 mg RECTALLY DAILY PRN supp 03/18/17 Carvedilol 3.125 mg PO BID #30 tablet 03/18/17 Furosemide [Lasix] 1 tab PO BID #60 tab 03/18/17 Gabapentin [Neurontin] 300 mg PO HS capsule 03/18/17 Levothyroxine Sodium [Synthroid] 150 mcg PO ACB tablet 03/18/17 Milk of Magnesia [Mom] 30 ml PO DAILY PRN udc 03/18/17 PEG 3350 17gm PACKET [Miralax] 17 gm PO DAILY packet 03/18/17 Potassium Chloride 20 meq PO DAILY #20 tab.er.prt 03/18/17 Senna + Docusate [Senna Plus 1 tab PO BID tablet 03/18/17 Tablet] Sucralfate [Carafate] 1 gm PO QID #20 tablet 03/18/17 - Right on Track Program PHONE CALL #1 Date: 03/19/17 Right on Track Program: 24 Hour Follow-Up Discharge Summary Received: Yes Care Plan Received: Yes Follow Up: Follow Up Appointment Scheduled (Dr. Cooney on 03/23; Dr. Winslow and Dr. Deutsch on 03/24) Referral: Primary Care Physician, Home Health Comments: I called Oli on 03/19/17 and left a message, inquiring to see if she had questions about new medications. I listed her upcoming follow appts. I encouraged her to call the hospital to schedule a [id number] visit. Will continue to follow. Oli's daughter called me back on 03/20/17. She had questions about the Norvasc dose and timing of dosing for carvedilol, which I was able to clarify. She is organizing her mother's medications in a pill box. She has concerns about her potassium getting too low (she had problems with k during hospitalization and now she's on less KDur than she used to take). I've written an order to check a BMP on 03/21/17 here at [facility] [place]. She expects [facility] to visit this afternoon. She has upcoming appts next week on 03/23/17 and 03/24/17, as previously documented. Discussed With Patient and Caregiver: Yes Recommendations For Follow-up: 1. Review medication list, including indications for each. 2. Provide CHF education. 3. Have BMP checked on 03/21/17 - fax results to Dr. Winslow and Dr. Soumya Cooney. 4. Home visit planned on 04/01/17 (this date works best for family) 5. F/U with Dr. Winslow, Dr. Zenaida Cooney, and Dr. Valiente this week. [id number] 04/01/17 Date: 04/01/17 Right on Track Program: 7-14 Day [id number] Discharge Summary Received: Yes Care Plan Received: Yes Follow Up: Follow up Tests Reviewed, Follow Up Appointment Scheduled Education: Diagnosis Education Reviewed, Education Provided To Caregiver Community Paramedicine Fall Intervention: Yes Referral: Primary Care Physician, Physical Therapy, Home Health Comments: I visited Oli on 04/01/17. Oli was spending the day at her daughter's home in [place], so I went to Magy's home instead of Oli's apartment. Overall, she's seeing slow improvement. Most concerning is her ongoing leg swelling. She'd like to simplify her medication list, also, if possible. She's had some problems with constipation as well. She is occasionally lightheaded. She had one fall at her other daughters' house while she was in the shower - no injury noted. She just developed a nonproductive cough this morning but denies dyspnea, orthopnea, chest pain, fevers/chills, congestion, dysphagia/choking. She has already had f/u appts with Dr. Winslow, Dr. Cooney, and Dr. Stone. Below is a summary of our discussion points: Resources: She has 2 daughters who, despite working fulltime, are available to help Oli whenever necessary. She has home health and PT. She has a nephew she could call if needed. She attends [employer], but doesn't want to impose on any of her friends there. Barriers: Oli did not graduate high school, so health literacy is a concern. In fact, she admitted difficulty in understanding medical/hospital instructions, and relies on her daughter to interpret and educate her on chronic conditions. Also, with multiple new diagnoses, she is still overwhelmed with understanding the conditions and appropriate self-management. Oli doesn 't drive (to her dismay), but her daughters will take her to appointments. Both Oli and her daughter describe her cognitive status as "forgetful" - but this doesn't seem to impede her ability to care for herself. Self-management: Her daughter, Magy, organizes Viancas pills into an organizer. Oli weighs herself daily, and her weight has been stable since discharge from the hospital. Medication reconciliation: Magy is well versed in her medications/indications, but Oli could use more education. Dr. Cooney recently reduced the frequency of Norvasc from 5 mg BID to 5 mg daily (hopefully this will help with her BLE edema), and Dr. Winslow recently increased KDur from once daily to BID. She continues on Lasix BID, Senna Plus, levothyoxine, gabapentin HS, MOM PRN (has taken 2 times since discharge from hospital), Allopurinol daily, Niacin daily, Folic acid daily, ranitidine daily, Tylenol as needed, Savella BID, Crestor HS, Carafate QID, cyproheptadine TID, and carvedilol 3.125 mg BID. I recommended to start MiraLAX daily for constipation. She wasn't taking ASA 81 mg - she was under the impression that she wasn't supposed to be on that - Magy will call Dr. Cooney's office to clarify. ADLs/IADLs: She is independent in ADLs, but needs assistance with finances, housekeeping, grocery shopping, and driving. Depression screen: Negative. Notes that she has problems sleeping (issues both falling asleep and then waking up prematurely), but this has been a chronic issue. She is upset about her daughters not letting her drive. Fall risk: High based on comorbidities and recent fall. She uses her walker consistently. Exam: General: A&O x3, NAD CV: RRR Pulm: Clear bilaterally Abd: soft & nontender Ext: 3+ edema to BLE; ximena hose in place. Oli reports that her blood pressure has been under better control since discharge home. Discussed With Patient and Caregiver: Yes Recommendations For Follow-up: 1. Provide CHF education - I called [facility] to ensure they are going through these topics with her. Health literacy is a concern, so we will need to adjust our language and teaching style appropriately. Elevate legs at rest and continue XIMENA hose. 2. Fall prevention - refer to [place] [facility] for home environment screen at Magy's house and in Oli's apartment. Continue PT. 3. Magy will call Dr. Cooney's office to inquire about contraindications for ASA. 4. F/U with PCP, lead assistant manager, and raking machine operator for medication mgt and lab monitoring. - Problems (1) CKD (chronic kidney disease) stage 4, GFR 15-29 ml/min Code(s): N18.4 - Chronic kidney disease, stage 4 (severe) Status: Chronic (2) Hypertension Qualifiers: Hypertension type: essential hypertension Qualified Code(s): I10 - Essential (primary) hypertension Code(s): I10 - Essential (primary) hypertension Status: Chronic (3) Diastolic CHF Qualifiers: Congestive heart failure chronicity: chronic Qualified Code(s): I50.32 - Chronic diastolic (congestive) heart failure Code(s): I50.30 - Unspecified diastolic (congestive) heart failure Status: Chronic
--- NOTE | 2017-03-21 11:46 | Discharge Summary ---
Discharge Information Date of admission: 03/10/17 16:46 Anticipated date of discharge: 03/18/17 Attending Physician: Sim Richey MD Primary care physician: Nicki Winslow MD Consults: 03/10/17 18:07 Physician Consult [CONS] Routine Consulting Provider: Beatriz Irizarry Reason For Exam: Medical management Ordering Provider has Notified Coding File Clerk: Nickie 03/12/17 16:23 Dietary Consult [CONS] Routine Comment: Food choices in question Reason For Exam: Discuss pts current diet of cardiac/renal. - Discharge Diagnosis Discharge Diagnosis: 1. Acute on chronic diastolic heart failure 2. Acute on chronic kidney disease Stage IV (eGFR 25) 3. Osteoarthritis 4. Benign essential hypertension 5. Hypothyroidism 6. Slow transit constipation - Laboratory Labs: 03/17/17 04:38 03/18/17 08:02 History of Present Illness HPI: 03/21/17 11:45 Oli was initially admitted to the [facility] in early February 2017 for acute on chronic heart failure. She was then stabilized after medical management and transfer to the inpatient rehabilitation unit. She progressed on therapy here. However she developed worsening shortness of breath rather suddenly and was transferred back to acute care. Subsequent she was sent to [facility] on did undergo one episode of acute kidney dialysis. She was then transferred back to the acute rehabilitation unit for continued therapy in view of her osteoarthritis, safety issues. She required intensive occupational therapy and physical therapy along with medical management of her multiple medical problems. Hospital Course This is a general summary of the patient's hospital course. For more details refer to the complete medical record. While on the inpatient rehabilitation unit at [facility], the patient was seen by occupational therapy for 90 minutes daily, at least 5 days weekly. She was also seen by physical therapy, 90 minutes daily for at least 5 days weekly. Patient progressed in her transfers from standby assistance to modified independent. Her sit to stand transfers were initially contact-guard assistance and these improved to modified independent status. Her walking improved from contact-guard assistance to standby assistance. Occupational therapy parameters improved in general from standby assistance to modified independent. It was required that the patient be seen by the medical team at least 3 days weekly. She was managed by the hospitalist team as well as by the behavioral medical directorprogram director cable television. Patient did experience worsening kidney function and was felt to have acute on chronic renal failure. Creatinine did increase from 1.5 up to 1.9. Her diuretics were adjusted. She did have an episode of worsening shortness of breath which was improved by further diuresis. The patient is dismissed in improved condition back to her home on 03/18/2017. She will require home health assistance at that location for becoming accustomed to her previous environment. At the time of dismissal she is stable. Her breathing is good and her lungs are clear. She will require further medical management as an outpatient to monitor her potassium and renal function as well as her blood pressure and acute on chronic diastolic heart failure. Hospital course: 03/11/17 Weakness Pancytopenia Chronic kidney disease stage III Hypertension Dyslipidemia. Mitral valve regurgitation. Peptic ulcer disease. Coronary artery disease. Rheumatoid arthritis. Dementia Plan Agree with admission to IRU under the care of Dr. Richey for ongoing strengthening and improve function. We'll monitor electrolytes carefully given recent hyperkalemia with acute kidney injury and acute dialysis. Currently, patient is on room air. We will continue to follow this carefully. Monitor respiratory status. Noted. Blood pressure is slightly elevated this morning. Continue with Norvasc 5 milligrams, Coreg 3.125 milligrams, Lasix 20 milligrams daily She will continue on oral potassium supplementation 20 milliequivalents daily. Noted to be pancytopenic this morning, will continue to follow. SCDs to bilateral lower extremity for DVT prophylaxis Encourage work with PT and OT for ongoing strengthening Will discuss patient orders, and plan of care with attending Dr. Stephen At time of discharge medical care will return to primary care provider. Dr. Winslow 03/14/17 Viviane Potassium has been stopped as potassium normal and with recent refractory hyperkalemia. Repeat CXR showing improvement of pulmonary congestion. Blood pressure stable with Norvasc, Coreg and Lasix. Creatinine stable - at 1.5. Will need to continue to monitor. Encourage continuation of therapy to maximize functional status - gains being made. Recheck BMP in am due to CKD and medication use. Will recheck CBC due to pancytopenia - WBC normalized and platelets increasing. Medically stable for IRU floor activities. 03/15/17 Potassium has remained stable. Currently at 4.0. Stage III chronic kidney disease: Creatinine is creeping up slowly, currently at 1.6. We'll reassess BMP tomorrow morning. With her history of flash pulmonary edema, I am hesitant to hold Lasix at this time. Regarding constipation, will give a brown cow now, and start senna plus twice a day Hypertension: BP has been moderately elevated - heart rate in the 60s precludes ability to increase Coreg. At this time. We'll continue with antihypertensives at current doses. Furthermore, would avoid aggressive lowering of blood pressure in this patient because of risk for inadequate renal perfusion. Pancytopenia - persists. May need heme/onc outpatient workup. 03/16/17 Medically, patient's creatinine continues to rise and this morning is up to 1.9. Will give a 500 ML bolus of saline for gentle hydration. KUB x-ray obtained that did reveal increased colonic stool burden with moderate to large amount of stool in the colon. Will continue with more aggressive bowel motivation. Did ask nursing staff to give Dulcolax suppository. Also concerned about urinary retention. Given the amount of constipation and increased creatinine. Will have nursing do post-void bladder scanning. Will also obtain a urinalysis. Given patient complains of some dysuria. At this point would recommend on holding off discharge today. Would like to have patient more medically stable. Will discuss with Dr. Richey and the rehabilitation team. Recheck CBC and BMP tomorrow morning Overall she is doing well with PT/OT 03/17/17 Will obtain a chest x-ray at this time, even increased hypoxia. KUB x-ray yesterday did reveal significant stool burden. Continue to work on aggressive bowel motivation. Patient did receive Lasix 20 milligrams by mouth this morning. Will consider adding additional diuretic. Continue to watch renal function. Creatinine today continues to be slightly elevated at 1.9. Concern for discharge with renal function elevated. Will discuss further with Dr Pan 03/18/17- Discharge Approximately 30 minutes of time was spent today coordinating discharge plan, discussing with patient's psychology professor office as well as with Dr. Richey and attending, Dr. Pan. Discussed diuresis plan with attending. Will continue on Lasix 20mg BID. Encouraged her to use Cameron hose during the day to help with edema Other new medications on discharge, Coreg twice a day, increase Norvasc to 5 milligrams twice a day. Intended to encourage aggressive boat bowel motivation. Patient does have follow-up appointment on March 24 with primary care provider, Dr. Winslow, psychology professor, Dr. Zenaida Jean, and dukey rider. Discussed with patient the importance of following up for all of these appointments as medications. May need to be changed at that time. Discharge Plan - Med Rec/Dispo Referrals/Follow Up: Giancarlo Stone MD [Physician] - (Dr. Giancarlo Stone on 03/24/17 at 2:30 pm -Cardiology (Dr. Fraire is on leave of absence) [facility]-[address] [place] [address]) Nicki Winslow MD [Family Provider] - (Dr. Blaine Winslow on 03/24/17 at 1:30 pm for Hosp. follow-up. [phone]. [address] [place] [address]) Zenaida Cooney MD [Physician] - (Dr. Zenaida Cooney on 03/23/17 at 4:40 pm for Nephrology. [facility] [address], [address] [place] [address] This appointment is very improtant) Candice Instructions: Renal Failure Diet (GEN) Additional Instructions: It is very important that you attend all of the appointments on March 24 as listed above. Prescriptions: New Amlodipine [Norvasc] 5 mg PO HS #30 tablet Furosemide [Lasix] 1 tab PO BID #60 tab Levothyroxine Sodium [Synthroid] 150 mcg PO ACB tablet PEG 3350 17gm PACKET [Miralax] 17 gm PO DAILY packet Senna + Docusate [Senna Plus Tablet] 1 tab PO BID tablet Bisacodyl Supp [Dulcolax] 10 mg RECTALLY DAILY PRN supp PRN Reason: Constipation Gabapentin [Neurontin] 300 mg PO HS capsule Milk of Magnesia [Mom] 30 ml PO DAILY PRN udc PRN Reason: Constipation Potassium Chloride 20 meq PO DAILY #20 tab.er.prt Continue Niacin 500 mg PO DAILY Folic Acid [Folate] 1 tab PO DAILY raNITIdine HCl [Zantac] 1 tab PO DAILY Acetaminophen [Tylenol] 650 mg PO Q4H PRN PRN Reason: Pain Milnacipran [Savella] 50 mg PO BID Amlodipine [Norvasc] 5 mg PO DAILY Amlodipine Besylate [Norvasc] 5 mg PO HS Rosuvastatin [Crestor] 5 mg PO HS Sucralfate [Carafate] 1 gm PO QID #20 tablet Aspirin Chewable [ASA] 81 mg PO DAILY Cyproheptadine [Periactin] 8 mg PO TID Carvedilol 3.125 mg PO BID #30 tablet Discontinued Furosemide [Lasix] 1 tab PO DAILY Potassium Chloride ER Tab [K-Dur] 20 meq PO TID No Action Gabapentin [Neurontin] 1 cap PO HS Discharge Instructions/Outpatient Orders: Consulting Provider Discharge Instructions Location: Determined By Patient Final Provider Discharge Instructions Location: Determined By Patient - Disposition [address] [place] [address]
== END 2017-03-18 19:15 | disposition home health service (06) | DRG 91 ==
PROVIDERS: ADMIT Internal Medicine; ATTEND Internal Medicine

== ENCOUNTER 2017-06-16 17:03 | Inpatient (IN) ==
--- OUTSIDE RECORDS SUMMARY | 2017-06-16 17:09 | External Medical Summary ---
:1935 Author Organization [employer] Care Team Providers Name Role Phone Talita Fraire Provider Role Unavailable Allergies, Adverse Reactions, Alerts Substance Reaction Event Type Statins Info Not Available Drug Allergy Livalo Info Not Available Drug Allergy Lisinopril Info Not Available Drug Allergy Problems Problem Type Condition Code Onset Dates Condition Status Assessment Personal history of peptic ulcer Z87.11 Active disease Assessment Benign essential hypertension I10 Active Assessment Abnormal EKG R94.31 Active Assessment Hyperlipidemia, unspecified E78.5 Active Assessment Allergy to statin medication Z88.8 Active Assessment SANJEEV (obstructive sleep apnea) G47.33 Active Medications Medication Code Code Instructions Start End Date Status D[place] [address]-60 400 MG Orally at 1 capsule 94-01 [place] [address]-12 1 GM Orally 4 tablets 10-01 [place] [address]-68 100 MG Orally 1 tablet 37-01 [place] [address]-47 1 MG Orally Once 1 tablet 07-19 a day Levothyroxine NDC 93154-82 150 MCG Orally 1 tablet 57-00 Once a day Aspirin NDC 15279-57 81 MG Orally 1 tablet 27-26 Once a day Bactrim DS NDC 01937-88 800-160 MG 1 tablet 60-01 Orally bid Niacin ER NDC 08031-63 750 MG Orally 2 tablet 33-01 Once a day Ranitidine NDC 0 150 MG Orally 1 [place] [address]-49 12.5 & 25 not Pack 00-55 & 50 MG defined Orally Procedures Procedure Coding System Code Date Office Visit, Est Pt., Level 3 CPT-4 43473 Jul 14, 2015 ELECTROCARDIOGRAM, COMPLETE CPT-4 03711 Jul 14, 2015 Vital Signs Date/Time: Jul 14, 2015 BMI 32.61 Index Weight 167 lbs Height 5'2 in Cardiac Monitoring Heart Rate 73 /min Oximetry 97 % Blood Pressure Diastolic 70 mm Hg Blood Pressure Systolic 150 mm Hg Results No Known Results Summary Purpose e[employer] Submission
[2017-06-16] MEDS ORDERED: CALCIUM GLUCONATE 4.65mEq/10ml INJECTION IV SCH (19:45)
--- NOTE | 2017-06-16 19:49 | History & Physical Report ---
<Ana Prieto L - Last Filed: 06/17/17 12:13> History of Present Illness Date: 06/17/17 [facility], [facility] Patient Stated Medical History Dementia Yes Peripheral Neuropathy Yes Cataracts Yes Dysphagia Yes Hearing Loss Yes Angina Yes Coronary Artery Disease Yes Hypertension Yes Other Cardiology Yes: mitral valve regurgitation Pneumonia Yes Pulmonary Edema Yes Ulcer Yes: peptic ulcer disease Other GI Yes Hx Incontinence Yes Hx Renal Disease Yes: stage 3 chronic kidney disease Osteoarthritis Yes Other Musculoskeletal Yes: RA Other Yes: cardiac cath with stent Depression Yes Medications Home Medications Medication Instructions Recorded Confirmed Type Amlodipine Besylate [Norvasc] 5 mg PO HS 03/10/17 06/16/17 History Cyproheptadine [Periactin] 8 mg PO TID 03/10/17 06/16/17 History Folic Acid [Folate] 1 tab PO DAILY 03/10/17 06/16/17 History Milnacipran [Savella] 50 mg PO BID 03/10/17 06/16/17 History Niacin 500 mg PO DAILY 03/10/17 06/16/17 History Rosuvastatin [Crestor] 5 mg PO HS 03/10/17 06/16/17 History raNITIdine HCl [Zantac] 1 tab PO DAILY 03/10/17 06/16/17 History Allopurinol [Zyloprim] 200 mg PO DAILY 06/16/17 06/16/17 History Calcium 500 + D [[place] Wilder-D 500] 3 tab PO TID 06/16/17 06/16/17 History Metolazone [Zaroxolyn] 5 mg PO DAILY 06/16/17 06/16/17 History Senna + Docusate [Senna Plus 1 tab PO BID PRN 06/16/17 06/16/17 History Tablet] Spironolactone [Aldactone] 50 mg PO DAILY 06/16/17 06/16/17 History clonazePAM [Clonazepam] 1 tab PO BID 06/16/17 06/16/17 History Allergies Allergy/AdvReac Type Severity Reaction Status Date / Time MICHELE Inhibitors Allergy Unknown Verified 06/16/17 18:06 amphetamine AdvReac Unknown TERRIBLE Verified 06/16/17 18:06 HEADACHES dextroamphetamine AdvReac Unknown TERRIBLE Verified 06/16/17 18:06 HEADACHES lisinopril AdvReac Unknown COUGHING Verified 06/16/17 18:06 methylphenidate AdvReac Unknown HEADACHES Verified 06/16/17 18:06 pitavastatin AdvReac Unknown MUSCLE Verified 06/16/17 18:06 WEAKNESS/SORENESS Exam Vital Signs: Temperature 98.1 F 06/17/17 08:00 Pulse Rate 74 06/17/17 10:00 Respiratory Rate 16 06/17/17 08:00 Blood Pressure 173/79 H 06/17/17 10:00 Pulse Oximetry 95 06/17/17 08:00 Height/Weight/BMI: Height 1.57 m Weight 73.7 kg Body Mass Index 29.5 Results - Labs CBC & Chem 7: 06/17/17 08:10 06/17/17 08:10 Assessment and Plan (1) Diastolic CHF Status: Chronic (2) Drug-induced hyperkalemia Status: Acute (3) Chronic kidney disease (CKD) Status: Acute Assessment and Plan: Impression: Hyperkalemia-resolved at this time. Hypernatremia-noted on today's lab. Likely result of the Kayexalate. Chronic kidney disease stage III Hypertension Dyslipidemia. CHF Peptic ulcer disease. Coronary artery disease. Rheumatoid arthritis. Fibromyalgia Dementia Hypothyroidism Anxiety Gout Chronic pruritis Hospital Course Summary Disclaimer: The visit summary below is not to be considered part of the above Progress Note. <Anderson White - Last Filed: 06/19/17 19:26> History of Present Illness Date: 06/19/17 Chief complaint: K+ 6.9 HPI: This is an 82-year-old woman who was direct admitted from nurse practitioner Emil Cruz with a potassium level of 6.9 in clinic. This patient has had numerous episodes similar to this before with severe fluctuations of lows and highs. She has recently had her potassium level increased and was placed on spironolactone. She is denying palpitation shortness of breath diaphoresis rainy discomfort in general. She states she feels otherwise well. Review of Systems - Constitutional Constitutional: Absent: fever(s), headache(s), lethargy, malaise - EENMT Eyes: Absent: blurry vision, change in vision Balance: Absent: vertigo, ataxia - Cardiovascular Cardiovascular: Absent: chest pain, palpitations, syncope - Respiratory Respiratory: Absent: cough, dyspnea - Gastrointestinal Gastrointestinal: Absent: abdominal pain, constipation, diarrhea - Genitourinary Genitourinary: Absent: dysuria, flank pain - Neurological Neurological: Absent: abnormal movements, confusion, focal weakness, frequent falls PFS Patient Stated Medical History Dementia Yes Peripheral Neuropathy Yes Cataracts Yes Dysphagia Yes Hearing Loss Yes Angina Yes Coronary Artery Disease Yes Hypertension Yes Other Cardiology Yes: mitral valve regurgitation Pneumonia Yes Pulmonary Edema Yes Ulcer Yes: peptic ulcer disease Other GI Yes Hx Incontinence Yes Hx Renal Disease Yes: stage 3 chronic kidney disease Osteoarthritis Yes Other Musculoskeletal Yes: RA Other Yes: cardiac cath with stent Depression Yes Surgical History: General: appendix, gallbladder, other, tonsils. Cardiac: cardiac cath. Reproductive/: hysterectomy. Joint: hip - Social History Smoking status: Former smoker Substance use type: does not use Alcohol intake frequency: does not drink Exam Vital Signs: Temperature 97.4 F 06/16/17 17:42 Pulse Rate 64 06/16/17 17:42 Respiratory Rate 20 06/16/17 17:42 Blood Pressure 170/85 H 06/16/17 17:42 Pulse Oximetry 96 06/16/17 17:42 Telemetry Rhythm: Sinus Rhythm, Sinus Bradycardia Height/Weight/BMI: Height 5 ft 2 in Weight 73.2 kg Body Mass Index 29.5 Comments: Minimal peaking of T waves with less than one bar (minimal) elevation of ST region - Constitutional Present: no acute distress, well nourished, well developed - Routine HEENT Exam Head: Present: normocephalic, atraumatic Eye: Present: EOMI, PERRL, normal accommodation ENT: Present: mucous membranes moist - Routine Neck Exam Present: supple, full ROM. Absent: JVD - Routine Chest/Breast/Axilla Exam Chest wall: Absent: tenderness - Routine Respiratory Exam Present: CTA bilaterally. Absent: dyspnea, respiratory distress - Routine Cardiovascular Exam Present: S1, S2, bradycardia - Routine Abdominal Exam Present: soft, normoactive bowel sounds. Absent: tenderness - Routine Extremities Exam Present: edema, pulses intact, normal capillary refill - Routine Skin Exam Present: intact, dry. Absent: cyanosis, erythema - Routine Neurological Exam Present: alert, oriented X3, CN II-XII intact - Routine Psychiatric Exam Present: normal affect, normal thought process Results - Labs CBC & Chem 7: 06/17/17 08:10 06/18/17 08:58 Assessment and Plan (1) Drug-induced hyperkalemia Status: Acute (2) Chronic kidney disease (CKD) Status: Acute (3) Diastolic CHF Status: Chronic Assessment and Plan: Mrs. Vazquez was admitted directly from clinic with a reported potassium 6.9. This has improved by time of arrival to 6.3 indicating that she may correct faster than anticipated and may require reversal of her inpatient status. Treatment at this time is gentle fluid hydration that she does have congestive heart failure and is prone to fluid overload. She is also receiving Kayexalate to remove the potassium from system. The offending oral potassium is been stopped for the day. Currently she is getting an initial dose of calcium gluconate as cell stabilizer she does appear to be comfortable and in no distress. Insulin glucose and albuterol nebulizers do not appear necessary as she has no significant EKG compromises, such as peaked T waves. Still she will be kept on telemetry overnight and reevaluated in the morning. Routine hypertensive, hypothyroid and anxiolytic medications will be continued. Hospital Course Summary Disclaimer: The visit summary below is not to be considered part of the above Progress Note.
[2017-06-16] MEDS: SODIUM POLYSTYRENE SULFONATE 15 GM/60 ML BOTTLE PO SCH (20:40)
[2017-06-16] MEDS: NS 1,000 ML IV SCH (20:41)
[2017-06-17] MEDS: CARVEDILOL 3.125 MG TABLET PO SCH ×3 (00:36→17:21)
[2017-06-17] MEDS: AMLODIPINE 5 MG TABLET PO SCH ×2 (00:36→08:26)
[2017-06-17] MEDS: SODIUM POLYSTYRENE SULFONATE 15 GM/60 ML BOTTLE PO SCH (03:42)
[2017-06-17] MEDS ORDERED: CARVEDILOL 3.125 MG TABLET PO SCH (08:00)
[2017-06-17] MEDS: NS 1,000 ML IV SCH (08:27)
--- NOTE | 2017-06-17 10:14 | Progress Note ---
<Ana Prieto - Last Filed: 06/17/17 12:07> - Date 06/17/17 Subjective: Patient is seen today sitting up in bed. Her daughter is visiting. Patient does not know why she is here. Her daughter reports she had quite a bit of confusion and that is what led her to take her in to see her doctor yesterday. Daughter thinks she still has some confusion today, but is better. She has no complaints of shortness of breath or chest pain. No irregular heart rhythm. She's had looser stools since starting the Kayexalate. No pedal edema. Appetite is good. Objective Vital signs: Temperature 98.1 F 06/17/17 08:00 Pulse Rate 73 06/17/17 08:00 Respiratory Rate 16 06/17/17 08:00 Blood Pressure 220/90 H 06/17/17 08:00 Pulse Oximetry 95 06/17/17 08:00 Height/Weight/BMI: Height 1.57 m Weight 73.7 kg Body Mass Index 29.5 - Constitutional Present: no acute distress, well nourished, well developed - Routine Respiratory Exam Present: CTA bilaterally. Absent: wheezes - Routine Cardiovascular Exam Present: RRR (some dysrhythmia), S1, S2. Absent: murmur - Routine Abdominal Exam Present: soft, normoactive bowel sounds, non distended. Absent: tenderness - Routine Extremities Exam Present: no edema, normal capillary refill - Routine Skin Exam Present: dry, warm - Routine Neurological Exam Present: alert Oriented to person and place. - Routine Lymphatic Exam Lymphatic: Absent: adenopathy - Routine Psychiatric Exam Present: normal affect, normal thought process, cooperative Results - Labs CBC & Chem 7: 06/17/17 08:10 06/17/17 08:10 Assessment and Plan (1) Diastolic CHF Status: Chronic (2) Drug-induced hyperkalemia Status: Acute (3) Chronic kidney disease (CKD) Status: Acute Assessment and Plan: Impression Hyperkalemia-resolved at this time. Hypernatremia-noted on today's lab. Likely result of the Kayexalate. Chronic kidney disease stage III Hypertension Dyslipidemia. Mitral valve regurgitation. Peptic ulcer disease. Coronary artery disease. Rheumatoid arthritis. Fibromyalgia Dementia Hypothyroidism Anxiety Gout Chronic pruritis Plan DC Kayexalate as potassium is within normal limits. DC IV fluids - she is taking p.o. well. Resume home meds with the exception of potassium at this point. Repeat BMP in am. Continue to follow blood pressure as her pressures have not been ideally controlled. Her spironolactone and Zaroxolyn were on hold and have now been resumed, so expect BP's to improve. Hospital Course Summary Disclaimer: The visit summary below is not to be considered part of the above Progress Note. Hospital Course: Impression Hyperkalemia-resolved at this time. Hypernatremia-noted on today's lab. Likely result of the Kayexalate. Chronic kidney disease stage III Hypertension Dyslipidemia. Mitral valve regurgitation. Peptic ulcer disease. Coronary artery disease. Rheumatoid arthritis. Fibromyalgia Dementia Hypothyroidism Anxiety Gout Chronic pruritis 06/16/17 - hospital admission (Dr. White) 06/17/17 DC Kayexalate as potassium is within normal limits. DC IV fluids - she is taking p.o. well. Resume home meds with the exception of potassium at this point. Repeat BMP in am. Continue to follow blood pressure as her pressures have not been ideally controlled. Her spironolactone and Zaroxolyn were on hold and have now been resumed, so expect BP's to improve. 06/17/17 12:10 <Anderson White P - Last Filed: 06/20/17 19:18> - Date 06/20/17 Objective Vital signs: Temperature 97 F 06/18/17 02:16 Pulse Rate 70 06/18/17 10:38 Respiratory Rate 18 06/18/17 06:00 Blood Pressure 149/77 H 06/18/17 06:00 Pulse Oximetry 94 06/18/17 02:16 Height/Weight/BMI: Height 5 ft 2 in Weight 71.9 kg Body Mass Index 29.7 Results - Labs CBC & Chem 7: 06/17/17 08:10 06/18/17 08:58 Assessment and Plan (1) Drug-induced hyperkalemia Status: Acute (2) Chronic kidney disease (CKD) Status: Acute (3) Diastolic CHF Status: Chronic Assessment and Plan: Seen and examined patient on same day as the above note. Agree with history, physical, assessment and plan. Comprehensive physical findings correlate to the above note. Physical exam is fairly benign hyperkalemia has resolved but patient 's blood pressure is significantly uncontrolled after appropriate fluid replacement to correct the electrolytic deficiencies. We will have to increase antihypertensives and unfortunately perhaps diuresis again. With the addition of the spironolactone I think a reduction in the oral potassium supplement should be significant perhaps going from 80 mEq daily down to 40 mEq Documented on Dragon speech to text. Efforts to correct speech recognition errors performed, but variation may exist Hospital Course Summary Disclaimer: The visit summary below is not to be considered part of the above Progress Note.
[2017-06-17] MEDS: RANITIDINE 150 MG TABLET PO SCH (12:09)
[2017-06-17] MEDS: SPIRONOLACTONE 50 MG TABLET PO SCH (12:09)
[2017-06-17] MEDS: ALLOPURINOL 100 MG TABLET PO SCH (12:09)
[2017-06-17] MEDS: SUCRALFATE 1 GM TABLET PO SCH ×3 (12:09→21:58)
[2017-06-17 14:18] VITALS: BMI 29.7
[2017-06-17] MEDS: CYPROHEPTADINE 4 MG TABLET PO SCH ×2 (15:05→21:58)
[2017-06-17] MEDS ORDERED: ROSUVASTATIN 5 MG TABLET PO SCH (21:00)
[2017-06-17] MEDS ORDERED: GABAPENTIN 300 MG CAPSULE PO SCH (21:00)
[2017-06-17] MEDS ORDERED: NIACIN ER 500 MG TABLET PO SCH (21:00)
[2017-06-17] MEDS: MILNACIPRAN 50 MG PO SCH (21:58)
[2017-06-17] MEDS: ClonazePAM 0.5 MG TABLET PO SCH (21:58)
[2017-06-17 23:15] VITALS: O2SAT 94
[2017-06-17] MEDS ORDERED: AMLODIPINE 5 MG TABLET PO SCH (23:30)
[2017-06-18 02:21] VITALS: RESP 18
[2017-06-18 05:49] VITALS: TEMP 97
[2017-06-18] MEDS ORDERED: LEVOTHYROXINE 150 MCG TABLET PO SCH (06:30)
[2017-06-18] MEDS ORDERED: AMLODIPINE 5 MG TABLET PO ONE (06:30)
[2017-06-18 06:43] VITALS: BP 149/77
[2017-06-18] MEDS: CYPROHEPTADINE 4 MG TABLET PO SCH ×2 (08:50→15:53)
[2017-06-18] MEDS: SPIRONOLACTONE 50 MG TABLET PO SCH (08:50)
[2017-06-18] MEDS: ClonazePAM 0.5 MG TABLET PO SCH (08:50)
[2017-06-18] MEDS: SUCRALFATE 1 GM TABLET PO SCH ×2 (08:50→12:44)
[2017-06-18] MEDS: MILNACIPRAN 50 MG PO SCH (08:50)
[2017-06-18] MEDS: CARVEDILOL 3.125 MG TABLET PO SCH (08:50)
[2017-06-18] MEDS: ALLOPURINOL 100 MG TABLET PO SCH (08:50)
[2017-06-18] MEDS: RANITIDINE 150 MG TABLET PO SCH (08:50)
[2017-06-18] MEDS: AMLODIPINE 5 MG TABLET PO SCH (08:51)
[2017-06-18] MEDS ORDERED: NIACIN 500 MG PO SCH (09:00)
[2017-06-18] MEDS ORDERED: ACETAMINOPHEN 325 MG TABLET PO PRN (09:46)
[2017-06-18 10:38] VITALS: PULSE 70
--- NOTE | 2017-06-18 11:16 | Discharge Summary ---
<VicykKrystyna Coni - Last Filed: 06/18/17 11:01> Discharge Information Date of admission: 06/16/17 17:03 Anticipated date of discharge: 06/18/17 Attending Physician: Anderson White MD Primary care physician: Nicki Winslow MD - Discharge Diagnosis (1) Drug-induced hyperkalemia Status: Acute (2) Diastolic CHF Status: Chronic (3) Chronic kidney disease (CKD) Status: Acute Hyperkalemia - resolved and slightly hypokalemic on discharge. Hypernatremia - resolved. - Laboratory Labs: 06/17/17 08:10 06/18/17 08:58 History of Present Illness HPI: This is an 82-year-old woman who was direct admitted from [facility] with a potassium level of 6.9 in clinic. This patient has had numerous episodes similar to this before with severe fluctuations of lows and highs. She has recently had her potassium level increased and was placed on spironolactone. She is denying palpitation shortness of breath diaphoresis rainy discomfort in general. She states she feels otherwise well. Objective Vital signs: Temperature 97 F 06/18/17 02:16 Pulse Rate 70 06/18/17 10:38 Respiratory Rate 18 06/18/17 06:00 Blood Pressure 149/77 H 06/18/17 06:00 Pulse Oximetry 94 06/18/17 02:16 Height/Weight/BMI: Height 1.57 m Weight 71.9 kg Body Mass Index 29.7 - Constitutional Present: no acute distress, well nourished, well developed - Routine Respiratory Exam Present: CTA bilaterally - Routine Cardiovascular Exam Present: RRR, S1, S2, murmur - Routine Abdominal Exam Present: soft, normoactive bowel sounds - Routine Extremities Exam Present: no edema - Routine Skin Exam Present: intact, dry, warm - Routine Neurological Exam Present: alert, oriented X3 - Routine Psychiatric Exam Present: cooperative Hospital Course This is a general summary of the patient's hospital course. For more details refer to the complete medical record. Hospital course: Impression Hyperkalemia - resolved and slightly hypokalemic at discharge. Hypernatremia - resolved. Chronic kidney disease stage III Hypertension Dyslipidemia. Mitral valve regurgitation. Peptic ulcer disease. Coronary artery disease. Rheumatoid arthritis. Fibromyalgia Dementia Hypothyroidism Anxiety Gout Chronic pruritus 06/16/17 - hospital admission (Dr. White) Oli was admitted from the clinic with a potassium of 6.9. She received IVF, calcium gluconate, and kayexalate and her K trended down steadily. Her diuretics and KDur was discontinued. On 06/17/17 potassium was 4.4; and it was actually slightly low on discharge at 3.5. Renal function was stable considering her CKD stage III with BUN of 19 and creatinine of 1.4 on 06/18/17. Because her diuretics were held, her BP reached 220/90 around midnight on the and she received an extra dose of amlodipine. Metolazone and spironolactone were resumed later that morning. BP was under better control on 06/18/17 and she was medically stable for discharge. On day of discharge she was eating and drinking well. Her respiratory status was stable and there was no indication of fluid overload. She was ambulatory and daughter felt safe taking her home. Will have her continue her diuretics and have her decrease KDur to 20 mEq daily. Plan was discussed with Oli's daughter Magy - she's off on Tuesday and can take her to have labs rechecked then. Order for BMP on was provided. F/U with Theo Cruz APRN in 1 week. Theo was updated on discharge plans and will plan on seeing her on 06/22/17. Time spent with patient: greater than 35 minutes Discharge Plan - Discharge Disposition Discharge Date: 06/18/17 Disposition: [facility] Service *Condition: Stable *Reason For Visit: Hyperkalemia,Chronic kidney disease - Discharge Medications *Discharge Medications: New Potassium Chloride [K-Dur] 1 tab PO WB #30 tab Continue Niacin 500 mg PO DAILY Folic Acid [Folate] 1 tab PO DAILY raNITIdine HCl [Zantac] 1 tab PO DAILY Milnacipran [Savella] 50 mg PO BID Amlodipine Besylate [Norvasc] 5 mg PO HS Rosuvastatin [Crestor] 5 mg PO HS Levothyroxine Sodium [Synthroid] 150 mcg PO ACB tablet Sucralfate [Carafate] 1 gm PO QID #20 tablet Senna + Docusate [Senna Plus Tablet] 1 tab PO BID PRN PRN Reason: Constipation clonazePAM [Clonazepam] 1 tab PO BID Spironolactone [Aldactone] 50 mg PO DAILY Metolazone [Zaroxolyn] 5 mg PO DAILY Cyproheptadine [Periactin] 8 mg PO TID Gabapentin [Neurontin] 300 mg PO HS capsule Carvedilol 3.125 mg PO BID #30 tablet Calcium 500 + D [Os Wilder-D 500] 3 tab PO TID Allopurinol [Zyloprim] 200 mg PO DAILY Discontinued Potassium Chloride 60 meq PO DAILY Potassium Chloride 60 meq PO WB Potassium Chloride 40 meq PO HS - Discharge Packet/Instructions *Diet: Renal diet. 2 gm sodium restriction. Heart healthy *Activity: As tolerated. No restrictions. *Pain Management/Treatment: Tylenol as needed. *Wound Care: N/A Additional Instructions: Prescription for KDur has been changed: We want you to only take 20 mEq (1 tablet) per day. Take it with food. Daily weights. Monitor BP morning and night. Have labs rechecked on 06/21/17. Theo Cruz APRN would like to see you on 06/22/17 - but you may contact [facility] to reschedule if needed. *Expected Signs/Symptoms: You might be a little weak from your hospitalization. *Notify Physician if: Increasing weakness, shortness of breath, chest pain, confusion or altered mental status, stroke-like symptoms, vomiting or diarrhea, or any new concerns. *During Business Hours Contact: Contact [facility]. *After Business Hours Contact: Contact [facility] and ask to speak with the on-call provider. If symptoms are dire, please come to the ED or activate 911. *Pending Lab/Results: No Pending Lab Outpatient Orders: BMP - Basic Metabolic - [facility] Time Frame: 3 Days, Location: Determined By Patient - Referrals/Follow Up *Referrals/Follow Up: Masood Cruz APRN [Advanced Practice Nurse] - (JUNE 22) Zenaida Cooney MD [Physician] - (CALL FOR APPOINTMENT) - Patient Handouts - Dismissal Complete Discharge Instructions are:: Complete <Anderson White - Last Filed: 06/20/17 19:42> Discharge Information Date of admission: 06/16/17 17:03 Attending Physician: Anderson White MD Primary care physician: Nicki Winslow MD Consults: 06/16/17 17:52 Dietary Consult [CONS] Routine Comment: Reason For Exam: - Discharge Diagnosis (1) Drug-induced hyperkalemia Status: Acute (2) Chronic kidney disease (CKD) Status: Acute (3) Diastolic CHF Status: Chronic - Laboratory Labs: 06/17/17 08:10 06/18/17 08:58 Objective Vital signs: Temperature 97 F 06/18/17 02:16 Pulse Rate 70 06/18/17 10:38 Respiratory Rate 18 06/18/17 06:00 Blood Pressure 149/77 H 06/18/17 06:00 Pulse Oximetry 94 06/18/17 02:16 Height/Weight/BMI: Height 5 ft 2 in Weight 71.9 kg Body Mass Index 29.7 Hospital Course This is a general summary of the patient's hospital course. For more details refer to the complete medical record. Hospital course: Seen and examined patient on same day as the above note. Agree with history, physical, assessment and plan. Comprehensive physical findings correlate to the above note. Physical exam was benign. Discussed with patient and her daughter that a follow-up with Frankie Cruz should occur within the next 5 days and that the potassium dose that is extremely lowered may be adjusted further. Documented on [employer] speech to text. Efforts to correct speech recognition errors performed, but variation may exist
== END 2017-06-18 13:35 | disposition home health service (06) | DRG 641 ==
LOC: MED 17:03
PROVIDERS: ADMIT Family Medicine; ATTEND Family Medicine

== ENCOUNTER 2017-08-05 18:10 | Inpatient (IN) ==
--- NOTE | 2017-08-05 18:36 | Emergency Department Report ---
Asthma HPI - General Stated Complaint: congestion in chest,low O2 Time Seen by Provider: 08/05/17 18:11 Source: patient, family Mode of arrival: ambulatory Limitations: no limitations - History of Present Illness HPI Narrative: Patient has acutely developed increasing shortness of breath the past several days. Patient awoke yesterday with a cough, dyspnea, and it is worsened specifically with the last 24 hours. Patient has a history of congestive heart failure in the past, was admitted 6 weeks ago for hyperkalemia related to potassium overdosing while on Lasix. She had her Lasix changed to 2 new medications, and seemed to have had good control until the past week. Patient notes a 5 pound weight gain in the past week without trying, no other changes to her regimen. Patient did have "a fever of 99," earlier in the week, but has not had any ongoing fevers. Patient denies any chest pain, difficulty swallowing or eating, heartburn, abdominal complaints, chest heaviness, dizziness lightheadedness or neurologic symptoms. - Related Data Home Medications Medication Instructions Recorded Confirmed Amlodipine Besylate [Norvasc] 2.5 mg PO HS 03/10/17 08/05/17 Cyproheptadine [Periactin] 8 mg PO TID 03/10/17 08/05/17 Folic Acid [Folate] 1 mg PO DAILY 03/10/17 08/05/17 Milnacipran [Savella] 50 mg PO BID 03/10/17 08/05/17 Niacin 500 mg PO DAILY 03/10/17 08/05/17 Rosuvastatin [Crestor] 5 mg PO HS 03/10/17 08/05/17 raNITIdine HCl [Zantac] 150 mg PO DAILY 03/10/17 08/05/17 Allopurinol [Zyloprim] 200 mg PO DAILY 06/16/17 08/05/17 Calcium 500 + D [Os Wilder-D 500] 3 tab PO TID 06/16/17 08/05/17 Metolazone [Zaroxolyn] 5 mg PO DAILY 06/16/17 08/05/17 Senna + Docusate [Senna Plus 1 tab PO BID PRN 06/16/17 08/05/17 Tablet] Spironolactone [Aldactone] 50 mg PO DAILY 06/16/17 08/05/17 clonazePAM [Clonazepam] 0.5 mg PO BID 06/16/17 08/05/17 Amlodipine Besylate [Norvasc] 5 mg PO AM 08/05/17 08/05/17 Cyanocobalamin (Vitamin B-12) 1 tab PO DAILY 08/05/17 08/05/17 [Vitamin B-12] Donepezil [Aricept] 5 mg PO HS 08/05/17 08/05/17 Potassium Chloride [K-Dur] 20 meq PO WB 08/05/17 08/05/17 Previous Rx's Medication Instructions Recorded Carvedilol 3.125 mg PO BID #30 tab 03/18/17 Gabapentin [Neurontin] 300 mg PO HS cap 03/18/17 Levothyroxine Sodium [Synthroid] 150 mcg PO ACB tab 03/18/17 Sucralfate [Carafate] 1 gm PO QID #20 tab 03/18/17 Allergies Allergy/AdvReac Type Severity Reaction Status Date / Time MICHELE Inhibitors Allergy Unknown Verified 08/05/17 18:41 amphetamine AdvReac Unknown TERRIBLE Verified 08/05/17 18:41 HEADACHES dextroamphetamine AdvReac Unknown TERRIBLE Verified 08/05/17 18:41 HEADACHES lisinopril AdvReac Unknown COUGHING Verified 08/05/17 18:41 methylphenidate AdvReac Unknown HEADACHES Verified 08/05/17 18:41 pitavastatin AdvReac Unknown MUSCLE Verified 08/05/17 18:41 WEAKNESS/SORENESS Review of Systems All systems: reviewed and negative except as stated PFSH Patient Stated Medical History Dementia Yes Peripheral Neuropathy Yes Cataracts Yes Dysphagia Yes Hearing Loss Yes Angina Yes Coronary Artery Disease Yes Hypertension Yes Other Cardiology Yes: mitral valve regurgitation Pneumonia Yes Pulmonary Edema Yes Ulcer Yes: peptic ulcer disease Other GI Yes Hx Incontinence Yes Hx Renal Disease Yes: stage 3 chronic kidney disease Osteoarthritis Yes Other Musculoskeletal Yes: RA Other Yes: cardiac cath with stent Depression Yes Dementia Peripheral neuropathy Coronary artery disease with angina Pneumonia Diastolic congestive heart failure Pulmonary edema Peptic ulcer disease Stage III chronic renal disease Rheumatoid arthritis Depression Surgical History: General: appendix, gallbladder, other, tonsils. Cardiac: cardiac cath. Reproductive/: hysterectomy. Joint: hip - Social History Smoking status: Former smoker Physical Exam - Limitations Limitations: no limitations - General General appearance: alert - Normal Exams: Head:: Normocephalic without trauma Eyes:: Pupils are PERRLA w/ EOMI, No scleral icterus, irritation, or foreign bodies noted ENMT:: No facial trauma, nasal exudates, pharyngeal erythema, or exudates are noted Neck:: Full range of motion, without adenopathy, JVD, bruits or thyromegaly Cardiovascular:: Regular rate and rhythm, without murmur or gallop, Pulses 2+ all extremities, capillary refill, <2 seconds all extremities Abdomen:: Bowel sounds positive, soft, non-tender, non-distended, no hepatosplenomegaly, masses or bruits noted Lymphatic:: No lymphadenopathy, or lymphedema noted Musculoskeletal:: No tenderness, or deformity noted, good range of motion, all extremities Integumentary:: No rashes, hives, or bruising noted, hair and nails, without abnormality Neurological:: Patient is alert, and oriented, cranial nerves, motor/sensory/ cerebellar, exams w/o gross deficits, to observation Psychiatric:: Patient exhibits, appropriate attention, emotion and affect - Chest Chest inspection: Present: normal inspection, symmetric chest wall rise. Absent : tenderness - Respiratory Respiratory exam: Absent: normal lung sounds bilaterally (mild basilar crackles only), respiratory distress, wheezes, stridor, accessory muscle use, prolonged expiratory phase Course Vital Signs Temperature 98.5 F 08/05/17 18:11 Pulse Rate 74 08/05/17 18:11 Respiratory Rate 28 H 08/05/17 18:11 Blood Pressure 167/72 H 08/05/17 18:11 Pulse Oximetry 73 L 08/05/17 18:11 Temperature 98.5 F 08/05/17 18:11 Pulse Rate 69 08/05/17 19:00 Respiratory Rate 33 H 08/05/17 19:00 Blood Pressure 167/72 H 08/05/17 18:11 Pulse Oximetry 91 08/05/17 19:00 Dyspnea - MDM Narrative Medical decision making narrative: Initial O2 saturations of asked her clinic were 77% on room air. Patient was likewise hypoxemic on arrival to the ER here. On 5 L normal cannula, patient is maintaining normal saturation between 90-95% and her dyspnea has resolved. CBC, CMP essentially normal. Creatinine is stable at 1.4. BNP elevated at 3540, significantly above the patient's baseline of less than 1000. Chest x-ray shows significant pulmonary edema with basilar atelectasis. Patient given 40 mg Lasix IV, and 1 inch of nitro paste is placed. Case is discussed with Dr. Leopoldo Resendiz, we will admit inpatient to medical telemetry for diuresis and continued monitoring - Lab Data Result diagrams: 08/05/17 18:28 08/05/17 18:28 Lab Results 08/05/17 08/05/17 Range/Units 18:28 18:28 WBC 7.7 (4.5-11.0) T/MM3 RBC 4.22 (4.00-5.20) M/MM3 Hgb 10.3 L (12-16) GM/DL Hct 33.1 L (36-46) % MCV 78.4 L (80-100) UM3 MCH 24.4 L (26-34) UUG MCHC 31.1 (31-37) GM/DL RDW Std Deviation 50.0 (36.9-50.2) FL Plt Count 214 (130-400) T/MM3 MPV 9.5 (9.4-12.4) UM3 Immature Gran % (Auto) 0.3 (0.0-0.5) % Neut % (Auto) 70.8 H (33-66) % Lymph % (Auto) 21.2 L (23-45) % Starr % (Auto) 6.6 (0-9.0) % Eos % (Auto) 0.8 (0-4) % Baso % (Auto) 0.3 (0-2) % Neut # (Auto) 5.5 (1.8-7.7) T/MM3 Lymph # (Auto) 1.6 (1-4.8) T/MM3 Starr # (Auto) 0.5 (0-0.8) T/MM3 Eos # (Auto) 0.1 (0-0.5) T/MM3 Baso # (Auto) 0.0 (0-0.2) T/MM3 Abs Immat Gran (auto) 0.02 (0.00-0.03) T/MM3 Turbidity < 20 (0-20) Sodium 139 (134-144) MEQ/L Potassium 3.9 (3.6-5) MEQ/L Chloride 100 (98-107) MEQ/L Carbon Dioxide 24 (22-30) MEQ/L Anion Gap 15 (5-15) MEQ/L BUN 29.0 H (7-17) MG/DL Creatinine 1.4 H (0.7-1.2) MG/DL GFR Calculation 36 BUN/Creatinine Ratio 21 (6-26) RATIO Glucose 105 (65-110) MG/DL Calculated Osmolality 274 (261-280) MOSM/KG Calcium 9.7 (8.4-10.2) MG/DL Total Bilirubin 1.30 (0.20-1.30) MG/DL Conjugated Bilirubin 0.00 (0.00-0.30) MG/DL Unconjugated Bilirubin 0.90 (0.00-1.1) MG/DL Icterus Index < 2 (0-7) AST 35 (14-36) U/L ALT 35 (9-52) U/L Alkaline Phosphatase 101 (38-126) U/L Troponin I 0.022 (0-0.12) ng/ml B-Natriuretic Peptide 3540 H (0-175) pg/mL Total Protein 8.0 (6.3-8.2) G/DL Albumin 4.8 (3.5-5.0) G/DL Globulin 3.2 (2.4-3.6) G/DL Albumin/Globulin Ratio 1.5 (1.1-2.2) RATIO Specimen Hemolysis < 15 (0-25) Critical Care Time Critical Care Time: Yes Total Critical Care Time: 35 Attestation: Dyspnea with hypoxemia, patient required aggressive treatment and diagnostic interventions for diagnosis and treatment of pulmonary edema secondary to diastolic heart failure Disposition Clinical Impression: Acute pulmonary edema Diastolic heart failure Qualifiers: Heart failure chronicity: acute on chronic Qualified Code(s): I50.33 - Acute on chronic diastolic (congestive) heart failure Disposition: 02 To [facility] – [place] Acute Care Condition: Improved Prescriptions: No Action Niacin 500 mg PO DAILY Folic Acid [Folate] 1 mg PO DAILY raNITIdine HCl [Zantac] 150 mg PO DAILY Milnacipran [Savella] 50 mg PO BID Amlodipine Besylate [Norvasc] 2.5 mg PO HS Rosuvastatin [Crestor] 5 mg PO HS Levothyroxine Sodium [Synthroid] 150 mcg PO ACB tab Sucralfate [Carafate] 1 gm PO QID #20 tab Senna + Docusate [Senna Plus Tablet] 1 tab PO BID PRN PRN Reason: Constipation clonazePAM [Clonazepam] 0.5 mg PO BID Spironolactone [Aldactone] 50 mg PO DAILY Metolazone [Zaroxolyn] 5 mg PO DAILY Potassium Chloride [K-Dur] 20 meq PO WB Amlodipine Besylate [Norvasc] 5 mg PO AM Cyanocobalamin (Vitamin B-12) [Vitamin B-12] 1 tab PO DAILY Cyproheptadine [Periactin] 8 mg PO TID Gabapentin [Neurontin] 300 mg PO HS cap Carvedilol 3.125 mg PO BID #30 tab Calcium 500 + D [Os Wilder-D 500] 3 tab PO TID Allopurinol [Zyloprim] 200 mg PO DAILY Donepezil [Aricept] 5 mg PO HS Referrals: Nicki Winslow MD [Family Provider] - - Seen By: physician
[2017-08-05] MEDS ORDERED: NITROGLYCERIN 2% OINTMENT 1gm PACKET TP ONE (19:06)
[2017-08-05] MEDS ORDERED: FUROSEMIDE 40 MG/4 ML INJECTION IVP ONE (19:07)
[2017-08-05] MEDS: SALINE FLUSH 10ml SYRINGE IVF PRN (19:20)
[2017-08-05] MEDS ORDERED: ONDANSETRON 4 MG/2 ML INJECTION IVP PRN (20:02)
[2017-08-05 20:07] VITALS: BMI 31.4
[2017-08-05] MEDS ORDERED: FALL RISK - PHARMACY CONSULT XX ONE (20:15)
[2017-08-05] MEDS ORDERED: CARVEDILOL 3.125 MG TABLET PO SCH (21:00)
[2017-08-05] MEDS: DONEPEZIL 5 MG TABLET PO SCH (21:05)
[2017-08-05] MEDS: SENNOSIDES 8.6 MG TABLET PO SCH (21:05)
[2017-08-05] MEDS ORDERED: AMLODIPINE 2.5 MG TABLET PO SCH (22:00)
--- NOTE | 2017-08-05 22:07 | History & Physical Report ---
History of Present Illness Date: 08/06/17 Chief complaint: short of breath HPI: Please note that the patient was seen via telemedicine with nursing assistance on 08/05/2017 is a pleasant 82yo woman with h/o chronic diastolic CHF, HTN, gout, dementia, hypothyroidism just in hospital 6 weeks ago with furosemide change to aldactone and zaroxolyn. No cp or nausea, but 5 pound weight gain in the last week with sob and nonproductive cough. No orthopnea. Possible abd distention but no nausea. No fevers or chills. Lasix 40 mg IV once in ED and has started to urinate already. Hypoxic by clinic/PCP with 75 SpO2. Review of Systems All systems PM: 10-point ROS was reviewed, no additional remarkable complaints except PFSH Patient Stated Medical History Dementia Yes Peripheral Neuropathy Yes Cataracts Yes Dysphagia Yes Hearing Loss Yes Angina Yes Coronary Artery Disease Yes Hypertension Yes Other Cardiology Yes: mitral valve regurgitation Pneumonia Yes Pulmonary Edema Yes Sleep Apnea Yes Gastroesophageal Reflux Yes Disease Ulcer Yes: peptic ulcer disease Other GI Yes Hx Incontinence Yes Hx Renal Disease Yes: stage 3 chronic kidney disease Osteoarthritis Yes Other Musculoskeletal Yes: RA Other Yes: cardiac cath with stent Depression Yes Surgical History: General: appendix, gallbladder, other, tonsils. Cardiac: cardiac cath. Reproductive/: hysterectomy. Joint: hip Family History Updates: no early CAD - Social History Smoking status: Former smoker Medications Home Medications Medication Instructions Recorded Confirmed Type Amlodipine Besylate [Norvasc] 2.5 mg PO HS 03/10/17 08/05/17 History Cyproheptadine [Periactin] 8 mg PO TID 03/10/17 08/05/17 History Folic Acid [Folate] 1 mg PO DAILY 03/10/17 08/05/17 History Milnacipran [Savella] 50 mg PO BID 03/10/17 08/05/17 History Niacin 500 mg PO DAILY 03/10/17 08/05/17 History Rosuvastatin [Crestor] 5 mg PO HS 03/10/17 08/05/17 History raNITIdine HCl [Zantac] 150 mg PO DAILY 03/10/17 08/05/17 History Allopurinol [Zyloprim] 200 mg PO DAILY 06/16/17 08/05/17 History Calcium 500 + D [[place]-D 500] 3 tab PO TID 06/16/17 08/05/17 History Metolazone [Zaroxolyn] 5 mg PO DAILY 06/16/17 08/05/17 History Senna + Docusate [Senna Plus 1 tab PO BID PRN 06/16/17 08/05/17 History Tablet] Spironolactone [Aldactone] 50 mg PO DAILY 06/16/17 08/05/17 History clonazePAM [Clonazepam] 0.5 mg PO BID 06/16/17 08/05/17 History Amlodipine Besylate [Norvasc] 5 mg PO AM 08/05/17 08/05/17 History Cyanocobalamin (Vitamin B-12) 1 tab PO DAILY 08/05/17 08/05/17 History [Vitamin B-12] Donepezil [Aricept] 5 mg PO HS 08/05/17 08/05/17 History Potassium Chloride [K-Dur] 20 meq PO WB 08/05/17 08/05/17 History Allergies Allergy/AdvReac Type Severity Reaction Status Date / Time MICHELE Inhibitors Allergy Unknown Verified 08/05/17 18:41 amphetamine AdvReac Unknown TERRIBLE Verified 08/05/17 18:41 HEADACHES dextroamphetamine AdvReac Unknown TERRIBLE Verified 08/05/17 18:41 HEADACHES lisinopril AdvReac Unknown COUGHING Verified 08/05/17 18:41 methylphenidate AdvReac Unknown HEADACHES Verified 08/05/17 18:41 pitavastatin AdvReac Unknown MUSCLE Verified 08/05/17 18:41 WEAKNESS/SORENESS Exam Vital Signs: Temperature 98.0 F 08/05/17 20:12 Pulse Rate 74 08/05/17 21:17 Respiratory Rate 15 08/05/17 21:17 Blood Pressure 160/67 H 08/05/17 20:12 Pulse Oximetry 92 08/05/17 21:17 Telemetry Rhythm: Sinus Rhythm Height/Weight/BMI: Height 1.57 m Weight 78 kg Body Mass Index 31.4 - Constitutional Present: no acute distress Comments: comfortable after O2 per ED staff - Routine HEENT Exam Head: Present: normocephalic Eye: Present: EOMI - Routine Neck Exam Present: JVD - Routine Chest/Breast/Axilla Exam Chest wall: Absent: tenderness - Routine Respiratory Exam Present: dyspnea, rales, crackles - Routine Cardiovascular Exam Present: RRR, S1, S2 Comments: trace edema - Routine Abdominal Exam Present: soft, normoactive bowel sounds. Absent: tenderness - Routine Extremities Exam Absent: cyanosis, clubbing - Routine Back/Spine/Pelvis Exam Back/Spine: Present: full ROM - Routine Neurological Exam Present: alert, CN II-XII intact oriented X 2 - Routine Psychiatric Exam Comments: flat affect Results - Labs CBC & Chem 7: 08/06/17 04:02 08/06/17 04:02 Assessment and Plan (1) Congestive heart failure Problem details: echo 02/28/17 1. Left atrial size upper-normal range. 2. Normal LV size and systolic function, EF of 61%. 3. Borderline LVH. 4. Moderate mitral regurgitation. 5. Mssv-jy-vecoqypu aortic regurgitation. 6. Jxes-wo-qcioxvpg tricuspid regurgitation. 7. Mild pulmonary hypertension. 8. Normal central venous pressure. Current visit: No Status: Resolved (2) Pulmonary edema Current visit: No Status: Acute (3) CKD (chronic kidney disease) stage 4, GFR 15-29 ml/min Problem details: Creatinine 1.4 on 02/24/17, 1.2 prior to that Current visit: No Status: Chronic (4) Hypertension Current visit: No Status: Chronic (5) Hypothyroid Current visit: No Status: Chronic Assessment and Plan: 1. Acute on chronic diastolic heart failure--lasix IV q8 with KCl, tele, full admit, see below and prior admit with echo. 2. Essential HTN--same meds 3. Stage 3-4 CKD, repeat AM labs. 4. Mild dementia 5. Anemia, appears chronic but is microcytic. Recheck and heme test prn. 6. Hypothyroidism on supp 7. Gout on allopurinol. DVT Prophylaxis: SCD's Resuscitation Status: Full Code - Physician Narrative Physician: Philip Pan MD Narrative: Date: 08/06/17 Time: 1114 Viviane I have independently interviewed and examined pt. Chart reviewed. Reviewed above not and concur. CC: Cough, difficulty breathing HPI: 82 y/o female presents to [facility] ED secondary to cough and difficulty breathing. Reports cough started on 08/04-dry and nagging, no sputum, but noting chest congestion. [place] harder to breath. Temp elevation to 99 the next day. Decreased appetite; no nausea or vomiting. No change in stools. Having more muscle cramps to arms/legs. Feeling more tired and weak in general. Palpitations at night. No increased edema, but weight has increased about 5 pounds in last week. Patient adherent with low sodium diet. With increasing symptoms on the , presents to ED for evaluation. Very hypoxic. CXR showing pulmonary edema. Placed in inpatient admission for further evaluation and treatment. PMHx: Diastolic/valvular heart disease, HTN, HDL, Mild pulm HTN, SANJEEV-CPAP, RA/OA , FM, Stage 3 CKD, Hypothyroid, Mild dementia. Appy, Hyst, GB removal, Stent placement. ALL/MEDS: see mar - reviewed SHx: Lives independently in apt, but spends nights with her daughter. Hx smoking. [facility] PCP FHx: CVA, Ca, HTN, HDL ROS: as in HPI. Remainder of 10 point ROS discussed - positives: Dry mouth. Exam GEN: [id number] awake and alert, interacts appropriately. HEENT: NC/AT PERRLA EOMI MM dry Neck: Supple, no tracheal deviation CV: regular without murmur Lungs: decreased breath sounds bilaterally, scattered wheezes bilaterally, no distress on O2 AB: soft nt/nd +BS, no guarding EXT: strong radial pulses bilaterally, no pretibial edema, SCD in place. Neuro: CN II-XII intact, no focal deficits Psych: awake alert appropriate, thoughts linear, no agitation or restlessness MS: normal muscle mass and tone of upper and lower ext CXR: (reviewed by myself) Pulmonary edema Lab noted Assessment Acute hypoxic respiratory failure Pulmonary edema Acute on chronic diastolic heart failure CAD HTN Stage III CKD Hypothyroidism SANJEEV RA/OA Fibromyalgia Mild dementia Obesity with BMI 30.6 Plan Inpatient admission to [facility] for treatment of her acute hypoxic respiratory failure, anticipate greater than 2 midnights of care needed. Lasix 40mg IV initiated q 8 hours to help decrease pulmonary edema - need to monitor volume status and electrolytes/renal status. Supplemental O2 to maintain saturations, weaning as able. Continue home CPAP. SCD started for DVT prevention; will add Lovenox. Initial Troponin negative - will repeat to exclude ami Full code as per her requests Care to return to Dr Winslow at time of discharge from [facility]. Hospital Course Summary Disclaimer: The visit summary below is not to be considered part of the above Progress Note.
[2017-08-05] MEDS: ROSUVASTATIN 5 MG TABLET PO SCH (22:44)
[2017-08-05] MEDS: CYPROHEPTADINE 4 MG TABLET PO SCH (22:44)
[2017-08-05] MEDS: GABAPENTIN 300 MG CAPSULE PO SCH (22:44)
[2017-08-05] MEDS: SUCRALFATE 1 GM TABLET PO SCH (22:44)
[2017-08-06] MEDS: FUROSEMIDE 40 MG/4 ML INJECTION IVP SCH ×3 (00:41→17:12)
[2017-08-06] MEDS: SALINE FLUSH 10ml SYRINGE IVF PRN ×2 (00:41→20:31)
[2017-08-06] MEDS: SUCRALFATE 1 GM TABLET PO SCH ×4 (06:46→20:26)
[2017-08-06] MEDS: LEVOTHYROXINE 150 MCG TABLET PO SCH (06:47)
[2017-08-06] MEDS: AMLODIPINE 5 MG TABLET PO SCH (08:30)
[2017-08-06] MEDS: ALLOPURINOL 100 MG TABLET PO SCH (08:30)
[2017-08-06] MEDS: CYPROHEPTADINE 4 MG TABLET PO SCH ×4 (08:30→20:26)
[2017-08-06] MEDS: CARVEDILOL 3.125 MG TABLET PO SCH ×2 (08:30→17:12)
[2017-08-06] MEDS: SPIRONOLACTONE 50 MG TABLET PO SCH (11:15)
--- NOTE | 2017-08-06 13:14 | XRay Report ---
INDICATION: cough, dyspnea, hypoxemia PROCEDURE: CHEST 2-VIEWS UPRIGHT (PA & LAT) Encounter: Initial COMPARISON: March 17, 2017 FINDINGS: Bilateral medial basilar consolidation with small pleural effusions. Hazy airspace opacity in the medial right upper lobe as well. No pneumothorax. Heart size and mediastinal contours are stable. Pulmonary vascularity is indistinct. Impression: Moderate pulmonary edema with probable superimposed pneumonia or aspiration in the lung bases. .
[2017-08-06] MEDS: SENNOSIDES 8.6 MG TABLET PO SCH (20:25)
[2017-08-06] MEDS: DONEPEZIL 5 MG TABLET PO SCH (20:26)
[2017-08-06] MEDS: ROSUVASTATIN 5 MG TABLET PO SCH (20:26)
[2017-08-06] MEDS: AMLODIPINE 2.5 MG TABLET PO SCH (20:26)
[2017-08-06] MEDS: GABAPENTIN 300 MG CAPSULE PO SCH (20:27)
[2017-08-07] MEDS: ACETAMINOPHEN 325 MG TABLET PO PRN (00:50)
[2017-08-07] MEDS: SUCRALFATE 1 GM TABLET PO SCH ×4 (06:09→21:21)
[2017-08-07] MEDS: LEVOTHYROXINE 150 MCG TABLET PO SCH (06:09)
[2017-08-07] MEDS: CYPROHEPTADINE 4 MG TABLET PO SCH ×4 (08:58→21:21)
[2017-08-07] MEDS: ALLOPURINOL 100 MG TABLET PO SCH (08:58)
[2017-08-07] MEDS: CARVEDILOL 3.125 MG TABLET PO SCH ×2 (08:58→17:33)
[2017-08-07] MEDS: SALINE FLUSH 10ml SYRINGE IVF PRN (08:58)
[2017-08-07] MEDS: SPIRONOLACTONE 50 MG TABLET PO SCH (08:59)
[2017-08-07] MEDS: AMLODIPINE 5 MG TABLET PO SCH (08:59)
[2017-08-07] MEDS ORDERED: FUROSEMIDE 20 MG/2 ML INJECTION IVP SCH (09:00)
--- NOTE | 2017-08-07 13:52 | Progress Note ---
- Date 08/07/17 Subjective: Patient is seen today sitting up in her room. She states she is having no SOA. No CP. She is currently on 5L O2. No longer coughing. Has not had a BM since admission. Appetite is good. No current complaints. Objective Vital signs: Temperature 97.1 F 08/07/17 07:59 Pulse Rate 74 08/07/17 10:22 Respiratory Rate 20 08/07/17 07:59 Blood Pressure 135/66 08/07/17 10:22 Pulse Oximetry 98 08/07/17 10:22 Height/Weight/BMI: Height 1.57 m Weight 75.9 kg Body Mass Index 31.4 - Constitutional Present: no acute distress, well nourished, well developed - Routine Respiratory Exam Present: CTA bilaterally. Absent: wheezes - Routine Cardiovascular Exam Present: RRR. Absent: murmur - Routine Abdominal Exam Present: soft, normoactive bowel sounds, non distended. Absent: tenderness - Routine Extremities Exam Present: no edema, normal capillary refill - Routine Skin Exam Present: dry, warm - Routine Neurological Exam Present: alert, oriented X3 - Routine Lymphatic Exam Lymphatic: Absent: adenopathy - Routine Psychiatric Exam Present: normal affect, cooperative Results - Labs CBC & Chem 7: 08/07/17 04:01 08/07/17 04:01 Assessment and Plan (1) Pulmonary edema Current visit: No Status: Acute (2) Congestive heart failure Problem details: echo 02/28/17 1. Left atrial size upper-normal range. 2. Normal LV size and systolic function, EF of 61%. 3. Borderline LVH. 4. Moderate mitral regurgitation. 5. Ctxj-gn-zpnonukw aortic regurgitation. 6. Zfbi-ob-eahdurbj tricuspid regurgitation. 7. Mild pulmonary hypertension. 8. Normal central venous pressure. Current visit: No Status: Resolved (3) CKD (chronic kidney disease) stage 4, GFR 15-29 ml/min Problem details: Creatinine 1.4 on 02/24/17, 1.2 prior to that Current visit: No Status: Chronic (4) Hypertension Current visit: No Status: Chronic (5) Hypothyroid Current visit: No Status: Chronic Assessment and Plan: Assessment Acute hypoxic respiratory failure Pulmonary edema -improving Acute on chronic diastolic heart failure CAD HTN Stage III CKD Hypothyroidism SANJEEV RA/OA Fibromyalgia Mild dementia Obesity with BMI 30.6 Plan Weight down 2 kg since admission, creatinine 1.9, up from 1.4 on admission. ( Baseline Cr approximately 1.4) Lasix has been decreased to 20mg IV BID. Repeat BMP in am to follow renal function and electrolytes. Her home Zaroxolyn is on hold. Supplemental O2 to maintain saturations, weaning as able. Continue home CPAP. Will give Dulcolax now (pt prefers this to MOM or supp) for constipation and add scheduled Miralax for bowel motivation. DVT Prophylaxis: SCD's Resuscitation Status: Full Code - Time spent with patient Time with patient PN: 25 minutes - Physician Narrative Physician: Philip Pan MD Narrative: Date: 08/07/17 Time: 1348 Have independently interviewed and examined pt. Chart reviewed. Case discussed with my PA. Care plan developed with my supervision; agree with above. Feeling better-breathing easier. Less SOA, cough and congestion. Does note discomfort to anterior chest - point tender in this area. Eating well, no nausea. No bowel movement. Urinating well. Lungs: Decreased, no distress CV: regular MSE: awake alert appropriate Plan: Decrease Lasix to 20mg IV BID. Potassium improved-need to watch for elevation of potassium with decreased Lasix and her underlying CKD. Wean O2. Encourage deep breathing. PT/OT eval tomorrow. Monitor lab. Clinically improving. Hospital Course Summary Disclaimer: The visit summary below is not to be considered part of the above Progress Note. Hospital Course: 08/07/17 Weight down 2 kg since admission, creatinine 1.9, up from 1.4 on admission. ( Baseline Cr approximately 1.4) Lasix has been decreased to 20mg IV BID. Repeat BMP in am to follow renal function and electrolytes. Supplemental O2 to maintain saturations, weaning as able. Continue home CPAP.
[2017-08-07] MEDS ORDERED: Bisacodyl EC TAB 5 MG TABLET PO ONE (14:11)
[2017-08-07] MEDS: FUROSEMIDE 20 MG/2 ML INJECTION IVP SCH (17:33)
[2017-08-07] MEDS: SENNOSIDES 8.6 MG TABLET PO SCH (21:20)
[2017-08-07] MEDS: ROSUVASTATIN 5 MG TABLET PO SCH (21:20)
[2017-08-07] MEDS: DONEPEZIL 5 MG TABLET PO SCH (21:20)
[2017-08-07] MEDS: GABAPENTIN 300 MG CAPSULE PO SCH (21:21)
[2017-08-07] MEDS: AMLODIPINE 2.5 MG TABLET PO SCH (21:29)
[2017-08-08] MEDS: ACETAMINOPHEN 325 MG TABLET PO PRN (00:11)
[2017-08-08] MEDS: HYDROCODONE/APAP 5mg/325mg TABLET PO PRN ×2 (02:53→07:02)
[2017-08-08] MEDS: LEVOTHYROXINE 150 MCG TABLET PO SCH (07:02)
[2017-08-08] MEDS: SUCRALFATE 1 GM TABLET PO SCH ×2 (07:02→11:16)
[2017-08-08 07:47] VITALS: RESP 14
[2017-08-08] MEDS: FUROSEMIDE 20 MG/2 ML INJECTION IVP SCH (08:22)
[2017-08-08] MEDS: SPIRONOLACTONE 50 MG TABLET PO SCH (08:23)
[2017-08-08] MEDS: AMLODIPINE 5 MG TABLET PO SCH (08:23)
[2017-08-08] MEDS: CARVEDILOL 3.125 MG TABLET PO SCH (08:23)
[2017-08-08] MEDS: CYPROHEPTADINE 4 MG TABLET PO SCH ×2 (08:23→12:42)
[2017-08-08] MEDS: ALLOPURINOL 100 MG TABLET PO SCH (08:24)
[2017-08-08] MEDS ORDERED: POLYETHYL GLYCOL 3350 17gm PACKET PO SCH (09:00)
--- NOTE | 2017-08-08 11:20 | Progress Note ---
- Date 08/08/17 Subjective: F/U: Acute hypoxic respiratory failure, Pulmonary edema, Acute on chronic diastolic heart failure Notes pain this morning-very severe. Started with cramping pain to feet and moved up her body. Tele-hospitalist called in [place], which helped. Does feel stiff in general. Working on being up more and moving. Breathing feeling well- breathing well on RA. Not having cough, congestion, or SOA. Did note palpitations overnight. Bowels slow-had slight stool output yesterday. No nausea. Eating okay. Urinating well. Objective Vital signs: Temperature 96.6 F L 08/08/17 07:46 Pulse Rate 75 08/08/17 07:46 Respiratory Rate 14 08/08/17 07:46 Blood Pressure 158/68 H 08/08/17 07:46 Pulse Oximetry 97 08/08/17 07:46 Height/Weight/BMI: Height 1.57 m Weight 73.9 kg Body Mass Index 31.4 - Constitutional Present: well nourished, well developed, average body habitus, cooperative - Routine HEENT Exam Head: Present: normocephalic, atraumatic Eye: Present: EOMI, PERRL ENT: Present: mucous membranes moist, dentition normal - Routine Respiratory Exam Present: CTA bilaterally. Absent: rales, respiratory distress, rhonchi, wheezes , crackles - Routine Cardiovascular Exam Present: RRR, no murmur - Routine Abdominal Exam Present: soft, normoactive bowel sounds, non distended, non tender, guarding - Routine Extremities Exam Present: no edema. Absent: cyanosis, clubbing Comments: SCD in place - Routine Musculoskeletal Exam Musculoskeletal: Present: no clubbing or cyanosis, normal strength - Routine Skin Exam Present: intact, dry, warm - Routine Neurological Exam Present: alert, oriented X3, CN II-XII intact, moving all extremities, vision grossly intact, hearing grossly intact, normal speech. Absent: motor deficit, altered mental status - Routine Psychiatric Exam Present: normal affect, normal thought process, cooperative Results - Labs CBC & Chem 7: 08/08/17 03:54 08/08/17 03:54 Assessment and Plan (1) Pulmonary edema Current visit: No Status: Acute (2) Congestive heart failure Problem details: echo 02/28/17 1. Left atrial size upper-normal range. 2. Normal LV size and systolic function, EF of 61%. 3. Borderline LVH. 4. Moderate mitral regurgitation. 5. Npdp-iq-nbvtveps aortic regurgitation. 6. Fbbr-bg-brgwyzyi tricuspid regurgitation. 7. Mild pulmonary hypertension. 8. Normal central venous pressure. Current visit: No Status: Resolved (3) CKD (chronic kidney disease) stage 4, GFR 15-29 ml/min Problem details: Creatinine 1.4 on 02/24/17, 1.2 prior to that Current visit: No Status: Chronic (4) Hypertension Current visit: No Status: Chronic (5) Hypothyroid Current visit: No Status: Chronic Assessment and Plan: Assessment Acute hypoxic respiratory failure Pulmonary edema - improving Acute on chronic diastolic heart failure CAD HTN Stage III CKD Hypothyroidism SANJEEV RA/OA Fibromyalgia Mild dementia Constipation Obesity with BMI 30.6 Plan Clinically improving. Breathing well on RA. Weight down 2kg from yesterday. Repeat CXR showing resolution of edema by my read - overread pending. Creatinine with increase to 2.0 - secondary to diuresis. Potassium low at 3.4 with magnesium normal at 2.1. Give addition potassium X1 today. Will have PT assess functional status. Encourage stretching as [place] to help pain. May use [place] for severe discomfort. Possible discharge later today if doing well. DVT Prophylaxis: SCD's Resuscitation Status: Full Code - Physician Narrative Physician: Philip Pan MD Narrative: Date: 08/08/17 Time: 1117 Hospital Course Summary Disclaimer: The visit summary below is not to be considered part of the above Progress Note. Hospital Course: 08/07/17 Weight down 2 kg since admission, creatinine 1.9, up from 1.4 on admission. ( Baseline Cr approximately 1.4) Lasix has been decreased to 20mg IV BID. Repeat BMP in am to follow renal function and electrolytes. Supplemental O2 to maintain saturations, weaning as able. Continue home CPAP. 08/08/17 Clinically improving. Breathing well on RA. Weight down 2kg from yesterday. Repeat CXR showing resolution of edema by my read - overread pending. Creatinine with increase to 2.0 - secondary to diuresis. Potassium low at 3.4 with magnesium normal at 2.1. Give addition potassium X1 today. Will have PT assess functional status. Encourage stretching as [place] to help pain. May use [place] for severe discomfort. Possible discharge later today if doing well.
--- NOTE | 2017-08-08 13:42 | XRay Report ---
LOCATION OF DICTATION: [facility] EXAM: XR chest 2V HISTORY: F/U COMPARISON: August 05, 2017 FINDINGS: The heart size is normal. The mediastinal configuration is unremarkable. There are no consolidating opacities or pleural effusions. There is no evidence for a pneumothorax. The osseous structures are within normal limits. IMPRESSION: No acute cardiopulmonary abnormality is identified. .
[2017-08-08 15:22] VITALS: BP 147/66; PULSE 66; TEMP 95.8; O2SAT 94
--- NOTE | 2017-08-08 16:01 | Discharge Summary ---
Discharge Information Date of admission: 08/05/17 19:22 Anticipated date of discharge: 08/08/17 Attending Physician: Philip Pan MD Primary care physician: Nicki Winslow MD Consults: PT/OT - Discharge Diagnosis (1) Pulmonary edema Status: Acute (2) Congestive heart failure Status: Resolved (3) CKD (chronic kidney disease) stage 4, GFR 15-29 ml/min Status: Chronic (4) Hypertension Status: Chronic (5) Hypothyroid Status: Chronic Discharge diagnosis Acute hypoxic respiratory failure Pulmonary edema - improving Acute on chronic diastolic heart failure Associated conditions and complications CAD HTN Stage III CKD Hypothyroidism SANJEEV RA/OA Fibromyalgia Mild dementia Constipation Obesity with BMI 30.6 - Laboratory Labs: Admit Lab 08/05/17 18:28 WBC 7.7 Hgb 10.3 L Hct 33.1 L MCV 78.4 L Plt Count 214 Neut % (Auto) 70.8 H Lymph % (Auto) 21.2 L Weber % (Auto) 6.6 Admit Lab 08/05/17 18:28 Sodium 139 Potassium 3.9 Chloride 100 Carbon Dioxide 24 Anion Gap 15 BUN 29.0 H Creatinine 1.4 H GFR Calculation 36 BUN/Creatinine Ratio 21 Glucose 105 Calculated Osmolality 274 Total Bilirubin 1.30 AST 35 ALT 35 Alkaline Phosphatase 101 Troponin I 0.022 B-Natriuretic Peptide 3540 H Total Protein 8.0 Albumin 4.8 Globulin 3.2 Albumin/Globulin Ratio 1.5 08/08/17 03:54 08/08/17 03:54 - Radiology Radiology: Date of Exam: 08/05/17 PROCEDURE: CHEST 2-VIEWS UPRIGHT (PA & LAT) FINDINGS: Bilateral medial basilar consolidation with small pleural effusions. Hazy airspace opacity in the medial right upper lobe as well. No pneumothorax. Heart size and mediastinal contours are stable. Pulmonary vascularity is indistinct. Impression: Moderate pulmonary edema with probable superimposed pneumonia or aspiration in the lung bases. Date of Exam: 08/08/17 EXAM: XR chest 2V FINDINGS: The heart size is normal. The mediastinal configuration is unremarkable. There are no consolidating opacities or pleural effusions. There is no evidence for a pneumothorax. The osseous structures are within normal limits. IMPRESSION: No acute cardiopulmonary abnormality is identified. History of Present Illness HPI: Please note that the patient was seen via telemedicine with nursing assistance on 08/05/2017 is a pleasant 82yo woman with h/o chronic diastolic CHF, HTN, gout, dementia, hypothyroidism just in hospital 6 weeks ago with furosemide change to aldactone and zaroxolyn. No cp or nausea, but 5 pound weight gain in the last week with sob and nonproductive cough. No orthopnea. Possible abd distention but no nausea. No fevers or chills. Lasix 40 mg IV once in ED and has started to urinate already. Hypoxic by clinic/PCP with 75 SpO2. For complete details of the H&P refer to that document. Objective Vital signs: Temperature 95.8 F L 08/08/17 15:21 Pulse Rate 66 08/08/17 15:21 Respiratory Rate 14 08/08/17 15:21 Blood Pressure 147/66 H 08/08/17 15:21 Pulse Oximetry 94 08/08/17 15:21 Height/Weight/BMI: Height 1.57 m Weight 73.9 kg Body Mass Index 31.4 Hospital Course This is a general summary of the patient's hospital course. For more details refer to the complete medical record. Hospital course: 08/07/17 Weight down 2 kg since admission, creatinine 1.9, up from 1.4 on admission. ( Baseline Cr approximately 1.4) Lasix has been decreased to 20mg IV BID. Repeat BMP in am to follow renal function and electrolytes. Supplemental O2 to maintain saturations, weaning as able. Continue home CPAP. 08/08/17 Clinically improving. Breathing well on RA. Weight down 2kg from yesterday. Repeat CXR showing resolution of edema by my read - overread pending. Creatinine with increase to 2.0 - secondary to diuresis. Potassium low at 3.4 with magnesium normal at 2.1. Give addition potassium X1 today. Will have PT assess functional status. Encourage stretching as Aspercreme to help pain. May use Withams for severe discomfort. Possible discharge later today if doing well. Time spent with patient: discharge greater than 30 minutes DVT Prophylaxis: SCD's Discharge Plan - Discharge Disposition Discharge Date: 08/08/17 Disposition: 01 Discharged Home, Self-Care *Condition: Improved Reason For Visit (Visit label in EMR): acute diastolic CHF - Discharge Medications *Discharge Medications: New Furosemide [Lasix] 20 mg PO DAILY PRN #30 tab PRN Reason: Edema/weight gain/dysnea Hydrocodone/APAP 5/325 [Withams 5/325] 1 tab PO Q4H PRN #30 tab PRN Reason: Pain Potassium Chloride [K-Dur] 20 meq PO DAILY PRN #30 tab PRN Reason: Lasix(furosemide) Use Continue Niacin 500 mg PO DAILY Folic Acid [Folate] 1 mg PO DAILY raNITIdine HCl [Zantac] 150 mg PO DAILY Milnacipran [Savella] 50 mg PO BID Amlodipine Besylate [Norvasc] 2.5 mg PO HS Rosuvastatin [Crestor] 5 mg PO HS Levothyroxine Sodium [Synthroid] 150 mcg PO ACB tab Sucralfate [Carafate] 1 gm PO QID #20 tab Senna + Docusate [Senna Plus Tablet] 1 tab PO BID PRN PRN Reason: Constipation clonazePAM [Clonazepam] 0.5 mg PO BID Spironolactone [Aldactone] 50 mg PO DAILY Metolazone [Zaroxolyn] 5 mg PO DAILY Potassium Chloride [K-Dur] 20 meq PO WB Amlodipine Besylate [Norvasc] 5 mg PO AM Cyanocobalamin (Vitamin B-12) [Vitamin B-12] 1 tab PO DAILY Cyproheptadine [Periactin] 8 mg PO TID Gabapentin [Neurontin] 300 mg PO HS cap Carvedilol 3.125 mg PO BID #30 tab Calcium 500 + D [Os Wilder-D 500] 3 tab PO TID Allopurinol [Zyloprim] 200 mg PO DAILY Donepezil [Aricept] 5 mg PO HS - Discharge Packet/Instructions *Diet: Low sodium *Activity: As tolerated *Pain Management/Treatment: Tylenol or Withams for pain *Wound Care: n/a Additional Instructions: Check your weight every day. If your weight increases by 3 pounds over 3 days and your breathing is getting more short, you could take Lasix (furosemide) 20mg to help decrease the fluid. Take an extra potassium 20mEq if taking Lasix. *Expected Signs/Symptoms: Improvement of breathing. *Notify Physician if: Temp >100.4. Increasing difficulty breathing or weight gain/edema. *During Business Hours Contact: Dr Winslow *After Business Hours Contact: [place] [facility] [place] or her covering provider notified. *Pending Lab/Results: No Pending Lab - Referrals/Follow Up *Referrals/Follow Up: Nicki Winslow MD [Family Provider] - 1 Week (Hospital follow up for acute respiratory insufficiency secondary to pulmonary edema. Recommend rechecking BMP at that time. ) - Patient Handouts Patient [place]outs: [facility] [place] Congestive Heart Failure - Dismissal Complete Discharge Instructions are:: Complete Physician Narrative - Narrative Physician: Philip Pan MD Attestation Narrative: Date: 08/08/17 Time: 0401 I have independently interviewed and examined patient prior to discharge. See my progress note from today for details. Medically stable for discharge to home.
== END 2017-08-08 17:07 | disposition home or self-care (01) | DRG 291 ==
LOC: ED 18:10 → MED 19:22 → SUATTDRO 19:22 → MED 19:55
PROVIDERS: ADMIT Hospitalist; ATTEND Hospitalist